=== PATIENT | female | born 1945 | race Caucasian/White ===

== ENCOUNTER 2017-06-15 11:12 | Inpatient (IN) | payer MEDICARE, BC ==
[2017-06-15] MEDS ORDERED: Ondansetron 4 MG/2 ML SDV IVPUSH ONE (11:39)
[2017-06-15] MEDS ORDERED: Sodium Chloride 0.9% 10 ML Syringe FLUSH PRN (11:39)
[2017-06-15] MEDS ORDERED: Sodium Chloride 0.9% 1,000 ML IV SCH (11:45)
--- NOTE | 2017-06-15 12:40 | CT ---
Head CT Technique: Multiple axial sections through the brain were obtained. Intravenous contrast not utilized. Comparison: Prior head CT study of 01/09/16. Findings: Soft tissue swelling and hematoma is seen posteriorly within the scalp. Ventricles along with basal cisterns and sulci over convexities are mildly prominent. 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 No evidence of intracranial hemorrhage is seen. No midline shift or mass effect is seen. Mild atherosclerotic change is seen within the carotid siphon. No acute skull abnormality is seen. Mild mucosal thickening is seen within the ethmoid sinuses which is felt to be chronic. Impression: 1. Soft tissue swelling and hematoma within the posterior scalp. 2. Senescent change which is stable from prior head CT exam. 3. No acute intracranial abnormality is seen. No acute skull abnormality is seen. Diagnostic code #3
[2017-06-15] MEDS ORDERED: HYDROmorphone 0.5 MG/0.5 ML SYRINGE IVPUSH ONE (12:42)
[2017-06-15] MEDS ORDERED: Acetaminophen 325 MG Tab PO ONE (12:42)
--- NOTE | 2017-06-15 14:04 | EDM.PDOC ---
ED HPI GENERAL MEDICAL PROBLEM - General Chief Complaint: Neurological Problem Stated Complaint: [facility] Time Seen by Provider: 06/15/17 11:23 Source of Information: Reports: Patient, RN Notes Reviewed - History of Present Illness INITIAL COMMENTS - FREE TEXT/NARRATIVE: 71-year-old female has been brought in by [facility] after near syncopal event short time ago. She states she was at work, became dizzy, lightheaded and and then nearly passed out or may have passed out briefly. She apparently was transported here by ambulance without further incident. Now here at the ED lying flat she feels much better. Been ill the past 4-5 days with nausea, "dry heaves", diarrhea him a poor appetite. She states she has been drinking water but has not been eating. No chest pain or difficulty breathing. Her mouth does feel very dry. It sounds like she did hit her head, minimal headache at this time. No chest pain or difficulty breathing at this time. She does not recall having chest discomfort at the time of her syncope. She does have history of what sounds like some heart issues. She does have a pacemaker. Left Occipital Head Pain Score (Numeric/FACES): 5 - Related Data Allergies Allergy/AdvReac Type Severity Reaction Status Date / Time cranberry Allergy Unknown UNKNOWN Verified 06/15/17 11:20 Home Meds: Home Meds Ascorbate Calcium [Vitamin C] 500 mg PO DAILY 01/09/16 [History] Carvedilol 25 mg PO BID 01/09/16 [History] Digoxin 125 mcg PO DAILY 01/09/16 [History] Diltiazem HCl [Diltiazem ER] 120 mg PO DAILY 01/09/16 [History] Levothyroxine [Synthroid] 50 mcg PO ACBREAKFAST 01/09/16 [History] Lisinopril 20 mg PO BID 01/09/16 [History] Rivaroxaban [Xarelto] 20 mg PO DAILY 01/09/16 [History] Simvastatin [Zocor] 40 mg PO DAILY 01/09/16 [History] metFORMIN HCl [Metformin HCl ER] 400 mg PO BID 01/09/16 [History] Social & Family History - Tobacco Use Smoking Status *Q: Former Smoker Used Tobacco, but Quit: Yes Month Tobacco Last Used: 30 years ago Second Hand Smoke Exposure: No - Caffeine Use Caffeine Use: Reports: Coffee - Recreational Drug Use Recreational Drug Use: No ED ROS GENERAL - Review of Systems Review Of Systems: See Below Constitutional: Denies: Fever, Chills HEENT: Denies: Sinus Problem, Throat Pain Respiratory: Denies: Shortness of Breath Cardiovascular: Denies: Chest Pain Endocrine: Reports: Fatigue GI/Abdominal: Reports: Abdominal Pain (Mild intermittent generalized discomfort) , Diarrhea (Dry heaves for 2 or 3 days mainly frequent loose stools), Nausea, Vomiting Musculoskeletal: Reports: Back Pain (Right upper back). Denies: Neck Pain Skin: Reports: No Symptoms Neurological: Reports: Dizziness, Headache, Weakness (Mild generalized). Denies : Numbness (Mild), Tingling, Trouble Speaking ED EXAM, NEURO - Physical Exam Exam: See Below General Appearance: Alert, No Apparent Distress Eye Exam: Bilateral Eye: PERRL Throat/Mouth: Normal Inspection (Oral mucosa is moist) Neck: Supple Respiratory/Chest: No Respiratory Distress, Lungs Clear, Normal Breath Sounds Cardiovascular: Regular Rate, Rhythm GI/Abdominal: Soft, Non-Tender. No: Guarding Neurological: Alert, No Motor/Sensory Deficits Back Exam: Paraspinal Tenderness (Right mid back lower area of scapula) Extremities: Normal Inspection, Normal Range of Motion. No: Pedal Edema, Leg Pain Skin Exam: Warm, Dry, Normal Color EKG INTERPRETATION EKG Date: 06/15/17 Rhythm: Other (Paced rhythm) Rate (Beats/Min): 77 Course - Vital Signs Last Recorded V/S: Last Vital Signs Temp 97.7 F 06/15/17 11:18 Pulse 75 06/15/17 11:18 Resp 18 06/15/17 11:18 BP 146/103 H 06/15/17 11:18 Pulse Ox 95 06/15/17 11:18 - Orders/Labs/Meds Orders: Active Orders 24 hr Category Date Time Status EKG 12 Lead [EKG Documentation Completion] [RC] STAT Care 06/15/17 11:39 Active Peripheral IV Care [RC] . DIRECTED Care 06/15/17 11:42 Active Sodium Chloride 0.9% [Normal Saline] 1,000 ml Med 06/15/17 11:45 Active IV ONETIME Sodium Chloride 0.9% [Saline Flush] Med 06/15/17 11:39 Active 10 ml FLUSH ASDIRECTED PRN Peripheral IV Insertion Adult [OM.PC] Stat Oth 06/15/17 11:39 Ordered Medication Orders Sodium Chloride (Normal Saline) 1,000 mls @ 999 mls/hr IV ONETIME ОЛЬГА Last Admin: 06/15/17 11:59 Dose: 999 mls/hr Sodium Chloride (Saline Flush) 10 ml FLUSH ASDIRECTED PRN PRN Reason: Keep Vein Open Last Admin: 06/15/17 11:59 Dose: 10 ml Labs: Laboratory Tests 06/15/17 06/15/17 Range/Units 12:00 12:00 WBC 6.16 (3.98-10.04) K/mm3 RBC 4.69 (3.98-5.22) M/mm3 Hgb 13.7 (11.2-15.7) gm/L Hct 38.3 (34.1-44.9) % MCV 81.7 (79.4-94.8) fl MCH 29.2 (25.6-32.2) pg MCHC 35.8 H (32.2-35.5) g/dl RDW Std Deviation 39.8 (36.4-46.3) fL Plt Count 283 (182-369) K/mm3 MPV 9.0 L (9.4-12.3) fl Neut % (Auto) 80.6 H (34.0-71.1) % Lymph % (Auto) 10.4 L (19.3-51.7) % Frontier % (Auto) 8.4 (4.7-12.5) % Eos % (Auto) 0.3 L (0.7-5.8) Baso % (Auto) 0.3 (0.1-1.2) % Neut # (Auto) 4.96 (1.56-6.13) K/mm3 Lymph # (Auto) 0.64 L (1.18-3.74) K/mm3 Frontier # (Auto) 0.52 H (0.24-0.36) K/mm3 Eos # (Auto) 0.02 L (0.04-0.36) K/mm3 Baso # (Auto) 0.02 (0.01-0.08) K/mm3 Sodium 120 L (136-145) mEq/L Potassium 3.7 (3.5-5.1) mEq/L Chloride 87 L (98-107) mEq/L Carbon Dioxide 22 (21-32) mEq/L Anion Gap 14.7 (5-15) BUN 15 (7-18) mg/dL Creatinine 0.9 (0.55-1.02) mg/dL Est Cr Clr Drug Dosing 46.00 mL/min Estimated GFR (MDRD) > 60 (>60) mL/min BUN/Creatinine Ratio 16.7 (14-18) Glucose 152 H (80-115) mg/dL Calcium 8.1 L (8.5-10.1) mg/dL Total Bilirubin 0.4 (0.2-1.0) mg/dL AST 44 H (15-37) U/L ALT 27 (14-59) U/L Alkaline Phosphatase 86 (46-116) U/L Troponin I 0.056 (0.00-0.056) ng/mL Total Protein 6.9 (6.4-8.2) g/dl Albumin 3.3 L (3.4-5.0) g/dl Globulin 3.6 gm/dL Albumin/Globulin Ratio 0.9 L (1-2) Meds: Medications Generic Name Dose Route Start Last Admin Trade Name Freq PRN Reason Stop Dose Admin Sodium Chloride 1,000 mls @ 999 mls/hr 06/15/17 11:45 06/15/17 11:59 Normal Saline IV 999 mls/hr ONETIME ОЛЬГА Administration Sodium Chloride 10 ml 06/15/17 11:39 06/15/17 11:59 Saline Flush FLUSH 10 ml ASDIRECTED PRN Administration Keep Vein Open Discontinued Medications Generic Name Dose Route Start Last Admin Trade Name Freq PRN Reason Stop Dose Admin Acetaminophen 975 mg 06/15/17 12:42 06/15/17 12:51 Tylenol PO 06/15/17 12:43 975 mg NOW ONE Administration Hydromorphone HCl 0.25 mg 06/15/17 12:42 06/15/17 12:53 Dilaudid IVPUSH 06/15/17 12:43 0.25 mg ONETIME ONE Administration Ondansetron HCl 4 mg 06/15/17 11:39 06/15/17 11:59 Zofran IVPUSH 06/15/17 11:40 4 mg ONETIME ONE Administration - Re-Assessments/Exams Free Text/Narrative Re-Assessment/Exam: 06/15/17 15:01 Labs are as documented. They do show that she is somewhat dehydrated. Sodium very low at 120. Given 1 L of normal saline IV over the past hour. Her mouth is still dry. She still does not feel any urgency to void. With all of that in mind we will admit her to the hospital for further hydration, further saline to better help stabilize her sodium and medical condition prior to discharge. Departure - Departure Time of Disposition: 14:40 Disposition: Admitted As Inpatient 67 Condition: Fair Clinical Impression: Dehydration, Hyponatremia Syncope Qualifiers: Syncope type: unspecified Qualified Code(s): R55 - Syncope and collapse Fall Qualifiers: Encounter type: initial encounter Qualified Code(s): W19.XXXA - Unspecified fall, initial encounter - Discharge Information ED Communication - Discussed Case With (1) Discussed Case With (1): Admitting Provider (Dr Schulz, decision to admit at about 14:40) - My Orders Last 24 Hours: My Active Orders 06/15/17 11:39 EKG 12 Lead [EKG Documentation Completion] [RC] STAT Sodium Chloride 0.9% [Saline Flush] 10 ml FLUSH ASDIRECTED PRN Peripheral IV Insertion Adult [OM.PC] Stat 06/15/17 11:42 Peripheral IV Care [RC] . DIRECTED 06/15/17 11:45 Sodium Chloride 0.9% [Normal Saline] 1,000 ml IV ONETIME - Assessment/Plan Last 24 Hours: My Active Orders 06/15/17 11:39 EKG 12 Lead [EKG Documentation Completion] [RC] STAT Sodium Chloride 0.9% [Saline Flush] 10 ml FLUSH ASDIRECTED PRN Peripheral IV Insertion Adult [OM.PC] Stat 06/15/17 11:42 Peripheral IV Care [RC] . DIRECTED 06/15/17 11:45 Sodium Chloride 0.9% [Normal Saline] 1,000 ml IV ONETIME
--- NOTE | 2017-06-15 15:46 | CR ---
Chest: Portable view of the chest was obtained. Comparison: Prior chest x-ray of 03/15/12. Heart is enlarged. Tortuous thoracic aorta is seen. AICD is noted. Lungs are clear with no acute infiltrates. Bony structures are grossly intact. Impression: 1. Cardiomegaly with AICD. 2. Nothing acute is appreciated on portable chest x-ray. Diagnostic code #2
[2017-06-15] MEDS ORDERED: Polyethylene Glycol 3350 Powder 17 GM Packet PO PRN (18:47)
[2017-06-15] MEDS ORDERED: Acetaminophen 325 MG Tab PO PRN (18:47)
[2017-06-15] MEDS ORDERED: Ondansetron 4 MG/2 ML SDV IV PRN (18:47)
[2017-06-15] MEDS ORDERED: Morphine 2 MG/ML Syringe IVPUSH PRN (18:47)
[2017-06-15] MEDS ORDERED: Bisacodyl 5 MG Tab PO PRN (18:47)
[2017-06-15] MEDS ORDERED: Ondansetron 4 MG Tab.DIS PO PRN (18:47)
[2017-06-15] MEDS ORDERED: Albuterol/Ipratropium 3.0-0.5 MG/3 ML Neb Soln NEB PRN (18:47)
[2017-06-15] MEDS ORDERED: Docusate Sodium 100 MG Cap PO PRN (18:47)
[2017-06-15] MEDS ORDERED: Metoprolol Tartrate 5 MG/5 ML SDV IVPUSH PRN (19:01)
[2017-06-15] MEDS ORDERED: LORazepam 2 MG/ML MDV IVPUSH PRN (19:01)
[2017-06-15] MEDS ORDERED: hydrALAZINE 20 MG/ML SDV IVPUSH PRN (19:01)
--- NOTE | 2017-06-15 19:05 | PCM.HP ---
H&P History of Present Illness - General Date of Service: 06/15/17 Admit Problem/Dx: Admission Diagnosis/Problem Admission Diagnosis/Problem Hyponatremia Source of Information: Patient, Family, Provider, RN, RN Notes Reviewed History Limitations: Reports: No Limitations - History of Present Illness Initial Comments - Free Text/Narative: Milka Trujillo is a 71 yo female who presented to our ED today (06/15/17) dear [facility] after a near syncopal event while at work. His reported she became dizzy, lightheaded and nearly passed out or may have passed out briefly. EMS brought her to the ER and there were no syncopal episodes in route. She reports in the ER when she is lying flat she feels much better. She reportedly been ill for the past 4-5 days with nausea, "dry heaves", diarrhea, and poor appetite. She has had poor oral intake has been trying to drink water. Denies chest pain or shortness of breath. Reports her mouth is dry. During her episode she did hit her head and does have a bruise in the occipital region near the midline. Reports a minimal headache. She has had a history of heart issues and does have a pacemaker in place. In the ED temp was 97.7. Pulse 75. Respirations 18. Blood pressure 146/103. Pulse ox 95%. EKG is obtained and shows a paced rhythm at a rate of 77 bpm. Labs are obtained: The CBC is 6.16. Hemoglobin 13.7. Hematocrit 30.3. She is normocytic. Pulses are good at 283,000. Neutrophils are elevated at 80.6. Sodium was low at 120. Potassium good at 3.7. Chloride 8.7. Carbon dioxide 22. Anion gap 14.7. BUN is 15. Creatinine 0.9. EGFR greater than 60. Glucose is high at 152. Calcium is low at 8.1. Total bilirubin 0.4. Liver enzymes: AST is 44, ALT 27, alkaline phosphatase 86. Troponin is negative at 0.0.6. Albumin is low at 3.3. She is given a 1 L bolus of saline. She also given Tylenol Dilaudid and Zofran. Portal chest x-ray is obtained and interpreted by Dr. Martel as "1. Cardiomegaly with AICD. 2. Nothing acute is appreciated and portal chest x-ray." Head CT is obtained and interpreted by Dr. Martel as "1. Soft tissue swelling and hematoma within the posterior scalp. 2. Senescent change which is stable from prior head CT exam. 3. No acute intracranial abnormality is seen. No acute skull abnormality is seen." She carries a history of hypertension, pacemaker, hypothyroidism, and type II DM. She is a former smoker. She subsequently admitted to the medical floor. A full code. Her PCP is Ammy Kwon [facility] in [place]. Left Occipital Head Pain Score (Numeric/FACES): 5 - Related Data Allergies/Adverse Reactions: Allergies Allergy/AdvReac Type Severity Reaction Status Date / Time No Known Allergies Allergy Verified 06/15/17 17:46 Home Medications: Home Meds Ascorbate Calcium [Vitamin C] 500 mg PO DAILY 01/09/16 [History] Carvedilol 25 mg PO BID 01/09/16 [History] Digoxin 125 mcg PO DAILY 01/09/16 [History] Diltiazem HCl [Diltiazem ER] 120 mg PO DAILY 01/09/16 [History] Levothyroxine [Synthroid] 50 mcg PO ACBREAKFAST 01/09/16 [History] Lisinopril 20 mg PO BID 01/09/16 [History] Rivaroxaban [Xarelto] 20 mg PO DAILY 01/09/16 [History] Simvastatin [Zocor] 40 mg PO DAILY 01/09/16 [History] metFORMIN HCl [Metformin HCl ER] 400 mg PO BID 01/09/16 [History] Past Medical History HEENT History: Reports: Cataract, Impaired Vision, Other (See Below) Other HEENT History: wears glasses Cardiovascular History: Reports: Hypertension, Pacemaker Gastrointestinal History: Reports: Hemorrhoids, Other (See Below) Other Gastrointestinal History: permanent hemorrhoids Genitourinary History: Reports: Urinary Incontinence 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 Social & Family History - Family History Family Medical History: Noncontributory - Tobacco Use Smoking Status *Q: Former Smoker Used Tobacco, but Quit: Yes Month Tobacco Last Used: 40+ years ago Second Hand Smoke Exposure: No - Caffeine Use Caffeine Use: Reports: Coffee - Recreational Drug Use Recreational Drug Use: No H&P Review of Systems - Review of Systems: Review Of Systems: See Below General: Reports: No Symptoms. Denies: Fever, Chills, Malaise, Weakness HEENT: Reports: No Symptoms. Denies: Ear Pain, Eye Pain, Headaches, Post Nasal Drip, Sore Throat, Vertigo, Visual Changes Pulmonary: Reports: No Symptoms. Denies: Shortness of Breath, Wheezing, Cough, Sputum Cardiovascular: Reports: No Symptoms. Denies: Chest Pain, Palpitations, Dyspnea on Exertion, Edema, Lightheadedness Gastrointestinal: Reports: Abdominal Pain (occasional ), Diarrhea, Nausea, Vomiting. Denies: Constipation Genitourinary: Reports: No Symptoms. Denies: Dysuria, Frequency, Burning, Pain , Urgency Musculoskeletal: Reports: Back Pain (right upper back from fall ), Other (head pain on posterior aspect of head ) Skin: Reports: No Symptoms Psychiatric: Reports: No Symptoms Neurological: Reports: No Symptoms Hematologic/Lymphatic: Reports: No Symptoms Immunologic: Reports: No Symptoms Exam - Exam Exam: See Below - Vital Signs Vital Signs: Last Vital Signs Temp 97.7 F 06/15/17 11:18 Pulse 75 06/15/17 11:18 Resp 18 06/15/17 11:18 BP 146/103 H 06/15/17 11:18 Pulse Ox 95 06/15/17 11:18 Weight: 157 lb 6.4 oz - Exam Quality Assessment: DVT Prophylaxis General: Alert, Oriented, Cooperative. No: Mild Distress HEENT: Conjunctiva Clear, EACs Clear, EOMI, Hearing Intact, Mucosa Moist & [place] , Nares Patent, Normal Nasal Septum, Posterior Pharynx Clear, TMs Clear, Other ( hematoma noted on posterior aspect of head. ), PERRLA Neck: Supple, Trachea Midline. No: JVD, Thyromegaly Lungs: Clear to Auscultation, Normal Respiratory Effort Cardiovascular: Regular Rate, Regular Rhythm GI/Abdominal Exam: Normal Bowel Sounds, Soft, Non-Tender, No Organomegaly, No Distention, No Abnormal Bruit, No Mass, Pelvis Stable (Female) Exam: Deferred Rectal (Female) Exam: Deferred Back Exam: Normal Inspection, Full Range of Motion, Paraspinal Tenderness (mid- back on right side ) Peripheral Pulses: 3+: Radial (L), Radial (R), Posterior Tibial (L), Posterior Tibial (R), Dorsalis Pedis (L), Dorsalis Pedis (R) Skin: Warm, Dry, Intact Neurological: Cranial Nerves Intact (grossly ) Neuro Extensive - Mental Status: Alert, Oriented x3, Normal Mood/Affect, Normal Cognition, Memory Intact Psychiatric: Alert, Normal Affect, Normal Mood - Patient Data Result Diagrams: 06/15/17 12:00 06/15/17 12:00 *Q Meaningful Use (ADM) - VTE *Q VTE Criteria *Q: - Stroke *Q Stroke Criteria *Q: - AMI *Q AMI Criteria *Q: - Problem List (1) Hyponatremia SNOMED Code(s): 51897494 ICD Code: E87.1 - HYPO-OSMOLALITY AND HYPONATREMIA Status: Acute Priority : High Current Visit: Yes (2) Dehydration SNOMED Code(s): 23875975 ICD Code: E86.0 - DEHYDRATION Status: Acute Priority: High Current Visit: Yes (3) Syncope SNOMED Code(s): 576650200 ICD Code: R55 - SYNCOPE AND COLLAPSE Status: Acute Priority: High Current Visit: Yes Qualifiers: Syncope type: unspecified Qualified Code(s): R55 - Syncope and collapse (4) Fall SNOMED Code(s): 7293404 ICD Code: W19.XXXA - UNSPECIFIED FALL, INITIAL ENCOUNTER Status: Acute Priority: High Current Visit: Yes Qualifiers: Encounter type: initial encounter Qualified Code(s): W19.XXXA - Unspecified fall, initial encounter (5) Presence of cardiac pacemaker SNOMED Code(s): 388111492 ICD Code: Z95.0 - PRESENCE OF CARDIAC PACEMAKER Status: Chronic Priority : Low Current Visit: No (6) Type II diabetes mellitus SNOMED Code(s): 54349355 ICD Code: E11.9 - TYPE 2 DIABETES MELLITUS WITHOUT COMPLICATIONS Status: Chronic Priority: Low Current Visit: Yes Qualifiers: Diabetes mellitus complication status: without complication Diabetes mellitus retirement insulin use: without extermination inspector use Qualified Code(s): E11.9 - Type 2 diabetes mellitus without complications (7) Hypothyroidism SNOMED Code(s): 95990423 ICD Code: E03.9 - HYPOTHYROIDISM, UNSPECIFIED Status: Chronic Priority: Low Current Visit: No Qualifiers: Hypothyroidism type: unspecified Qualified Code(s): E03.9 - Hypothyroidism , unspecified (8) Hypertension SNOMED Code(s): 05201581 ICD Code: I10 - ESSENTIAL (PRIMARY) HYPERTENSION Status: Chronic Priority : Low Current Visit: No Qualifiers: Hypertension type: unspecified Qualified Code(s): I10 - Essential (primary ) hypertension Problem List Initiated/Reviewed/Updated: Yes Orders Last 24hrs: Active Orders 24 hr Category Date Time Status Admission Status [Patient Status] [ADT] Routine ADT 06/15/17 17:32 Active Ambulate [RC] PER UNIT ROUTINE Care 06/15/17 18:47 Ordered Antiembolic Devices [RC] PER UNIT ROUTINE Care 06/15/17 18:48 Ordered Cardiac Monitoring [RC] CONTINUOUS Care 06/15/17 18:47 Ordered Height and Weight [RC] DAILY Care 06/15/17 18:47 Ordered Intake and Output [RC] QSHIFT Care 06/15/17 18:47 Ordered Oxygen Therapy [RC] PRN Care 06/15/17 18:47 Ordered Pulse Oximetry [RC] PRN Care 06/15/17 18:47 Ordered RT Aerosol Therapy [RC] ASDIRECTED Care 06/15/17 18:49 Ordered Up With Assistance [RC] ASDIRECTED Care 06/15/17 18:47 Ordered VTE/DVT Education [RC] PER UNIT ROUTINE Care 06/15/17 18:47 Ordered Vital Signs [RC] Q4H Care 06/15/17 18:47 Ordered Consult to Case Management [CONS] Routine Cons 06/15/17 18:47 Ordered OT Evaluation and Treatment [CONS] Routine Cons 06/15/17 18:47 Ordered PT Evaluation and Treatment [CONS] Routine Cons 06/15/17 18:47 Ordered ADA Diabetic [[place] [employer] Diet] [DIET Diet 06/16/17 Breakfast Active ] BASIC METABOLIC PANEL,BMP [CHEM] AM Lab 06/16/17 05:11 Ordered BASIC METABOLIC PANEL,BMP [CHEM] AM Lab 06/17/17 05:11 Ordered BASIC METABOLIC PANEL,BMP [CHEM] AM Lab 06/18/17 05:11 Ordered BASIC METABOLIC PANEL,BMP [CHEM] AM Lab 06/19/17 05:11 Ordered C DIFFICILE BY PCR W/NAP1 [MOLEC] Routine Lab 06/15/17 19:03 Ordered CBC WITH AUTO DIFF [HEME] AM Lab 06/16/17 05:11 Ordered CBC WITH AUTO DIFF [HEME] AM Lab 06/17/17 05:11 Ordered CBC WITH AUTO DIFF [HEME] AM Lab 06/18/17 05:11 Ordered CBC WITH AUTO DIFF [HEME] AM Lab 06/19/17 05:11 Ordered CULTURE STOOL + SHIGATOX [RM] Routine Lab 06/15/17 19:03 Ordered INFLUENZA A+B AG SCREEN [RM] Routine Lab 06/15/17 18:51 Ordered MAGNESIUM [CHEM] AM Lab 06/16/17 05:11 Ordered MAGNESIUM [CHEM] AM Lab 06/17/17 05:11 Ordered MAGNESIUM [CHEM] AM Lab 06/18/17 05:11 Ordered MAGNESIUM [CHEM] AM Lab 06/19/17 05:11 Ordered WBC, STOOL [OP] Routine Lab 06/15/17 19:03 Ordered Acetaminophen [Tylenol] Med 06/15/17 18:47 Ordered 650 mg PO Q4H PRN Acetaminophen/HYDROcodone [[place] 325-5 MG] Med 06/15/17 18:47 Ordered 1 tab PO Q4H PRN Albuterol/Ipratropium [DuoNeb 3.0-0.5 MG/3 ML] Med 06/15/17 18:47 Ordered 3 ml NEB Q4H PRN Bisacodyl [Dulcolax] Med 06/15/17 18:47 Ordered 5 mg PO DAILY PRN Docusate Sodium [Colace] Med 06/15/17 18:47 Ordered 100 mg PO BID PRN Docusate Sodium/Sennosides [Senna Plus] Med 06/15/17 18:47 Ordered 1 tab PO BID PRN LORazepam [Ativan] Med 06/15/17 19:01 Ordered 2 mg IVPUSH Q4H PRN Magnesium Rep Pharmacy to Dose [Pharmacy to Dose - Med 06/15/17 19:15 Ordered Magnesium Replacement] 1 dose .XX ASDIRECTED Metoprolol Tartrate [Lopressor] Med 06/15/17 19:01 Ordered 5 mg IVPUSH Q4H PRN Morphine Med 06/15/17 18:47 Ordered 0.5 mg IVPUSH Q2H PRN Ondansetron [Zofran ODT] Med 06/15/17 18:47 Ordered 4 mg PO Q6H PRN Ondansetron [Zofran] Med 06/15/17 18:47 Ordered 4 mg IV Q6H PRN Polyethylene Glycol 3350 [MiraLAX] Med 06/15/17 18:47 Ordered 17 gm PO DAILY PRN Potassium Chloride/NaCl [Thermotabs] Med 06/15/17 21:00 Ordered 1 each PO BID Potassium Rep Pharmacy to Dose [Pharmacy to Dose - Med 06/15/17 19:15 Ordered Potassium Replacement] 1 dose .XX ASDIRECTED Sodium Chloride 0.9% @ 100 MLS/HR(1000ml Bag) Med 06/15/17 19:00 Ordered Sodium Chloride 0.9% [Normal Saline] 1,000 ml IV ASDIRECTED hydrALAZINE [Apresoline] Med 06/15/17 19:01 Ordered 10 mg IVPUSH Q6H PRN Antiembolic Hose [OM.PC] Per Unit Routine Oth 06/15/17 18:48 Ordered Resuscitation Status Routine Resus Stat 06/15/17 17:44 Ordered Medication Orders Acetaminophen (Tylenol) 650 mg PO Q4H PRN PRN Reason: Pain (Mild 1-3)/fever Hydrocodone Bitart/Acetaminophen ([place] 325-5 Mg) 1 tab PO Q4H PRN PRN Reason: Pain (moderate 4-6) Albuterol/Ipratropium (Duoneb 3.0-0.5 Mg/3 Ml) 3 ml NEB Q4H PRN PRN Reason: Shortness Of Breath/wheezing Bisacodyl (Dulcolax) 5 mg PO DAILY PRN PRN Reason: Constipation Docusate Sodium (Colace) 100 mg PO BID PRN PRN Reason: Constipation Hydralazine HCl (Apresoline) 10 mg IVPUSH Q6H PRN PRN Reason: Hypertension Sodium Chloride (Normal Saline) 1,000 mls @ 999 mls/hr IV ONETIME ОЛЬГА Last Admin: 06/15/17 11:59 Dose: 999 mls/hr Sodium Chloride (Normal Saline) 1,000 mls @ 100 mls/hr IV ASDIRECTED ОЛЬГА Stop: 06/17/17 04:59 Lorazepam (Ativan) 2 mg IVPUSH Q4H PRN PRN Reason: Seizures Magnesium Sulfate (Pharmacy To Dose - Magnesium Replacement) 1 dose .XX ASDIRECTED [facility] Metoprolol Tartrate (Lopressor) 5 mg IVPUSH Q4H PRN PRN Reason: Tachycardia Morphine Sulfate (Morphine) 0.5 mg IVPUSH Q2H PRN PRN Reason: Pain (severe 7-10) Stop: 06/16/17 18:48 Ondansetron HCl (Zofran Odt) 4 mg PO Q6H PRN PRN Reason: nausea, able to take PO Ondansetron HCl (Zofran) 4 mg IV Q6H PRN PRN Reason: Nausea/Vomiting Oral Electrolytes (Thermotabs) 1 each PO BID ОЛЬГА Stop: 06/16/17 21:00 Polyethylene Glycol (Miralax) 17 gm PO DAILY PRN PRN Reason: Constipation Potassium Chloride (Pharmacy To Dose - Potassium Replacement) 1 dose .XX ASDIRECTED [facility] Senna/Docusate Sodium (Senna Plus) 1 tab PO BID PRN PRN Reason: Constipation Sodium Chloride (Saline Flush) 10 ml FLUSH ASDIRECTED PRN PRN Reason: Keep Vein Open Last Admin: 06/15/17 11:59 Dose: 10 ml Assessment/Plan Comment:: I/P: Acute Hyponatremia -Sodium 120 in ED -Likely 2/2 poor oral intake due to sickness -Denies any current headache, nausea, vomiting, muscle spasms, seizures -Likely contributed to fall -Thermotabs BID while monitoring labs -IV fluids; with caution due to cardiac history -Telemetry S/p fall -Fell while at work during syncopal episode -Bruising to back of head and back pain -Head CT shows nothing acute -Monitor Diarrhea -Reports diarrhea for past 4-5 days -Denies any hx/o recent antibiotics -No leukocytosis -Stool studies ordered Chronic: HTN - home and PRN meds Pacemaker present HLD Hypothyroid Type II DM - Home meds; glucose checks QID AC and Bedtime, Sliding scale if needed Plan: Admit to medical floor on telemetry CM for discharge planning PT/OT Slowly supplement sodium Other orders as indicated above Home meds as ordered Routine AM labs DVT prophylaxis: JAD hose and home Xarelto Code status: Full Code; PCP: Ammy Kwon NP in [place].
[2017-06-15] MEDS ORDERED: 50% Dextrose in Water 50 ML Syringe IVPUSH PRN (19:50)
[2017-06-15] MEDS: Sodium Chloride 0.9% 1,000 ML IV SCH (20:39)
[2017-06-15] MEDS: Carvedilol 12.5 MG Tab PO SCH (20:40)
[2017-06-15] MEDS: Potassium Chloride/Sodium Chloride Tab PO SCH (20:41)
[2017-06-15] MEDS ORDERED: METFORMIN PO SCH (21:00)
[2017-06-15] MEDS: Insulin Aspart 100 Units/ML 3 ML Pen SUBCUT SCH (22:33)
[2017-06-15] MEDS: Acetaminophen/HYDROcodone 325-5 MG Tab PO PRN (23:34)
[2017-06-16] MEDS: Acetaminophen/HYDROcodone 325-5 MG Tab PO PRN ×2 (04:38→21:11)
[2017-06-16] MEDS: metFORMIN 500 MG Tab PO SCH ×2 (06:09→16:48)
[2017-06-16] MEDS: Levothyroxine 50 MCG Tab PO SCH (06:10)
[2017-06-16] MEDS: Rivaroxaban 10 MG Tab PO SCH (06:10)
[2017-06-16] MEDS: Sodium Chloride 0.9% 1,000 ML IV SCH (06:12)
[2017-06-16] MEDS: Insulin Aspart 100 Units/ML 3 ML Pen SUBCUT SCH ×4 (06:50→22:00)
[2017-06-16] MEDS ORDERED: Magnesium Sulfate/Water 2 GM in Premix Bag 1 BAG IV ONE (09:00)
--- NOTE | 2017-06-16 09:53 | PCM.PN ---
- General Info Date of Service: 06/16/17 Admission Dx/Problem (Free Text): Admission Diagnosis/Problem Admission Diagnosis/Problem Hyponatremia Subjective Update: In to see Milka. She is doing very well. Still having some mild soft stools which she reports are "pudding consistency." She reports stools were more water- like last Tuesday and have slowly firmed up. C. Diff and linda WBCs are negative. Cultures still pending. Her sodium is up to 130 today. She still is receiving IV fluids. She reports a much better appetite since being hospitalized. She will likely be discharged tomorrow pending labs. Functional Status: Reports: Pain Controlled, Tolerating Diet, Ambulating, Urinating. Denies: New Symptoms - Review of Systems General: Reports: Weakness (improved to resolved ), Appetite. Denies: Fever, Fatigue, Malaise HEENT: Reports: No Symptoms Pulmonary: Reports: Cough (improving ). Denies: Shortness of Breath, Sputum, Wheezing Cardiovascular: Reports: No Symptoms Gastrointestinal: Reports: Diarrhea (improving ). Denies: Abdominal Pain, Constipation, Nausea, Vomiting Genitourinary: Reports: No Symptoms Musculoskeletal: Reports: Back Pain (since fall ), Other (head pain s/p fall ) Skin: Reports: No Symptoms Neurological: Reports: No Symptoms Psychiatric: Reports: No Symptoms - Patient Data Vitals - Most Recent: Last Vital Signs Temp 98.4 F 06/16/17 08:05 Pulse 75 06/16/17 08:05 Resp 16 06/16/17 08:05 BP 124/79 06/16/17 08:05 Pulse Ox 94 L 06/16/17 08:05 Weight - Most Recent: 158 lb 3.2 oz I&O - Last 24 Hours: Intake & Output 06/15/17 06/16/17 06/16/17 22:59 06:59 14:59 Intake Total 300 829 Balance 300 829 Lab Results Last 24 Hours: Laboratory Results - last 24 hr 06/15/17 06/15/17 06/16/17 Range/Units 21:36 23:44 06:05 WBC 3.99 (3.98-10.04) K/mm3 RBC 4.19 (3.98-5.22) M/mm3 Hgb 12.2 (11.2-15.7) gm/L Hct 35.0 (34.1-44.9) % MCV 83.5 (79.4-94.8) fl MCH 29.1 (25.6-32.2) pg MCHC 34.9 (32.2-35.5) g/dl RDW Std Deviation 41.6 (36.4-46.3) fL Plt Count 246 (182-369) K/mm3 MPV 9.2 L (9.4-12.3) fl Neut % (Auto) 55.8 (34.0-71.1) % Lymph % (Auto) 28.6 (19.3-51.7) % [place] % (Auto) 14.3 H (4.7-12.5) % Eos % (Auto) 1.0 (0.7-5.8) Baso % (Auto) 0.3 (0.1-1.2) % Neut # (Auto) 2.23 (1.56-6.13) K/mm3 Lymph # (Auto) 1.14 L (1.18-3.74) K/mm3 [place] # (Auto) 0.57 H (0.24-0.36) K/mm3 Eos # (Auto) 0.04 (0.04-0.36) K/mm3 Baso # (Auto) 0.01 (0.01-0.08) K/mm3 Sodium (136-145) mEq/L Potassium (3.5-5.1) mEq/L Chloride (98-107) mEq/L Carbon Dioxide (21-32) mEq/L Anion Gap (5-15) BUN (7-18) mg/dL Creatinine (0.55-1.02) mg/dL Est Cr Clr Drug Dosing mL/min Estimated GFR (MDRD) (>60) mL/min BUN/Creatinine Ratio (14-18) Glucose (80-115) mg/dL POC Glucose 139 H (80-115) mg/dL Calcium (8.5-10.1) mg/dL Magnesium (1.8-2.4) mg/dl TSH 3rd Generation (0.358-3.74) uIU/mL C.difficile [id number] Presumptive negative C. difficile Tox (PCR) Negative 06/16/17 06/16/17 Range/Units 06:05 06:39 WBC (3.98-10.04) K/mm3 RBC (3.98-5.22) M/mm3 Hgb (11.2-15.7) gm/L Hct (34.1-44.9) % MCV (79.4-94.8) fl MCH (25.6-32.2) pg MCHC (32.2-35.5) g/dl RDW Std Deviation (36.4-46.3) fL Plt Count (182-369) K/mm3 MPV (9.4-12.3) fl Neut % (Auto) (34.0-71.1) % Lymph % (Auto) (19.3-51.7) % Prairie % (Auto) (4.7-12.5) % Eos % (Auto) (0.7-5.8) Baso % (Auto) (0.1-1.2) % Neut # (Auto) (1.56-6.13) K/mm3 Lymph # (Auto) (1.18-3.74) K/mm3 [place] # (Auto) (0.24-0.36) K/mm3 Eos # (Auto) (0.04-0.36) K/mm3 Baso # (Auto) (0.01-0.08) K/mm3 Sodium 130 L (136-145) mEq/L Potassium 3.6 (3.5-5.1) mEq/L Chloride 98 (98-107) mEq/L Carbon Dioxide 21 (21-32) mEq/L Anion Gap 14.6 (5-15) BUN 13 (7-18) mg/dL Creatinine 0.7 (0.55-1.02) mg/dL Est Cr Clr Drug Dosing 59.15 mL/min Estimated GFR (MDRD) > 60 (>60) mL/min BUN/Creatinine Ratio 18.6 H (14-18) Glucose 109 (80-115) mg/dL POC Glucose 106 (80-115) mg/dL Calcium 8.1 L (8.5-10.1) mg/dL Magnesium 1.4 L (1.8-2.4) mg/dl TSH 3rd Generation 0.394 (0.358-3.74) uIU/mL C.difficile [id number] C. difficile Tox (PCR) Alfie Results Last 24 Hours: Microbiology 06/15/17 23:44 Stool for WBCs - Final Stool / Feces 06/15/17 21:05 Influenza Type A Antigen Screen - Final Nasal, Unspecified NEGATIVE INFLUENZA A VIRUS AG Influenza Type B Antigen Screen - Final NEGATIVE INFLUENZA B VIRUS AG Med Orders - Current: Current Medications Acetaminophen (Tylenol) 650 mg PO Q4H PRN PRN Reason: Pain (Mild 1-3)/fever Hydrocodone Bitart/Acetaminophen (Icard 325-5 Mg) 1 tab PO Q4H PRN PRN Reason: Pain (moderate 4-6) Last Admin: 06/16/17 04:38 Dose: 1 tab Albuterol/Ipratropium (Duoneb 3.0-0.5 Mg/3 Ml) 3 ml NEB Q4H PRN PRN Reason: Shortness Of Breath/wheezing Bisacodyl (Dulcolax) 5 mg PO DAILY PRN PRN Reason: Constipation Carvedilol (Coreg) 25 mg PO BID [facility] Last Admin: 06/15/17 20:40 Dose: 25 mg Dextrose/Water (Dextrose 50% In Water) 50 ml IVPUSH ASDIRECTED PRN PRN Reason: Hypoglycemia Digoxin (Lanoxin) 125 mcg PO DAILY@1200 [place] Diltiazem HCl (Cardizem Cd) 120 mg PO DAILY [facility] Docusate Sodium (Colace) 100 mg PO BID PRN PRN Reason: Constipation Hydralazine HCl (Apresoline) 10 mg IVPUSH Q6H PRN PRN Reason: Hypertension Sodium Chloride (Normal Saline) 1,000 mls @ 100 mls/hr IV ASDIRECTED [facility] Stop: 06/17/17 04:59 Last Admin: 06/16/17 06:12 Dose: 100 mls/hr Magnesium Sulfate 2 gm/ Premix 50 mls @ 25 mls/hr IV ONETIME ONE Stop: 06/16/17 10:59 Insulin Aspart (Novolog) 0 unit SUBCUT QIDACANDBED [facility] PRN Reason: Protocol Last Admin: 06/16/17 06:50 Dose: Not Given Levothyroxine Sodium (Synthroid) 50 mcg PO ACBREAKFAST [facility] Last Admin: 06/16/17 06:10 Dose: 50 mcg Lorazepam (Ativan) 2 mg IVPUSH Q4H PRN PRN Reason: Seizures Magnesium Sulfate (Pharmacy To Dose - Magnesium Replacement) 1 dose .XX ASDIRECTED [facility] Metformin HCl (Glucophage) 1,000 mg PO BIDMEALS [facility] Last Admin: 06/16/17 06:09 Dose: 1,000 mg Metoprolol Tartrate (Lopressor) 5 mg IVPUSH Q4H PRN PRN Reason: Tachycardia Morphine Sulfate (Morphine) 0.5 mg IVPUSH Q2H PRN PRN Reason: Pain (severe 7-10) Stop: 06/16/17 18:48 Ondansetron HCl (Zofran Odt) 4 mg PO Q6H PRN PRN Reason: nausea, able to take PO Ondansetron HCl (Zofran) 4 mg IV Q6H PRN PRN Reason: Nausea/Vomiting Polyethylene Glycol (Miralax) 17 gm PO DAILY PRN PRN Reason: Constipation Potassium Chloride (Pharmacy To Dose - Potassium Replacement) 1 dose .XX ASDIRECTED [facility] Rivaroxaban (Xarelto) 20 mg PO WITHBREAKFAST [facility] Last Admin: 06/16/17 06:10 Dose: 20 mg Senna/Docusate Sodium (Senna Plus) 1 tab PO BID PRN PRN Reason: Constipation Discontinued Medications Acetaminophen (Tylenol) 975 mg PO NOW ONE Stop: 06/15/17 12:43 Last Admin: 06/15/17 12:51 Dose: 975 mg Hydromorphone HCl (Dilaudid) 0.25 mg IVPUSH ONETIME ONE Stop: 06/15/17 12:43 Last Admin: 06/15/17 12:53 Dose: 0.25 mg Sodium Chloride (Normal Saline) 1,000 mls @ 999 mls/hr IV ONETIME [facility] Last Admin: 06/15/17 11:59 Dose: 999 mls/hr Ondansetron HCl (Zofran) 4 mg IVPUSH ONETIME ONE Stop: 06/15/17 11:40 Last Admin: 06/15/17 11:59 Dose: 4 mg Oral Electrolytes (Thermotabs) 1 each PO BID [facility] Stop: 06/16/17 21:00 Last Admin: 06/15/17 20:41 Dose: 1 each Sodium Chloride (Saline Flush) 10 ml FLUSH ASDIRECTED PRN PRN Reason: Keep Vein Open Last Admin: 06/15/17 11:59 Dose: 10 ml - Exam Quality Assessment: DVT Prophylaxis General: Alert, Oriented, Cooperative, No Acute Distress HEENT: Pupils Equal, Pupils Reactive, EOMI, Mucous Membr. Moist/Preakness, Other ( hematoma to back of head ) Neck: Supple, Trachea Midline, No JVD Lungs: Clear to Auscultation, Normal Respiratory Effort Cardiovascular: Regular Rate, Regular Rhythm GI/Abdominal Exam: Normal Bowel Sounds, Soft, Non-Tender, No Organomegaly, No Distention, No Abnormal Bruit, No Mass, Pelvis Stable (Female) Exam: Deferred Back Exam: Normal Inspection, Full Range of Motion, Paraspinal Tenderness Extremities: Normal Inspection, Normal Range of Motion, Non-Tender, No Pedal Edema, Normal Capillary Refill Peripheral Pulses: 2+: Posterior Tibial (L), Posterior Tibial (R), Dorsalis Pedis (L), Dorsalis Pedis (R), 3+: Radial (L), Radial (R) Skin: Warm, Dry, Intact Neurological: No New Focal Deficit Psy/Mental Status: Alert, Normal Affect, Normal Mood - Problem List & Annotations (1) Hyponatremia SNOMED Code(s): 08367756 Code(s): E87.1 - HYPO-OSMOLALITY AND HYPONATREMIA Status: Acute Priority : High Current Visit: Yes (2) Dehydration SNOMED Code(s): 66116640 Code(s): E86.0 - DEHYDRATION Status: Acute Priority: High Current Visit : Yes (3) Syncope SNOMED Code(s): 239994208 Code(s): R55 - SYNCOPE AND COLLAPSE Status: Acute Priority: High Current Visit: Yes Qualifiers: Syncope type: unspecified Qualified Code(s): R55 - Syncope and collapse (4) Fall SNOMED Code(s): 7621655 Code(s): W19.XXXA - UNSPECIFIED FALL, INITIAL ENCOUNTER Status: Acute Priority: High Current Visit: Yes Qualifiers: Encounter type: initial encounter Qualified Code(s): W19.XXXA - Unspecified fall, initial encounter (5) Presence of cardiac pacemaker SNOMED Code(s): 382794060 Code(s): Z95.0 - PRESENCE OF CARDIAC PACEMAKER Status: Chronic Priority: Low Current Visit: No (6) Type II diabetes mellitus SNOMED Code(s): 83124152 Code(s): E11.9 - TYPE 2 DIABETES MELLITUS WITHOUT COMPLICATIONS Status: Chronic Priority: Low Current Visit: Yes Qualifiers: Diabetes mellitus complication status: without complication Diabetes mellitus halfway insulin use: without halfway use Qualified Code(s): E11.9 - Type 2 diabetes mellitus without complications (7) Hypothyroidism SNOMED Code(s): 53540079 Code(s): E03.9 - HYPOTHYROIDISM, UNSPECIFIED Status: Chronic Priority: Low Current Visit: No Qualifiers: Hypothyroidism type: unspecified Qualified Code(s): E03.9 - Hypothyroidism , unspecified (8) Hypertension SNOMED Code(s): 78648958 Code(s): I10 - ESSENTIAL (PRIMARY) HYPERTENSION Status: Chronic Priority : Low Current Visit: No Qualifiers: Hypertension type: unspecified Qualified Code(s): I10 - Essential (primary ) hypertension - Problem List Review Problem List Initiated/Reviewed/Updated: Yes - My Orders Last 24 Hours: My Active Orders 06/15/17 18:47 Ambulate [RC] 09,15,20 Cardiac Monitoring [RC] CONTINUOUS Height and Weight [RC] 04 Intake and Output [RC] 04,16 Oxygen Therapy [RC] PRN Pulse Oximetry [RC] PRN Up With Assistance [RC] BID VTE/DVT Education [RC] DAILY Vital Signs [RC] Q4HR Consult to Case Management [CONS] Routine OT Evaluation and Treatment [CONS] Routine PT Evaluation and Treatment [CONS] Routine Acetaminophen [Tylenol] 650 mg PO Q4H PRN Acetaminophen/HYDROcodone [Icard 325-5 MG] 1 tab PO Q4H PRN Albuterol/Ipratropium [DuoNeb 3.0-0.5 MG/3 ML] 3 ml NEB Q4H PRN Bisacodyl [Dulcolax] 5 mg PO DAILY PRN Docusate Sodium [Colace] 100 mg PO BID PRN Docusate Sodium/Sennosides [Senna Plus] 1 tab PO BID PRN Morphine 0.5 mg IVPUSH Q2H PRN Ondansetron [Zofran ODT] 4 mg PO Q6H PRN Ondansetron [Zofran] 4 mg IV Q6H PRN Polyethylene Glycol 3350 [MiraLAX] 17 gm PO DAILY PRN 06/15/17 18:48 Antiembolic Devices [RC] BID Antiembolic Hose [OM.PC] Per Unit Routine 06/15/17 18:49 RT Aerosol Therapy [RC] ASDIRECTED 06/15/17 19:00 Sodium Chloride 0.9% [Normal Saline] 1,000 ml IV ASDIRECTED 06/15/17 19:01 LORazepam [Ativan] 2 mg IVPUSH Q4H PRN Metoprolol Tartrate [Lopressor] 5 mg IVPUSH Q4H PRN hydrALAZINE [Apresoline] 10 mg IVPUSH Q6H PRN 06/15/17 19:15 Magnesium Rep Pharmacy to Dose [Pharmacy to Dose - Magnesium Replacement] 1 dose .XX ASDIRECTED Potassium Rep Pharmacy to Dose [Pharmacy to Dose - Potassium Replacement] 1 dose .XX ASDIRECTED 06/15/17 19:50 Blood Glucose Check, Bedside [RC] QIDACANDBED Dextrose 50% in Water 50 ml IVPUSH ASDIRECTED PRN 06/15/17 21:00 Carvedilol [Coreg] 25 mg PO BID 06/15/17 22:00 Insulin Aspart [NovoLOG] See Protocol SUBCUT QIDACANDBED 06/15/17 23:44 CULTURE STOOL + SHIGATOX [RM] Routine 06/16/17 06:00 Levothyroxine [Synthroid] 50 mcg PO ACBREAKFAST 06/16/17 07:00 Rivaroxaban [Xarelto] 20 mg PO WITHBREAKFAST 06/16/17 09:00 Diltiazem [Cardizem CD] 120 mg PO DAILY 06/16/17 12:00 Digoxin [Lanoxin] 125 mcg PO DAILY@1200 06/16/17 Breakfast ADA Diabetic [[place] Diet] [DIET] 06/17/17 05:11 BASIC METABOLIC PANEL,BMP [CHEM] AM CBC WITH AUTO DIFF [HEME] AM MAGNESIUM [CHEM] AM 06/18/17 05:11 BASIC METABOLIC PANEL,BMP [CHEM] AM CBC WITH AUTO DIFF [HEME] AM MAGNESIUM [CHEM] AM 06/19/17 05:11 BASIC METABOLIC PANEL,BMP [CHEM] AM CBC WITH AUTO DIFF [HEME] AM MAGNESIUM [CHEM] AM - Plan Plan:: I/P: Acute Hyponatremia -Sodium 120 in ED-->130 -Likely 2/2 poor oral intake due to sickness -Denies any current headache, nausea, vomiting, muscle spasms, seizures -Likely contributed to fall -Thermotabs - received one last night with dramatic improvement -IV fluids; with caution due to cardiac history -Telemetry S/p fall -Fell while at work during syncopal episode -Bruising to back of head and back pain -Head CT shows nothing acute -Heat/cold therapy as needed -Monitor Diarrhea, improving -Reports diarrhea for past 4-5 days -Watery on tuesday and over weekend- firming up now -Denies abdominal pain -Denies any hx/o recent antibiotics -No leukocytosis -Stool studies ordered - negative c.diff, negative WBCs Chronic: HTN - home and PRN meds Pacemaker present HLD Hypothyroid - TSH 0.394 Type II DM - Home meds; glucose checks QID AC and Bedtime, Sliding scale if needed Plan: Admit to medical floor on telemetry CM for discharge planning PT/OT Slowly supplement sodium Other orders as indicated above Home meds as ordered Routine AM labs DVT prophylaxis: JAD gallegos and home Xarelto Code status: Full Code; PCP: Ammy Kwon NP in [place]. Likely discharge tomorrow pending labs
[2017-06-16] MEDS: Diltiazem 120 MG Cap.CD PO SCH (10:07)
[2017-06-16] MEDS: Carvedilol 12.5 MG Tab PO SCH ×2 (10:08→21:12)
[2017-06-16] MEDS: Potassium Chloride/Sodium Chloride Tab PO SCH (11:55)
[2017-06-16] MEDS: Digoxin 125 MCG Tab PO SCH (12:24)
[2017-06-17] MEDS: Acetaminophen/HYDROcodone 325-5 MG Tab PO PRN (04:54)
[2017-06-17] MEDS: Levothyroxine 50 MCG Tab PO SCH (05:44)
[2017-06-17] MEDS: Insulin Aspart 100 Units/ML 3 ML Pen SUBCUT SCH ×2 (06:14→14:11)
--- NOTE | 2017-06-17 07:53 | PCM.DCSUM1 ---
Discharge Summary - Hospital Course HPI Initial Comments: Milka Trujillo is a 71 yo female who presented to our ED today (06/15/17) dear [facility] after a near syncopal event while at work. His reported she became dizzy, lightheaded and nearly passed out or may have passed out briefly. EMS brought her to the ER and there were no syncopal episodes in route. She reports in the ER when she is lying flat she feels much better. She reportedly been ill for the past 4-5 days with nausea, "dry heaves", diarrhea, and poor appetite. She has had poor oral intake has been trying to drink water. Denies chest pain or shortness of breath. Reports her mouth is dry. During her episode she did hit her head and does have a bruise in the occipital region near the midline. Reports a minimal headache. She has had a history of heart issues and does have a pacemaker in place. In the ED temp was 97.7. Pulse 75. Respirations 18. Blood pressure 146/103. Pulse ox 95%. EKG is obtained and shows a paced rhythm at a rate of 77 bpm. Labs are obtained: The CBC is 6.16. Hemoglobin 13.7. Hematocrit 30.3. She is normocytic. Pulses are good at 283,000. Neutrophils are elevated at 80.6. Sodium was low at 120. Potassium good at 3.7. Chloride 8.7. Carbon dioxide 22. Anion gap 14.7. BUN is 15. Creatinine 0.9. EGFR greater than 60. Glucose is high at 152. Calcium is low at 8.1. Total bilirubin 0.4. Liver enzymes: AST is 44, ALT 27, alkaline phosphatase 86. Troponin is negative at 0.0.6. Albumin is low at 3.3. She is given a 1 L bolus of saline. She also given Tylenol Dilaudid and Zofran. Portal chest x-ray is obtained and interpreted by Dr. Martel as "1. Cardiomegaly with AICD. 2. Nothing acute is appreciated and portal chest x-ray." Head CT is obtained and interpreted by Dr. Martel as "1. Soft tissue swelling and hematoma within the posterior scalp. 2. Senescent change which is stable from prior head CT exam. 3. No acute intracranial abnormality is seen. No acute skull abnormality is seen." She carries a history of hypertension, pacemaker, hypothyroidism, and type II DM. She is a former smoker. She subsequently admitted to the medical floor. A full code. Her PCP is Ammy Kwon NP in [place]. - Discharge Data Discharge Date: 06/17/17 (Admit date:06/15/17) Discharge Disposition: Home, Self-Care 01 Condition: Good - Discharge Diagnosis/Problem(s) (1) Hyponatremia SNOMED Code(s): 59396073 ICD Code: E87.1 - HYPO-OSMOLALITY AND HYPONATREMIA Status: Acute Priority : High Current Visit: Yes (2) Dehydration SNOMED Code(s): 68356720 ICD Code: E86.0 - DEHYDRATION Status: Resolved Priority: High Current Visit: Yes (3) Syncope SNOMED Code(s): 416300849 ICD Code: R55 - SYNCOPE AND COLLAPSE Status: Resolved Priority: High Current Visit: Yes Qualifiers: Syncope type: unspecified Qualified Code(s): R55 - Syncope and collapse (4) Fall SNOMED Code(s): 7933689 ICD Code: W19.XXXA - UNSPECIFIED FALL, INITIAL ENCOUNTER Status: Acute Priority: High Current Visit: Yes Qualifiers: Encounter type: initial encounter Qualified Code(s): W19.XXXA - Unspecified fall, initial encounter (5) Presence of cardiac pacemaker SNOMED Code(s): 065862624 ICD Code: Z95.0 - PRESENCE OF CARDIAC PACEMAKER Status: Chronic Priority : Low Current Visit: No (6) Type II diabetes mellitus SNOMED Code(s): 69346720 ICD Code: E11.9 - TYPE 2 DIABETES MELLITUS WITHOUT COMPLICATIONS Status: Chronic Priority: Low Current Visit: Yes Qualifiers: Diabetes mellitus complication status: without complication Diabetes mellitus senior care insulin use: without intermediate accountant use Qualified Code(s): E11.9 - Type 2 diabetes mellitus without complications (7) Hypothyroidism SNOMED Code(s): 47230840 ICD Code: E03.9 - HYPOTHYROIDISM, UNSPECIFIED Status: Chronic Priority: Low Current Visit: No Qualifiers: Hypothyroidism type: unspecified Qualified Code(s): E03.9 - Hypothyroidism , unspecified (8) Hypertension SNOMED Code(s): 75015949 ICD Code: I10 - ESSENTIAL (PRIMARY) HYPERTENSION Status: Chronic Priority : Low Current Visit: No Qualifiers: Hypertension type: unspecified Qualified Code(s): I10 - Essential (primary ) hypertension - Patient Summary/Data Consults: Consultations 06/15/17 18:47 Consult to Case Management [CONS] Routine OT Evaluation and Treatment [CONS] Routine PT Evaluation and Treatment [CONS] Routine Labs Pending at D/C: None Recommended Follow-up Testing/Procedures: Recommend re-checking electrolytes on follow-up visit with PCP Hospital Course: I/P: Acute Hyponatremia -Sodium 120 in ED-->130--->133 -Likely 2/2 poor oral intake due to sickness -Denies any current headache, nausea, vomiting, muscle spasms, seizures -Likely contributed to fall -Thermotabs - received one last night with dramatic improvement, will give one today -IV fluids; with caution due to cardiac history -Telemetry S/p fall -Fell while at work during syncopal episode -Bruising to back of head and back pain -Head CT shows nothing acute -Heat/cold therapy as needed -Tylenol/[place] for pain -Monitor Diarrhea, resolved -Reports diarrhea for past 4-5 days -Watery on tuesday and over weekend- firming up now -Denies abdominal pain -Denies any hx/o recent antibiotics -No leukocytosis -Stool studies ordered - negative c.diff, negative WBCs Chronic: HTN - home and PRN meds Pacemaker present HLD Hypothyroid - TSH 0.394 Type II DM - Home meds; glucose checks QID AC and Bedtime, Sliding scale if needed Plan: Admit to medical floor on telemetry CM for discharge planning PT/OT Slowly supplement sodium Other orders as indicated above Home meds as ordered Routine AM labs DVT prophylaxis: JAD hose and home Xarelto Code status: Full Code; PCP: Ammy Kwon NP in [place]. Milka is doing well today. She reports increased appetite since admission. Her sodium has improved. Her BNP was elevated today, which is unsurprising given her IV fluids and sodium supplementation. She is having no difficulty breathing, chest pain, or heart palpitations. No pedal edema is noted. She denies any nausea, vomiting, or diarrhea. She was having diarrhea on admission however she reports a fully formed stool today. Stool studies including C. difficile, stool culture, Shiga toxin, and WBCs were all negative. Suspect a viral illness as a cause for her symptoms initially. This likely led to her becoming dehydrated and hyponatremic. She reports she feels much better today. She will be discharged today. He is to follow-up with her primary care provider in 7-10 days. It is recommended that she have her electrolytes rechecked at this visit as she may need future sodium supplementation. She does have a small hematoma on the back of her head from her fall. She also has had some back and shoulder pain from her fall. Nothing acute was found from this on her ED visit. She was instructed to take Tylenol for pain per fraud manager's instructions. - Patient Instructions Diet: Heart Healthy Diet Activity: As Tolerated Driving: Do Not Drive (today ) Showering/Bathing: August Shower Notify Provider of: Fever, Increased Pain, Nausea and/or Vomiting (syncope or near-syncope ) - Discharge Plan Home Medications: Home Meds Ascorbate Calcium [Vitamin C] 500 mg PO DAILY 01/09/16 [History] Carvedilol 25 mg PO BID 01/09/16 [History] Digoxin 125 mcg PO DAILY 01/09/16 [History] Diltiazem HCl [Diltiazem 24Hr ER] 120 mg PO DAILY 01/09/16 [History] Levothyroxine [Synthroid] 50 mcg PO ACBREAKFAST 01/09/16 [History] Lisinopril 20 mg PO BID 01/09/16 [History] Rivaroxaban [Xarelto] 20 mg PO DAILY 01/09/16 [History] Simvastatin [Zocor] 40 mg PO DAILY 01/09/16 [History] metFORMIN HCl [Metformin HCl ER] 1,000 mg PO BID 01/09/16 [History] Forms: ED Department Discharge Referrals: Ammy Kwon NP [Primary Care Provider] - - Discharge Summary/Plan Comment DC Time >30 min.: Yes (45 mins) - General Info Date of Service: 06/17/17 Admission Dx/Problem (Free Text: Admission Diagnosis/Problem Admission Diagnosis/Problem Hyponatremia Subjective Update: In to see Milka today. See hospital course section for subjective update and continuing plan. Functional Status: Reports: Pain Controlled, Tolerating Diet, Ambulating, Urinating. Denies: New Symptoms - Review of Systems General: Reports: No Symptoms HEENT: Reports: No Symptoms Pulmonary: Reports: No Symptoms Cardiovascular: Reports: No Symptoms Gastrointestinal: Reports: No Symptoms Genitourinary: Reports: No Symptoms Musculoskeletal: Reports: No Symptoms Skin: Reports: No Symptoms Neurological: Reports: No Symptoms Psychiatric: Reports: No Symptoms - Patient Data Vitals - Most Recent: Last Vital Signs Temp 98.8 F 06/17/17 04:46 Pulse 75 06/17/17 04:46 Resp 18 06/17/17 04:46 BP 131/86 06/17/17 04:46 Pulse Ox 96 06/17/17 04:46 Weight - Most Recent: 158 lb 11.2 oz I&O - Last 24 hours: Intake & Output 06/16/17 06/17/17 06/17/17 22:59 06:59 14:59 Intake Total 2830 920 Output Total 1900 2000 Balance 930 -1081 Lab Results - Last 24 hrs: Laboratory Results - last 24 hr 06/16/17 06/16/17 06/16/17 Range/Units 11:23 16:47 21:17 WBC (3.98-10.04) K/mm3 RBC (3.98-5.22) M/mm3 Hgb (11.2-15.7) gm/L Hct (34.1-44.9) % MCV (79.4-94.8) fl MCH (25.6-32.2) pg MCHC (32.2-35.5) g/dl RDW Std Deviation (36.4-46.3) fL Plt Count (182-369) K/mm3 MPV (9.4-12.3) fl Neut % (Auto) (34.0-71.1) % Lymph % (Auto) (19.3-51.7) % [place] % (Auto) (4.7-12.5) % Eos % (Auto) (0.7-5.8) Baso % (Auto) (0.1-1.2) % Neut # (Auto) (1.56-6.13) K/mm3 Lymph # (Auto) (1.18-3.74) K/mm3 [place] # (Auto) (0.24-0.36) K/mm3 Eos # (Auto) (0.04-0.36) K/mm3 Baso # (Auto) (0.01-0.08) K/mm3 Sodium (136-145) mEq/L Potassium (3.5-5.1) mEq/L Chloride (98-107) mEq/L Carbon Dioxide (21-32) mEq/L Anion Gap (5-15) BUN (7-18) mg/dL Creatinine (0.55-1.02) mg/dL Est Cr Clr Drug Dosing mL/min Estimated GFR (MDRD) (>60) mL/min BUN/Creatinine Ratio (14-18) Glucose (80-115) mg/dL POC Glucose 145 H 125 H 111 (80-115) mg/dL Calcium (8.5-10.1) mg/dL Magnesium (1.8-2.4) mg/dl 06/17/17 06/17/17 06/17/17 Range/Units 06:03 06:03 06:14 WBC 4.37 (3.98-10.04) K/mm3 RBC 4.15 (3.98-5.22) M/mm3 Hgb 11.8 (11.2-15.7) gm/L Hct 35.3 (34.1-44.9) % MCV 85.1 (79.4-94.8) fl MCH 28.4 (25.6-32.2) pg MCHC 33.4 (32.2-35.5) g/dl RDW Std Deviation 43.5 (36.4-46.3) fL Plt Count 233 (182-369) K/mm3 MPV 9.1 L (9.4-12.3) fl Neut % (Auto) 47.4 (34.0-71.1) % Lymph % (Auto) 35.7 (19.3-51.7) % [place] % (Auto) 12.6 H (4.7-12.5) % Eos % (Auto) 3.4 (0.7-5.8) Baso % (Auto) 0.7 (0.1-1.2) % Neut # (Auto) 2.07 (1.56-6.13) K/mm3 Lymph # (Auto) 1.56 (1.18-3.74) K/mm3 [place] # (Auto) 0.55 H (0.24-0.36) K/mm3 Eos # (Auto) 0.15 (0.04-0.36) K/mm3 Baso # (Auto) 0.03 (0.01-0.08) K/mm3 Sodium 133 L (136-145) mEq/L Potassium 4.1 (3.5-5.1) mEq/L Chloride 101 (98-107) mEq/L Carbon Dioxide 24 (21-32) mEq/L Anion Gap 12.1 (5-15) BUN 9 (7-18) mg/dL Creatinine 0.7 (0.55-1.02) mg/dL Est Cr Clr Drug Dosing 59.15 mL/min Estimated GFR (MDRD) > 60 (>60) mL/min BUN/Creatinine Ratio 12.9 L (14-18) Glucose 121 H (80-115) mg/dL POC Glucose 138 H (80-115) mg/dL Calcium 8.4 L (8.5-10.1) mg/dL Magnesium 1.5 L (1.8-2.4) mg/dl ESEQUIEL Results - Last 24 hrs: Microbiology 06/15/17 23:44 - Final Stool / Feces NEGATIVE FOR SHIGA TOXIN 1 - Final NEGATIVE FOR SHIGA TOXIN 2 06/15/17 23:44 Stool for WBCs - Final Stool / Feces Med Orders - Current: Current Medications Acetaminophen (Tylenol) 650 mg PO Q4H PRN PRN Reason: Pain (Mild 1-3)/fever Hydrocodone Bitart/Acetaminophen ([place] 325-5 Mg) 1 tab PO Q4H PRN PRN Reason: Pain (moderate 4-6) Last Admin: 06/17/17 04:54 Dose: 1 tab Albuterol/Ipratropium (Duoneb 3.0-0.5 Mg/3 Ml) 3 ml NEB Q4H PRN PRN Reason: Shortness Of Breath/wheezing Bisacodyl (Dulcolax) 5 mg PO DAILY PRN PRN Reason: Constipation Carvedilol (Coreg) 25 mg PO BID [facility] Last Admin: 06/16/17 21:12 Dose: 25 mg Dextrose/Water (Dextrose 50% In Water) 50 ml IVPUSH ASDIRECTED PRN PRN Reason: Hypoglycemia Digoxin (Lanoxin) 125 mcg PO DAILY@1200 [facility] Last Admin: 06/16/17 12:24 Dose: 125 mcg Diltiazem HCl (Cardizem Cd) 120 mg PO DAILY [facility] Last Admin: 06/16/17 10:07 Dose: 120 mg Docusate Sodium (Colace) 100 mg PO BID PRN PRN Reason: Constipation Hydralazine HCl (Apresoline) 10 mg IVPUSH Q6H PRN PRN Reason: Hypertension Insulin Aspart (Novolog) 0 unit SUBCUT QIDACANDBED [facility] PRN Reason: Protocol Last Admin: 06/17/17 06:14 Dose: Not Given Levothyroxine Sodium (Synthroid) 50 mcg PO ACBREAKFAST [facility] Last Admin: 06/17/17 05:44 Dose: 50 mcg Lorazepam (Ativan) 2 mg IVPUSH Q4H PRN PRN Reason: Seizures Magnesium Sulfate (Pharmacy To Dose - Magnesium Replacement) 1 dose .XX ASDIRECTED [facility] Metformin HCl (Glucophage) 1,000 mg PO BIDMEALS [facility] Last Admin: 06/16/17 16:48 Dose: 1,000 mg Metoprolol Tartrate (Lopressor) 5 mg IVPUSH Q4H PRN PRN Reason: Tachycardia Ondansetron HCl (Zofran Odt) 4 mg PO Q6H PRN PRN Reason: nausea, able to take PO Ondansetron HCl (Zofran) 4 mg IV Q6H PRN PRN Reason: Nausea/Vomiting Oral Electrolytes (Thermotabs) 1 each PO ONETIME ONE Stop: 06/17/17 07:52 Polyethylene Glycol (Miralax) 17 gm PO DAILY PRN PRN Reason: Constipation Potassium Chloride (Pharmacy To Dose - Potassium Replacement) 1 dose .XX ASDIRECTED [facility] Rivaroxaban (Xarelto) 20 mg PO WITHBREAKFAST [facility] Last Admin: 06/16/17 06:10 Dose: 20 mg Senna/Docusate Sodium (Senna Plus) 1 tab PO BID PRN PRN Reason: Constipation Discontinued Medications Acetaminophen (Tylenol) 975 mg PO NOW ONE Stop: 06/15/17 12:43 Last Admin: 06/15/17 12:51 Dose: 975 mg Hydromorphone HCl (Dilaudid) 0.25 mg IVPUSH ONETIME ONE Stop: 06/15/17 12:43 Last Admin: 06/15/17 12:53 Dose: 0.25 mg Sodium Chloride (Normal Saline) 1,000 mls @ 999 mls/hr IV ONETIME [facility] Last Admin: 06/15/17 11:59 Dose: 999 mls/hr Sodium Chloride (Normal Saline) 1,000 mls @ 100 mls/hr IV ASDIRECTED [facility] Stop: 06/17/17 04:59 Last Admin: 06/16/17 06:12 Dose: 100 mls/hr Magnesium Sulfate 2 gm/ Premix 50 mls @ 25 mls/hr IV ONETIME ONE Stop: 06/16/17 10:59 Last Admin: 06/16/17 10:08 Dose: 25 mls/hr Morphine Sulfate (Morphine) 0.5 mg IVPUSH Q2H PRN PRN Reason: Pain (severe 7-10) Stop: 06/16/17 18:48 Ondansetron HCl (Zofran) 4 mg IVPUSH ONETIME ONE Stop: 06/15/17 11:40 Last Admin: 06/15/17 11:59 Dose: 4 mg Oral Electrolytes (Thermotabs) 1 each PO BID [facility] Stop: 06/16/17 21:00 Last Admin: 06/16/17 11:55 Dose: Not Given Sodium Chloride (Saline Flush) 10 ml FLUSH ASDIRECTED PRN PRN Reason: Keep Vein Open Last Admin: 06/15/17 11:59 Dose: 10 ml - Exam Quality Assessment: Reports: DVT Prophylaxis General: Reports: Alert, Oriented, Cooperative, No Acute Distress HEENT: Reports: Pupils Equal, Pupils Reactive, EOMI, Mucous Membr. Moist/Tower, Other (healing hematomo on occipital region) Neck: Reports: Supple, Trachea Midline, No JVD Lungs: Reports: Clear to Auscultation, Normal Respiratory Effort Cardiovascular: Reports: Regular Rate, Regular Rhythm GI/Abdominal Exam: Normal Bowel Sounds, Soft, Non-Tender, No Organomegaly, No Distention, No Abnormal Bruit, No Mass, Pelvis Stable (Female) Exam: Deferred Rectal (Female) Exam: Deferred Back Exam: Reports: Normal Inspection, Full Range of Motion Extremities: Normal Inspection, Normal Range of Motion, Non-Tender, No Pedal Edema, Normal Capillary Refill Skin: Reports: Warm, Dry, Intact Neurological: Reports: No New Focal Deficit Psy/Mental Status: Reports: Alert, Normal Affect, Normal Mood *Q Meaningful Use (DIS) - VTE *Q VTE Criteria *Q: - Stroke *Q Stroke Criteria *Q: - AMI *Q AMI Criteria *Q:
[2017-06-17] MEDS ORDERED: Potassium Chloride/Sodium Chloride Tab PO ONE (08:00)
[2017-06-17] MEDS ORDERED: Magnesium Oxide 400 MG Tab PO ONE (08:30)
[2017-06-17] MEDS: metFORMIN 500 MG Tab PO SCH (08:37)
[2017-06-17] MEDS: Rivaroxaban 10 MG Tab PO SCH (08:38)
[2017-06-17] MEDS: Diltiazem 120 MG Cap.CD PO SCH (08:40)
[2017-06-17] MEDS: Carvedilol 12.5 MG Tab PO SCH (08:41)
[2017-06-17] MEDS ORDERED: Pneumococcal 13-Valent Conjugate Vaccine 0.5 ML Syringe IM ONE (12:25)
[2017-06-17] MEDS: Digoxin 125 MCG Tab PO SCH (12:38)
== END 2017-06-17 13:30 | disposition home or self-care (01) | DRG 641 ==
LOC: JD.ED 11:12 → JD.MS 17:22
PROVIDERS: ADMIT Internal Medicine; ATTEND Internal Medicine
DX: E87.1 Hypo-osmolality and hyponatremia (principal); E86.0 Dehydration; R55 Syncope and collapse; R51 Headache; W19.XXXA Unspecified fall, initial encounter; Z95.0 Presence of cardiac pacemaker; E11.9 Type 2 diabetes mellitus without complications; E03.9 Hypothyroidism, unspecified; I10 Essential (primary) hypertension; R19.7 Diarrhea, unspecified; E78.5 Hyperlipidemia, unspecified; Z79.84 Long term (current) use of oral hypoglycemic drugs; Z79.899 Other long term (current) drug therapy; Z91.018 Allergy to other foods; Z87.891 Personal history of nicotine dependence
CPT/HCPCS: 36415; 70450; 71045; 80053; 84484; 85025; 93005; 96361; 96374; 96375; 99285; A9270; J1170; J2405; J7040; J7050; 80048; 82962; 83735; 83880; 84443; 87046; 87427; 87493; 87804; 89055; 90471; 90670; 93010; 97161-GP; 97165-GO; J3475

== ENCOUNTER 2017-10-26 18:10 | Emergency (ER) | payer MEDICARE, BC ==
[2017-10-26] MEDS ORDERED: Sodium Chloride 0.9% 10 ML Syringe FLUSH PRN (18:18)
[2017-10-26] MEDS ORDERED: Ondansetron 4 MG/2 ML SDV IVPUSH ONE (18:19)
--- NOTE | 2017-10-26 18:56 | EDM.PDOC ---
ED HPI GENERAL MEDICAL PROBLEM - General Chief Complaint: Neuro Symptoms/Deficits Stated Complaint: STROKE Time Seen by Provider: 10/26/17 18:12 Source of Information: Reports: Patient, Family History Limitations: Reports: Altered Mental Status - History of Present Illness INITIAL COMMENTS - FREE TEXT/NARRATIVE: The patient presents with confusion, left arm weakness, vision problems. She was brought in by her family. She was last known well at 9am this morning. She says she cannot see but family says she could walk to the bathroom and avoid some ambrosio. She is confused. She knows who she is but not where she is and what the date is. She has left arm weakness. She has no headache, fever, chills, cough, chest pain, or abdominal pain She did vomit when she got to the ER. She was admitted to the hospital in May for hyponatremia and dehydration. She lives at home with no help. She is on xaralto but it is not clear why in her chart. She does not know and neither dose her family. She is on digoxin. She has a pacemaker. Onset: Gradual Duration: Hour(s): Severity: Moderate Improves with: Reports: None Worsens with: Reports: None Associated Symptoms: Reports: Confusion, Nausea/Vomiting. Denies: Chest Pain, Fever/Chills, Headaches, Shortness of Breath - Related Data Allergies Allergy/AdvReac Type Severity Reaction Status Date / Time No Known Allergies Allergy Verified 10/26/17 18:20 Home Meds: Home Meds Ascorbate Calcium [Vitamin C] 500 mg PO DAILY 01/09/16 [History] Carvedilol 25 mg PO BID 01/09/16 [History] Digoxin 125 mcg PO DAILY 01/09/16 [History] Diltiazem HCl [Diltiazem 24Hr ER] 120 mg PO DAILY 01/09/16 [History] Lisinopril 20 mg PO BID 01/09/16 [History] Rivaroxaban [Xarelto] 20 mg PO DAILY 01/09/16 [History] Simvastatin [Zocor] 40 mg PO DAILY 01/09/16 [History] metFORMIN HCl [Metformin HCl ER] 1,000 mg PO BID 01/09/16 [History] Levothyroxine 25 mcg PO DAILY 10/26/17 [History] Past Medical History HEENT History: Reports: Cataract, Impaired Vision, Other (See Below) Other HEENT History: wears glasses Cardiovascular History: Reports: Hypertension, Pacemaker Gastrointestinal History: Reports: Hemorrhoids, Other (See Below) Other Gastrointestinal History: permanent hemorrhoids Genitourinary History: Reports: Urinary Incontinence [employer]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 Social & Family History - Family History Family Medical History: Noncontributory - Tobacco Use Smoking Status *Q: Former Smoker Used Tobacco, but Quit: Yes Month/Year Tobacco Last Used: many years ago - Caffeine Use Caffeine Use: Reports: Coffee, Tea - Recreational Drug Use Recreational Drug Use: No ED ROS GENERAL - Review of Systems Review Of Systems: See Below Constitutional: Reports: No Symptoms HEENT: Reports: No Symptoms Respiratory: Reports: No Symptoms Cardiovascular: Reports: No Symptoms Endocrine: Reports: No Symptoms GI/Abdominal: Reports: Nausea, Vomiting. Denies: Abdominal Pain, Diarrhea : Reports: No Symptoms Musculoskeletal: Reports: No Symptoms Skin: Reports: No Symptoms Neurological: Reports: Confusion, Weakness (Left arm weakness) ED EXAM, NEURO - Physical Exam Exam: See Below Exam Limited By: Altered Mental Status General Appearance: Alert Eye Exam: Bilateral Eye: EOMI, Other (Pupils do not react) Ears: Normal External Exam Nose: Normal Inspection Throat/Mouth: Normal Inspection Head Exam: Atraumatic, Normocephalic Neck: Normal Inspection Respiratory/Chest: No Respiratory Distress, Lungs Clear, Normal Breath Sounds Cardiovascular: Regular Rate, Rhythm, No Edema, No Murmur GI/Abdominal: Soft, Non-Tender, No Organomegaly, No Mass Neurological: Alert, Other (Orientated to person but not to place or time. She has weakness to the left arm. She cannot see and her pupils are not reactive.) EKG INTERPRETATION EKG Date: 10/26/17 Time: 18:30 Rhythm: Other (AV dual-paced rhythm) Course - Vital Signs Last Recorded V/S: Last Vital Signs Temp 97.4 F 10/26/17 18:21 Pulse 75 10/26/17 18:21 Resp 18 10/26/17 18:21 BP 175/94 H 10/26/17 18:21 Pulse Ox 92 L 10/26/17 18:21 - Orders/Labs/Meds Orders: Active Orders 24 hr Category Date Time Status Cardiac Monitoring [RC] . DIRECTED Care 10/26/17 18:18 Active EKG Documentation Completion [RC] STAT Care 10/26/17 18:18 Active Peripheral IV Care [RC] . DIRECTED Care 10/26/17 18:19 Active Head wo Cont [CT] Stat Exams 10/26/17 18:19 Taken Sodium Chloride 0.9% [Saline Flush] Med 10/26/17 18:18 Active 10 ml FLUSH ASDIRECTED PRN Peripheral IV Insertion Adult [OM.PC] Stat Oth 10/26/17 18:18 Ordered Medication Orders Sodium Chloride (Saline Flush) 10 ml FLUSH ASDIRECTED PRN PRN Reason: Keep Vein Open Last Admin: 10/26/17 18:36 Dose: 10 ml Labs: Laboratory Tests 10/26/17 10/26/17 10/26/17 Range/Units 18:19 18:20 18:20 WBC 16.45 H (3.98-10.04) K/mm3 RBC 4.28 (3.98-5.22) M/mm3 Hgb 12.3 (11.2-15.7) gm/L Hct 37.3 (34.1-44.9) % MCV 87.1 (79.4-94.8) fl MCH 28.7 (25.6-32.2) pg MCHC 33.0 (32.2-35.5) g/dl RDW Std Deviation 42.7 (36.4-46.3) fL Plt Count 439 H (182-369) K/mm3 MPV 9.1 L (9.4-12.3) fl Neut % (Auto) 82.2 H (34.0-71.1) % Lymph % (Auto) 9.5 L (19.3-51.7) % Scott % (Auto) 6.6 (4.7-12.5) % Eos % (Auto) 1.3 (0.7-5.8) Baso % (Auto) 0.2 (0.1-1.2) % Neut # (Auto) 13.50 H (1.56-6.13) K/mm3 Lymph # (Auto) 1.57 (1.18-3.74) K/mm3 Scott # (Auto) 1.09 H (0.24-0.36) K/mm3 Eos # (Auto) 0.22 (0.04-0.36) K/mm3 Baso # (Auto) 0.04 (0.01-0.08) K/mm3 Manual Slide Review Abnormal smear PT 10.9 (9.5-12.1) SECONDS INR 1.00 APTT 46 H (24-31) SECONDS Sodium (136-145) mEq/L Potassium (3.5-5.1) mEq/L Chloride (98-107) mEq/L Carbon Dioxide (21-32) mEq/L Anion Gap (5-15) BUN (7-18) mg/dL Creatinine (0.55-1.02) mg/dL Est Cr Clr Drug Dosing mL/min Estimated GFR (MDRD) (>60) mL/min BUN/Creatinine Ratio (14-18) Glucose (80-115) mg/dL POC Glucose 190 H (80-115) mg/dL Calcium (8.5-10.1) mg/dL Total Bilirubin (0.2-1.0) mg/dL AST (15-37) U/L ALT (14-59) U/L Alkaline Phosphatase (46-116) U/L Troponin I (0.00-0.056) ng/mL Total Protein (6.4-8.2) g/dl Albumin (3.4-5.0) g/dl Globulin gm/dL Albumin/Globulin Ratio (1-2) Digoxin (0.9-2.0) ng/mL 10/26/17 10/26/17 Range/Units 18:20 18:28 WBC (3.98-10.04) K/mm3 RBC (3.98-5.22) M/mm3 Hgb (11.2-15.7) gm/L Hct (34.1-44.9) % MCV (79.4-94.8) fl MCH (25.6-32.2) pg MCHC (32.2-35.5) g/dl RDW Std Deviation (36.4-46.3) fL Plt Count (182-369) K/mm3 MPV (9.4-12.3) fl Neut % (Auto) (34.0-71.1) % Lymph % (Auto) (19.3-51.7) % Scott % (Auto) (4.7-12.5) % Eos % (Auto) (0.7-5.8) Baso % (Auto) (0.1-1.2) % Neut # (Auto) (1.56-6.13) K/mm3 Lymph # (Auto) (1.18-3.74) K/mm3 Scott # (Auto) (0.24-0.36) K/mm3 Eos # (Auto) (0.04-0.36) K/mm3 Baso # (Auto) (0.01-0.08) K/mm3 Manual Slide Review PT (9.5-12.1) SECONDS INR APTT (24-31) SECONDS Sodium 127 L (136-145) mEq/L Potassium 4.5 (3.5-5.1) mEq/L Chloride 93 L (98-107) mEq/L Carbon Dioxide 22 (21-32) mEq/L Anion Gap 16.5 H (5-15) BUN 17 (7-18) mg/dL Creatinine 1.0 (0.55-1.02) mg/dL Est Cr Clr Drug Dosing 41.40 mL/min Estimated GFR (MDRD) 55 (>60) mL/min BUN/Creatinine Ratio 17.0 (14-18) Glucose 196 H (80-115) mg/dL POC Glucose (80-115) mg/dL Calcium 9.0 (8.5-10.1) mg/dL Total Bilirubin 0.5 (0.2-1.0) mg/dL AST 16 (15-37) U/L ALT 17 (14-59) U/L Alkaline Phosphatase 106 (46-116) U/L Troponin I 0.049 (0.00-0.056) ng/mL Total Protein 7.6 (6.4-8.2) g/dl Albumin 3.3 L (3.4-5.0) g/dl Globulin 4.3 gm/dL Albumin/Globulin Ratio 0.8 L (1-2) Digoxin 0.6 L (0.9-2.0) ng/mL Meds: Medications Generic Name Dose Route Start Last Admin Trade Name Freq PRN Reason Stop Dose Admin Sodium Chloride 10 ml 10/26/17 18:18 10/26/17 18:36 Saline Flush FLUSH 10 ml ASDIRECTED PRN Administration Keep Vein Open Discontinued Medications Generic Name Dose Route Start Last Admin Trade Name Freq PRN Reason Stop Dose Admin Ondansetron HCl 4 mg 10/26/17 18:19 10/26/17 18:34 Zofran IVPUSH 10/26/17 18:20 4 mg ONETIME ONE Administration - Re-Assessments/Exams Free Text/Narrative Re-Assessment/Exam: 10/26/17 19:23 A stroke alert was called and I came into the room right away. The patients last time known well was 9am this morning. Her EKG shows a A-V paced rhythm. Her CT shows nothing acute. Her WBC was elevated at 16.45. Her platelets were elevated at 439. Her INR was normal at 1. Her PTT was elevated at 46. Her Na was low at 127. Her glucose was elevated at 196. Her troponin was normal. She has mild weakness in the left arm. 10/26/17 19:26 She still has weakness in the left arm, she cannot see and she is confused. She is having a stroke. 10/26/17 19:37 I called [facility] and talked with Dr Price and she accepted the patient. Departure - Departure Time of Disposition: 19:40 Disposition: DC/Tfer to Acute Hospital 02 Condition: Serious Clinical Impression: Hyponatremia, Decreased vision in both eyes Cerebrovascular accident (CVA) Qualifiers: CVA mechanism: unspecified Qualified Code(s): I63.9 - Cerebral infarction, unspecified - Discharge Information Referrals: Ammy Kwon NP [Primary Care Provider] - Forms: ED Department Discharge - My Orders Last 24 Hours: My Active Orders 10/26/17 18:18 Cardiac Monitoring [RC] . DIRECTED EKG Documentation Completion [RC] STAT Sodium Chloride 0.9% [Saline Flush] 10 ml FLUSH ASDIRECTED PRN Peripheral IV Insertion Adult [OM.PC] Stat 10/26/17 18:19 Peripheral IV Care [RC] . DIRECTED Head wo Cont [CT] Stat - Assessment/Plan Last 24 Hours: My Active Orders 10/26/17 18:18 Cardiac Monitoring [RC] . DIRECTED EKG Documentation Completion [RC] STAT Sodium Chloride 0.9% [Saline Flush] 10 ml FLUSH ASDIRECTED PRN Peripheral IV Insertion Adult [OM.PC] Stat 10/26/17 18:19 Peripheral IV Care [RC] . DIRECTED Head wo Cont [CT] Stat
--- NOTE | 2017-10-27 09:04 | CT ---
Head CT Technique: Multiple axial sections through the brain were obtained. Intravenous contrast was not utilized. Comparison: Prior head CT exam of 06/15/17. Findings: Ventricles along with basal cisterns and sulci over the convexities are mildly prominent. Diffuse diminished density is noted with in the periventricular and subcortical white matter which is most likely due to small vessel ischemic demyelination change. Low density areas are noted within the basal ganglia which are felt compatible with similar etiology. No other abnormal parenchymal densities are seen. No evidence of intracranial hemorrhage. No midline shift or mass effect is seen. Bone window settings were reviewed which show no acute calvarial abnormality. Minimal mucosal thickening is seen within the maxillary sinuses which is incidental. Impression: 1. Senescent change as noted above. No acute intracranial abnormality is identified. Please correlate if patient's symptoms warrant further evaluation by MRI. Diagnostic code #2 I agree with preliminary report from antonio, finalized at 10/26/17, 7:44 PM Central Time
== END 2017-10-26 19:55 ==
LOC: JD.ED 18:10
DX: I63.9 Cerebral infarction, unspecified (principal); E87.1 Hypo-osmolality and hyponatremia; H54.3 Unqualified visual loss, both eyes; I10 Essential (primary) hypertension; E11.9 Type 2 diabetes mellitus without complications; E03.9 Hypothyroidism, unspecified; Z87.891 Personal history of nicotine dependence; Z79.84 Long term (current) use of oral hypoglycemic drugs; Z79.899 Other long term (current) drug therapy
CPT/HCPCS: 36415; 70450; 80053; 80162; 82962; 84484; 85025; 85610; 85730; 93005; 96374; 99285; J2405; J7050

== ENCOUNTER 2018-05-16 20:34 | Inpatient (IN) | payer MEDICARE, BC ==
[2018-05-16] MEDS ORDERED: Sodium Chloride 0.9% 10 ML Syringe FLUSH PRN (21:05)
[2018-05-16] MEDS ORDERED: Furosemide 40 MG/4 ML VIAL IVPUSH ONE (21:05)
--- NOTE | 2018-05-16 21:13 | EDM.PDOC ---
ED HPI GENERAL MEDICAL PROBLEM - General Chief Complaint: Respiratory Problem Stated Complaint: SHORT OF BREATH Time Seen by Provider: 05/16/18 20:46 Source of Information: Reports: Patient, RN Notes Reviewed - History of Present Illness INITIAL COMMENTS - FREE TEXT/NARRATIVE: 72-year-old female comes in with worsening shortness of breath over the past week or so this is become especially severe over the last 24-48 hours. She states she spent last night sitting in a chair. Even then her breathing was difficult. Walking or any attempt of laying flat makes it worse. She has had no cough sore throat fever or chills. Does have history of CHF. She was started on low-dose process of mild tenderness milligrams orally about a month ago. She did have a pacemaker placed about 2 years ago because "I have a bad heart". She is not aware of ever having had heart attack. Has no chest discomfort at this time other than the difficulty breathing. No abdominal pain nausea vomiting or diaphoresis. - Related Data Allergies Allergy/AdvReac Type Severity Reaction Status Date / Time No Known Allergies Allergy Verified 10/26/17 18:20 Home Meds: Home Meds Ascorbate Calcium [Vitamin C] 500 mg PO DAILY 01/09/16 [History] Carvedilol 25 mg PO BID 01/09/16 [History] Digoxin 125 mcg PO DAILY 01/09/16 [History] Diltiazem HCl [Diltiazem 24Hr ER] 120 mg PO DAILY 01/09/16 [History] Lisinopril 20 mg PO BID 01/09/16 [History] Rivaroxaban [Xarelto] 20 mg PO DAILY 01/09/16 [History] Simvastatin [Zocor] 40 mg PO DAILY 01/09/16 [History] metFORMIN HCl [Metformin HCl ER] 1,000 mg PO BID 01/09/16 [History] Levothyroxine 25 mcg PO DAILY 10/26/17 [History] Past Medical History HEENT History: Reports: Cataract, Impaired Vision, Other (See Below) Other HEENT History: wears glasses Cardiovascular History: Reports: Hypertension, Pacemaker Gastrointestinal History: Reports: Hemorrhoids, Other (See Below) Other Gastrointestinal History: permanent hemorrhoids Genitourinary History: Reports: Urinary Incontinence [employer]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 Social & Family History - Family History Family Medical History: Noncontributory - Caffeine Use Caffeine Use: Reports: Coffee, Tea ED ROS GENERAL - Review of Systems Review Of Systems: See Below Constitutional: Denies: Fever, Chills, Diaphoresis HEENT: Denies: Throat Pain Respiratory: Reports: Shortness of Breath. Denies: Wheezing, Cough Cardiovascular: Reports: Edema (Mild chronic). Denies: Chest Pain Endocrine: Reports: Fatigue GI/Abdominal: Denies: Abdominal Pain, Nausea, Vomiting Musculoskeletal: Denies: Shoulder Pain, Arm Pain, Back Pain Skin: Reports: No Symptoms Neurological: Reports: Dizziness ED EXAM, GENERAL - Physical Exam Exam: See Below General Appearance: Alert, Mild Distress (Appears mildly short of breath even on oxygen) Eye Exam: Bilateral Eye: PERRL Head: No: Facial Swelling Neck: Supple Respiratory/Chest: Respiratory Distress, Rales (Mild bilateral). No: Rhonchi ( Mild tachypnea), Wheezing Cardiovascular: Systolic Murmur (Grade 2-3/6) GI/Abdominal: Soft, Non-Tender Back Exam: No: CVA Tenderness (L), CVA Tenderness (R) Extremities: Pedal Edema (Mild bilateral). No: Leg Pain, Increased Warmth ( Calves nontender), Redness Neurological: Alert, Oriented, No Motor/Sensory Deficits Skin Exam: Warm, Dry, Normal Color EKG INTERPRETATION EKG Date: 05/16/18 Rhythm: Other (Paced rhythm, rate 75) Rate (Beats/Min): 75 Course - Vital Signs Last Recorded V/S: Last Vital Signs Temp 98.2 F 05/16/18 20:45 Pulse 84 05/16/18 20:45 Resp 18 05/16/18 20:45 BP 160/102 H 05/16/18 20:45 Pulse Ox 94 L 05/16/18 21:16 - Orders/Labs/Meds Orders: Active Orders 24 hr Category Date Time Status EKG 12 Lead [EKG Documentation Completion] [RC] STAT Care 05/16/18 21:04 Active Oxygen Therapy [RC] ASDIRECTED Care 05/16/18 21:04 Active Peripheral IV Care [RC] . DIRECTED Care 05/16/18 21:05 Active Chest 1V Frontal [CR] Stat Exams 05/16/18 21:03 Taken PRO B-TYPE NATRIUR PEPT,BNPPRO [CHEM] Stat Lab 05/16/18 21:58 Ordered Sodium Chloride 0.9% [Saline Flush] Med 05/16/18 21:05 Active 10 ml FLUSH ASDIRECTED PRN Peripheral IV Insertion Adult [OM.PC] Stat Oth 05/16/18 21:04 Ordered Medication Orders Sodium Chloride (Saline Flush) 10 ml FLUSH ASDIRECTED PRN PRN Reason: Keep Vein Open Last Admin: 05/16/18 21:14 Dose: 10 ml Labs: Laboratory Tests 05/16/18 05/16/18 Range/Units 21:10 21:10 WBC 10.61 H (3.98-10.04) K/mm3 RBC 3.99 (3.98-5.22) M/mm3 Hgb 11.4 (11.2-15.7) gm/L Hct 33.6 L (34.1-44.9) % MCV 84.2 (79.4-94.8) fl MCH 28.6 (25.6-32.2) pg MCHC 33.9 (32.2-35.5) g/dl RDW Std Deviation 42.9 (36.4-46.3) fL Plt Count 362 (182-369) K/mm3 MPV 8.7 L (9.4-12.3) fl Neut % (Auto) 77.5 H (34.0-71.1) % Lymph % (Auto) 13.5 L (19.3-51.7) % [place] % (Auto) 7.0 (4.7-12.5) % Eos % (Auto) 1.4 (0.7-5.8) Baso % (Auto) 0.4 (0.1-1.2) % Neut # (Auto) 8.23 H (1.56-6.13) K/mm3 Lymph # (Auto) 1.43 (1.18-3.74) K/mm3 [place] # (Auto) 0.74 H (0.24-0.36) K/mm3 Eos # (Auto) 0.15 (0.04-0.36) K/mm3 Baso # (Auto) 0.04 (0.01-0.08) K/mm3 Sodium 124 L (136-145) mEq/L Potassium 4.5 (3.5-5.1) mEq/L Chloride 91 L (98-107) mEq/L Carbon Dioxide 22 (21-32) mEq/L Anion Gap 15.5 H (5-15) BUN 23 H (7-18) mg/dL Creatinine 0.9 (0.55-1.02) mg/dL Est Cr Clr Drug Dosing 45.34 mL/min Estimated GFR (MDRD) > 60 (>60) mL/min BUN/Creatinine Ratio 25.6 H (14-18) Glucose 178 H (83-115) mg/dL Calcium 8.9 (8.5-10.1) mg/dL Total Bilirubin 0.6 (0.2-1.0) mg/dL AST 50 H (15-37) U/L ALT 62 H (14-59) U/L Alkaline Phosphatase 121 H (46-116) U/L Troponin I 0.018 (0.00-0.056) ng/mL Total Protein 7.0 (6.4-8.2) g/dl Albumin 3.4 (3.4-5.0) g/dl Globulin 3.6 gm/dL Albumin/Globulin Ratio 0.9 L (1-2) Meds: Medications Generic Name Dose Route Start Last Admin Trade Name Freq PRN Reason Stop Dose Admin Sodium Chloride 10 ml 05/16/18 21:05 05/16/18 21:14 Saline Flush FLUSH 10 ml ASDIRECTED PRN Administration Keep Vein Open Discontinued Medications Generic Name Dose Route Start Last Admin Trade Name Freq PRN Reason Stop Dose Admin Furosemide 40 mg 05/16/18 21:05 05/16/18 21:14 Lasix IVPUSH 05/16/18 21:06 40 mg NOW ONE Administration - Re-Assessments/Exams Free Text/Narrative Re-Assessment/Exam: 05/16/18 22:21 Chest x-ray does show moderate pulmonary congestion very mild cardiomegaly, did give 40 mg Lasix shortly after arrival. She has voided twice. 2 sats were only 88-89% room air and that was at rest. therefore she is not a candidate to go home tonight. We'll admit for further evaluation and treatment. Departure - Departure Time of Disposition: 22:05 Disposition: Admitted As Inpatient 66 Condition: Fair Clinical Impression: Hypoxia Congestive heart failure Qualifiers: Heart failure type: combined systolic and diastolic Heart failure chronicity: acute on chronic Qualified Code(s): I50.43 - Acute on chronic combined systolic (congestive) and diastolic (congestive) heart failure - Discharge Information Referrals: PCP,Not In Area [Primary Care Provider] - Forms: ED Department Discharge ED Communication - Discussed Case With (1) Discussed Case With (1): Admitting Provider (Dr. Velez, decision to admit at around 2200) - My Orders Last 24 Hours: My Active Orders 05/16/18 21:03 Chest 1V Frontal [CR] Stat 05/16/18 21:04 EKG 12 Lead [EKG Documentation Completion] [RC] STAT Oxygen Therapy [RC] ASDIRECTED Peripheral IV Insertion Adult [OM.PC] Stat 05/16/18 21:05 Peripheral IV Care [RC] . DIRECTED Sodium Chloride 0.9% [Saline Flush] 10 ml FLUSH ASDIRECTED PRN 05/16/18 21:58 PRO B-TYPE NATRIUR PEPT,BNPPRO [CHEM] Stat - Assessment/Plan Last 24 Hours: My Active Orders 05/16/18 21:03 Chest 1V Frontal [CR] Stat 05/16/18 21:04 EKG 12 Lead [EKG Documentation Completion] [RC] STAT Oxygen Therapy [RC] ASDIRECTED Peripheral IV Insertion Adult [OM.PC] Stat 05/16/18 21:05 Peripheral IV Care [RC] . DIRECTED Sodium Chloride 0.9% [Saline Flush] 10 ml FLUSH ASDIRECTED PRN 05/16/18 21:58 PRO B-TYPE NATRIUR PEPT,BNPPRO [CHEM] Stat
[2018-05-17] MEDS: Heparin Sodium 5,000 Units/ML Vial SUBCUT SCH ×2 (00:06→11:19)
[2018-05-17] MEDS: Furosemide 100 MG in Sodium Chloride 0.9% 90 ML IV SCH ×2 (00:06→23:39)
--- NOTE | 2018-05-17 06:21 | PCM.HP ---
H&P History of Present Illness - General Date of Service: 05/17/18 Admit Problem/Dx: Admission Diagnosis/Problem Admission Diagnosis/Problem Congestive heart failure Source of Information: Patient, Provider, RN, RN Notes Reviewed History Limitations: Reports: No Limitations - History of Present Illness Initial Comments - Free Text/Narative: Milka Trujillo is a 72 yo female who presented to our ED yesterday evening with worsening shortness of breath over the past week or so. She reports it has been especially severe over the last 24-48 hours. She spent the night sitting in the chair and even then her breathing was difficult. If she attempts to ambulate or lay flat her respiratory status worsens. Denies any cough, sore throat, fever, chills. Does have a history of CHF. She does have a pacemaker placed which was performed 2 years prior. Denies any known prior ID. Denies any chest discomfort, abdominal pain, nausea, vomiting, diaphoresis. In the ED twelve-lead EKG was obtained showing a paced rhythm at 75 bpm. Temp is 98.2. Pulse 84. Respirations 18. Blood pressure 160/102. Pulse ox 94%. Labs are obtained: WBC is just slightly elevated at 10.61. Hemoglobin 11.4. Hematocrit 33.6. She was normocytic. Pulses are good at 362,000. Neutrophils are elevated at 77.5%. Sodium is low at 124. Potassium 4.5. Chloride 91. Anion gap is high at 15.5. BUN is 23. Creatinine 0.9. EGFR greater than 60. Glucose is 178. Calcium 8.9. Total bilirubin 0.6. AST is elevated at 50, ALT elevated at 62, alkaline phosphatase elevated at 121. Troponin 0.018. Protein 7.0. Albumin 3.4. Pro-BNP was 67456. She is given a 40 mg IV push of Lasix. It is noted that her medications were changed about a month ago. Chest x-ray is obtained which shows increased lung markings which are noted to be stable and an implanted AICD. Cardiomegaly is also noted. Saturations on arrival were noted to be to 89% on room air. She carries a history of: impaired vision, hypertension, pacemaker, hemorrhoids , urinary incontinence, type II DM, hypothyroidism. Her PCP is JACKI Hidalgo. Bilateral Thigh Pain Score (Numeric/FACES): 6 - Related Data Allergies/Adverse Reactions: Allergies Allergy/AdvReac Type Severity Reaction Status Date / Time No Known Allergies Allergy Verified 10/26/17 18:20 Home Medications: Home Meds Carvedilol 25 mg PO BID 01/09/16 [History] Digoxin 250 mcg PO DAILY 01/09/16 [History] Diltiazem HCl [Diltiazem 24Hr ER] 120 mg PO DAILY 01/09/16 [History] Lisinopril 20 mg PO BID 01/09/16 [History] Simvastatin [Zocor] 40 mg PO DAILY 01/09/16 [History] metFORMIN HCl [Metformin HCl ER] 1,000 mg PO BID 01/09/16 [History] Apixaban [Eliquis] 5 mg PO BID 05/17/18 [History] Past Medical History HEENT History: Reports: Cataract, Impaired Vision, Other (See Below) Other HEENT History: wears glasses Cardiovascular History: Reports: Heart Failure, Heart Murmur, Hypertension, Pacemaker Gastrointestinal History: Reports: Hemorrhoids, Other (See Below) Other Gastrointestinal History: permanent hemorrhoids Genitourinary History: Reports: Urinary Incontinence ETL APPLICATION DEVELOPER History: Reports: Endocrine/Metabolic History: Reports: Diabetes, Type II, Hypothyroidism - Infectious Disease History Infectious Disease History: Reports: Chicken Pox, Influenza, Measles - Past Surgical History HEENT Surgical History: Reports: None Cardiovascular Surgical History: Reports: Pacer GI Surgical History: Reports: Appendectomy, Cholecystectomy, Colonoscopy, EGD Female Surgical History: Reports: None Musculoskeletal Surgical History: Reports: Knee Replacement, Other (See Below) Other Musculoskeletal Surgeries/Procedures:: bilateral knee replacements. Social & Family History - Family History Family Medical History: Noncontributory - Tobacco Use Smoking Status *Q: Never Smoker Used Tobacco, but Quit: Yes Month/Year Tobacco Last Used: 04/1966 Second Hand Smoke Exposure: No - Caffeine Use Caffeine Use: Reports: Coffee - Recreational Drug Use Recreational Drug Use: No H&P Review of Systems - Review of Systems: Review Of Systems: See Below General: Reports: No Symptoms. Denies: Fever, Chills, Malaise, Weakness, Fatigue HEENT: Reports: No Symptoms. Denies: Rhinitis, Sore Throat Pulmonary: Reports: No Symptoms. Denies: Shortness of Breath (improved since here ), Wheezing, Pleuritic Chest Pain, Cough, Sputum Cardiovascular: Reports: No Symptoms. Denies: Chest Pain, Palpitations, Dyspnea on Exertion (Improved since here ), Edema, Lightheadedness Gastrointestinal: Reports: No Symptoms. Denies: Abdominal Pain, Constipation, Distension, Nausea, Vomiting Genitourinary: Reports: No Symptoms. Denies: Pain Musculoskeletal: Reports: No Symptoms, Other (Chronic leg cramping that comes and goes. Nothing now ) Skin: Reports: No Symptoms Psychiatric: Reports: No Symptoms Neurological: Reports: No Symptoms. Denies: Confusion, Dizziness, Headache, Numbness, Tingling, Difficulty Walking, Gait Disturbance Hematologic/Lymphatic: Reports: No Symptoms Immunologic: Reports: No Symptoms Exam - Exam Exam: See Below - Vital Signs Vital Signs: Last Vital Signs Temp 98.2 F 05/17/18 04:44 Pulse 76 05/17/18 04:44 Resp 12 05/17/18 04:44 BP 122/84 05/17/18 04:44 Pulse Ox 99 05/17/18 04:44 Weight: 159 lb 11.2 oz - Exam Quality Assessment: Supplemental Oxygen, Urinary Catheter, DVT Prophylaxis General: Alert, Oriented, Cooperative. No: Mild Distress HEENT: PERRLA, Hearing Intact, Mucosa Moist & Lyndon, Nares Patent, Normal Nasal Septum, Posterior Pharynx Clear, Conjunctiva Clear, EOMI, EACs Clear, TMs Clear Neck: Supple, Trachea Midline, 2 Lungs: Normal Respiratory Effort, Decreased Breath Sounds. No: Rales, Rhonchi, Wheezing Cardiovascular: Regular Rate, Regular Rhythm, Systolic Murmur, Other (Pacemaker in palce ) GI/Abdominal Exam: Normal Bowel Sounds, Soft, Non-Tender, No Distention, No Abnormal Bruit (Female) Exam: Deferred Rectal (Female) Exam: Deferred Back Exam: Normal Inspection, Full Range of Motion, NT Extremities: Normal Inspection, Normal Range of Motion, Non-Tender, No Pedal Edema, Normal Capillary Refill Skin: Warm, Dry, Intact Neurological: Cranial Nerves Intact (grossly ) Neuro Extensive - Mental Status: Alert, Oriented x3, Normal Mood/Affect, Normal Cognition, Memory Intact Neuro Extensive - Motor, Sensory, Reflexes: CN II-XII Intact (grossly ) Psychiatric: Alert, Normal Affect, Normal Mood - Patient Data Lab Results Last 24 hrs: Laboratory Results - last 24 hr 05/16/18 05/16/1805/16/19 Range/Units 21:10 21:10 21:10 WBC 10.61 H (3.98-10.04) K/mm3 RBC 3.99 (3.98-5.22) M/mm3 Hgb 11.4 (11.2-15.7) gm/L Hct 33.6 L (34.1-44.9) % MCV 84.2 (79.4-94.8) fl MCH 28.6 (25.6-32.2) pg MCHC 33.9 (32.2-35.5) g/dl RDW Std Deviation 42.9 (36.4-46.3) fL Plt Count 362 (182-369) K/mm3 MPV 8.7 L (9.4-12.3) fl Neut % (Auto) 77.5 H (34.0-71.1) % Lymph % (Auto) 13.5 L (19.3-51.7) % Alpine % (Auto) 7.0 (4.7-12.5) % Eos % (Auto) 1.4 (0.7-5.8) Baso % (Auto) 0.4 (0.1-1.2) % Neut # (Auto) 8.23 H (1.56-6.13) K/mm3 Lymph # (Auto) 1.43 (1.18-3.74) K/mm3 Alpine # (Auto) 0.74 H (0.24-0.36) K/mm3 Eos # (Auto) 0.15 (0.04-0.36) K/mm3 Baso # (Auto) 0.04 (0.01-0.08) K/mm3 Sodium 124 L (136-145) mEq/L Potassium 4.5 (3.5-5.1) mEq/L Chloride 91 L (98-107) mEq/L Carbon Dioxide 22 (21-32) mEq/L Anion Gap 15.5 H (5-15) BUN 23 H (7-18) mg/dL Creatinine 0.9 (0.55-1.02) mg/dL Est Cr Clr Drug Dosing 45.34 mL/min Estimated GFR (MDRD) > 60 (>60) mL/min BUN/Creatinine Ratio 25.6 H (14-18) Glucose 178 H (83-115) mg/dL POC Glucose (83-110) mg/dL Calcium 8.9 (8.5-10.1) mg/dL Total Bilirubin 0.6 (0.2-1.0) mg/dL AST 50 H (15-37) U/L ALT 62 H (14-59) U/L Alkaline Phosphatase 121 H (46-116) U/L Troponin I 0.018 (0.00-0.056) ng/mL NT-Pro-B Natriuret Pep 23224 H (0-125) pg/mL Total Protein 7.0 (6.4-8.2) g/dl Albumin 3.4 (3.4-5.0) g/dl Globulin 3.6 gm/dL Albumin/Globulin Ratio 0.9 L (1-2) Mycoplasma pneumon IgM (NEGATIVE) 05/16/18 05/17/18 Range/Units 21:10 06:04 WBC (3.98-10.04) K/mm3 RBC (3.98-5.22) M/mm3 Hgb (11.2-15.7) gm/L Hct (34.1-44.9) % MCV (79.4-94.8) fl MCH (25.6-32.2) pg MCHC (32.2-35.5) g/dl RDW Std Deviation (36.4-46.3) fL Plt Count (182-369) K/mm3 MPV (9.4-12.3) fl Neut % (Auto) (34.0-71.1) % Lymph % (Auto) (19.3-51.7) % Alpine % (Auto) (4.7-12.5) % Eos % (Auto) (0.7-5.8) Baso % (Auto) (0.1-1.2) % Neut # (Auto) (1.56-6.13) K/mm3 Lymph # (Auto) (1.18-3.74) K/mm3 Alpine # (Auto) (0.24-0.36) K/mm3 Eos # (Auto) (0.04-0.36) K/mm3 Baso # (Auto) (0.01-0.08) K/mm3 Sodium (136-145) mEq/L Potassium (3.5-5.1) mEq/L Chloride (98-107) mEq/L Carbon Dioxide (21-32) mEq/L Anion Gap (5-15) BUN (7-18) mg/dL Creatinine (0.55-1.02) mg/dL Est Cr Clr Drug Dosing mL/min Estimated GFR (MDRD) (>60) mL/min BUN/Creatinine Ratio (14-18) Glucose (83-115) mg/dL POC Glucose 110 (83-110) mg/dL Calcium (8.5-10.1) mg/dL Total Bilirubin (0.2-1.0) mg/dL AST (15-37) U/L ALT (14-59) U/L Alkaline Phosphatase (46-116) U/L Troponin I (0.00-0.056) ng/mL NT-Pro-B Natriuret Pep (0-125) pg/mL Total Protein (6.4-8.2) g/dl Albumin (3.4-5.0) g/dl Globulin gm/dL Albumin/Globulin Ratio (1-2) Mycoplasma pneumon IgM Negative (NEGATIVE) Result Diagrams: 05/17/18 06:05 05/17/18 06:05 Alfie Results Last 24 hrs: Microbiology 05/17/18 00:30 Influenza Type A Antigen Screen - Final Nasal, Unspecified NEGATIVE INFLUENZA A VIRUS AG Influenza Type B Antigen Screen - Final NEGATIVE INFLUENZA B VIRUS AG - Problem List (1) Congestive heart failure SNOMED Code(s): 31449614 ICD Code: I50.9 - HEART FAILURE, UNSPECIFIED Status: Acute Priority: High Current Visit: Yes Qualifiers: Heart failure type: combined systolic and diastolic Heart failure chronicity: acute on chronic Qualified Code(s): I50.43 - Acute on chronic combined systolic (congestive) and diastolic (congestive) heart failure (2) Hypoxia SNOMED Code(s): 668742325 ICD Code: R09.02 - HYPOXEMIA Status: Acute Priority: High Current Visit : Yes (3) Hyponatremia SNOMED Code(s): 09042626 ICD Code: E87.1 - HYPO-OSMOLALITY AND HYPONATREMIA Status: Acute Priority : High Current Visit: Yes (4) Hypertension SNOMED Code(s): 20463654 ICD Code: I10 - ESSENTIAL (PRIMARY) HYPERTENSION Status: Chronic Priority : Low Current Visit: No Qualifiers: Hypertension type: unspecified Qualified Code(s): I10 - Essential (primary ) hypertension (5) Hypothyroidism SNOMED Code(s): 42593404 ICD Code: E03.9 - HYPOTHYROIDISM, UNSPECIFIED Status: Chronic Priority: Low Current Visit: No Qualifiers: Hypothyroidism type: unspecified Qualified Code(s): E03.9 - Hypothyroidism , unspecified (6) Presence of cardiac pacemaker SNOMED Code(s): 987950845 ICD Code: Z95.0 - PRESENCE OF CARDIAC PACEMAKER Status: Chronic Priority : Low Current Visit: No (7) Type II diabetes mellitus SNOMED Code(s): 83071092 ICD Code: E11.9 - TYPE 2 DIABETES MELLITUS WITHOUT COMPLICATIONS Status: Chronic Priority: Low Current Visit: No Qualifiers: Diabetes mellitus termination clerk insulin use: without termination clerk use Diabetes mellitus complication status: without complication Qualified Code(s): E11.9 - Type 2 diabetes mellitus without complications (8) Hypomagnesemia SNOMED Code(s): 366624328 ICD Code: E83.42 - HYPOMAGNESEMIA Status: Acute Priority: High Current Visit: Yes Problem List Initiated/Reviewed/Updated: Yes Orders Last 24hrs: Active Orders 24 hr Category Date Time Status Patient Status [ADT] Routine ADT 05/16/18 22:37 Active Blood Glucose Check, Bedside [RC] QIDACANDBED Care 05/16/18 23:15 Active Oxygen Therapy [RC] ASDIRECTED Care 05/16/18 21:04 Active Urinary Catheter Assessment [RC] ASDIRECTED Care 05/16/18 23:08 Active Urinary Catheter Insertion [Insert Urinary Catheter] [ Care 05/16/18 22:40 Ordered OM.PC] Stat 2 Gram Sodium Diet [DIET] Diet 05/17/18 Breakfast Active [place] [employer] Diet [DIET] Diet 05/17/18 Breakfast Active Fluid Restriction [DIET] Diet 05/17/18 Breakfast Active Chest 1V Frontal [CR] Stat Exams 05/16/18 21:03 Taken Chest 2V [CR] Routine Exams 05/17/18 07:00 Ordered BMP [BASIC METABOLIC PANEL,BMP] [CHEM] Routine Lab 05/17/18 05:00 Ordered CBC W/O DIFF,HEMOGRAM [HEME] MOTH@0700 Lab 05/18/18 07:00 Ordered CBC W/O DIFF,HEMOGRAM [HEME] MOTH@0700 Lab 05/22/18 07:00 Ordered CBC W/O DIFF,HEMOGRAM [HEME] MOTH@0700 Lab 05/25/18 07:00 Ordered CBC W/O DIFF,HEMOGRAM [HEME] MOTH@0700 Lab 05/29/18 07:00 Ordered CBC W/O DIFF,HEMOGRAM [HEME] MOTH@0700 Lab 06/01/18 07:00 Ordered CBC W/O DIFF,HEMOGRAM [HEME] MOTH@0700 Lab 06/05/18 07:00 Ordered CBC WITH MANUAL DIFF [HEME] Routine Lab 05/17/18 05:00 Ordered MG [MAGNESIUM] [CHEM] Routine Lab 05/17/18 05:00 Ordered PRO B-TYPE NATRIUR PEPT,BNPPRO [CHEM] Routine Lab 05/17/18 05:00 Ordered TROPONIN I [CHEM] Routine Lab 05/17/18 05:00 Ordered TSH [CHEM] Routine Lab 05/17/18 05:00 Ordered Furosemide [Lasix] 100 mg Med 05/16/18 23:15 Active Sodium Chloride 0.9% [Normal Saline] 90 ml IV TITRATE Heparin Sodium Med 05/16/18 23:15 Active 5,000 units SUBCUT Q12H Insulin Lispro [HumaLOG] Med 05/17/18 07:00 Active See Protocol SUBCUT QIDACANDBED Sodium Chloride 0.9% [Saline Flush] Med 05/16/18 21:05 Active 10 ml FLUSH ASDIRECTED PRN Peripheral IV Insertion Adult [OM.PC] Stat Oth 05/16/18 21:04 Ordered JAD Hose [Antiembolic Hose] [OM.PC] Routine Oth 05/16/18 23:15 Ordered Code Status [Resuscitation Status] Routine Resus Stat 05/16/18 23:52 Ordered Medication Orders Heparin Sodium (Porcine) (Heparin Sodium) 5,000 units SUBCUT Q12H ОЛЬГА Last Admin: 05/17/18 00:06 Dose: 5,000 units Furosemide 100 mg/ Sodium (Chloride) 100 mls @ 4 mls/hr IV TITRATE ОЛЬГА; Protocol Last Admin: 05/17/18 00:06 Dose: 4 mg/hr, 4 mls/hr Insulin Human Lispro (Humalog) 0 unit SUBCUT QIDACANDBED ОЛЬГА; Protocol Sodium Chloride (Saline Flush) 10 ml FLUSH ASDIRECTED PRN PRN Reason: Keep Vein Open Last Admin: 05/16/18 21:14 Dose: 10 ml Assessment/Plan Comment:: I/P: Acute: CHF exacerbation -Reports worsening SOB over past week or two; especially past 24-48 hours -Has noted worsening dyspnea on exertion, edema, and orthopnea -Chronically on O2 -AICD implant noted, paced rhythm on monitor -40mg IVP lasix given in ED -BNP 02178-->36352 -Peralta placed for monitoring of I&Os -Started on lasix drip - continue for 48 hours total -Monitor electrolytes -Echo from 10/27/17 1. LVEF, by visual estimation, is 25-30% 2. Akinesis of inferior, inferoseptal, basal inferior and apical inferior left ventricular wall(s) 3. Impaired relaxation (grade 1) pattern of LV diastolic filling 4. Mild concentric left ventricular hypertrophy 5. Mildly reduced right ventricular systolic function 6. Moderately dilated left atrium 7. Moderate aortic valve stenosis 8. The dimensionless index is 0.28 9. Mild tricuspid valve regurgitation 10. The right ventricular systolic pressure is normal at 30.9 mmHg. -Sodium and fluid restriction -Start spironolactone 25 mg daily Hyponatremia, improving -Sodium 124-->133 -Has been low on all other visits - lowest was 120; Near apparent baseline now -Asymptomatic -Net Lead Developer reports patient drinks large amounts of water -Monitor Hypomagnesemia -Magnesium 1.6 -Supplemented Chronic: impaired vision hypertension pacemaker/AICD hemorrhoids urinary incontinence type II DM hypothyroidism Plan: Admit to medical floor on telemetry Other orders as indicated above Routine AM labs Home medications as ordered Net Lead Developer consult diabetes educator consult PT/OT DVT prophylaxis: Home Eliquis CM for discharge planning Code status: Full code; PCP: Formerly Ammy Kwon who has moved to [place]. Will need new PCP in [place].
[2018-05-17] MEDS: Insulin Lispro 100 Unit/ML 3 ML KwikPen SUBCUT SCH ×4 (06:32→21:17)
--- NOTE | 2018-05-17 06:40 | CR ---
Chest: Portable view of the chest was obtained. Comparison: Previous chest x-ray of 06/15/17. Heart is enlarged. Tortuous thoracic aorta is seen. AICD is present. Lung markings are mildly increased which appear stable. Bony structures are grossly intact. Impression: 1. Stable cardiomegaly with AICD. 2. Nothing acute is appreciated on portable chest x-ray. Diagnostic code #2
[2018-05-17] MEDS ORDERED: Acetaminophen 325 MG Tab PO PRN (07:29)
[2018-05-17] MEDS ORDERED: Ondansetron 4 MG/2 ML SDV IV PRN (07:29)
[2018-05-17] MEDS ORDERED: Ondansetron 4 MG Tab.DIS PO PRN (07:29)
[2018-05-17] MEDS ORDERED: Metoprolol Tartrate 5 MG/5 ML SDV IVPUSH PRN (07:32)
[2018-05-17] MEDS ORDERED: hydrALAZINE 20 MG/ML SDV IVPUSH PRN (07:32)
--- NOTE | 2018-05-17 10:15 | CR ---
Chest: Two views of the chest were obtained. Comparison: Prior chest x-ray of 05/16/18. Heart is enlarged. Tortuous thoracic aorta is seen. Pulmonary vessels are slightly congested but improved from previous exam. Small left-sided pleural effusion is noted. Bony structures show mild degenerative change throughout the spine with scoliosis. AICD is present. Impression: 1. Cardiomegaly, small left-sided pleural effusion and mild pulmonary vascular congestion. Findings are slightly improved from previous exam. 2. Other incidental findings. Diagnostic code #3
[2018-05-17] MEDS ORDERED: Magnesium Sulfate/Water 2 GM in Premix Bag 1 BAG IV ONE (12:30)
[2018-05-17] MEDS: Carvedilol 12.5 MG Tab PO SCH ×2 (14:49→21:16)
[2018-05-17] MEDS: Spironolactone 25 MG Tab PO SCH (14:53)
[2018-05-17] MEDS: Diltiazem 120 MG Cap.CD PO SCH (14:54)
[2018-05-17] MEDS: Digoxin 250 MCG Tab PO SCH (16:52)
[2018-05-17] MEDS ORDERED: [UNRECOGNIZED DRUG - OTHER] TOP PRN (17:12)
[2018-05-17] MEDS ORDERED: CARVEDILOL 25 MG PO SCH (21:00)
[2018-05-17] MEDS: Apixaban 5 MG Tab PO SCH (21:16)
--- NOTE | 2018-05-18 06:25 | PCM.PN ---
- General Info Date of Service: 05/18/18 Admission Dx/Problem (Free Text): Admission Diagnosis/Problem Admission Diagnosis/Problem Congestive heart failure Subjective Update: In to see Milka. She is just getting ready for a walk. She reports she feels much better. She has no concerns or complaints. Lasix drip was decreased from 4mg/hr to 2mg/hr. Will leave kennedy in until tomorrow AM and then pull it. She continues to improve. Functional Status: Reports: Pain Controlled, Tolerating Diet, Ambulating, Urinating. Denies: New Symptoms - Review of Systems General: Reports: No Symptoms. Denies: Fever, Weakness, Fatigue, Malaise, Chills HEENT: Reports: No Symptoms. Denies: Sore Throat Pulmonary: Reports: No Symptoms. Denies: Shortness of Breath, Cough, Sputum, Wheezing Cardiovascular: Reports: No Symptoms. Denies: Chest Pain, Palpitations, Dyspnea on Exertion, Orthopnea, Edema, Lightheadedness Gastrointestinal: Reports: No Symptoms. Denies: Abdominal Pain, Constipation, Decreased Appetite, Diarrhea, Nausea, Vomiting Genitourinary: Reports: No Symptoms. Denies: Pain Musculoskeletal: Reports: No Symptoms Skin: Reports: No Symptoms Neurological: Reports: No Symptoms. Denies: Confusion Psychiatric: Reports: No Symptoms - Patient Data Vitals - Most Recent: Last Vital Signs Temp 97.9 F 05/18/18 03:14 Pulse 75 05/18/18 03:14 Resp 12 05/18/18 03:14 BP 116/73 05/18/18 03:14 Pulse Ox 96 05/18/18 03:14 Weight - Most Recent: 152 lb 9.6 oz I&O - Last 24 Hours: Intake & Output 05/17/18 05/17/18 05/18/18 14:59 22:59 06:59 Intake Total 380 248 198 Output Total 450 3050 1750 Balance -70 -4570 -155 Lab Results Last 24 Hours: Laboratory Results - last 24 hr 05/17/18 05/17/18 05/17/18 Range/Units 06:05 06:05 06:05 WBC 7.64 (3.98-10.04) K/mm3 RBC 4.15 (3.98-5.22) M/mm3 Hgb 11.7 (11.2-15.7) gm/L Hct 35.2 (34.1-44.9) % MCV 84.8 (79.4-94.8) fl MCH 28.2 (25.6-32.2) pg MCHC 33.2 (32.2-35.5) g/dl RDW Std Deviation 43.8 (36.4-46.3) fL Plt Count 363 (182-369) K/mm3 MPV 9.2 L (9.4-12.3) fl Neutrophils % (Manual) 55 (40-60) % Band Neutrophils % 0 (0-10) % Lymphocytes % (Manual) 36 (20-40) % Atypical Lymphs % 0 % Monocytes % (Manual) 4 (2-10) % Eosinophils % (Manual) 3 (0.7-5.8) % Basophils % (Manual) 2 H (0.1-1.2) Platelet Estimate Adequate RBC Morph Comment Normal Sodium 133 L (136-145) mEq/L Potassium 3.7 (3.5-5.1) mEq/L Chloride 97 L (98-107) mEq/L Carbon Dioxide 25 (21-32) mEq/L Anion Gap 14.7 (5-15) BUN 22 H (7-18) mg/dL Creatinine 0.9 (0.55-1.02) mg/dL Est Cr Clr Drug Dosing 45.34 mL/min Estimated GFR (MDRD) > 60 (>60) mL/min BUN/Creatinine Ratio 24.4 H (14-18) Glucose 102 (83-115) mg/dL POC Glucose (83-110) mg/dL Calcium 9.5 (8.5-10.1) mg/dL Magnesium 1.6 L (1.8-2.4) mg/dl Troponin I 0.019 (0.00-0.056) ng/mL NT-Pro-B Natriuret Pep 39834 H (0-125) pg/mL TSH 3rd Generation 1.118 (0.358-3.74) uIU/mL Digoxin (0.9-2.0) ng/mL 05/17/18 05/17/18 05/17/18 Range/Units 06:05 11:07 16:55 WBC (3.98-10.04) K/mm3 RBC (3.98-5.22) M/mm3 Hgb (11.2-15.7) gm/L Hct (34.1-44.9) % MCV (79.4-94.8) fl MCH (25.6-32.2) pg MCHC (32.2-35.5) g/dl RDW Std Deviation (36.4-46.3) fL Plt Count (182-369) K/mm3 MPV (9.4-12.3) fl Neutrophils % (Manual) (40-60) % Band Neutrophils % (0-10) % Lymphocytes % (Manual) (20-40) % Atypical Lymphs % % Monocytes % (Manual) (2-10) % Eosinophils % (Manual) (0.7-5.8) % Basophils % (Manual) (0.1-1.2) Platelet Estimate RBC Morph Comment Sodium (136-145) mEq/L Potassium (3.5-5.1) mEq/L Chloride (98-107) mEq/L Carbon Dioxide (21-32) mEq/L Anion Gap (5-15) BUN (7-18) mg/dL Creatinine (0.55-1.02) mg/dL Est Cr Clr Drug Dosing mL/min Estimated GFR (MDRD) (>60) mL/min BUN/Creatinine Ratio (14-18) Glucose (83-115) mg/dL POC Glucose 231 H 202 H (83-110) mg/dL Calcium (8.5-10.1) mg/dL Magnesium (1.8-2.4) mg/dl Troponin I (0.00-0.056) ng/mL NT-Pro-B Natriuret Pep (0-125) pg/mL TSH 3rd Generation (0.358-3.74) uIU/mL Digoxin 0.6 L (0.9-2.0) ng/mL 05/17/18 Range/Units 21:11 WBC (3.98-10.04) K/mm3 RBC (3.98-5.22) M/mm3 Hgb (11.2-15.7) gm/L Hct (34.1-44.9) % MCV (79.4-94.8) fl MCH (25.6-32.2) pg MCHC (32.2-35.5) g/dl RDW Std Deviation (36.4-46.3) fL Plt Count (182-369) K/mm3 MPV (9.4-12.3) fl Neutrophils % (Manual) (40-60) % Band Neutrophils % (0-10) % Lymphocytes % (Manual) (20-40) % Atypical Lymphs % % Monocytes % (Manual) (2-10) % Eosinophils % (Manual) (0.7-5.8) % Basophils % (Manual) (0.1-1.2) Platelet Estimate RBC Morph Comment Sodium (136-145) mEq/L Potassium (3.5-5.1) mEq/L Chloride (98-107) mEq/L Carbon Dioxide (21-32) mEq/L Anion Gap (5-15) BUN (7-18) mg/dL Creatinine (0.55-1.02) mg/dL Est Cr Clr Drug Dosing mL/min Estimated GFR (MDRD) (>60) mL/min BUN/Creatinine Ratio (14-18) Glucose (83-115) mg/dL POC Glucose 139 H (83-110) mg/dL Calcium (8.5-10.1) mg/dL Magnesium (1.8-2.4) mg/dl Troponin I (0.00-0.056) ng/mL NT-Pro-B Natriuret Pep (0-125) pg/mL TSH 3rd Generation (0.358-3.74) uIU/mL Digoxin (0.9-2.0) ng/mL Alfie Results Last 24 Hours: Microbiology 05/17/18 00:30 Influenza Type A Antigen Screen - Final Nasal, Unspecified NEGATIVE INFLUENZA A VIRUS AG Influenza Type B Antigen Screen - Final NEGATIVE INFLUENZA B VIRUS AG Med Orders - Current: Current Medications Acetaminophen (Tylenol) 650 mg PO Q4H PRN PRN Reason: Pain (Mild 1-3)/fever Apixaban (Eliquis) 5 mg PO BID [facility] Last Admin: 05/17/18 21:16 Dose: 5 mg Carvedilol (Coreg) 12.5 mg PO BID [facility] Last Admin: 05/17/18 21:16 Dose: 12.5 mg Digoxin (Lanoxin) 250 mcg PO DAILY@1200 [facility] Last Admin: 05/17/18 16:52 Dose: 250 mcg Diltiazem HCl (Cardizem Cd) 120 mg PO DAILY [facility] Last Admin: 05/17/18 14:54 Dose: 120 mg Hydralazine HCl (Apresoline) 10 mg IVPUSH Q6H PRN PRN Reason: Hypertension Furosemide 100 mg/ Sodium (Chloride) 100 mls @ 4 mls/hr IV TITRATE [facility]; Protocol Last Admin: 05/17/18 23:39 Dose: 4 mg/hr, 4 mls/hr Insulin Human Lispro (Humalog) 0 unit SUBCUT QIDACANDBED [facility]; Protocol Last Admin: 05/17/18 21:17 Dose: Not Given Metoprolol Tartrate (Lopressor) 5 mg IVPUSH Q4H PRN PRN Reason: Tachycardia Calming Leg [place] (Own Med) 0 each TOP BID PRN PRN Reason: Leg cramps Ondansetron HCl (Zofran Odt) 4 mg PO Q6H PRN PRN Reason: nausea, able to take PO Ondansetron HCl (Zofran) 4 mg IV Q6H PRN PRN Reason: Nausea/Vomiting Sodium Chloride (Saline Flush) 10 ml FLUSH ASDIRECTED PRN PRN Reason: Keep Vein Open Last Admin: 05/16/18 21:14 Dose: 10 ml Spironolactone (Aldactone) 25 mg PO DAILY [facility] Last Admin: 05/17/18 14:53 Dose: 25 mg Discontinued Medications Furosemide (Lasix) 40 mg IVPUSH NOW ONE Stop: 05/16/18 21:06 Last Admin: 05/16/18 21:14 Dose: 40 mg Heparin Sodium (Porcine) (Heparin Sodium) 5,000 units SUBCUT Q12H [facility] Last Admin: 05/17/18 11:19 Dose: 5,000 units Magnesium Sulfate 2 gm/ Premix 50 mls @ 25 mls/hr IV ONETIME ONE Stop: 05/17/18 14:29 Last Admin: 05/17/18 14:54 Dose: 25 mls/hr Non-Formulary Medication (Carvedilol) 25 mg PO BID [facility] Simvastatin (Zocor) 40 mg PO DAILY [facility] - Exam Quality Assessment: DVT Prophylaxis General: Alert, Oriented, Cooperative, No Acute Distress HEENT: Pupils Equal, Pupils Reactive, EOMI, Mucous Membr. Moist/[place] Neck: Supple, Trachea Midline, No JVD Lungs: Normal Respiratory Effort, Decreased Breath Sounds. No: Rales, Rhonchi, Rub, Wheezing Cardiovascular: Regular Rate, Regular Rhythm (paced ), Other (pacemaker present ) GI/Abdominal Exam: Normal Bowel Sounds, Soft, Non-Tender, No Distention, No Abnormal Bruit (Female) Exam: Deferred Back Exam: Normal Inspection, Full Range of Motion Extremities: Normal Inspection, Normal Range of Motion, Non-Tender, No Pedal Edema, Normal Capillary Refill Peripheral Pulses: 2+: Radial (L), Radial (R), Dorsalis Pedis (L), Dorsalis Pedis (R) Skin: Warm, Dry, Intact Neurological: No New Focal Deficit Psy/Mental Status: Alert, Normal Affect, Normal Mood - Problem List & Annotations (1) Congestive heart failure SNOMED Code(s): 54612085 Code(s): I50.9 - HEART FAILURE, UNSPECIFIED Status: Acute Priority: High Current Visit: Yes Qualifiers: Heart failure type: combined systolic and diastolic Heart failure chronicity: acute on chronic Qualified Code(s): I50.43 - Acute on chronic combined systolic (congestive) and diastolic (congestive) heart failure (2) Hypoxia SNOMED Code(s): 535328809 Code(s): R09.02 - HYPOXEMIA Status: Acute Priority: High Current Visit : Yes (3) Hyponatremia SNOMED Code(s): 14183710 Code(s): E87.1 - HYPO-OSMOLALITY AND HYPONATREMIA Status: Acute Priority : High Current Visit: Yes (4) Hypertension SNOMED Code(s): 42494032 Code(s): I10 - ESSENTIAL (PRIMARY) HYPERTENSION Status: Chronic Priority : Low Current Visit: No Qualifiers: Hypertension type: unspecified Qualified Code(s): I10 - Essential (primary ) hypertension (5) Hypothyroidism SNOMED Code(s): 74430601 Code(s): E03.9 - HYPOTHYROIDISM, UNSPECIFIED Status: Chronic Priority: Low Current Visit: No Qualifiers: Hypothyroidism type: unspecified Qualified Code(s): E03.9 - Hypothyroidism , unspecified (6) Presence of cardiac pacemaker SNOMED Code(s): 049792633 Code(s): Z95.0 - PRESENCE OF CARDIAC PACEMAKER Status: Chronic Priority: Low Current Visit: No (7) Type II diabetes mellitus SNOMED Code(s): 29789278 Code(s): E11.9 - TYPE 2 DIABETES MELLITUS WITHOUT COMPLICATIONS Status: Chronic Priority: Low Current Visit: No Qualifiers: Diabetes mellitus snf insulin use: without snf use Diabetes mellitus complication status: without complication Qualified Code(s): E11.9 - Type 2 diabetes mellitus without complications (8) Hypomagnesemia SNOMED Code(s): 035511237 Code(s): E83.42 - HYPOMAGNESEMIA Status: Acute Priority: High Current Visit: Yes - Problem List Review Problem List Initiated/Reviewed/Updated: Yes - My Orders Last 24 Hours: My Active Orders 05/17/18 07:29 Cardiac Monitoring [RC] CONTINUOUS Height and Weight [RC] 04 Intake and Output [RC] Q2HR Pulse Oximetry [RC] PRN Up With Assistance [RC] ASDIRECTED VTE/DVT Education [RC] DAILY Vital Signs [RC] Q4HR Consult to Case Management/Counter Top Assembler [CONS] Routine Consult to Diabetic Nurse Specialist [CONS] Routine Consult to Can Reconditioner [CONS] Routine OT Evaluation and Treatment [CONS] Routine PT Evaluation and Treatment [CONS] Routine Acetaminophen [Tylenol] 650 mg PO Q4H PRN Ondansetron [Zofran ODT] 4 mg PO Q6H PRN Ondansetron [Zofran] 4 mg IV Q6H PRN 05/17/18 07:32 Metoprolol Tartrate [Lopressor] 5 mg IVPUSH Q4H PRN hydrALAZINE [Apresoline] 10 mg IVPUSH Q6H PRN 05/17/18 15:30 Digoxin [Lanoxin] 250 mcg PO DAILY@1200 05/17/18 21:00 Apixaban [Eliquis] 5 mg PO BID 05/18/18 05:11 CBC WITH AUTO DIFF [HEME] AM COMPREHENSIVE METABOLIC PN,CMP [CHEM] Routine MAGNESIUM [CHEM] AM PRO B-TYPE NATRIUR PEPT,BNPPRO [CHEM] DAILY 05/19/18 05:11 BASIC METABOLIC PANEL,BMP [CHEM] AM CBC WITH AUTO DIFF [HEME] AM MAGNESIUM [CHEM] AM PRO B-TYPE NATRIUR PEPT,BNPPRO [CHEM] DAILY 05/20/18 05:11 BASIC METABOLIC PANEL,BMP [CHEM] AM CBC WITH AUTO DIFF [HEME] AM MAGNESIUM [CHEM] AM PRO B-TYPE NATRIUR PEPT,BNPPRO [CHEM] DAILY 05/21/18 05:11 BASIC METABOLIC PANEL,BMP [CHEM] AM CBC WITH AUTO DIFF [HEME] AM MAGNESIUM [CHEM] AM PRO B-TYPE NATRIUR PEPT,BNPPRO [CHEM] DAILY - Plan Plan:: I/P: Acute: CHF exacerbation -Reports worsening SOB over past week or two; especially past 24-48 hours -Has noted worsening dyspnea on exertion, edema, and orthopnea -Chronically on O2 -AICD implant noted, paced rhythm on monitor -40mg IVP lasix given in ED -BNP 17336-->54692-->8897 -Kennedy placed for monitoring of I&Os -Started on lasix drip - decrease from 4mg/hr to 2mg/hr today at 1200 then run until 2330 today -Monitor electrolytes -Echo from 10/27/17 1. LVEF, by visual estimation, is 25-30% 2. Akinesis of inferior, inferoseptal, basal inferior and apical inferior left ventricular wall(s) 3. Impaired relaxation (grade 1) pattern of LV diastolic filling 4. Mild concentric left ventricular hypertrophy 5. Mildly reduced right ventricular systolic function 6. Moderately dilated left atrium 7. Moderate aortic valve stenosis 8. The dimensionless index is 0.28 9. Mild tricuspid valve regurgitation 10. The right ventricular systolic pressure is normal at 30.9 mmHg. -Sodium and fluid restriction -Start spironolactone 25 mg daily Hyponatremia, improving -Sodium 124-->133-->135 -Has been low on all other visits - lowest was 120; Near apparent baseline now -Asymptomatic -Can Reconditioner reports patient drinks large amounts of water -Monitor Hypomagnesemia -Magnesium 1.6-->1.7 -Supplemented -Will need supplementation on discharge Chronic: impaired vision hypertension pacemaker/AICD hemorrhoids urinary incontinence type II DM hypothyroidism Plan: Admit to medical floor on telemetry Other orders as indicated above Routine AM labs Home medications as ordered Can Reconditioner consult tobacco prevention health educator consult PT/OT DVT prophylaxis: Home Eliquis CM for discharge planning Code status: Full code; PCP: Formerly Ammy Kwon who has moved to [place]. Will need new PCP in [place].
[2018-05-18] MEDS ORDERED: Magnesium Sulfate/Water 2 GM in Premix Bag 1 BAG IV ONE (08:31)
[2018-05-18] MEDS: Insulin Lispro 100 Unit/ML 3 ML KwikPen SUBCUT SCH ×4 (08:32→21:01)
[2018-05-18] MEDS: Carvedilol 12.5 MG Tab PO SCH ×2 (08:35→20:15)
[2018-05-18] MEDS: Spironolactone 25 MG Tab PO SCH (08:35)
[2018-05-18] MEDS: Diltiazem 120 MG Cap.CD PO SCH (08:36)
[2018-05-18] MEDS: Apixaban 5 MG Tab PO SCH ×2 (08:37→20:14)
[2018-05-18] MEDS ORDERED: Simvastatin 40 MG Tab PO SCH (09:00)
[2018-05-18] MEDS: Digoxin 250 MCG Tab PO SCH (11:45)
[2018-05-18] MEDS ORDERED: Furosemide 100 MG in Sodium Chloride 0.9% 90 ML IV SCH (12:00)
[2018-05-18] MEDS: Ascorbic Acid 500 MG Tab PO SCH (15:46)
[2018-05-18] MEDS ORDERED: Temazepam 15 MG Cap PO PRN (23:25)
--- NOTE | 2018-05-19 06:27 | PCM.DCSUM1 ---
Discharge Summary - Hospital Course HPI Initial Comments: Milka Trujillo is a 72 yo female who presented to our ED yesterday evening with worsening shortness of breath over the past week or so. She reports it has been especially severe over the last 24-48 hours. She spent the night sitting in the chair and even then her breathing was difficult. If she attempts to ambulate or lay flat her respiratory status worsens. Denies any cough, sore throat, fever, chills. Does have a history of CHF. She does have a pacemaker placed which was performed 2 years prior. Denies any known prior CO. Denies any chest discomfort, abdominal pain, nausea, vomiting, diaphoresis. In the ED twelve-lead EKG was obtained showing a paced rhythm at 75 bpm. Temp is 98.2. Pulse 84. Respirations 18. Blood pressure 160/102. Pulse ox 94%. Labs are obtained: WBC is just slightly elevated at 10.61. Hemoglobin 11.4. Hematocrit 33.6. She was normocytic. Pulses are good at 362,000. Neutrophils are elevated at 77.5%. Sodium is low at 124. Potassium 4.5. Chloride 91. Anion gap is high at 15.5. BUN is 23. Creatinine 0.9. EGFR greater than 60. Glucose is 178. Calcium 8.9. Total bilirubin 0.6. AST is elevated at 50, ALT elevated at 62, alkaline phosphatase elevated at 121. Troponin 0.018. Protein 7.0. Albumin 3.4. Pro-BNP was 63944. She is given a 40 mg IV push of Lasix. It is noted that her medications were changed about a month ago. Chest x-ray is obtained which shows increased lung markings which are noted to be stable and an implanted AICD. Cardiomegaly is also noted. Saturations on arrival were noted to be to 89% on room air. She carries a history of: impaired vision, hypertension, pacemaker, hemorrhoids , urinary incontinence, type II DM, hypothyroidism. Her PCP is JACKI Hidalgo. Diagnosis: Stroke: No - Discharge Data Discharge Date: 05/19/18 (Admit date: 05/16/18) Discharge Disposition: Home, Self-Care 01 Condition: Good - Discharge Diagnosis/Problem(s) (1) Congestive heart failure SNOMED Code(s): 05855767 ICD Code: I50.9 - HEART FAILURE, UNSPECIFIED Status: Acute Priority: High Current Visit: Yes Qualifiers: Heart failure type: combined systolic and diastolic Heart failure chronicity: acute on chronic Qualified Code(s): I50.43 - Acute on chronic combined systolic (congestive) and diastolic (congestive) heart failure (2) Hypoxia SNOMED Code(s): 048207241 ICD Code: R09.02 - HYPOXEMIA Status: Ruled-out Priority: High Current Visit: Yes (3) Hyponatremia SNOMED Code(s): 93355618 ICD Code: E87.1 - HYPO-OSMOLALITY AND HYPONATREMIA Status: Acute Priority : High Current Visit: Yes (4) Hypertension SNOMED Code(s): 65364291 ICD Code: I10 - ESSENTIAL (PRIMARY) HYPERTENSION Status: Chronic Priority : Low Current Visit: No Qualifiers: Hypertension type: unspecified Qualified Code(s): I10 - Essential (primary ) hypertension (5) Hypothyroidism SNOMED Code(s): 75643058 ICD Code: E03.9 - HYPOTHYROIDISM, UNSPECIFIED Status: Chronic Priority: Low Current Visit: No Qualifiers: Hypothyroidism type: unspecified Qualified Code(s): E03.9 - Hypothyroidism , unspecified (6) Presence of cardiac pacemaker SNOMED Code(s): 150988983 ICD Code: Z95.0 - PRESENCE OF CARDIAC PACEMAKER Status: Chronic Priority : Low Current Visit: No (7) Type II diabetes mellitus SNOMED Code(s): 39435364 ICD Code: E11.9 - TYPE 2 DIABETES MELLITUS WITHOUT COMPLICATIONS Status: Chronic Priority: Low Current Visit: No Qualifiers: Diabetes mellitus intermediate designer insulin use: without intermediate designer use Diabetes mellitus complication status: without complication Qualified Code(s): E11.9 - Type 2 diabetes mellitus without complications (8) Hypomagnesemia SNOMED Code(s): 924518990 ICD Code: E83.42 - HYPOMAGNESEMIA Status: Acute Priority: High Current Visit: Yes - Patient Summary/Data Consults: Consultations 05/17/18 07:29 Consult to Case Management/No Bake Molder [CONS] Routine Consult to Diabetic Nurse Specialist [CONS] Routine Consult to Punching Machine Operator [CONS] Routine OT Evaluation and Treatment [CONS] Routine PT Evaluation and Treatment [CONS] Routine Labs Pending at D/C: None Recommended Follow-up Testing/Procedures: Follow-up with PCP within 7-10 days of discharge. Recommend re-check BMP, digoxin level and magnesium at that appointment. Hospital Course: I/P: Acute: CHF exacerbation -Reports worsening SOB over past week or two; especially past 24-48 hours -Has noted worsening dyspnea on exertion, edema, and orthopnea -Chronically on O2 -AICD implant noted, paced rhythm on monitor -40mg IVP lasix given in ED -BNP 72740-->14149-->8897-->5898 -Kennedy placed for monitoring of I&Os -> discontinued this AM -Started on lasix drip - decrease from 4mg/hr to 2mg/hr today at 1200 then run until 2330 -> stopped last night -Monitor electrolytes -Echo from 10/27/17 1. LVEF, by visual estimation, is 25-30% 2. Akinesis of inferior, inferoseptal, basal inferior and apical inferior left ventricular wall(s) 3. Impaired relaxation (grade 1) pattern of LV diastolic filling 4. Mild concentric left ventricular hypertrophy 5. Mildly reduced right ventricular systolic function 6. Moderately dilated left atrium 7. Moderate aortic valve stenosis 8. The dimensionless index is 0.28 9. Mild tricuspid valve regurgitation 10. The right ventricular systolic pressure is normal at 30.9 mmHg. -Sodium and fluid restriction -Start spironolactone 25 mg daily Hyponatremia, stable -Sodium 124-->133-->135-->129 -Has been low on all other visits - lowest was 120; Near apparent baseline now -Asymptomatic -Punching Machine Operator reports patient drinks large amounts of water -Monitor Resolved Hypomagnesemia -Magnesium 1.6-->1.7-->1.9 -Supplemented -Will need supplementation on discharge Chronic: impaired vision hypertension pacemaker/AICD hemorrhoids urinary incontinence type II DM hypothyroidism Plan: Admit to medical floor on telemetry Other orders as indicated above Routine AM labs Home medications as ordered Punching Machine Operator consult hospice educator consult PT/OT DVT prophylaxis: Home Eliquis CM for discharge planning Code status: Full code; PCP: Formerly Ammy Kwon who has moved to [place]. Will need new PCP in [place]. Overall Milka did very well. She was brought in for worsening SOB, edema, and orthopnea. There was some talk of her having recently started a low dose diuretic but this was unable to be substantiated. She was placed on a lasix drip and a kennedy catheter was placed to monitor output. She had rapid improvement of symptoms and her weight decreased 11lbs. BNP has trended downward as above. She reports she was concerned over being dehydrated recently and has been forcing herself to drink water in significant amounts. She was placed on a 2L fluid restriction and this should continue on discharge. She was started on spironolactone and this will be continued on discharge. Echo was obtained late last year and results are above. She does have a pacemaker/AICD present. Her digoxin level was checked and was found to be 0.6. This should be followed up on by her PCP and re-checked. Her sodium was low at 124 on admission. She has been chronically low on all other visits and this has remained stable. She was asymptomatic despite her lower levels. Her magnesium was also low and was supplemented. She will be discharged on a 5 day course of magnesium supplementation. Her magnesium levels will need to be re-checked on future follow-up with her PCP. She did see our retail marketing executive who discussed hyponatremia, low magnesium, and a CHF diet with fluid restriction. She will be discharged home today. Discussion was had with Dr. Velez about her diuretic choices. Her lisinopril dose was decreased from 20mg BID to once daily. She was started on 20mg daily lasix and 12.5mg daily spironolactone. She was also sent a 5 day course of magnesium 400mg daily as mentioned. She was instructed to obtain a scale and weigh herself daily, recording her weight and bringing it with to all medical appointments. She has a follow-up appointment already scheduled with her sales assistants and salespersons early next week. Her PCP has reportedly moved out of town and she would like to set up her own appointment with a new provider locally. She was instructed to follow-up within 7-10 days of discharge. She should have a repeat BMP, digoxin, and magnesium level. Suspect she may need long-term magnesium supplementation. All other home medications were continued. - Patient Instructions Diet: Heart Healthy Diet, Fluid Restriction Fluid Restriction: 2000 mL Activity: As Tolerated Showering/Bathing: May Shower Notify Provider of: Fever, Increased Pain, Swelling and Redness, Nausea and/or Vomiting Other/Special Instructions: Buy a scale to weigh yourself every morning after you urinate. Write down the weight in a journal and bring this with to all medical appointments. Check your blood sugars per your prior routine. Congestive Heart Failure core measure: Record your weight daily and take the record to your doctor appointments. See primary doctor within one week of discharge. Call your doctor if symptoms worsen (weight gain, short of breath, swelling). Hospitalist: Marcial/ARB needed for EF <40%. Please follow-up with scheduling an appointment with a new primary doctor. (Patient would like to call herself to schedule with a provider of her choice). Follow-up with PCP within 7-10 days of discharge, sooner if needed. Have your magnesium level checked at your appointment with your new PCP along with a BMP. Resume home medications as prescribed. Start Lasix and spironolactone as prescribed. You were also given a short course of magnesium supplementation. Your lisinopril dose was changed from twice a day to once a day. 2L (2000 ml) Fluid restriction. Contact your primary care provider or return to the ED should symptoms return or worsen. - Discharge Plan *PRESCRIPTION DRUG MONITORING PROGRAM REVIEWED*: No *COPY OF PRESCRIPTION DRUG MONITORING REPORT IN PATIENT HECTOR: No Prescriptions/Med Rec: Furosemide [Lasix] 20 mg PO DAILY #30 tab Lisinopril 20 mg PO DAILY #30 tablet Magnesium Oxide [Magnesium] 400 mg PO DAILY #5 capsule Spironolactone [Aldactone] 12.5 mg PO DAILY #15 tab Home Medications: Home Meds Carvedilol 25 mg PO BID 01/09/16 [History] Digoxin 250 mcg PO DAILY 01/09/16 [History] Diltiazem HCl [Diltiazem 24Hr ER] 120 mg PO DAILY 01/09/16 [History] Simvastatin [Zocor] 40 mg PO DAILY 01/09/16 [History] metFORMIN HCl [Metformin HCl ER] 1,000 mg PO BID 01/09/16 [History] Apixaban [Eliquis] 5 mg PO BID 05/17/18 [History] Insulin Glarg,Human.Rec.Analog [Lantus] 3 unit SUBCUT DAILY 05/17/18 [History] Non-Formulary Medication [NF Drug] 1 spray BID PRN 05/17/18 [History] Ascorbate Calcium [Vitamin C] 500 mg PO DAILY 05/18/18 [History] Furosemide [Lasix] 20 mg PO DAILY #30 tab 05/19/18 [Rx] Lisinopril 20 mg PO DAILY #30 tablet 05/19/18 [Rx] Magnesium Oxide [Magnesium] 400 mg PO DAILY #5 capsule 05/19/18 [Rx] Spironolactone [Aldactone] 12.5 mg PO DAILY #15 tab 05/19/18 [Rx] Oxygen Therapy Mode: Room Air Patient Handouts: Heart Failure, [id number], Form - Daily Weight Record Referrals: Avel Hobbs MD [Resident] - 05/23/18 (Cardiology. Keep your next appointment scheduled for 05/23/18.) PCP,Not In Area [Primary Care Provider] - (schedule your own appointment at [facility] for follow up in 7-10 days.) - Discharge Summary/Plan Comment DC Time >30 min.: Yes (45 mins ) - General Info Date of Service: 05/19/18 Admission Dx/Problem (Free Text: Admission Diagnosis/Problem Admission Diagnosis/Problem Congestive heart failure Subjective Update: In to see Milka. She is lying in bed and nursing is just starting to given her some magnesium. Her level has only gone from 1.6 to 1.9 while here and she has been supplemented on multiple days. She will need to have her magnesium re- checked at a follow-up appointment. Otherwise no nursing or patient concerns. Labs continue to look good. Her weight has stabilized. She will be discharged today. Functional Status: Reports: Pain Controlled, Tolerating Diet, Ambulating, Urinating. Denies: New Symptoms - Review of Systems General: Reports: No Symptoms. Denies: Fever, Weakness, Fatigue, Malaise, Chills HEENT: Reports: No Symptoms. Denies: Headaches, Sore Throat Pulmonary: Reports: No Symptoms. Denies: Shortness of Breath, Cough, Sputum, Wheezing Cardiovascular: Reports: No Symptoms. Denies: Chest Pain, Palpitations, Dyspnea on Exertion, Edema, Lightheadedness Gastrointestinal: Reports: No Symptoms. Denies: Abdominal Pain, Constipation, Diarrhea, Nausea, Vomiting Genitourinary: Reports: No Symptoms, Other (has urinated since kennedy came out. ) . Denies: Pain Musculoskeletal: Reports: No Symptoms Skin: Reports: No Symptoms Neurological: Reports: No Symptoms. Denies: Confusion, Numbness, Tingling, Difficulty Walking, Weakness, Gait Disturbance Psychiatric: Reports: No Symptoms - Patient Data Vitals - Most Recent: Last Vital Signs Temp 98.2 F 05/18/18 23:14 Pulse 75 05/18/18 23:14 Resp 16 05/18/18 23:14 BP 105/56 L 05/18/18 23:14 Pulse Ox 95 05/18/18 23:14 Weight - Most Recent: 152 lb 9.6 oz I&O - Last 24 hours: Intake & Output 05/18/18 05/18/18 05/19/18 14:59 22:59 06:59 Intake Total 320 643 Output Total 475 325 Balance -155 318 Lab Results - Last 24 hrs: Laboratory Results - last 24 hr 05/18/18 05/18/18 05/18/18 Range/Units 06:27 06:27 06:27 WBC 8.48 (3.98-10.04) K/mm3 RBC 4.44 (3.98-5.22) M/mm3 Hgb 12.5 (11.2-15.7) gm/L Hct 38.2 (34.1-44.9) % MCV 86.0 (79.4-94.8) fl MCH 28.2 (25.6-32.2) pg MCHC 32.7 (32.2-35.5) g/dl RDW Std Deviation 45.8 (36.4-46.3) fL Plt Count 361 (182-369) K/mm3 MPV 9.0 L (9.4-12.3) fl Neut % (Auto) 62.4 (34.0-71.1) % Lymph % (Auto) 21.2 (19.3-51.7) % [place] % (Auto) 13.2 H (4.7-12.5) % Eos % (Auto) 2.6 (0.7-5.8) Baso % (Auto) 0.5 (0.1-1.2) % Neut # (Auto) 5.29 (1.56-6.13) K/mm3 Lymph # (Auto) 1.80 (1.18-3.74) K/mm3 [place] # (Auto) 1.12 H (0.24-0.36) K/mm3 Eos # (Auto) 0.22 (0.04-0.36) K/mm3 Baso # (Auto) 0.04 (0.01-0.08) K/mm3 Sodium 135 L (136-145) mEq/L Potassium 3.7 (3.5-5.1) mEq/L Chloride 98 (98-107) mEq/L Carbon Dioxide 28 (21-32) mEq/L Anion Gap 12.7 (5-15) BUN 24 H (7-18) mg/dL Creatinine 1.0 (0.55-1.02) mg/dL Est Cr Clr Drug Dosing 40.81 mL/min Estimated GFR (MDRD) 55 (>60) mL/min BUN/Creatinine Ratio 24.0 H (14-18) Glucose 141 H (83-115) mg/dL POC Glucose (83-110) mg/dL Calcium 9.4 (8.5-10.1) mg/dL Magnesium 1.7 L (1.8-2.4) mg/dl Total Bilirubin 0.6 (0.2-1.0) mg/dL AST 31 (15-37) U/L ALT 52 (14-59) U/L Alkaline Phosphatase 97 (46-116) U/L NT-Pro-B Natriuret Pep 8897 H (0-125) pg/mL Total Protein 7.2 (6.4-8.2) g/dl Albumin 3.4 (3.4-5.0) g/dl Globulin 3.8 gm/dL Albumin/Globulin Ratio 0.9 L (1-2) 05/18/18 05/18/18 05/18/18 Range/Units 07:16 10:58 16:38 WBC (3.98-10.04) K/mm3 RBC (3.98-5.22) M/mm3 Hgb (11.2-15.7) gm/L Hct (34.1-44.9) % MCV (79.4-94.8) fl MCH (25.6-32.2) pg MCHC (32.2-35.5) g/dl RDW Std Deviation (36.4-46.3) fL Plt Count (182-369) K/mm3 MPV (9.4-12.3) fl Neut % (Auto) (34.0-71.1) % Lymph % (Auto) (19.3-51.7) % [place] % (Auto) (4.7-12.5) % Eos % (Auto) (0.7-5.8) Baso % (Auto) (0.1-1.2) % Neut # (Auto) (1.56-6.13) K/mm3 Lymph # (Auto) (1.18-3.74) K/mm3 [place] # (Auto) (0.24-0.36) K/mm3 Eos # (Auto) (0.04-0.36) K/mm3 Baso # (Auto) (0.01-0.08) K/mm3 Sodium (136-145) mEq/L Potassium (3.5-5.1) mEq/L Chloride (98-107) mEq/L Carbon Dioxide (21-32) mEq/L Anion Gap (5-15) BUN (7-18) mg/dL Creatinine (0.55-1.02) mg/dL Est Cr Clr Drug Dosing mL/min Estimated GFR (MDRD) (>60) mL/min BUN/Creatinine Ratio (14-18) Glucose (83-115) mg/dL POC Glucose 159 H 202 H 150 H (83-110) mg/dL Calcium (8.5-10.1) mg/dL Magnesium (1.8-2.4) mg/dl Total Bilirubin (0.2-1.0) mg/dL AST (15-37) U/L ALT (14-59) U/L Alkaline Phosphatase (46-116) U/L NT-Pro-B Natriuret Pep (0-125) pg/mL Total Protein (6.4-8.2) g/dl Albumin (3.4-5.0) g/dl Globulin gm/dL Albumin/Globulin Ratio (1-2) 05/18/18 Range/Units 20:28 WBC (3.98-10.04) K/mm3 RBC (3.98-5.22) M/mm3 Hgb (11.2-15.7) gm/L Hct (34.1-44.9) % MCV (79.4-94.8) fl MCH (25.6-32.2) pg MCHC (32.2-35.5) g/dl RDW Std Deviation (36.4-46.3) fL Plt Count (182-369) K/mm3 MPV (9.4-12.3) fl Neut % (Auto) (34.0-71.1) % Lymph % (Auto) (19.3-51.7) % [place] % (Auto) (4.7-12.5) % Eos % (Auto) (0.7-5.8) Baso % (Auto) (0.1-1.2) % Neut # (Auto) (1.56-6.13) K/mm3 Lymph # (Auto) (1.18-3.74) K/mm3 [place] # (Auto) (0.24-0.36) K/mm3 Eos # (Auto) (0.04-0.36) K/mm3 Baso # (Auto) (0.01-0.08) K/mm3 Sodium (136-145) mEq/L Potassium (3.5-5.1) mEq/L Chloride (98-107) mEq/L Carbon Dioxide (21-32) mEq/L Anion Gap (5-15) BUN (7-18) mg/dL Creatinine (0.55-1.02) mg/dL Est Cr Clr Drug Dosing mL/min Estimated GFR (MDRD) (>60) mL/min BUN/Creatinine Ratio (14-18) Glucose (83-115) mg/dL POC Glucose 177 H (83-110) mg/dL Calcium (8.5-10.1) mg/dL Magnesium (1.8-2.4) mg/dl Total Bilirubin (0.2-1.0) mg/dL AST (15-37) U/L ALT (14-59) U/L Alkaline Phosphatase (46-116) U/L NT-Pro-B Natriuret Pep (0-125) pg/mL Total Protein (6.4-8.2) g/dl Albumin (3.4-5.0) g/dl Globulin gm/dL Albumin/Globulin Ratio (1-2) Med Orders - Current: Current Medications Acetaminophen (Tylenol) 650 mg PO Q4H PRN PRN Reason: Pain (Mild 1-3)/fever Apixaban (Eliquis) 5 mg PO BID [facility] Last Admin: 05/18/18 20:14 Dose: 5 mg Ascorbic Acid (Vitamin C) 500 mg PO DAILY [facility] Last Admin: 05/18/18 15:46 Dose: 500 mg Carvedilol (Coreg) 12.5 mg PO BID [facility] Last Admin: 05/18/18 20:15 Dose: 12.5 mg Digoxin (Lanoxin) 250 mcg PO DAILY@1200 [facility] Last Admin: 05/18/18 11:45 Dose: 250 mcg Diltiazem HCl (Cardizem Cd) 120 mg PO DAILY [facility] Last Admin: 05/18/18 08:36 Dose: 120 mg Hydralazine HCl (Apresoline) 10 mg IVPUSH Q6H PRN PRN Reason: Hypertension Insulin Glargine (Lantus) 3 unit SUBCUT DAILY [facility] Insulin Human Lispro (Humalog) 0 unit SUBCUT QIDACANDBED [facility]; Protocol Last Admin: 05/18/18 21:01 Dose: 1 units Metoprolol Tartrate (Lopressor) 5 mg IVPUSH Q4H PRN PRN Reason: Tachycardia Calming Leg Onward (Own Med) 0 each TOP BID PRN PRN Reason: Leg cramps Ondansetron HCl (Zofran Odt) 4 mg PO Q6H PRN PRN Reason: nausea, able to take PO Ondansetron HCl (Zofran) 4 mg IV Q6H PRN PRN Reason: Nausea/Vomiting Sodium Chloride (Saline Flush) 10 ml FLUSH ASDIRECTED PRN PRN Reason: Keep Vein Open Last Admin: 05/16/18 21:14 Dose: 10 ml Spironolactone (Aldactone) 25 mg PO DAILY [facility] Last Admin: 05/18/18 08:35 Dose: 25 mg Temazepam (Restoril) 15 mg PO BEDTIME PRN PRN Reason: Sleep Last Admin: 05/18/18 23:36 Dose: 15 mg Discontinued Medications Apixaban (Eliquis) 5 mg PO BID [facility] Last Admin: 05/18/18 08:37 Dose: 5 mg Furosemide (Lasix) 40 mg IVPUSH NOW ONE Stop: 05/16/18 21:06 Last Admin: 05/16/18 21:14 Dose: 40 mg Heparin Sodium (Porcine) (Heparin Sodium) 5,000 units SUBCUT Q12H [facility] Last Admin: 05/17/18 11:19 Dose: 5,000 units Furosemide 100 mg/ Sodium (Chloride) 100 mls @ 4 mls/hr IV TITRATE [facility]; Protocol Stop: 05/18/18 12:00 Last Admin: 05/17/18 23:39 Dose: 4 mg/hr, 4 mls/hr Magnesium Sulfate 2 gm/ Premix 50 mls @ 25 mls/hr IV ONETIME ONE Stop: 05/17/18 14:29 Last Admin: 05/17/18 14:54 Dose: 25 mls/hr Magnesium Sulfate 2 gm/ Premix 50 mls @ 25 mls/hr IV ONETIME ONE Stop: 05/18/18 10:30 Last Admin: 05/18/18 09:44 Dose: 25 mls/hr Furosemide 100 mg/ Sodium (Chloride) 100 mls @ 2 mls/hr IV TITRATE [facility]; Protocol Stop: 05/18/18 23:30 Non-Formulary Medication (Carvedilol) 25 mg PO BID [facility] Simvastatin (Zocor) 40 mg PO DAILY ОЛЬГ[facility] - Exam Quality Assessment: Reports: DVT Prophylaxis General: Reports: Alert, Oriented, Cooperative, No Acute Distress HEENT: Reports: Pupils Equal, Pupils Reactive, EOMI, Mucous Membr. Moist/[place] Neck: Reports: Supple, Trachea Midline, No JVD Lungs: Reports: Clear to Auscultation, Normal Respiratory Effort Cardiovascular: Reports: Regular Rate, Regular Rhythm (paced rhythm ), Murmurs GI/Abdominal Exam: Normal Bowel Sounds, Soft, Non-Tender, No Distention, No Abnormal Bruit (Female) Exam: Deferred Rectal (Female) Exam: Deferred Back Exam: Reports: Normal Inspection, Full Range of Motion Extremities: Normal Inspection, Normal Range of Motion, Non-Tender, No Pedal Edema, Normal Capillary Refill Skin: Reports: Warm, Dry, Intact Neurological: Reports: No New Focal Deficit Psy/Mental Status: Reports: Alert, Normal Affect, Normal Mood
[2018-05-19] MEDS: Insulin Lispro 100 Unit/ML 3 ML KwikPen SUBCUT SCH ×2 (06:49→12:08)
[2018-05-19] MEDS ORDERED: Insulin Glarg,Human.Rec.Analog 100 UNIT/ML ML SUBCUT SCH (09:00)
[2018-05-19] MEDS: Spironolactone 25 MG Tab PO SCH (09:40)
[2018-05-19] MEDS: Carvedilol 12.5 MG Tab PO SCH (09:41)
[2018-05-19] MEDS: Diltiazem 120 MG Cap.CD PO SCH (09:41)
[2018-05-19] MEDS: Apixaban 5 MG Tab PO SCH (09:42)
[2018-05-19] MEDS: Ascorbic Acid 500 MG Tab PO SCH (09:42)
[2018-05-19] MEDS ORDERED: Magnesium Sulfate/Water 2 GM in Premix Bag 1 BAG IV ONE (12:00)
[2018-05-19] MEDS: Digoxin 250 MCG Tab PO SCH (12:08)
== END 2018-05-19 14:27 | disposition home or self-care (01) | DRG 292 ==
LOC: JD.ED 20:34 → JD.MS 22:37
PROVIDERS: ADMIT Internal Medicine Cardiovascular Disease; ATTEND Internal Medicine Cardiovascular Disease
DX: I11.0 Hypertensive heart disease with heart failure (principal); E87.1 Hypo-osmolality and hyponatremia; I50.43 Acute on chronic combined systolic (congestive) and diastolic (congestive) heart failure; E83.42 Hypomagnesemia; R09.02 Hypoxemia; H54.7 Unspecified visual loss; R32 Unspecified urinary incontinence; E11.9 Type 2 diabetes mellitus without complications; E03.9 Hypothyroidism, unspecified; H26.9 Unspecified cataract; Z95.0 Presence of cardiac pacemaker; R01.1 Cardiac murmur, unspecified; K64.9 Unspecified hemorrhoids; Z79.899 Other long term (current) drug therapy; Z79.84 Long term (current) use of oral hypoglycemic drugs; R60.9 Edema, unspecified; R42 Dizziness and giddiness; Z90.49 Acquired absence of other specified parts of digestive tract; R06.02 Shortness of breath; Z96.653 Presence of artificial knee joint, bilateral; Z95.810 Presence of automatic (implantable) cardiac defibrillator; Z99.81 Dependence on supplemental oxygen
CPT/HCPCS: 36415; 51702; 71045; 80053; 83880; 84484; 85025; 86738; 93005; 96374; 99285; J1940; 71046; 71046-26; 80048; 80162; 82962; 83735; 84443; 85007; 85027; 87804; 93010; 94761; 97161-GP; 97165-GO; 99284; A9270-GY; J1644; J1815; J3475; J7030

== ENCOUNTER 2019-01-28 19:50 | Inpatient (IN) | payer MEDICARE, BC ==
[2019-01-28] MEDS ORDERED: Furosemide 40 MG/4 ML VIAL IVPUSH ONE (20:12)
--- NOTE | 2019-01-28 20:20 | EDM.PDOC ---
ED HPI GENERAL MEDICAL PROBLEM - General Chief Complaint: Cardiovascular Problem Stated Complaint: SHORT OF BREATH Time Seen by Provider: 01/28/19 19:50 - History of Present Illness INITIAL COMMENTS - FREE TEXT/NARRATIVE: 73-year-old female presents emergency room with shortness of breath. Patient has a history congestive heart failure has a pacemaker. She's had progressive shortness of breath over the last week really getting worse over the last 24 hours. Upon arrival to the emergency room her O2 saturations were just under 70%. Patient denies much of a cough she does not have significant peripheral edema area denies fevers or chills - Related Data Allergies Allergy/AdvReac Type Severity Reaction Status Date / Time No Known Allergies Allergy Verified 10/26/17 18:20 Home Meds: Home Meds Carvedilol 25 mg PO BID 01/09/16 [History] Digoxin 125 mcg PO DAILY 01/09/16 [History] Diltiazem HCl [Diltiazem 24Hr ER] 120 mg PO DAILY 01/09/16 [History] Simvastatin [Zocor] 40 mg PO BEDTIME 01/09/16 [History] metFORMIN HCl [Metformin HCl ER] 1,000 mg PO BID 01/09/16 [History] Apixaban [Eliquis] 5 mg PO BID 05/17/18 [History] Insulin Glarg,Human.Rec.Analog [Lantus] 3 unit SUBCUT DAILY 05/17/18 [History] Ascorbate Calcium [Vitamin C] 500 mg PO DAILY 05/18/18 [History] Furosemide [Lasix] 20 mg PO DAILY #30 tab 05/19/18 [Rx] Lisinopril 20 mg PO DAILY #30 tablet 05/19/18 [Rx] Aspirin 81 mg PO DAILY 01/28/19 [History] Ubidecarenone [Co Q-10] 100 mg PO TID 01/28/19 [History] Past Medical History HEENT History: Reports: Cataract, Impaired Vision, Other (See Below) Other HEENT History: wears glasses Cardiovascular History: Reports: Heart Failure, Heart Murmur, Hypertension, Pacemaker Gastrointestinal History: Reports: Hemorrhoids, Other (See Below) Other Gastrointestinal History: permanent hemorrhoids Genitourinary History: Reports: Urinary Incontinence [employer] History: Reports: Endocrine/Metabolic History: Reports: Diabetes, Type II, Hypothyroidism - Infectious Disease History Infectious Disease History: Reports: Chicken Pox, Influenza, Measles - Past Surgical History HEENT Surgical History: Reports: None Cardiovascular Surgical History: Reports: Pacer GI Surgical History: Reports: Appendectomy, Cholecystectomy, Colonoscopy, EGD Female Surgical History: Reports: None Musculoskeletal Surgical History: Reports: Knee Replacement, Other (See Below) Other Musculoskeletal Surgeries/Procedures:: bilateral knee replacements. Social & Family History - Family History Family Medical History: Noncontributory - Tobacco Use Smoking Status *Q: Former Smoker Used Tobacco, but Quit: Yes Month/Year Tobacco Last Used: 50 yr - Caffeine Use Caffeine Use: Reports: Coffee, Tea - Recreational Drug Use Recreational Drug Use: No ED ROS GENERAL - Review of Systems Review Of Systems: See Below Constitutional: Reports: Weakness, Fatigue HEENT: Reports: No Symptoms Respiratory: Reports: Shortness of Breath, Cough (Minimal cough). Denies: Sputum (Normal), Hemoptysis (Minimal) Cardiovascular: Reports: Dyspnea on Exertion (Doing anything makes her very short of breath). Denies: Chest Pain Endocrine: Reports: No Symptoms GI/Abdominal: Reports: No Symptoms. Denies: Abdominal Pain, Nausea, Vomiting : Reports: No Symptoms Musculoskeletal: Reports: No Symptoms Skin: Reports: No Symptoms Neurological: Reports: No Symptoms Psychiatric: Reports: No Symptoms Hematologic/Lymphatic: Reports: No Symptoms Immunologic: Reports: No Symptoms ED EXAM, GENERAL - Physical Exam Exam: See Below Exam Limited By: No Limitations General Appearance: Alert, No Apparent Distress Head: Atraumatic, Normocephalic Neck: Normal Inspection, Supple, Non-Tender, Full Range of Motion Respiratory/Chest: No Respiratory Distress, Lungs Clear, Normal Breath Sounds, Other (She has bibasilar crackles much worse in the right compared to the left no wheezes noted) Cardiovascular: Regular Rate, Rhythm, No Edema, No Murmur Peripheral Pulses: 1+: Dorsalis Pedis (L), Dorsalis Pedis (R) GI/Abdominal: Normal Bowel Sounds, Soft, Non-Tender Back Exam: Normal Inspection. No: CVA Tenderness (L), CVA Tenderness (R) Extremities: Normal Inspection, Non-Tender, Other (Minimal edema) Neurological: Alert, Oriented, Normal Cognition Psychiatric: Normal Affect, Normal Mood Skin Exam: Warm, Dry, Intact EKG INTERPRETATION EKG Date: 01/28/19 Rhythm: Other (Atrial sensed ventricular paced) QRS: Other (Wide-complex paced rhythm) ST-T: Other (No abnormalities using [place] criteria) QT: Normal EKG Interpretation Comments: Abnormal Course - Vital Signs Last Recorded V/S: Last Vital Signs Temp Pulse 110 H 01/28/19 19:53 Resp 36 H 01/28/19 19:53 BP 157/111 H 01/28/19 19:53 Pulse Ox 59 L 01/28/19 19:53 - Orders/Labs/Meds Orders: Active Orders 24 hr Category Date Time Status EKG Documentation Completion [RC] STAT Care 01/28/19 19:58 Active RT BiPAP/CPAP [RC] ASDIRECTED Care 01/28/19 20:00 Active Chest 1V Frontal [CR] Stat Exams 01/28/19 19:58 Taken CULTURE BLOOD [BC] Stat Lab 01/28/19 20:22 Received CULTURE BLOOD [BC] Stat Lab 01/28/19 20:38 Received CULTURE URINE [RM] Stat Lab 01/28/19 20:46 Received PRO B-TYPE NATRIUR PEPT,BNPPRO [CHEM] Stat Lab 01/28/19 19:55 Received Sodium Chloride 0.9% [Normal Saline] 1,000 ml Med 01/28/19 21:45 Active IV ASDIRECTED Blood Culture x2 Reflex Set [OM.PC] Stat Oth 01/28/19 19:58 Ordered Blood Culture x2 Reflex Set [OM.PC] Stat Oth 01/28/19 21:01 Ordered Medication Orders Sodium Chloride (Normal Saline) 1,000 mls @ 125 mls/hr IV ASDIRECTED [facility] Labs: Laboratory Tests 01/28/19 01/28/19 01/28/19 Range/Units 19:50 19:55 19:55 WBC 15.42 H (3.98-10.04) K/mm3 RBC 4.16 (3.98-5.22) M/mm3 Hgb 12.4 (11.2-15.7) gm/dl Hct 37.4 (34.1-44.9) % MCV 89.9 D (79.4-94.8) fl MCH 29.8 (25.6-32.2) pg MCHC 33.2 (32.2-35.5) g/dl RDW Std Deviation 46.3 (36.4-46.3) fL Plt Count 431 H (182-369) K/mm3 MPV 9.5 (9.4-12.3) fl Neutrophils % (Manual) 59 (40-60) % Band Neutrophils % 0 (0-10) % Lymphocytes % (Manual) 32 (20-40) % Atypical Lymphs % 0 % Monocytes % (Manual) 2 (2-10) % Eosinophils % (Manual) 5 (0.7-5.8) % Basophils % (Manual) 2 H (0.1-1.2) Platelet Estimate Increased RBC Morph Comment Normal PT 10.6 (9.7-12.0) SECONDS INR 0.97 APTT 29 D (22-31) SECONDS D-Dimer, Quantitative (0.19-0.50) mg/L Puncture Site Rt radial ABG pH 7.05 L* (7.35-7.45) ABG pCO2 56.4 H (35.0-45.0) mmHg ABG pO2 116.0 H (80.0-100.0) mmHg ABG HCO3 14.7 L (22.0-26.0) meq/L ABG O2 Saturation 97.1 H (96.0-97.0) % ABG Base Excess -15.7 L (-2-2.0) Cassius Test positive A-a Gradient 529 mmHg O2 Delivery Device Nrb mask Oxygen Flow Rate 15.0 FiO2 100.00 (21.00-100.00) % Blood Gas Comments Sodium (136-145) mEq/L Potassium (3.5-5.1) mEq/L Chloride (98-107) mEq/L Carbon Dioxide (21-32) mEq/L Anion Gap (5-15) BUN (7-18) mg/dL Creatinine (0.55-1.02) mg/dL Est Cr Clr Drug Dosing mL/min Estimated GFR (MDRD) (>60) mL/min BUN/Creatinine Ratio (14-18) Glucose (83-115) mg/dL Lactic Acid (0.4-2.0) mmol/L Calcium (8.5-10.1) mg/dL Total Bilirubin (0.2-1.0) mg/dL AST (15-37) U/L ALT (14-59) U/L Alkaline Phosphatase (46-116) U/L Troponin I (0.00-0.056) ng/mL Total Protein (6.4-8.2) g/dl Albumin (3.4-5.0) g/dl Globulin gm/dL Albumin/Globulin Ratio (1-2) Urine Color (Yellow) Urine Appearance (Clear) Urine pH (5.0-8.0) Ur Specific [place] (1.005-1.030) Urine Protein (Negative) Urine Glucose (UA) (Negative) Urine Ketones (Negative) Urine Occult Blood (Negative) Urine Nitrite (Negative) Urine Bilirubin (Negative) Urine Urobilinogen (0.2-1.0) Ur Leukocyte Esterase (Negative) Urine RBC (0-5) /hpf Urine WBC (0-5) /hpf Ur Epithelial Cells (0-5) /hpf Urine Bacteria (FEW) /hpf Urine Mucus (FEW) /hpf Digoxin (0.9-2.0) ng/mL 01/28/19 01/28/19 01/28/19 Range/Units 19:55 19:55 20:00 WBC (3.98-10.04) K/mm3 RBC (3.98-5.22) M/mm3 Hgb (11.2-15.7) gm/dl Hct (34.1-44.9) % MCV (79.4-94.8) fl MCH (25.6-32.2) pg MCHC (32.2-35.5) g/dl RDW Std Deviation (36.4-46.3) fL Plt Count (182-369) K/mm3 MPV (9.4-12.3) fl Neutrophils % (Manual) (40-60) % Band Neutrophils % (0-10) % Lymphocytes % (Manual) (20-40) % Atypical Lymphs % % Monocytes % (Manual) (2-10) % Eosinophils % (Manual) (0.7-5.8) % Basophils % (Manual) (0.1-1.2) Platelet Estimate RBC Morph Comment PT (9.7-12.0) SECONDS INR APTT (22-31) SECONDS D-Dimer, Quantitative 0.87 H (0.19-0.50) mg/L Puncture Site ABG pH (7.35-7.45) ABG pCO2 (35.0-45.0) mmHg ABG pO2 (80.0-100.0) mmHg ABG HCO3 (22.0-26.0) meq/L ABG O2 Saturation (96.0-97.0) % ABG Base Excess (-2-2.0) Cassius Test A-a Gradient mmHg O2 Delivery Device Oxygen Flow Rate FiO2 (21.00-100.00) % Blood Gas Comments Sodium 133 L (136-145) mEq/L Potassium 4.7 (3.5-5.1) mEq/L Chloride 98 (98-107) mEq/L Carbon Dioxide 16 L D (21-32) mEq/L Anion Gap 23.7 H (5-15) BUN 32 H (7-18) mg/dL Creatinine 1.8 H (0.55-1.02) mg/dL Est Cr Clr Drug Dosing 22.34 mL/min Estimated GFR (MDRD) 28 (>60) mL/min BUN/Creatinine Ratio 17.8 (14-18) Glucose 348 H (83-115) mg/dL Lactic Acid (0.4-2.0) mmol/L Calcium 9.0 (8.5-10.1) mg/dL Total Bilirubin 0.3 (0.2-1.0) mg/dL AST 36 (15-37) U/L ALT 23 (14-59) U/L Alkaline Phosphatase 142 H (46-116) U/L Troponin I 0.031 (0.00-0.056) ng/mL Total Protein 7.4 (6.4-8.2) g/dl Albumin 3.3 L (3.4-5.0) g/dl Globulin 4.1 gm/dL Albumin/Globulin Ratio 0.8 L (1-2) Urine Color (Yellow) Urine Appearance (Clear) Urine pH (5.0-8.0) Ur Specific [place] (1.005-1.030) Urine Protein (Negative) Urine Glucose (UA) (Negative) Urine Ketones (Negative) Urine Occult Blood (Negative) Urine Nitrite (Negative) Urine Bilirubin (Negative) Urine Urobilinogen (0.2-1.0) Ur Leukocyte Esterase (Negative) Urine RBC (0-5) /hpf Urine WBC (0-5) /hpf Ur Epithelial Cells (0-5) /hpf Urine Bacteria (FEW) /hpf Urine Mucus (FEW) /hpf Digoxin 1.0 (0.9-2.0) ng/mL 01/28/19 01/28/19 01/28/19 Range/Units 20:48 21:00 21:23 WBC (3.98-10.04) K/mm3 RBC (3.98-5.22) M/mm3 Hgb (11.2-15.7) gm/dl Hct (34.1-44.9) % MCV (79.4-94.8) fl MCH (25.6-32.2) pg MCHC (32.2-35.5) g/dl RDW Std Deviation (36.4-46.3) fL Plt Count (182-369) K/mm3 MPV (9.4-12.3) fl Neutrophils % (Manual) (40-60) % Band Neutrophils % (0-10) % Lymphocytes % (Manual) (20-40) % Atypical Lymphs % % Monocytes % (Manual) (2-10) % Eosinophils % (Manual) (0.7-5.8) % Basophils % (Manual) (0.1-1.2) Platelet Estimate RBC Morph Comment PT (9.7-12.0) SECONDS INR APTT (22-31) SECONDS D-Dimer, Quantitative (0.19-0.50) mg/L Puncture Site Lt radial ABG pH 7.30 L (7.35-7.45) ABG pCO2 41.3 (35.0-45.0) mmHg ABG pO2 69.0 L (80.0-100.0) mmHg ABG HCO3 19.5 L (22.0-26.0) meq/L ABG O2 Saturation 89.0 L (96.0-97.0) % ABG Base Excess -6.1 L (-2-2.0) Cassius Test positive A-a Gradient 51 mmHg O2 Delivery Device Bipap Oxygen Flow Rate FiO2 24.00 (21.00-100.00) % Blood Gas Comments 03/30 bipap Sodium (136-145) mEq/L Potassium (3.5-5.1) mEq/L Chloride (98-107) mEq/L Carbon Dioxide (21-32) mEq/L Anion Gap (5-15) BUN (7-18) mg/dL Creatinine (0.55-1.02) mg/dL Est Cr Clr Drug Dosing mL/min Estimated GFR (MDRD) (>60) mL/min BUN/Creatinine Ratio (14-18) Glucose (83-115) mg/dL Lactic Acid 4.4 H (0.4-2.0) mmol/L Calcium (8.5-10.1) mg/dL Total Bilirubin (0.2-1.0) mg/dL AST (15-37) U/L ALT (14-59) U/L Alkaline Phosphatase (46-116) U/L Troponin I (0.00-0.056) ng/mL Total Protein (6.4-8.2) g/dl Albumin (3.4-5.0) g/dl Globulin gm/dL Albumin/Globulin Ratio (1-2) Urine Color Yellow (Yellow) Urine Appearance Clear (Clear) Urine pH 6.0 (5.0-8.0) Ur Specific [place] 1.025 (1.005-1.030) Urine Protein 2+ H (Negative) Urine Glucose (UA) Trace H (Negative) Urine Ketones Negative (Negative) Urine Occult Blood Trace-lysed H (Negative) Urine Nitrite Positive H (Negative) Urine Bilirubin Negative (Negative) Urine Urobilinogen 0.2 (0.2-1.0) Ur Leukocyte Esterase 3+ H (Negative) Urine RBC 0-5 (0-5) /hpf Urine WBC 20-30 H (0-5) /hpf Ur Epithelial Cells 0-5 (0-5) /hpf Urine Bacteria Moderate H (FEW) /hpf Urine Mucus Few (FEW) /hpf Digoxin (0.9-2.0) ng/mL Meds: Medications Generic Name Dose Route Start Last Admin Trade Name Freq PRN Reason Stop Dose Admin Sodium Chloride 1,000 mls @ 125 mls/hr 01/28/19 21:45 Normal Saline IV ASDIRECTED ОЛЬГА Discontinued Medications Generic Name Dose Route Start Last Admin Trade Name Freq PRN Reason Stop Dose Admin Furosemide 60 mg 01/28/19 20:12 01/28/19 20:20 Lasix IVPUSH 01/28/19 20:13 60 mg NOW ONE Administration Sodium Chloride 500 mls @ 999 mls/hr 01/28/19 21:38 Normal Saline IV 01/28/19 22:08 .BOLUS ONE - Re-Assessments/Exams Free Text/Narrative Re-Assessment/Exam: 01/28/19 20:19 Labs and x-rays ordered anticipate starting BiPAP Lasix just ordered. 01/28/19 21:53 Condition improved dramatically after being started on BiPAP. Second gases looked much better with the Black FiO2 up a little bit. Patient is being evaluated by Dr. Acosta anticipating admission the patient's chest x-ray is strongly suggestive of a pneumonia right lower lobe urinalysis suggestive of UTI the patient's been started on Levaquin lactic acid pending urine has been cultured and blood cultures have been obtained Departure - Departure Time of Disposition: 21:56 Disposition: Admitted As Inpatient 67 Clinical Impression: Pneumonia, Urinary tract infection Congestive heart failure Qualifiers: Heart failure type: combined systolic and diastolic Heart failure chronicity: acute on chronic Qualified Code(s): I50.43 - Acute on chronic combined systolic (congestive) and diastolic (congestive) heart failure Referrals: Carol Trujillo MD [Primary Care Provider] - Forms: ED Department Discharge - My Orders Last 24 Hours: My Active Orders 01/28/19 19:55 PRO B-TYPE NATRIUR PEPT,BNPPRO [CHEM] Stat 01/28/19 19:58 EKG Documentation Completion [RC] STAT Chest 1V Frontal [CR] Stat Blood Culture x2 Reflex Set [OM.PC] Stat 01/28/19 20:00 RT BiPAP/CPAP [RC] ASDIRECTED 01/28/19 20:22 CULTURE BLOOD [BC] Stat 01/28/19 20:38 CULTURE BLOOD [BC] Stat 01/28/19 20:46 CULTURE URINE [RM] Stat 01/28/19 21:01 Blood Culture x2 Reflex Set [OM.PC] Stat 01/28/19 21:45 Sodium Chloride 0.9% [Normal Saline] 1,000 ml IV ASDIRECTED - Assessment/Plan Last 24 Hours: My Active Orders 01/28/19 19:55 PRO B-TYPE NATRIUR PEPT,BNPPRO [CHEM] Stat 01/28/19 19:58 EKG Documentation Completion [RC] STAT Chest 1V Frontal [CR] Stat Blood Culture x2 Reflex Set [OM.PC] Stat 01/28/19 20:00 RT BiPAP/CPAP [RC] ASDIRECTED 01/28/19 20:22 CULTURE BLOOD [BC] Stat 01/28/19 20:38 CULTURE BLOOD [BC] Stat 01/28/19 20:46 CULTURE URINE [RM] Stat 01/28/19 21:01 Blood Culture x2 Reflex Set [OM.PC] Stat 01/28/19 21:45 Sodium Chloride 0.9% [Normal Saline] 1,000 ml IV ASDIRECTED
[2019-01-28] MEDS ORDERED: Sodium Chloride 0.9% 500 ML IV ONE (21:38)
[2019-01-28] MEDS ORDERED: Sodium Chloride 0.9% 1,000 ML IV SCH (21:45)
[2019-01-28] MEDS ORDERED: Ondansetron 4 MG Tab.DIS PO PRN (22:47)
[2019-01-28] MEDS ORDERED: Acetaminophen 325 MG Tab PO PRN (22:47)
[2019-01-28] MEDS ORDERED: Ondansetron 4 MG/2 ML SDV IV PRN (22:47)
[2019-01-28] MEDS ORDERED: Albuterol/Ipratropium 3.0-0.5 MG/3 ML Neb Soln NEB PRN (22:47)
--- NOTE | 2019-01-28 23:10 | PCM.HP.2 ---
H&P History of Present Illness - General Date of Service: 01/28/19 Admit Problem/Dx: Admission Diagnosis/Problem Admission Diagnosis/Problem Pneumonia - History of Present Illness Initial Comments - Free Text/Narative: This is a 73 year old female with past medical history of heart failure who came to the ED brought by grandson for acutely worsening shortness of breath. As per patient the shortness of breath has been increasingly worsening for 7 days but had a significant decline in the past 24 hours. Once she noticed she was not improving she was brought to the ED. Generalized Pain Score (Numeric/FACES): 0 - Related Data Allergies/Adverse Reactions: Allergies Allergy/AdvReac Type Severity Reaction Status Date / Time No Known Allergies Allergy Verified 01/29/19 01:35 Home Medications: Home Meds Carvedilol 25 mg PO BID 01/09/16 [History] Digoxin 125 mcg PO DAILY 01/09/16 [History] Diltiazem HCl [Diltiazem 24Hr ER] 120 mg PO DAILY 01/09/16 [History] Simvastatin [Zocor] 40 mg PO BEDTIME 01/09/16 [History] metFORMIN HCl [Metformin HCl ER] 1,000 mg PO BID 01/09/16 [History] Apixaban [Eliquis] 5 mg PO BID 05/17/18 [History] Ascorbate Calcium [Vitamin C] 500 mg PO DAILY 05/18/18 [History] Furosemide [Lasix] 20 mg PO DAILY #30 tab 05/19/18 [Rx] Lisinopril 20 mg PO DAILY #30 tablet 05/19/18 [Rx] Aspirin 81 mg PO DAILY 01/28/19 [History] Ubidecarenone [Co Q-10] 100 mg PO TID 01/28/19 [History] Azithromycin [Zithromax] 500 mg PO BEDTIME 2 Days #2 tablet 01/31/19 [Rx] cephALEXin [Keflex] 500 mg PO Q8H 2 Days #6 cap 01/31/19 [Rx] Past Medical History HEENT History: Reports: Cataract, Impaired Vision, Other (See Below) Other HEENT History: wears glasses Cardiovascular History: Reports: Heart Failure, Heart Murmur, Hypertension, Pacemaker Gastrointestinal History: Reports: Hemorrhoids, Other (See Below) Other Gastrointestinal History: permanent hemorrhoids Genitourinary History: Reports: 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 Incontinence 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 Social & Family History - Family History Family Medical History: Noncontributory - Tobacco Use Smoking Status *Q: Former Smoker Used Tobacco, but Quit: Yes Month/Year Tobacco Last Used: 50 yr - Caffeine Use Caffeine Use: Reports: Coffee, Tea - Recreational Drug Use Recreational Drug Use: No H&P Review of Systems - Review of Systems: Review Of Systems: Unable To Obtain (due to patient's respiratory status) Exam - Exam Exam: See Below - Vital Signs Vital Signs: Last Vital Signs Temp Pulse 110 H 01/28/19 19:53 Resp 36 H 01/28/19 19:53 BP 157/111 H 01/28/19 19:53 Pulse Ox 59 L 01/28/19 19:53 Weight: 69.4 kg - Exam General: Alert, Severe Distress, Lethargic HEENT: Conjunctiva Clear, EACs Clear, Pupils Equal, Pupils Reactive Neck: Supple Lungs: Decreased Breath Sounds, Crackles, Rales, Rhonchi, Wheezing Cardiovascular: Irregular Rhythm, Tachycardia. No: Systolic Murmur, Diastolic Murmur, Rubs, Gallop/S3, Gallop/S4 GI/Abdominal Exam: Normal Bowel Sounds, Soft, Non-Tender, No Distention Back Exam: Normal Inspection Extremities: Pedal Edema, Slow Capillary Refill - Patient Data Lab Results Last 24 hrs: Laboratory Results - last 24 hr 01/28/19 01/28/19 01/28/19 Range/Units 19:50 19:55 19:55 WBC 15.42 H (3.98-10.04) K/mm3 RBC 4.16 (3.98-5.22) M/mm3 Hgb 12.4 (11.2-15.7) gm/dl Hct 37.4 (34.1-44.9) % MCV 89.9 D (79.4-94.8) fl MCH 29.8 (25.6-32.2) pg MCHC 33.2 (32.2-35.5) g/dl RDW Std Deviation 46.3 (36.4-46.3) fL Plt Count 431 H (182-369) K/mm3 MPV 9.5 (9.4-12.3) fl Neutrophils % (Manual) 59 (40-60) % Band Neutrophils % 0 (0-10) % Lymphocytes % (Manual) 32 (20-40) % Atypical Lymphs % 0 % Monocytes % (Manual) 2 (2-10) % Eosinophils % (Manual) 5 (0.7-5.8) % Basophils % (Manual) 2 H (0.1-1.2) Platelet Estimate Increased RBC Morph Comment Normal PT 10.6 (9.7-12.0) SECONDS INR 0.97 APTT 29 D (22-31) SECONDS D-Dimer, Quantitative (0.19-0.50) mg/L Puncture Site Rt radial ABG pH 7.05 L* (7.35-7.45) ABG pCO2 56.4 H (35.0-45.0) mmHg ABG pO2 116.0 H (80.0-100.0) mmHg ABG HCO3 14.7 L (22.0-26.0) meq/L ABG O2 Saturation 97.1 H (96.0-97.0) % ABG Base Excess -15.7 L (-2-2.0) Cassius Test positive A-a Gradient 529 mmHg O2 Delivery Device Nrb mask Oxygen Flow Rate 15.0 FiO2 100.00 (21.00-100.00) % Blood Gas Comments Sodium (136-145) mEq/L Potassium (3.5-5.1) mEq/L Chloride (98-107) mEq/L Carbon Dioxide (21-32) mEq/L Anion Gap (5-15) BUN (7-18) mg/dL Creatinine (0.55-1.02) mg/dL Est Cr Clr Drug Dosing mL/min Estimated GFR (MDRD) (>60) mL/min BUN/Creatinine Ratio (14-18) Glucose (83-115) mg/dL Lactic Acid (0.4-2.0) mmol/L Calcium (8.5-10.1) mg/dL Total Bilirubin (0.2-1.0) mg/dL AST (15-37) U/L ALT (14-59) U/L Alkaline Phosphatase (46-116) U/L Troponin I (0.00-0.056) ng/mL Total Protein (6.4-8.2) g/dl Albumin (3.4-5.0) g/dl Globulin gm/dL Albumin/Globulin Ratio (1-2) Urine Color (Yellow) Urine Appearance (Clear) Urine pH (5.0-8.0) Ur Specific [place] (1.005-1.030) Urine Protein (Negative) Urine Glucose (UA) (Negative) Urine Ketones (Negative) Urine Occult Blood (Negative) Urine Nitrite (Negative) Urine Bilirubin (Negative) Urine Urobilinogen (0.2-1.0) Ur Leukocyte Esterase (Negative) Urine RBC (0-5) /hpf Urine WBC (0-5) /hpf Ur Epithelial Cells (0-5) /hpf Urine Bacteria (FEW) /hpf Urine Mucus (FEW) /hpf Digoxin (0.9-2.0) ng/mL 01/28/19 01/28/19 01/28/19 Range/Units 19:55 19:55 20:00 WBC (3.98-10.04) K/mm3 RBC (3.98-5.22) M/mm3 Hgb (11.2-15.7) gm/dl Hct (34.1-44.9) % MCV (79.4-94.8) fl MCH (25.6-32.2) pg MCHC (32.2-35.5) g/dl RDW Std Deviation (36.4-46.3) fL Plt Count (182-369) K/mm3 MPV (9.4-12.3) fl Neutrophils % (Manual) (40-60) % Band Neutrophils % (0-10) % Lymphocytes % (Manual) (20-40) % Atypical Lymphs % % Monocytes % (Manual) (2-10) % Eosinophils % (Manual) (0.7-5.8) % Basophils % (Manual) (0.1-1.2) Platelet Estimate RBC Morph Comment PT (9.7-12.0) SECONDS INR APTT (22-31) SECONDS D-Dimer, Quantitative 0.87 H (0.19-0.50) mg/L Puncture Site ABG pH (7.35-7.45) ABG pCO2 (35.0-45.0) mmHg ABG pO2 (80.0-100.0) mmHg ABG HCO3 (22.0-26.0) meq/L ABG O2 Saturation (96.0-97.0) % ABG Base Excess (-2-2.0) Cassius Test A-a Gradient mmHg O2 Delivery Device Oxygen Flow Rate FiO2 (21.00-100.00) % Blood Gas Comments Sodium 133 L (136-145) mEq/L Potassium 4.7 (3.5-5.1) mEq/L Chloride 98 (98-107) mEq/L Carbon Dioxide 16 L D (21-32) mEq/L Anion Gap 23.7 H (5-15) BUN 32 H (7-18) mg/dL Creatinine 1.8 H (0.55-1.02) mg/dL Est Cr Clr Drug Dosing 22.34 mL/min Estimated GFR (MDRD) 28 (>60) mL/min BUN/Creatinine Ratio 17.8 (14-18) Glucose 348 H (83-115) mg/dL Lactic Acid (0.4-2.0) mmol/L Calcium 9.0 (8.5-10.1) mg/dL Total Bilirubin 0.3 (0.2-1.0) mg/dL AST 36 (15-37) U/L ALT 23 (14-59) U/L Alkaline Phosphatase 142 H (46-116) U/L Troponin I 0.031 (0.00-0.056) ng/mL Total Protein 7.4 (6.4-8.2) g/dl Albumin 3.3 L (3.4-5.0) g/dl Globulin 4.1 gm/dL Albumin/Globulin Ratio 0.8 L (1-2) Urine Color (Yellow) Urine Appearance (Clear) Urine pH (5.0-8.0) Ur Specific [place] (1.005-1.030) Urine Protein (Negative) Urine Glucose (UA) (Negative) Urine Ketones (Negative) Urine Occult Blood (Negative) Urine Nitrite (Negative) Urine Bilirubin (Negative) Urine Urobilinogen (0.2-1.0) Ur Leukocyte Esterase (Negative) Urine RBC (0-5) /hpf Urine WBC (0-5) /hpf Ur Epithelial Cells (0-5) /hpf Urine Bacteria (FEW) /hpf Urine Mucus (FEW) /hpf Digoxin 1.0 (0.9-2.0) ng/mL 01/28/19 01/28/19 01/28/19 Range/Units 20:48 21:00 21:23 WBC (3.98-10.04) K/mm3 RBC (3.98-5.22) M/mm3 Hgb (11.2-15.7) gm/dl Hct (34.1-44.9) % MCV (79.4-94.8) fl MCH (25.6-32.2) pg MCHC (32.2-35.5) g/dl RDW Std Deviation (36.4-46.3) fL Plt Count (182-369) K/mm3 MPV (9.4-12.3) fl Neutrophils % (Manual) (40-60) % Band Neutrophils % (0-10) % Lymphocytes % (Manual) (20-40) % Atypical Lymphs % % Monocytes % (Manual) (2-10) % Eosinophils % (Manual) (0.7-5.8) % Basophils % (Manual) (0.1-1.2) Platelet Estimate RBC Morph Comment PT (9.7-12.0) SECONDS INR APTT (22-31) SECONDS D-Dimer, Quantitative (0.19-0.50) mg/L Puncture Site Lt radial ABG pH 7.30 L (7.35-7.45) ABG pCO2 41.3 (35.0-45.0) mmHg ABG pO2 69.0 L (80.0-100.0) mmHg ABG HCO3 19.5 L (22.0-26.0) meq/L ABG O2 Saturation 89.0 L (96.0-97.0) % ABG Base Excess -6.1 L (-2-2.0) Cassius Test positive A-a Gradient 51 mmHg O2 Delivery Device Bipap Oxygen Flow Rate FiO2 24.00 (21.00-100.00) % Blood Gas Comments 03/30 bipap Sodium (136-145) mEq/L Potassium (3.5-5.1) mEq/L Chloride (98-107) mEq/L Carbon Dioxide (21-32) mEq/L Anion Gap (5-15) BUN (7-18) mg/dL Creatinine (0.55-1.02) mg/dL Est Cr Clr Drug Dosing mL/min Estimated GFR (MDRD) (>60) mL/min BUN/Creatinine Ratio (14-18) Glucose (83-115) mg/dL Lactic Acid 4.4 H (0.4-2.0) mmol/L Calcium (8.5-10.1) mg/dL Total Bilirubin (0.2-1.0) mg/dL AST (15-37) U/L ALT (14-59) U/L Alkaline Phosphatase (46-116) U/L Troponin I (0.00-0.056) ng/mL Total Protein (6.4-8.2) g/dl Albumin (3.4-5.0) g/dl Globulin gm/dL Albumin/Globulin Ratio (1-2) Urine Color Yellow (Yellow) Urine Appearance Clear (Clear) Urine pH 6.0 (5.0-8.0) Ur Specific [place] 1.025 (1.005-1.030) Urine Protein 2+ H (Negative) Urine Glucose (UA) Trace H (Negative) Urine Ketones Negative (Negative) Urine Occult Blood Trace-lysed H (Negative) Urine Nitrite Positive H (Negative) Urine Bilirubin Negative (Negative) Urine Urobilinogen 0.2 (0.2-1.0) Ur Leukocyte Esterase 3+ H (Negative) Urine RBC 0-5 (0-5) /hpf Urine WBC 20-30 H (0-5) /hpf Ur Epithelial Cells 0-5 (0-5) /hpf Urine Bacteria Moderate H (FEW) /hpf Urine Mucus Few (FEW) /hpf Digoxin (0.9-2.0) ng/mL Result Diagrams: 01/29/19 04:18 01/30/19 05:18 - Problem List (1) Sepsis SNOMED Code(s): 54070647 ICD Code: A41.9 - SEPSIS, UNSPECIFIED ORGANISM Status: Acute (2) Acute decompensated heart failure SNOMED Code(s): 15761441, 357265102 ICD Code: I50.9 - HEART FAILURE, UNSPECIFIED Status: Acute (3) [id number]-bs-pltwgug kidney injury SNOMED Code(s): 035722328 ICD Code: N17.9 - ACUTE KIDNEY FAILURE, UNSPECIFIED; N18.9 - CHRONIC KIDNEY DISEASE, UNSPECIFIED Status: Acute (4) Hyperglycemia SNOMED Code(s): 73902327 ICD Code: R73.9 - HYPERGLYCEMIA, UNSPECIFIED Status: Acute (5) Hypoalbuminemia SNOMED Code(s): 459951107 ICD Code: E88.09 - OTH DISORDERS OF PLASMA-PROTEIN METABOLISM, NEC Status: Acute (6) Metabolic acidosis SNOMED Code(s): 97270293 ICD Code: E87.2 - ACIDOSIS Status: Acute (7) Respiratory acidosis SNOMED Code(s): 46709615 ICD Code: E87.2 - ACIDOSIS Status: Acute (8) Congestive heart failure SNOMED Code(s): 67284086 ICD Code: I50.9 - HEART FAILURE, UNSPECIFIED Status: Acute Priority: High Qualifiers: Heart failure type: combined systolic and diastolic Heart failure chronicity: acute on chronic Qualified Code(s): I50.43 - Acute on chronic combined systolic (congestive) and diastolic (congestive) heart failure (9) Hyponatremia SNOMED Code(s): 15577458 ICD Code: E87.1 - HYPO-OSMOLALITY AND HYPONATREMIA Status: Acute Priority : High (10) Hypertension SNOMED Code(s): 06868133 ICD Code: I10 - ESSENTIAL (PRIMARY) HYPERTENSION Status: Chronic Priority : Low Qualifiers: Hypertension type: unspecified Qualified Code(s): I10 - Essential (primary ) hypertension (11) Hypothyroidism SNOMED Code(s): 26322357 ICD Code: E03.9 - HYPOTHYROIDISM, UNSPECIFIED Status: Chronic Priority: Low Qualifiers: Hypothyroidism type: unspecified Qualified Code(s): E03.9 - Hypothyroidism , unspecified (12) Presence of cardiac pacemaker SNOMED Code(s): 183893101 ICD Code: Z95.0 - PRESENCE OF CARDIAC PACEMAKER Status: Chronic Priority : Low (13) Type II diabetes mellitus SNOMED Code(s): 93160687 ICD Code: E11.9 - TYPE 2 DIABETES MELLITUS WITHOUT COMPLICATIONS Status: Chronic Priority: Low Qualifiers: Diabetes mellitus shelter insulin use: without shelter use Diabetes mellitus complication status: without complication Qualified Code(s): E11.9 - Type 2 diabetes mellitus without complications (14) High anion gap metabolic acidosis SNOMED Code(s): 18389474 ICD Code: E87.2 - ACIDOSIS Status: Acute (15) UTI (urinary tract infection) SNOMED Code(s): 04547914 ICD Code: N39.0 - URINARY TRACT INFECTION, SITE NOT SPECIFIED Status: Acute (16) Pneumonia SNOMED Code(s): 869349757 ICD Code: J18.9 - PNEUMONIA, UNSPECIFIED ORGANISM Status: Acute Problem List Initiated/Reviewed/Updated: Yes Assessment/Plan Comment:: Acute on chronic decompensated heart failure s/p PM vs AICD with multifactorial hypoxemic respiratory failure Last EF is unknown Elevated BNP + worsening SOB + weight gain + worsening LE edema +Pulmonary congestion on CXR Severe SOB in ED with hypoxemia improved with BiPAP PLAN - IV lasix - Daily weights - Telemetry - Strict I/Os - Continue BiPAP - Fluid and sodium restricted diet - Interrogate device Sepsis 2/2 UTI + PNA Lactic acidosis + pathologic UA + fever + elevated WBC count Tachycardia + hypothermia PLAN - Rocephin + Azithromycin - Blood and urine culture - Repeat Lactic acid - Conservative fluid repletion due to heart failure High anion gap metabolic acidosis Multifactorial: Lactic acidemia and uremia PLAN - Monitor BMP with electrolytes - Start treatment for UTI Fqpaf-gg-ykkmyph kidney injury with electrolyte abnormalities Multifactorial PLAN - Monitor urine output - Renally dosed medications - Repeat BMP, Mg and Pi daily and replace electrolytes as needed Hypertension BP on admission PLAN - Hold home medications for now Type II diabetes mellitus, unknown HbA1c Home management with insulin Admission glucose > 380 PLAN - Scheduled accuchecks - 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
[2019-01-29] MEDS: Azithromycin 500 MG in Sodium Chloride 0.9% 250 ML IV SCH ×2 (00:04→01:10)
[2019-01-29] MEDS: Lactated Ringers 1,000 ML IV SCH ×2 (00:07→10:23)
[2019-01-29] MEDS ORDERED: Sodium Chloride 0.9% 250 ML IV SCH (00:45)
[2019-01-29] MEDS: Insulin Glarg,Human.Rec.Analog 100 UNIT/ML ML SUBCUT SCH ×2 (01:14→09:09)
[2019-01-29] MEDS: Carvedilol 12.5 MG Tab PO SCH ×2 (06:09→16:32)
[2019-01-29] MEDS: Furosemide 40 MG/4 ML VIAL IVPUSH SCH ×2 (06:12→14:27)
--- NOTE | 2019-01-29 08:00 | CR ---
Chest: Portable view of the chest was obtained. Comparison: Prior chest x-ray of 05/17/18. Heart is enlarged. Pulmonary vessels are slightly congested. Focal density is noted within the right lung base suspicious for pneumonia. Slight scoliosis is noted within the spine. AICD is present. Impression: 1. Cardiomegaly and mild pulmonary vascular congestion as well as finding suspicious for pneumonia within the right lung base. Diagnostic code #3
[2019-01-29] MEDS: Ascorbic Acid 500 MG Tab PO SCH (08:25)
[2019-01-29] MEDS: Digoxin 125 MCG Tab PO SCH (08:25)
[2019-01-29] MEDS: Apixaban 5 MG Tab PO SCH ×2 (08:25→21:12)
[2019-01-29] MEDS: Aspirin 81 MG Tab.EC PO SCH (08:27)
--- NOTE | 2019-01-29 09:41 | CR ---
Chest: Two views of the chest were obtained. Comparison: Prior chest x-ray of 01/28/19. Heart is enlarged. Tortuous thoracic aorta is seen. Significantly improved density within the right base from prior study. Pulmonary vessels are minimally congested but felt to be improved. Chronic blunting noted within the lateral left costophrenic angle with slight scarring also noted within the left lung base. Impression: 1. Significantly improved density within the right base from prior exam. This rapid improvement suggests previous finding is due to atelectasis rather than pneumonia. 2. Stable cardiomegaly with minimal pulmonary vascular congestion also appearing stable. 3. Other findings as noted above are also stable. Diagnostic code #2
[2019-01-29] MEDS ORDERED: Magnesium Sulfate/Water 2 GM in Premix Bag 1 BAG IV ONE (12:00)
[2019-01-29] MEDS ORDERED: Magnesium Oxide 400 MG Tab PO ONE (12:00)
[2019-01-29 15:18] LABS: HEMOGLOBIN A1C 6.2 % (4.50-6.20)
--- NOTE | 2019-01-29 20:16 | PCM.PN ---
- General Info Date of Service: 01/29/19 Subjective Update: Slept ok SOB id greatly improved BM today Tolerating diet - Patient Data Vitals - Most Recent: Last Vital Signs Temp 36.3 C 01/29/19 16:00 Pulse 75 01/29/19 16:32 Resp 16 01/29/19 16:00 BP 123/69 01/29/19 16:32 Pulse Ox 96 01/29/19 16:00 Weight - Most Recent: 73.3 kg I&O - Last 24 Hours: Intake & Output 01/29/19 01/29/19 01/29/19 06:59 14:59 22:59 Intake Total 1633 930 9670 Output Total 330 1350 575 Balance -1 -2 509 Lab Results Last 24 Hours: Laboratory Results - last 24 hr 01/28/19 01/28/19 01/28/19 Range/Units 19:55 19:55 19:55 WBC (3.98-10.04) K/mm3 RBC (3.98-5.22) M/mm3 Hgb (11.2-15.7) gm/dl Hct (34.1-44.9) % MCV (79.4-94.8) fl MCH (25.6-32.2) pg MCHC (32.2-35.5) g/dl RDW Std Deviation (36.4-46.3) fL Plt Count (182-369) K/mm3 MPV (9.4-12.3) fl Neut % (Auto) (34.0-71.1) % Lymph % (Auto) (19.3-51.7) % [place] % (Auto) (4.7-12.5) % Eos % (Auto) (0.7-5.8) Baso % (Auto) (0.1-1.2) % Neut # (Auto) (1.56-6.13) K/mm3 Lymph # (Auto) (1.18-3.74) K/mm3 [place] # (Auto) (0.24-0.36) K/mm3 Eos # (Auto) (0.04-0.36) K/mm3 Baso # (Auto) (0.01-0.08) K/mm3 Neutrophils % (Manual) 59 (40-60) % Band Neutrophils % 0 (0-10) % Lymphocytes % (Manual) 32 (20-40) % Atypical Lymphs % 0 % Monocytes % (Manual) 2 (2-10) % Eosinophils % (Manual) 5 (0.7-5.8) % Basophils % (Manual) 2 H (0.1-1.2) Platelet Estimate Increased RBC Morph Comment Normal PT 10.6 (9.7-12.0) SECONDS INR 0.97 APTT 29 D (22-31) SECONDS D-Dimer, Quantitative (0.19-0.50) mg/L Puncture Site ABG pH (7.35-7.45) ABG pCO2 (35.0-45.0) mmHg ABG pO2 (80.0-100.0) mmHg ABG HCO3 (22.0-26.0) meq/L ABG O2 Saturation (96.0-97.0) % ABG Base Excess (-2-2.0) Cassius Test A-a Gradient mmHg O2 Delivery Device FiO2 (21.00-100.00) % Blood Gas Comments Sodium 133 L (136-145) mEq/L Potassium 4.7 (3.5-5.1) mEq/L Chloride 98 (98-107) mEq/L Carbon Dioxide 16 L D (21-32) mEq/L Anion Gap 23.7 H (5-15) BUN 32 H (7-18) mg/dL Creatinine 1.8 H (0.55-1.02) mg/dL Est Cr Clr Drug Dosing 22.34 mL/min Estimated GFR (MDRD) 28 (>60) mL/min BUN/Creatinine Ratio 17.8 (14-18) Glucose 348 H (83-115) mg/dL POC Glucose (83-110) mg/dL Hemoglobin A1c (4.50-6.20) % Lactic Acid (0.4-2.0) mmol/L Calcium 9.0 (8.5-10.1) mg/dL Phosphorus (2.6-4.7) mg/dL Magnesium (1.8-2.4) mg/dl Total Bilirubin 0.3 (0.2-1.0) mg/dL AST 36 (15-37) U/L ALT 23 (14-59) U/L Alkaline Phosphatase 142 H (46-116) U/L Troponin I 0.031 (0.00-0.056) ng/mL NT-Pro-B Natriuret Pep (0-125) pg/mL Total Protein 7.4 (6.4-8.2) g/dl Albumin 3.3 L (3.4-5.0) g/dl Globulin 4.1 gm/dL Albumin/Globulin Ratio 0.8 L (1-2) Urine Color (Yellow) Urine Appearance (Clear) Urine pH (5.0-8.0) Ur Specific [place] (1.005-1.030) Urine Protein (Negative) Urine Glucose (UA) (Negative) Urine Ketones (Negative) Urine Occult Blood (Negative) Urine Nitrite (Negative) Urine Bilirubin (Negative) Urine Urobilinogen (0.2-1.0) Ur Leukocyte Esterase (Negative) Urine RBC (0-5) /hpf Urine WBC (0-5) /hpf Ur Epithelial Cells (0-5) /hpf Urine Bacteria (FEW) /hpf Urine Mucus (FEW) /hpf Digoxin (0.9-2.0) ng/mL 01/28/19 01/28/19 01/28/19 Range/Units 19:55 19:55 20:00 WBC (3.98-10.04) K/mm3 RBC (3.98-5.22) M/mm3 Hgb (11.2-15.7) gm/dl Hct (34.1-44.9) % MCV (79.4-94.8) fl MCH (25.6-32.2) pg MCHC (32.2-35.5) g/dl RDW Std Deviation (36.4-46.3) fL Plt Count (182-369) K/mm3 MPV (9.4-12.3) fl Neut % (Auto) (34.0-71.1) % Lymph % (Auto) (19.3-51.7) % [place] % (Auto) (4.7-12.5) % Eos % (Auto) (0.7-5.8) Baso % (Auto) (0.1-1.2) % Neut # (Auto) (1.56-6.13) K/mm3 Lymph # (Auto) (1.18-3.74) K/mm3 [place] # (Auto) (0.24-0.36) K/mm3 Eos # (Auto) (0.04-0.36) K/mm3 Baso # (Auto) (0.01-0.08) K/mm3 Neutrophils % (Manual) (40-60) % Band Neutrophils % (0-10) % Lymphocytes % (Manual) (20-40) % Atypical Lymphs % % Monocytes % (Manual) (2-10) % Eosinophils % (Manual) (0.7-5.8) % Basophils % (Manual) (0.1-1.2) Platelet Estimate RBC Morph Comment PT (9.7-12.0) SECONDS INR APTT (22-31) SECONDS D-Dimer, Quantitative 0.87 H (0.19-0.50) mg/L Puncture Site ABG pH (7.35-7.45) ABG pCO2 (35.0-45.0) mmHg ABG pO2 (80.0-100.0) mmHg ABG HCO3 (22.0-26.0) meq/L ABG O2 Saturation (96.0-97.0) % ABG Base Excess (-2-2.0) Cassius Test A-a Gradient mmHg O2 Delivery Device FiO2 (21.00-100.00) % Blood Gas Comments Sodium (136-145) mEq/L Potassium (3.5-5.1) mEq/L Chloride (98-107) mEq/L Carbon Dioxide (21-32) mEq/L Anion Gap (5-15) BUN (7-18) mg/dL Creatinine (0.55-1.02) mg/dL Est Cr Clr Drug Dosing mL/min Estimated GFR (MDRD) (>60) mL/min BUN/Creatinine Ratio (14-18) Glucose (83-115) mg/dL POC Glucose (83-110) mg/dL Hemoglobin A1c (4.50-6.20) % Lactic Acid (0.4-2.0) mmol/L Calcium (8.5-10.1) mg/dL Phosphorus (2.6-4.7) mg/dL Magnesium (1.8-2.4) mg/dl Total Bilirubin (0.2-1.0) mg/dL AST (15-37) U/L ALT (14-59) U/L Alkaline Phosphatase (46-116) U/L Troponin I (0.00-0.056) ng/mL NT-Pro-B Natriuret Pep 9691 H (0-125) pg/mL Total Protein (6.4-8.2) g/dl Albumin (3.4-5.0) g/dl Globulin gm/dL Albumin/Globulin Ratio (1-2) Urine Color (Yellow) Urine Appearance (Clear) Urine pH (5.0-8.0) Ur Specific [place] (1.005-1.030) Urine Protein (Negative) Urine Glucose (UA) (Negative) Urine Ketones (Negative) Urine Occult Blood (Negative) Urine Nitrite (Negative) Urine Bilirubin (Negative) Urine Urobilinogen (0.2-1.0) Ur Leukocyte Esterase (Negative) Urine RBC (0-5) /hpf Urine WBC (0-5) /hpf Ur Epithelial Cells (0-5) /hpf Urine Bacteria (FEW) /hpf Urine Mucus (FEW) /hpf Digoxin 1.0 (0.9-2.0) ng/mL 01/28/19 01/28/19 01/28/19 Range/Units 20:48 21:00 21:23 WBC (3.98-10.04) K/mm3 RBC (3.98-5.22) M/mm3 Hgb (11.2-15.7) gm/dl Hct (34.1-44.9) % MCV (79.4-94.8) fl MCH (25.6-32.2) pg MCHC (32.2-35.5) g/dl RDW Std Deviation (36.4-46.3) fL Plt Count (182-369) K/mm3 MPV (9.4-12.3) fl Neut % (Auto) (34.0-71.1) % Lymph % (Auto) (19.3-51.7) % [place] % (Auto) (4.7-12.5) % Eos % (Auto) (0.7-5.8) Baso % (Auto) (0.1-1.2) % Neut # (Auto) (1.56-6.13) K/mm3 Lymph # (Auto) (1.18-3.74) K/mm3 [place] # (Auto) (0.24-0.36) K/mm3 Eos # (Auto) (0.04-0.36) K/mm3 Baso # (Auto) (0.01-0.08) K/mm3 Neutrophils % (Manual) (40-60) % Band Neutrophils % (0-10) % Lymphocytes % (Manual) (20-40) % Atypical Lymphs % % Monocytes % (Manual) (2-10) % Eosinophils % (Manual) (0.7-5.8) % Basophils % (Manual) (0.1-1.2) Platelet Estimate RBC Morph Comment PT (9.7-12.0) SECONDS INR APTT (22-31) SECONDS D-Dimer, Quantitative (0.19-0.50) mg/L Puncture Site Lt radial ABG pH 7.30 L (7.35-7.45) ABG pCO2 41.3 (35.0-45.0) mmHg ABG pO2 69.0 L (80.0-100.0) mmHg ABG HCO3 19.5 L (22.0-26.0) meq/L ABG O2 Saturation 89.0 L (96.0-97.0) % ABG Base Excess -6.1 L (-2-2.0) Cassius Test positive A-a Gradient 51 mmHg O2 Delivery Device Bipap FiO2 24.00 (21.00-100.00) % Blood Gas Comments 6 bipap Sodium (136-145) mEq/L Potassium (3.5-5.1) mEq/L Chloride (98-107) mEq/L Carbon Dioxide (21-32) mEq/L Anion Gap (5-15) BUN (7-18) mg/dL Creatinine (0.55-1.02) mg/dL Est Cr Clr Drug Dosing mL/min Estimated GFR (MDRD) (>60) mL/min BUN/Creatinine Ratio (14-18) Glucose (83-115) mg/dL POC Glucose (83-110) mg/dL Hemoglobin A1c (4.50-6.20) % Lactic Acid 4.4 H (0.4-2.0) mmol/L Calcium (8.5-10.1) mg/dL Phosphorus (2.6-4.7) mg/dL Magnesium (1.8-2.4) mg/dl Total Bilirubin (0.2-1.0) mg/dL AST (15-37) U/L ALT (14-59) U/L Alkaline Phosphatase (46-116) U/L Troponin I (0.00-0.056) ng/mL NT-Pro-B Natriuret Pep (0-125) pg/mL Total Protein (6.4-8.2) g/dl Albumin (3.4-5.0) g/dl Globulin gm/dL Albumin/Globulin Ratio (1-2) Urine Color Yellow (Yellow) Urine Appearance Clear (Clear) Urine pH 6.0 (5.0-8.0) Ur Specific [place] 1.025 (1.005-1.030) Urine Protein 2+ H (Negative) Urine Glucose (UA) Trace H (Negative) Urine Ketones Negative (Negative) Urine Occult Blood Trace-lysed H (Negative) Urine Nitrite Positive H (Negative) Urine Bilirubin Negative (Negative) Urine Urobilinogen 0.2 (0.2-1.0) Ur Leukocyte Esterase 3+ H (Negative) Urine RBC 0-5 (0-5) /hpf Urine WBC 20-30 H (0-5) /hpf Ur Epithelial Cells 0-5 (0-5) /hpf Urine Bacteria Moderate H (FEW) /hpf Urine Mucus Few (FEW) /hpf Digoxin (0.9-2.0) ng/mL 01/29/19 01/29/19 01/29/19 Range/Units 00:25 01:13 04:18 WBC 10.65 H (3.98-10.04) K/mm3 RBC 3.71 L (3.98-5.22) M/mm3 Hgb 10.9 L D (11.2-15.7) gm/dl Hct 32.3 L (34.1-44.9) % MCV 87.1 (79.4-94.8) fl MCH 29.4 (25.6-32.2) pg MCHC 33.7 (32.2-35.5) g/dl RDW Std Deviation 43.9 (36.4-46.3) fL Plt Count 320 D (182-369) K/mm3 MPV 9.4 (9.4-12.3) fl Neut % (Auto) 68.3 (34.0-71.1) % Lymph % (Auto) 19.8 (19.3-51.7) % [place] % (Auto) 9.1 (4.7-12.5) % Eos % (Auto) 2.4 (0.7-5.8) Baso % (Auto) 0.4 (0.1-1.2) % Neut # (Auto) 7.27 H (1.56-6.13) K/mm3 Lymph # (Auto) 2.11 (1.18-3.74) K/mm3 [place] # (Auto) 0.97 H (0.24-0.36) K/mm3 Eos # (Auto) 0.26 (0.04-0.36) K/mm3 Baso # (Auto) 0.04 (0.01-0.08) K/mm3 Neutrophils % (Manual) (40-60) % Band Neutrophils % (0-10) % Lymphocytes % (Manual) (20-40) % Atypical Lymphs % % Monocytes % (Manual) (2-10) % Eosinophils % (Manual) (0.7-5.8) % Basophils % (Manual) (0.1-1.2) Platelet Estimate RBC Morph Comment PT (9.7-12.0) SECONDS INR APTT (22-31) SECONDS D-Dimer, Quantitative (0.19-0.50) mg/L Puncture Site ABG pH (7.35-7.45) ABG pCO2 (35.0-45.0) mmHg ABG pO2 (80.0-100.0) mmHg ABG HCO3 (22.0-26.0) meq/L ABG O2 Saturation (96.0-97.0) % ABG Base Excess (-2-2.0) Cassius Test A-a Gradient mmHg O2 Delivery Device FiO2 (21.00-100.00) % Blood Gas Comments Sodium (136-145) mEq/L Potassium (3.5-5.1) mEq/L Chloride (98-107) mEq/L Carbon Dioxide (21-32) mEq/L Anion Gap (5-15) BUN (7-18) mg/dL Creatinine (0.55-1.02) mg/dL Est Cr Clr Drug Dosing mL/min Estimated GFR (MDRD) (>60) mL/min BUN/Creatinine Ratio (14-18) Glucose (83-115) mg/dL POC Glucose 132 H (83-110) mg/dL Hemoglobin A1c (4.50-6.20) % Lactic Acid 3.4 H (0.4-2.0) mmol/L Calcium (8.5-10.1) mg/dL Phosphorus (2.6-4.7) mg/dL Magnesium (1.8-2.4) mg/dl Total Bilirubin (0.2-1.0) mg/dL AST (15-37) U/L ALT (14-59) U/L Alkaline Phosphatase (46-116) U/L Troponin I (0.00-0.056) ng/mL NT-Pro-B Natriuret Pep (0-125) pg/mL Total Protein (6.4-8.2) g/dl Albumin (3.4-5.0) g/dl Globulin gm/dL Albumin/Globulin Ratio (1-2) Urine Color (Yellow) Urine Appearance (Clear) Urine pH (5.0-8.0) Ur Specific [place] (1.005-1.030) Urine Protein (Negative) Urine Glucose (UA) (Negative) Urine Ketones (Negative) Urine Occult Blood (Negative) Urine Nitrite (Negative) Urine Bilirubin (Negative) Urine Urobilinogen (0.2-1.0) Ur Leukocyte Esterase (Negative) Urine RBC (0-5) /hpf Urine WBC (0-5) /hpf Ur Epithelial Cells (0-5) /hpf Urine Bacteria (FEW) /hpf Urine Mucus (FEW) /hpf Digoxin (0.9-2.0) ng/mL 01/29/19 01/29/19 01/29/19 Range/Units 04:18 04:18 04:18 WBC (3.98-10.04) K/mm3 RBC (3.98-5.22) M/mm3 Hgb (11.2-15.7) gm/dl Hct (34.1-44.9) % MCV (79.4-94.8) fl MCH (25.6-32.2) pg MCHC (32.2-35.5) g/dl RDW Std Deviation (36.4-46.3) fL Plt Count (182-369) K/mm3 MPV (9.4-12.3) fl Neut % (Auto) (34.0-71.1) % Lymph % (Auto) (19.3-51.7) % [place] % (Auto) (4.7-12.5) % Eos % (Auto) (0.7-5.8) Baso % (Auto) (0.1-1.2) % Neut # (Auto) (1.56-6.13) K/mm3 Lymph # (Auto) (1.18-3.74) K/mm3 [place] # (Auto) (0.24-0.36) K/mm3 Eos # (Auto) (0.04-0.36) K/mm3 Baso # (Auto) (0.01-0.08) K/mm3 Neutrophils % (Manual) (40-60) % Band Neutrophils % (0-10) % Lymphocytes % (Manual) (20-40) % Atypical Lymphs % % Monocytes % (Manual) (2-10) % Eosinophils % (Manual) (0.7-5.8) % Basophils % (Manual) (0.1-1.2) Platelet Estimate RBC Morph Comment PT (9.7-12.0) SECONDS INR APTT (22-31) SECONDS D-Dimer, Quantitative (0.19-0.50) mg/L Puncture Site ABG pH (7.35-7.45) ABG pCO2 (35.0-45.0) mmHg ABG pO2 (80.0-100.0) mmHg ABG HCO3 (22.0-26.0) meq/L ABG O2 Saturation (96.0-97.0) % ABG Base Excess (-2-2.0) Cassius Test A-a Gradient mmHg O2 Delivery Device FiO2 (21.00-100.00) % Blood Gas Comments Sodium 135 L (136-145) mEq/L Potassium 4.2 (3.5-5.1) mEq/L Chloride 101 (98-107) mEq/L Carbon Dioxide 21 (21-32) mEq/L Anion Gap 17.2 H (5-15) BUN 32 H (7-18) mg/dL Creatinine 1.3 H (0.55-1.02) mg/dL Est Cr Clr Drug Dosing 30.67 mL/min Estimated GFR (MDRD) 40 (>60) mL/min BUN/Creatinine Ratio 24.6 H (14-18) Glucose 124 H (83-115) mg/dL POC Glucose (83-110) mg/dL Hemoglobin A1c 6.20 (4.50-6.20) % Lactic Acid (0.4-2.0) mmol/L Calcium 8.5 (8.5-10.1) mg/dL Phosphorus 3.9 (2.6-4.7) mg/dL Magnesium 1.3 L (1.8-2.4) mg/dl Total Bilirubin (0.2-1.0) mg/dL AST (15-37) U/L ALT (14-59) U/L Alkaline Phosphatase (46-116) U/L Troponin I (0.00-0.056) ng/mL NT-Pro-B Natriuret Pep (0-125) pg/mL Total Protein (6.4-8.2) g/dl Albumin (3.4-5.0) g/dl Globulin gm/dL Albumin/Globulin Ratio (1-2) Urine Color (Yellow) Urine Appearance (Clear) Urine pH (5.0-8.0) Ur Specific [place] (1.005-1.030) Urine Protein (Negative) Urine Glucose (UA) (Negative) Urine Ketones (Negative) Urine Occult Blood (Negative) Urine Nitrite (Negative) Urine Bilirubin (Negative) Urine Urobilinogen (0.2-1.0) Ur Leukocyte Esterase (Negative) Urine RBC (0-5) /hpf Urine WBC (0-5) /hpf Ur Epithelial Cells (0-5) /hpf Urine Bacteria (FEW) /hpf Urine Mucus (FEW) /hpf Digoxin (0.9-2.0) ng/mL 01/29/19 01/29/19 01/29/19 Range/Units 06:41 13:35 17:44 WBC (3.98-10.04) K/mm3 RBC (3.98-5.22) M/mm3 Hgb (11.2-15.7) gm/dl Hct (34.1-44.9) % MCV (79.4-94.8) fl MCH (25.6-32.2) pg MCHC (32.2-35.5) g/dl RDW Std Deviation (36.4-46.3) fL Plt Count (182-369) K/mm3 MPV (9.4-12.3) fl Neut % (Auto) (34.0-71.1) % Lymph % (Auto) (19.3-51.7) % [place] % (Auto) (4.7-12.5) % Eos % (Auto) (0.7-5.8) Baso % (Auto) (0.1-1.2) % Neut # (Auto) (1.56-6.13) K/mm3 Lymph # (Auto) (1.18-3.74) K/mm3 [place] # (Auto) (0.24-0.36) K/mm3 Eos # (Auto) (0.04-0.36) K/mm3 Baso # (Auto) (0.01-0.08) K/mm3 Neutrophils % (Manual) (40-60) % Band Neutrophils % (0-10) % Lymphocytes % (Manual) (20-40) % Atypical Lymphs % % Monocytes % (Manual) (2-10) % Eosinophils % (Manual) (0.7-5.8) % Basophils % (Manual) (0.1-1.2) Platelet Estimate RBC Morph Comment PT (9.7-12.0) SECONDS INR APTT (22-31) SECONDS D-Dimer, Quantitative (0.19-0.50) mg/L Puncture Site ABG pH (7.35-7.45) ABG pCO2 (35.0-45.0) mmHg ABG pO2 (80.0-100.0) mmHg ABG HCO3 (22.0-26.0) meq/L ABG O2 Saturation (96.0-97.0) % ABG Base Excess (-2-2.0) Cassius Test A-a Gradient mmHg O2 Delivery Device FiO2 (21.00-100.00) % Blood Gas Comments Sodium (136-145) mEq/L Potassium (3.5-5.1) mEq/L Chloride (98-107) mEq/L Carbon Dioxide (21-32) mEq/L Anion Gap (5-15) BUN (7-18) mg/dL Creatinine (0.55-1.02) mg/dL Est Cr Clr Drug Dosing mL/min Estimated GFR (MDRD) (>60) mL/min BUN/Creatinine Ratio (14-18) Glucose (83-115) mg/dL POC Glucose 105 104 130 H (83-110) mg/dL Hemoglobin A1c (4.50-6.20) % Lactic Acid (0.4-2.0) mmol/L Calcium (8.5-10.1) mg/dL Phosphorus (2.6-4.7) mg/dL Magnesium (1.8-2.4) mg/dl Total Bilirubin (0.2-1.0) mg/dL AST (15-37) U/L ALT (14-59) U/L Alkaline Phosphatase (46-116) U/L Troponin I (0.00-0.056) ng/mL NT-Pro-B Natriuret Pep (0-125) pg/mL Total Protein (6.4-8.2) g/dl Albumin (3.4-5.0) g/dl Globulin gm/dL Albumin/Globulin Ratio (1-2) Urine Color (Yellow) Urine Appearance (Clear) Urine pH (5.0-8.0) Ur Specific [place] (1.005-1.030) Urine Protein (Negative) Urine Glucose (UA) (Negative) Urine Ketones (Negative) Urine Occult Blood (Negative) Urine Nitrite (Negative) Urine Bilirubin (Negative) Urine Urobilinogen (0.2-1.0) Ur Leukocyte Esterase (Negative) Urine RBC (0-5) /hpf Urine WBC (0-5) /hpf Ur Epithelial Cells (0-5) /hpf Urine Bacteria (FEW) /hpf Urine Mucus (FEW) /hpf Digoxin (0.9-2.0) ng/mL Alfie Results Last 24 Hours: Microbiology 01/28/19 20:46 Urine Culture - Preliminary Urine, Clean Catch Gram Negative Rods Med Orders - Current: Current Medications Acetaminophen (Tylenol) 650 mg PO Q4H PRN PRN Reason: Pain (Mild 1-3)/fever Albuterol/Ipratropium (Duoneb 3.0-0.5 Mg/3 Ml) 3 ml NEB Q4H PRN PRN Reason: Shortness Of Breath/wheezing Apixaban (Eliquis) 5 mg PO BID [facility] Last Admin: 01/29/19 08:25 Dose: 5 mg Ascorbic Acid (Vitamin C) 500 mg PO DAILY [facility] Last Admin: 01/29/19 08:25 Dose: 500 mg Aspirin (Halfprin) 81 mg PO DAILY [facility] Last Admin: 01/29/19 08:27 Dose: 81 mg Azithromycin (Zithromax) 500 mg PO BEDTIME [facility] Carvedilol (Coreg) 25 mg PO BIDMEALS [facility] Last Admin: 01/29/19 16:32 Dose: 25 mg Digoxin (Lanoxin) 125 mcg PO DAILY [facility] Last Admin: 01/29/19 08:25 Dose: 125 mcg Furosemide (Lasix) 60 mg IVPUSH BIDDIURETIC [facility] Last Admin: 01/29/19 14:27 Dose: 60 mg Ceftriaxone Sodium 2 gm/ (Sodium Chloride) 100 mls @ 200 mls/hr IV Q24H [facility] Last Admin: 01/29/19 00:00 Dose: 200 mls/hr Sodium Chloride (Normal Saline) 250 mls @ 250 mls/hr IV ASDIRECTED [facility] Insulin Glargine (Lantus) 3 unit SUBCUT DAILY [facility] Last Admin: 01/29/19 09:09 Dose: 3 units Ondansetron HCl (Zofran) 4 mg IV Q4H PRN PRN Reason: Nausea/Vomiting Ondansetron HCl (Zofran Odt) 4 mg PO Q4H PRN PRN Reason: nausea, able to take PO Senna/Docusate Sodium (Senna Plus) 1 tab PO BID PRN PRN Reason: Constipation Discontinued Medications Furosemide (Lasix) 60 mg IVPUSH NOW ONE Stop: 01/28/19 20:13 Last Admin: 01/28/19 20:20 Dose: 60 mg Sodium Chloride (Normal Saline) 500 mls @ 999 mls/hr IV .BOLUS ONE Stop: 01/28/19 22:08 Last Admin: 01/28/19 21:50 Dose: 999 mls/hr Sodium Chloride (Normal Saline) 1,000 mls @ 125 mls/hr IV ASDIRECTED [facility] Azithromycin 500 mg/ Sodium (Chloride) 250 mls @ 250 mls/hr IV BEDTIME [facility] Last Admin: 01/29/19 01:10 Dose: 250 mls/hr Lactated Ringer's (Ringers, Lactated) 1,000 mls @ 100 mls/hr IV ASDIRECTED [facility] Last Admin: 01/29/19 10:23 Dose: 100 mls/hr Azithromycin 500 mg/ Sodium (Chloride) 250 mls @ 250 mls/hr IV BEDTIME [facility] Magnesium Sulfate 2 gm/ Premix 50 mls @ 25 mls/hr IV ONETIME ONE Stop: 01/29/19 13:59 Last Admin: 01/29/19 13:23 Dose: 25 mls/hr Magnesium Oxide (Magnesium Oxide) 800 mg PO ONETIME ONE Stop: 01/29/19 12:01 Last Admin: 01/29/19 13:23 Dose: 800 mg - Exam General: Alert, Oriented, Cooperative, No Acute Distress HEENT: Pupils Equal, Pupils Reactive Neck: Supple, Trachea Midline, No JVD, No Thyromegaly Lungs: Clear to Auscultation, Normal Respiratory Effort, Crackles, Rales Cardiovascular: Regular Rate, Regular Rhythm GI/Abdominal Exam: Normal Bowel Sounds, Soft, Non-Tender Back Exam: Normal Inspection. No: CVA Tenderness (L), CVA Tenderness (R) Extremities: Normal Inspection, Non-Tender. No: No Pedal Edema Neurological: No New Focal Deficit Psy/Mental Status: Alert - Problem List & Annotations (1) Acute decompensated heart failure SNOMED Code(s): 35956445, 093680217 Code(s): I50.9 - HEART FAILURE, UNSPECIFIED Status: Acute (2) Jpzxr-ha-xjqragz kidney injury SNOMED Code(s): 794729722 Code(s): N17.9 - ACUTE KIDNEY FAILURE, UNSPECIFIED; N18.9 - CHRONIC KIDNEY DISEASE, UNSPECIFIED Status: Acute (3) Congestive heart failure SNOMED Code(s): 04178863 Code(s): I50.9 - HEART FAILURE, UNSPECIFIED Status: Acute Priority: High Qualifiers: Heart failure type: combined systolic and diastolic Heart failure chronicity: acute on chronic Qualified Code(s): I50.43 - Acute on chronic combined systolic (congestive) and diastolic (congestive) heart failure (4) Decreased vision in both eyes SNOMED Code(s): 571163315 Code(s): H54.3 - UNQUALIFIED VISUAL LOSS, BOTH EYES Status: Acute (5) High anion gap metabolic acidosis SNOMED Code(s): 81623232 Code(s): E87.2 - ACIDOSIS Status: Acute (6) Hyperglycemia SNOMED Code(s): 64285558 Code(s): R73.9 - HYPERGLYCEMIA, UNSPECIFIED Status: Acute (7) Pneumonia SNOMED Code(s): 256149038 Code(s): J18.9 - PNEUMONIA, UNSPECIFIED ORGANISM Status: Acute (8) Respiratory acidosis SNOMED Code(s): 33658846 Code(s): E87.2 - ACIDOSIS Status: Acute (9) Sepsis SNOMED Code(s): 99924345 Code(s): A41.9 - SEPSIS, UNSPECIFIED ORGANISM Status: Acute (10) UTI (urinary tract infection) SNOMED Code(s): 48686927 Code(s): N39.0 - URINARY TRACT INFECTION, SITE NOT SPECIFIED Status: Acute (11) Hypertension SNOMED Code(s): 85160995 Code(s): I10 - ESSENTIAL (PRIMARY) HYPERTENSION Status: Chronic Priority : Low Qualifiers: Hypertension type: unspecified Qualified Code(s): I10 - Essential (primary ) hypertension (12) Hypothyroidism SNOMED Code(s): 19556689 Code(s): E03.9 - HYPOTHYROIDISM, UNSPECIFIED Status: Chronic Priority: Low Qualifiers: Hypothyroidism type: unspecified Qualified Code(s): E03.9 - Hypothyroidism , unspecified (13) Presence of cardiac pacemaker SNOMED Code(s): 068182507 Code(s): Z95.0 - PRESENCE OF CARDIAC PACEMAKER Status: Chronic Priority: Low (14) Type II diabetes mellitus SNOMED Code(s): 61420219 Code(s): E11.9 - TYPE 2 DIABETES MELLITUS WITHOUT COMPLICATIONS Status: Chronic Priority: Low Qualifiers: Diabetes mellitus terminal system operator insulin use: without senior living use Diabetes mellitus complication status: without complication Qualified Code(s): E11.9 - Type 2 diabetes mellitus without complications (15) Hypoxia SNOMED Code(s): 300213484 Code(s): R09.02 - HYPOXEMIA Status: Ruled-out Priority: High - Problem List Review Problem List Initiated/Reviewed/Updated: Yes - Plan Plan:: Acute on chronic decompensated heart failure s/p PM vs AICD with multifactorial hypoxemic respiratory failure, improving Last EF is unknown Elevated BNP + worsening SOB + weight gain + worsening LE edema +Pulmonary congestion on CXR Severe SOB in ED with hypoxemia improved with BiPAP Off BiPAP DEvice interrogated and ok PLAN - IV lasix - Daily weights - Telemetry - Strict I/Os - Continue BiPAP - Fluid and sodium restricted diet - Digoxin level Sepsis 2/2 UTI + PNA, improving Lactic acidosis + pathologic UA + fever + elevated WBC count Tachycardia + hypothermia Urine culture growing gram negative rods PLAN - Rocephin + Azithromycin - Blood and urine culture High anion gap metabolic acidosis Multifactorial: Lactic acidemia and uremia PLAN - Monitor BMP with electrolytes - Start treatment for UTI Tnqtg-li-sjjixoi kidney injury with electrolyte abnormalities Multifactorial PLAN - Monitor urine output - Renally dosed medications - Repeat BMP, Mg and Pi daily and replace electrolytes as needed Hypertension BP on admission PLAN - Hold home medications for now Type II diabetes mellitus, unknown HbA1c Home management with insulin Admission glucose > 380 PLAN - Scheduled accuchecks - Diabetic diet - family living educator - New HbA1c - Hypoglycemia protocol Hypothyroidism No acute issues PLAN - Continue home levothyroxine DISPOSITION: Patient will be admitted for respiratory status improvement and initiation of antibiotic therapy.
[2019-01-29] MEDS ORDERED: Azithromycin 500 MG in Sodium Chloride 0.9% 250 ML IV SCH (21:00)
[2019-01-29] MEDS ORDERED: Azithromycin 250 MG Tab PO SCH (21:00)
[2019-01-29] MEDS: cefTRIAXone 2 GM in Sodium Chloride 0.9% 100 ML IV SCH ×4 (21:13→23:23)
[2019-01-30] MEDS: Carvedilol 12.5 MG Tab PO SCH ×2 (06:53→17:14)
[2019-01-30] MEDS: Furosemide 40 MG/4 ML VIAL IVPUSH SCH ×2 (06:54→13:52)
[2019-01-30] MEDS: Apixaban 5 MG Tab PO SCH ×2 (08:35→21:15)
[2019-01-30] MEDS: Digoxin 125 MCG Tab PO SCH (08:35)
[2019-01-30] MEDS: Aspirin 81 MG Tab.EC PO SCH (08:35)
[2019-01-30] MEDS: Ascorbic Acid 500 MG Tab PO SCH (08:35)
[2019-01-30] MEDS: Insulin Glarg,Human.Rec.Analog 100 UNIT/ML ML SUBCUT SCH (08:39)
[2019-01-30] MEDS ORDERED: Azithromycin 250 MG Tab PO SCH (21:00)
[2019-01-30] MEDS: Cephalexin 500 MG Cap PO SCH (21:15)
[2019-01-31] MEDS: Carvedilol 12.5 MG Tab PO SCH (06:41)
[2019-01-31] MEDS: Furosemide 40 MG/4 ML VIAL IVPUSH SCH (06:41)
[2019-01-31] MEDS: Cephalexin 500 MG Cap PO SCH (06:41)
--- NOTE | 2019-01-31 08:14 | PCM.DCSUM1 ---
Discharge Summary - Hospital Course HPI Initial Comments: This is a 73 year old female with past medical history of chronic heart failure and diabetes mellitus who came to the ED complaining of severely worsening shortness of breath Was found to be hypoxemic in the 70's% in the ED--> started on BiPAP--> CXR complatible with fluid overload and PNA UA with UTI + septic on admission + SNEHA Admitted on BiPAP with azithromycin and ceftriaxone REspiratory status improved AICD interrogated and ok REsponded to IV lasix Repeat HbA1c here shows patient very controlled in the setting of anemia - Discharge Data Discharge Date: 01/31/19 Discharge Disposition: Home, Self-Care 01 Condition: Good - Referral to Home Health Primary Care Physician: Carol Trujillo MD - Discharge Diagnosis/Problem(s) (1) Urinary tract infection due to Klebsiella species SNOMED Code(s): 437089547803821 ICD Code: N39.0 - URINARY TRACT INFECTION, SITE NOT SPECIFIED; B96.1 - KLEBSIELLA PNEUMONIAE THE CAUSE OF DISEASES CLASSD ELSWHR Status: Acute (2) Fall SNOMED Code(s): 7076309, 982880831 ICD Code: W19.XXXA - UNSPECIFIED FALL, INITIAL ENCOUNTER Status: Acute Priority: High Qualifiers: Encounter type: initial encounter Qualified Code(s): W19.XXXA - Unspecified fall, initial encounter (3) Hypertension SNOMED Code(s): 81361309 ICD Code: I10 - ESSENTIAL (PRIMARY) HYPERTENSION Status: Chronic Priority : Low Qualifiers: Hypertension type: unspecified Qualified Code(s): I10 - Essential (primary ) hypertension (4) Hypothyroidism SNOMED Code(s): 06076528 ICD Code: E03.9 - HYPOTHYROIDISM, UNSPECIFIED Status: Chronic Priority: Low Qualifiers: Hypothyroidism type: unspecified Qualified Code(s): E03.9 - Hypothyroidism , unspecified (5) Presence of cardiac pacemaker SNOMED Code(s): 867061738 ICD Code: Z95.0 - PRESENCE OF CARDIAC PACEMAKER Status: Chronic Priority : Low (6) Type II diabetes mellitus SNOMED Code(s): 39650385 ICD Code: E11.9 - TYPE 2 DIABETES MELLITUS WITHOUT COMPLICATIONS Status: Chronic Priority: Low Qualifiers: Diabetes mellitus half-way insulin use: without half-way use Diabetes mellitus complication status: without complication Qualified Code(s): E11.9 - Type 2 diabetes mellitus without complications - Patient Summary/Data Consults: Consultations 01/28/19 22:47 OT Evaluation and Treatment [CONS] Routine PT Evaluation and Treatment [CONS] Routine 01/30/19 11:11 Consult to Diabetic Nurse Specialist [CONS] Routine - Patient Instructions Diet: Heart Healthy Diet Fluid Restriction: 2000 mL Activity: As Tolerated - Discharge Plan Prescriptions/Med Rec: Azithromycin [Zithromax] 500 mg PO BEDTIME 2 Days #2 tablet cephALEXin [Keflex] 500 mg PO Q8H 2 Days #6 cap Home Medications: Home Meds Carvedilol 25 mg PO BID 01/09/16 [History] Digoxin 125 mcg PO DAILY 01/09/16 [History] Diltiazem HCl [Diltiazem 24Hr ER] 120 mg PO DAILY 01/09/16 [History] Simvastatin [Zocor] 40 mg PO BEDTIME 01/09/16 [History] metFORMIN HCl [Metformin HCl ER] 1,000 mg PO BID 01/09/16 [History] Apixaban [Eliquis] 5 mg PO BID 05/17/18 [History] Ascorbate Calcium [Vitamin C] 500 mg PO DAILY 05/18/18 [History] Furosemide [Lasix] 20 mg PO DAILY #30 tab 05/19/18 [Rx] Lisinopril 20 mg PO DAILY #30 tablet 05/19/18 [Rx] Aspirin 81 mg PO DAILY 01/28/19 [History] Ubidecarenone [Co Q-10] 100 mg PO TID 01/28/19 [History] Azithromycin [Zithromax] 500 mg PO BEDTIME 2 Days #2 tablet 01/31/19 [Rx] cephALEXin [Keflex] 500 mg PO Q8H 2 Days #6 cap 01/31/19 [Rx] Oxygen Therapy Mode: Room Air Patient Handouts: Heart Failure, [id number] Referrals: Penny Hatahway NP [Ordering Only Provider] - 02/05/19 10:45 am () - Discharge Summary/Plan Comment DC Time >30 min.: Yes - General Info Subjective Update: Feels a lot better ambulating shortness of breth resolved tolerating diet slept ok - Patient Data Vitals - Most Recent: Last Vital Signs Temp 36.9 C 01/30/19 15:57 Pulse 84 01/31/19 06:41 Resp 18 01/31/19 06:39 BP 123/86 01/31/19 06:41 Pulse Ox 95 01/31/19 06:39 Weight - Most Recent: 69.082 kg I&O - Last 24 hours: Intake & Output 01/30/19 01/31/19 01/31/19 22:59 06:59 14:59 Intake Total 1160 800 Output Total 1600 1500 Balance -440 -700 Lab Results - Last 24 hrs: Laboratory Results - last 24 hr 01/30/19 01/30/19 01/30/19 Range/Units 11:55 17:12 21:19 POC Glucose 152 H 143 H 240 H (83-110) mg/dL 01/31/19 Range/Units 06:53 POC Glucose 177 H (83-110) mg/dL ESEQUIEL Results - Last 24 hrs: Microbiology 01/28/19 20:22 Aerobic Blood Culture - Preliminary Blood - Venous NO GROWTH AFTER 2 DAYS Anaerobic Blood Culture - Preliminary NO GROWTH AFTER 2 DAYS 01/28/19 20:38 Aerobic Blood Culture - Preliminary Blood - Venous - Lab Draw NO GROWTH AFTER 2 DAYS Anaerobic Blood Culture - Preliminary NO GROWTH AFTER 2 DAYS 01/28/19 20:46 Urine Culture - Final Urine, Clean Catch Klebsiella Pneumoniae Med Orders - Current: Current Medications Acetaminophen (Tylenol) 650 mg PO Q4H PRN PRN Reason: Pain (Mild 1-3)/fever Albuterol/Ipratropium (Duoneb 3.0-0.5 Mg/3 Ml) 3 ml NEB Q4H PRN PRN Reason: Shortness Of Breath/wheezing Apixaban (Eliquis) 5 mg PO BID [facility] Last Admin: 01/30/19 21:15 Dose: 5 mg Ascorbic Acid (Vitamin C) 500 mg PO DAILY [facility] Last Admin: 01/30/19 08:35 Dose: 500 mg Aspirin (Halfprin) 81 mg PO DAILY [facility] Last Admin: 01/30/19 08:35 Dose: 81 mg Azithromycin (Zithromax) 500 mg PO BEDTIME [facility] Last Admin: 01/30/19 21:15 Dose: 500 mg Carvedilol (Coreg) 25 mg PO BIDMEALS [facility] Last Admin: 01/31/19 06:41 Dose: 25 mg Cephalexin (Keflex) 500 mg PO Q8H [facility] Last Admin: 01/31/19 06:41 Dose: 500 mg Digoxin (Lanoxin) 125 mcg PO DAILY [facility] Last Admin: 01/30/19 08:35 Dose: 125 mcg Furosemide (Lasix) 60 mg IVPUSH BIDDIURETIC [facility] Last Admin: 01/31/19 06:41 Dose: Not Given Insulin Glargine (Lantus) 3 unit SUBCUT DAILY [facility] Last Admin: 01/30/19 08:39 Dose: 3 units Ondansetron HCl (Zofran) 4 mg IV Q4H PRN PRN Reason: Nausea/Vomiting Ondansetron HCl (Zofran Odt) 4 mg PO Q4H PRN PRN Reason: nausea, able to take PO Senna/Docusate Sodium (Senna Plus) 1 tab PO BID PRN PRN Reason: Constipation Discontinued Medications Azithromycin (Zithromax) 500 mg PO BEDTIME [facility] Last Admin: 01/29/19 21:12 Dose: 500 mg Furosemide (Lasix) 60 mg IVPUSH NOW ONE Stop: 01/28/19 20:13 Last Admin: 01/28/19 20:20 Dose: 60 mg Sodium Chloride (Normal Saline) 500 mls @ 999 mls/hr IV .BOLUS ONE Stop: 01/28/19 22:08 Last Admin: 01/28/19 21:50 Dose: 999 mls/hr Sodium Chloride (Normal Saline) 1,000 mls @ 125 mls/hr IV ASDIRECTED [facility] Azithromycin 500 mg/ Sodium (Chloride) 250 mls @ 250 mls/hr IV BEDTIME [facility] Last Admin: 01/29/19 01:10 Dose: 250 mls/hr Ceftriaxone Sodium 2 gm/ (Sodium Chloride) 100 mls @ 200 mls/hr IV Q24H [facility] Last Admin: 01/29/19 23:23 Dose: Not Given Lactated Ringer's (Ringers, Lactated) 1,000 mls @ 100 mls/hr IV ASDIRECTED [facility] Last Admin: 01/29/19 10:23 Dose: 100 mls/hr Sodium Chloride (Normal Saline) 250 mls @ 250 mls/hr IV ASDIRECTED [facility] Azithromycin 500 mg/ Sodium (Chloride) 250 mls @ 250 mls/hr IV BEDTIME [facility] Magnesium Sulfate 2 gm/ Premix 50 mls @ 25 mls/hr IV ONETIME ONE Stop: 01/29/19 13:59 Last Admin: 01/29/19 13:23 Dose: 25 mls/hr Magnesium Oxide (Magnesium Oxide) 800 mg PO ONETIME ONE Stop: 01/29/19 12:01 Last Admin: 01/29/19 13:23 Dose: 800 mg - Exam Quality Assessment: Denies: Supplemental Oxygen General: Reports: Alert, Oriented, Cooperative, No Acute Distress HEENT: Reports: Pupils Equal, Pupils Reactive Neck: Reports: Supple, Trachea Midline, No JVD Lungs: Reports: Clear to Auscultation, Normal Respiratory Effort Cardiovascular: Reports: Regular Rate, Regular Rhythm GI/Abdominal Exam: Normal Bowel Sounds, Soft, Non-Tender Back Exam: Reports: Normal Inspection Extremities: Normal Inspection, Non-Tender, No Pedal Edema Skin: Reports: Warm, Dry Neurological: Reports: No New Focal Deficit Psy/Mental Status: Reports: Alert, Normal Affect
[2019-01-31] MEDS: Insulin Glarg,Human.Rec.Analog 100 UNIT/ML ML SUBCUT SCH (08:40)
[2019-01-31] MEDS: Aspirin 81 MG Tab.EC PO SCH (08:58)
[2019-01-31] MEDS: Ascorbic Acid 500 MG Tab PO SCH (08:58)
[2019-01-31] MEDS: Apixaban 5 MG Tab PO SCH (08:58)
[2019-01-31] MEDS: Digoxin 125 MCG Tab PO SCH (08:58)
--- NOTE | 2019-02-21 09:30 | PCM.PN ---
- General Info Date of Service: 01/30/19 Subjective Update: Feels a lot better ambulating shortness of breth resolved tolerating diet slept ok - Patient Data Vitals - Most Recent: Last Vital Signs Temp 36.8 C 01/31/19 08:58 Pulse 83 01/31/19 08:58 Resp 16 01/31/19 08:58 BP 107/61 01/31/19 08:58 Pulse Ox 96 01/31/19 08:58 Weight - Most Recent: 69.082 kg - Exam Quality Assessment: No: Supplemental Oxygen General: Alert, Oriented HEENT: Pupils Equal, Pupils Reactive Neck: Supple, Trachea Midline, No JVD Lungs: Clear to Auscultation, Normal Respiratory Effort, Crackles. No: Rales, Rhonchi, Rub, Stridor, Wheezing Cardiovascular: Regular Rate, Regular Rhythm. No: Murmurs, Gallops, Rubs GI/Abdominal Exam: Normal Bowel Sounds, Soft, Non-Tender Back Exam: Normal Inspection Extremities: Normal Inspection, Pedal Edema Neurological: No New Focal Deficit Psy/Mental Status: Alert - Problem List & Annotations (1) Urinary tract infection due to Klebsiella species SNOMED Code(s): 561342934218159 Code(s): N39.0 - URINARY TRACT INFECTION, SITE NOT SPECIFIED; B96.1 - KLEBSIELLA PNEUMONIAE THE CAUSE OF DISEASES CLASSD ELSWHR Status: Acute (2) Fall SNOMED Code(s): 3783621, 304056320 Code(s): W19.XXXA - UNSPECIFIED FALL, INITIAL ENCOUNTER Status: Acute Priority: High Qualifiers: Encounter type: initial encounter Qualified Code(s): W19.XXXA - Unspecified fall, initial encounter (3) Hypertension SNOMED Code(s): 93265223 Code(s): I10 - ESSENTIAL (PRIMARY) HYPERTENSION Status: Chronic Priority : Low Qualifiers: Hypertension type: unspecified Qualified Code(s): I10 - Essential (primary ) hypertension (4) Hypothyroidism SNOMED Code(s): 42210176 Code(s): E03.9 - HYPOTHYROIDISM, UNSPECIFIED Status: Chronic Priority: Low Qualifiers: Hypothyroidism type: unspecified Qualified Code(s): E03.9 - Hypothyroidism , unspecified (5) Presence of cardiac pacemaker SNOMED Code(s): 049949397 Code(s): Z95.0 - PRESENCE OF CARDIAC PACEMAKER Status: Chronic Priority: Low (6) Type II diabetes mellitus SNOMED Code(s): 43002461 Code(s): E11.9 - TYPE 2 DIABETES MELLITUS WITHOUT COMPLICATIONS Status: Chronic Priority: Low Qualifiers: Diabetes mellitus custodial insulin use: without custodial use Diabetes mellitus complication status: without complication Qualified Code(s): E11.9 - Type 2 diabetes mellitus without complications (7) Acute decompensated heart failure SNOMED Code(s): 48453352, 913345143 Code(s): I50.9 - HEART FAILURE, UNSPECIFIED Status: Acute (8) Kiugc-js-ojqyceq kidney injury SNOMED Code(s): 418253662 Code(s): N17.9 - ACUTE KIDNEY FAILURE, UNSPECIFIED; N18.9 - CHRONIC KIDNEY DISEASE, UNSPECIFIED Status: Acute (9) Congestive heart failure SNOMED Code(s): 90258074 Code(s): I50.9 - HEART FAILURE, UNSPECIFIED Status: Acute Priority: High Qualifiers: Heart failure type: combined systolic and diastolic Heart failure chronicity: acute on chronic Qualified Code(s): I50.43 - Acute on chronic combined systolic (congestive) and diastolic (congestive) heart failure (10) Decreased vision in both eyes SNOMED Code(s): 529726866 Code(s): H54.3 - UNQUALIFIED VISUAL LOSS, BOTH EYES Status: Acute (11) High anion gap metabolic acidosis SNOMED Code(s): 72355851 Code(s): E87.2 - ACIDOSIS Status: Acute (12) Hyperglycemia SNOMED Code(s): 82405312 Code(s): R73.9 - HYPERGLYCEMIA, UNSPECIFIED Status: Acute - Problem List Review Problem List Initiated/Reviewed/Updated: Yes - Plan Plan:: Acute on chronic decompensated heart failure s/p AICD, EF 25% (10/2018) Responded to IV lasix Transition to PO lasix Devide interrogation completed and ok Digoxin level is normal PLAN - Daily weights - Telemetry - Strict I/Os - Continue BiPAP - Fluid and sodium restricted diet UTI 2/2 pansensitive Klebsiella Transition to PO keflex afebrile PLAN - Transition to PO keflex PNA, improving SOB resolved PLAN - Transition to POAzithromycin Nxsai-og-lgybzmo kidney injury with electrolyte abnormalities, improving Multifactorial PLAN - Monitor urine output - Renally dosed medications - Repeat BMP, Mg and Pi daily and replace electrolytes as needed Hypertension BP controlled PLAN - Hold home medications for now Type II diabetes mellitus, unknown HbA1c Controlled Does not need insulin Discontinue prior to dc REpeat labs as an outpatient PLAN - Diabetic diet - Hypoglycemia protocol Hypothyroidism No acute issues PLAN - Continue home levothyroxine Sepsis on admission resolved Hypoxemic respiratory failure on admission, resolved High anion gap metabolic acidosis on admission, resolved DISPOSITION: Patient will be admitted for respiratory status improvement and initiation of antibiotic therapy.
== END 2019-01-31 09:35 | disposition home or self-care (01) | DRG 871 ==
LOC: JD.ED 19:50 → SUPCPDRO 19:50 → JD.ICU 22:30 → JD.MS 01-29 18:50
PROVIDERS: ADMIT Internal Medicine; ATTEND Internal Medicine
PROC: 5A09457 Assistance with Respiratory Ventilation, 24-96 Consecutive Hours, Continuous Positive Airway Pressure (ICD-10-PCS; principal; 2019-01-28)
DX: A41.9 Sepsis, unspecified organism (principal); I50.43 Acute on chronic combined systolic (congestive) and diastolic (congestive) heart failure; J18.9 Pneumonia, unspecified organism; J96.91 Respiratory failure, unspecified with hypoxia; R06.02 Shortness of breath; N39.0 Urinary tract infection, site not specified; N17.9 Acute kidney failure, unspecified; I13.0 Hypertensive heart and chronic kidney disease with heart failure and stage 1 through stage 4 chronic kidney disease, or unspecified chronic kidney disease; Z79.84 Long term (current) use of oral hypoglycemic drugs; E87.2 Acidosis; E87.1 Hypo-osmolality and hyponatremia; E03.9 Hypothyroidism, unspecified; H54.3 Unqualified visual loss, both eyes; Z96.653 Presence of artificial knee joint, bilateral; D64.9 Anemia, unspecified; B96.1 Klebsiella pneumoniae [K. pneumoniae] as the cause of diseases classified elsewhere; W19.XXXA Unspecified fall, initial encounter; N18.9 Chronic kidney disease, unspecified; E11.22 Type 2 diabetes mellitus with diabetic chronic kidney disease; E11.65 Type 2 diabetes mellitus with hyperglycemia; E88.09 Other disorders of plasma-protein metabolism, not elsewhere classified; R32 Unspecified urinary incontinence; Z95.0 Presence of cardiac pacemaker; Z90.49 Acquired absence of other specified parts of digestive tract; Z87.891 Personal history of nicotine dependence; Z79.899 Other long term (current) drug therapy; Z79.4 Long term (current) use of insulin; Z79.82 Long term (current) use of aspirin
CPT/HCPCS: 36415; 36600; 71045; 71045-26; 71046; 71046-26; 80048; 80053; 80162; 81001; 82803; 82962; 83036; 83605; 83735; 83880; 84100; 84484; 85007; 85025; 85027; 85379; 85610; 85730; 87040; 87086; 87088; 87186; 93005; 93010; 93306; 94660; 96361; 96374; 97161-GP; 97165-GO; 99285; 99285-25; A9270-GY; J0456; J0696; J1815-GY; J1940; J3475; J7030; J7040; J7050; J7120

== ENCOUNTER 2019-06-24 19:40 | Observation (INO) | payer MEDICARE, BC ==
[2019-06-24] MEDS ORDERED: Furosemide 40 MG/4 ML VIAL IVPUSH ONE (21:10)
--- NOTE | 2019-06-24 21:19 | EDM.PDOC ---
ED HPI GENERAL MEDICAL PROBLEM - General Chief Complaint: Respiratory Problem Stated Complaint: SOB Time Seen by Provider: 06/24/19 20:35 Source of Information: Reports: Patient, Family History Limitations: Reports: No Limitations - History of Present Illness INITIAL COMMENTS - FREE TEXT/NARRATIVE: Ms. Trujillo is a very pleasant 73-year-old woman with a past medical history significant for diabetes, hypertension, moderate aortic stenosis, and CHF, who now presents to the ED stating that she has been dyspneic, even at rest, but worse with exertion, since 18:00. She denies orthopnea, although she has not been lying down since she became dyspneic. No associated cough, fever, chest pain, palpitations, nausea, vomiting, constipation, diarrhea, abdominal pain, urinary symptoms, or recent lower extremity edema. She states that she drank three 8 ounce glasses of water today, which is more than her usual, although she is not on a fluid restriction. She denies recent excess salt or canned food intake. She reports similar symptoms in the past, due to CHF, although she is concerned that her current symptoms are due to pneumonia, which she also states she has had in the past. Upon arrival to the ED, the patient's initial BP was 169/98, with a RR of 28. Her oxygen saturation was 81% on room air, up to 95% on 6 L nasal cannula. The patient does not have supplemental oxygen at home. She states that her dyspnea substantially improved after she was placed on the supplemental oxygen. By that time, her BP had decreased to 143/96. An echocardiogram performed 02/08/2019 found a LVEF of 45 to 50% with a dilated LV and global hypokinesia. There was moderate aortic valve stenosis and mild mitral valve regurgitation. The LA was severely dilated. The RA and RV were normal. The patient reports that she was diagnosed with a UTI about 3 weeks ago, and has been on 2 rounds of antibiotics, just finishing yesterday, Tuesday, 2019. The patient checks her blood glucose once a day, with a normal range between 120 and 150. She last checked it yesterday, finding it to be 160. The patient's PCP is Penny Hathaway NP, in [place]. Her Multimedia Authoring Specialist Dr. Matthias Mcmahon. She does not recall the name of her "pacemaker Multimedia Authoring Specialist", at [facility]. She did not receive an influenza vaccine this season, but agreed to receive one here today. - Related Data Allergies Allergy/AdvReac Type Severity Reaction Status Date / Time vancomycin Allergy Itching Verified 06/24/19 20:40 vitamin intolerant Allergy Other Uncoded 06/25/19 00:34 Home Meds: Home Meds Digoxin 125 mcg PO DAILY 01/09/16 [History] Diltiazem HCl [Diltiazem 24Hr ER] 120 mg PO DAILY 01/09/16 [History] Simvastatin [Zocor] 40 mg PO BEDTIME 01/09/16 [History] carvediloL [Carvedilol] 25 mg PO BID 01/09/16 [History] metFORMIN HCl [Metformin HCl ER] 1,000 mg PO BID 01/09/16 [History] Apixaban [Eliquis] 5 mg PO BID 05/17/18 [History] Ascorbate Calcium [Vitamin C] 500 mg PO DAILY PRN 05/18/18 [History] Aspirin 81 mg PO DAILY 01/28/19 [History] Ubidecarenone [Co Q-10] 100 mg PO TID 01/28/19 [History] Furosemide [Lasix] 20 mg PO BID 06/24/19 [History] Insulin Glarg,Human.Rec.Analog [Lantus] 0.3 unit INJECT BEDTIME 06/24/19 [ History] Lisinopril 20 mg PO BID 06/24/19 [History] Past Medical History HEENT History: Reports: Cataract Other HEENT History: wears glasses Cardiovascular History: Reports: Heart Failure, Heart Murmur (Moderate aortic stenosis, mild mitral valve regurgitation), Hypertension Gastrointestinal History: Reports: Hemorrhoids Genitourinary History: Reports: Urinary Incontinence Endocrine/Metabolic History: Reports: Diabetes, Type II, Hypothyroidism - Infectious Disease History Infectious Disease History: Reports: Chicken Pox, Influenza, Measles - Past Surgical History Cardiovascular Surgical History: Reports: Pacer, Other (See Below) (Coronary angiogram x 1) GI Surgical History: Reports: Appendectomy, Cholecystectomy (around 1967), Colonoscopy (x 1) Female Surgical History: Reports: D&C (x 1) Musculoskeletal Surgical History: Reports: Knee Replacement (bilateral) Social & Family History - Family History Family Medical History: Noncontributory - Tobacco Use Smoking Status *Q: Former Smoker Years of Tobacco use: 14 Packs/Tins Daily: 0.3 Month/Year Tobacco Last Used: Quit 1976 - Caffeine Use Caffeine Use: Reports: Coffee Caffeine Use Comment: Daily coffee - Alcohol Use Alcohol Use History: Yes Alcohol Use Frequency: Rarely - Recreational Drug Use Recreational Drug Use: No - Living Situation & Occupation Living situation: Reports: , Alone Occupation: Retired ED ROS GENERAL - Review of Systems Review Of Systems: Comprehensive ROS is negative, except as noted in HPI. ED EXAM, GENERAL - Physical Exam Exam: See Below Exam Limited By: No Limitations General Appearance: Alert, WD/WN, No Apparent Distress Eye Exam: Bilateral Eye: EOMI, Normal Inspection Ears: Normal External Exam, Hearing Grossly Normal Nose: Normal Inspection Throat/Mouth: Normal Inspection, Normal Lips, Normal Voice, No Airway Compromise Head: Atraumatic, Normocephalic Neck: Normal Inspection, Full Range of Motion Respiratory/Chest: No Respiratory Distress, Lungs Clear, Normal Breath Sounds, No Accessory Muscle Use, Crackles (bibasilar, Rt > Lt). No: Decreased Breath Sounds, Rhonchi, Wheezing, Stridor, Prolonged Expiration Cardiovascular: Normal Peripheral Pulses, Regular Rate, Rhythm, No Edema, No Gallop, No JVD, No Rub, Systolic Murmur (harsh, heard best at the left upper sternal border, consistent with aortic stenosis) Peripheral Pulses: 4+: Radial (L), Radial (R) GI/Abdominal: Normal Bowel Sounds, Soft, Non-Tender, No Organomegaly, No Distention, No Abnormal Bruit, No Mass (Female) Exam: Deferred Rectal (Female) Exam: Deferred Back Exam: Normal Inspection, Full Range of Motion, NT Extremities: Normal Inspection, Normal Range of Motion, No Pedal Edema, Normal Capillary Refill Neurological: Alert, Oriented, Normal Cognition, No Motor/Sensory Deficits Psychiatric: Normal Affect Skin Exam: Warm, Dry, Intact, Normal Color, No Rash EKG INTERPRETATION EKG Date: 06/24/19 Time: 21:17 Rhythm: Other (A-V paced with 2 PVCs) Rate (Beats/Min): 80 Comparison: Change From Previous EKG ([facility] [employer] 01/28/2019 V-paced only) Course - Vital Signs Last Recorded V/S: Last Vital Signs Temp 37.0 C 06/25/19 02:10 Pulse 76 06/25/19 02:10 Resp 14 06/25/19 02:10 BP 124/80 06/25/19 02:10 Pulse Ox 95 06/25/19 02:10 - Orders/Labs/Meds Orders: Active Orders 24 hr Category Date Time Status Influenza Vaccine Charge [RC] .DISCHARGE Care 06/24/19 21:09 Active CULTURE BLOOD [BC] Stat Lab 06/24/19 21:35 Received CULTURE BLOOD [BC] Stat Lab 06/24/19 21:40 Received Blood Culture x2 Reflex Set [OM.PC] Stat Oth 06/24/19 21:07 Ordered Labs: Laboratory Tests 06/24/19 06/24/19 06/24/19 Range/Units 20:05 20:05 20:05 WBC 14.03 H (3.98-10.04) K/mm3 RBC 4.18 (3.98-5.22) M/mm3 Hgb 11.8 (11.2-15.7) gm/dl Hct 37.4 (34.1-44.9) % MCV 89.5 (79.4-94.8) fl MCH 28.2 (25.6-32.2) pg MCHC 31.6 L (32.2-35.5) g/dl RDW Std Deviation 45.7 (36.4-46.3) fL Plt Count 481 H D (182-369) K/mm3 MPV 9.7 (9.4-12.3) fl Neutrophils % (Manual) 69 H (40-60) % Band Neutrophils % 0 (0-10) % Lymphocytes % (Manual) 24 (20-40) % Atypical Lymphs % 0 % Monocytes % (Manual) 3 (2-10) % Eosinophils % (Manual) 3 (0.7-5.8) % Basophils % (Manual) 1 (0.1-1.2) Platelet Estimate Increased Plt Morphology Comment Normal Poikilocytosis 1+ slight Anisocytosis 1+ slight RBC Morph Comment Not Reportable PT 10.6 (9.7-12.0) SECONDS INR 0.97 APTT 37 H D (22-31) SECONDS D-Dimer, Quantitative 0.90 H (0.19-0.50) mg/L Puncture Site ABG pH (7.35-7.45) ABG pCO2 (35.0-45.0) mmHg ABG pO2 (80.0-100.0) mmHg ABG HCO3 (22.0-26.0) meq/L ABG O2 Saturation (96.0-97.0) % ABG Base Excess (-2-2.0) Cassius Test A-a Gradient mmHg O2 Delivery Device Oxygen Flow Rate FiO2 (21.00-100.00) % Sodium 125 L (136-145) mEq/L Potassium 5.1 (3.5-5.1) mEq/L Chloride 91 L (98-107) mEq/L Carbon Dioxide 23 (21-32) mEq/L Anion Gap 16.1 H (5-15) BUN 20 H (7-18) mg/dL Creatinine 1.0 (0.55-1.02) mg/dL Est Cr Clr Drug Dosing 40.22 mL/min Estimated GFR (MDRD) 55 (>60) mL/min BUN/Creatinine Ratio 20.0 H (14-18) Glucose 247 H (83-115) mg/dL Lactic Acid (0.4-2.0) mmol/L Calcium 9.1 (8.5-10.1) mg/dL Total Bilirubin 0.4 (0.2-1.0) mg/dL AST 60 H (15-37) U/L ALT 47 (14-59) U/L Alkaline Phosphatase 98 (46-116) U/L Troponin I < 0.017 (0.00-0.056) ng/mL NT-Pro-B Natriuret Pep (0-125) pg/mL Total Protein 7.2 (6.4-8.2) g/dl Albumin 3.2 L (3.4-5.0) g/dl Globulin 4.0 gm/dL Albumin/Globulin Ratio 0.8 L (1-2) 06/24/19 06/24/19 06/24/19 Range/Units 20:05 21:35 21:35 WBC (3.98-10.04) K/mm3 RBC (3.98-5.22) M/mm3 Hgb (11.2-15.7) gm/dl Hct (34.1-44.9) % MCV (79.4-94.8) fl MCH (25.6-32.2) pg MCHC (32.2-35.5) g/dl RDW Std Deviation (36.4-46.3) fL Plt Count (182-369) K/mm3 MPV (9.4-12.3) fl Neutrophils % (Manual) (40-60) % Band Neutrophils % (0-10) % Lymphocytes % (Manual) (20-40) % Atypical Lymphs % % Monocytes % (Manual) (2-10) % Eosinophils % (Manual) (0.7-5.8) % Basophils % (Manual) (0.1-1.2) Platelet Estimate Plt Morphology Comment Poikilocytosis Anisocytosis RBC Morph Comment PT (9.7-12.0) SECONDS INR APTT (22-31) SECONDS D-Dimer, Quantitative (0.19-0.50) mg/L Puncture Site Lt radial ABG pH 7.42 (7.35-7.45) ABG pCO2 34.2 L (35.0-45.0) mmHg ABG pO2 99.0 (80.0-100.0) mmHg ABG HCO3 21.5 L (22.0-26.0) meq/L ABG O2 Saturation 97.1 H (96.0-97.0) % ABG Base Excess -1.9 (-2-2.0) Cassius Test Positive A-a Gradient 88 mmHg O2 Delivery Device Cannula Oxygen Flow Rate 3.0 FiO2 32.00 (21.00-100.00) % Sodium (136-145) mEq/L Potassium (3.5-5.1) mEq/L Chloride (98-107) mEq/L Carbon Dioxide (21-32) mEq/L Anion Gap (5-15) BUN (7-18) mg/dL Creatinine (0.55-1.02) mg/dL Est Cr Clr Drug Dosing mL/min Estimated GFR (MDRD) (>60) mL/min BUN/Creatinine Ratio (14-18) Glucose (83-115) mg/dL Lactic Acid 2.3 H* (0.4-2.0) mmol/L Calcium (8.5-10.1) mg/dL Total Bilirubin (0.2-1.0) mg/dL AST (15-37) U/L ALT (14-59) U/L Alkaline Phosphatase (46-116) U/L Troponin I (0.00-0.056) ng/mL NT-Pro-B Natriuret Pep 48381 H (0-125) pg/mL Total Protein (6.4-8.2) g/dl Albumin (3.4-5.0) g/dl Globulin gm/dL Albumin/Globulin Ratio (1-2) Meds: Medications Discontinued Medications Generic Name Dose Route Start Last Admin Trade Name Oracio PRN Reason Stop Dose Admin Furosemide 40 mg 06/24/19 21:10 06/24/19 21:21 Lasix IVPUSH 06/24/19 21:11 40 mg NOW ONE Administration Influenza Virus Vaccine 1 each 06/24/19 21:09 Pharmacy To Dose - Influenza Vaccine IM 06/24/19 21:10 ONETIME ONE Influenza Virus Vaccine 180 mcg 06/24/19 21:30 Fluzone High-Dose 2019-20 Syringe IM 06/24/19 21:31 .ONCE ONE Influenza Virus Vaccine 1 each 06/25/19 00:42 Pharmacy To Dose - Influenza Vaccine IM 06/25/19 00:43 ONETIME ONE - Re-Assessments/Exams Free Text/Narrative Re-Assessment/Exam: 06/24/19 21:11 As above, the patient presents with dyspnea today, worse with exertion, but without a history of orthopnea. She is found to be significantly hypoxemic, improved on oxygen, and on examination, she has bibasilar crackles, worse on the right than the left. My suspicion for pneumonia is low, since she has no cough or fever. I suspect that she is suffering from an exacerbation of CHF, but not necessarily due to fluid overload, since she reports that her symptoms, not just her oxygen saturation, improved with supplemental oxygen. This indicates either an anxiety component or a pulmonary hypertension component. The echocardiogram from 02/08/2019, however, found a normal right ventricle, therefore pulmonary hypertension is unlikely. Examination, the patient has a loud murmur consistent with severe aortic stenosis. At this time, I suspect that anxiety caused the patient's systemic BP to rise, precipitating a CHF exacerbation due to . Her initial BP was 169/98, however, now that she is resting comfortably in the ED with supplemental oxygen on, her BP is down to 143 /96, and her symptoms have dramatically improved. I have ordered a work-up that includes blood work, an ABG, 2 sets of blood cultures, a chest x-ray, and an ECG. In the meantime, the patient will be given 40 mg of IV Lasix. 06/24/19 21:57 The patient CBC is remarkable for a WBC count elevated at 14.03, but with 0% bandemia. Her platelets are elevated at 481,000, with the remainder of her CBC being unremarkable. Her CMP is remarkable for a sodium depressed at 125, a BUN elevated at 20 with a Cr normal at 1.0, and the blood glucose elevated at 247, with the remainder of her CMP being unremarkable. Her troponin is undetectably low. Her BNP is substantially elevated at 12,473. Her D-dimer is mildly elevated at 0.90. The patient's PTT is mildly elevated at 37, with the remainder of her coags being normal. The patient's chest x-ray, lactic acid level, and ABG are all still pending. The patient's D-dimer is likely elevated due to a combination of age, gender, and CHF, and is not consistent with a PE. 06/24/19 23:23 Two-view chest radiograph reviewed. There is cardiomegaly and pulmonary vascular congestion consistent with decompensated CHF. No pleural effusions. No focal infiltrate. No pneumothorax. There is a sided 2-chamber AICD. Formal read per the Radiologist pending. The patient's ABG represents a chronic/compensated primary respiratory alkalosis. Her lactic acid level returned elevated at 2.3. The patient's elevated lactic acid level is consistent with hyperglycemia, not lactic acidosis, particularly since her bicarbonate is normal at 23. As above, the patient appears to be suffering from decompensated CHF with hypoxemia, along with hyperglycemia. No infectious process was found. I am recommending placement into observation for diuresis. 06/24/19 23:30 Test results and my recommendation for placing the patient into observation discussed with the patient, her sister, and son. The patient is agreeable. I will write bridge orders. Departure - Departure Time of Disposition: 23:31 Disposition: Refer to Observation Condition: Good Clinical Impression: Acute exacerbation of CHF (congestive heart failure), Hyperglycemia due to type 2 diabetes mellitus - Discharge Information *PRESCRIPTION DRUG MONITORING PROGRAM REVIEWED*: Not Applicable *COPY OF PRESCRIPTION DRUG MONITORING REPORT IN PATIENT HECTOR: Not Applicable Sepsis Event Note - Evaluation Sepsis Screening Result: No Definite Risk - Focused Exam Vital Signs: Vital Signs Temp Pulse Resp BP Pulse Ox 06/24/19 20:00 36.3 C 75 28 H 169/98 H 81 L Date Exam was Performed: 06/25/19 Time Exam was Performed: 07:26 - My Orders Last 24 Hours: My Active Orders 06/24/19 21:07 Blood Culture x2 Reflex Set [OM.PC] Stat 06/24/19 21:09 Influenza Vaccine Charge [RC] .DISCHARGE 06/24/19 21:35 CULTURE BLOOD [BC] Stat 06/24/19 21:40 CULTURE BLOOD [BC] Stat - Assessment/Plan Last 24 Hours: My Active Orders 06/24/19 21:07 Blood Culture x2 Reflex Set [OM.PC] Stat 06/24/19 21:09 Influenza Vaccine Charge [RC] .DISCHARGE 06/24/19 21:35 CULTURE BLOOD [BC] Stat 06/24/19 21:40 CULTURE BLOOD [BC] Stat
--- NOTE | 2019-06-25 07:03 | CR ---
Chest: Two views of the chest were obtained. Comparison: Prior chest x-ray of 03/16/19. Heart is enlarged. Chronic blunting of the lateral left costophrenic angle is seen. Pulmonary vessels are increased which are felt to be more prominent than on previous exam. AICD is present. Scoliosis is noted within the spine with scattered degenerative endplate osteophytes. Impression: 1. Cardiomegaly and mild pulmonary vascular congestion felt compatible with mild CHF. 2. Other findings believed to be nonacute as noted above. Diagnostic code #3 This report was dictated in [place] Standard Time
[2019-06-25] MEDS ORDERED: Furosemide 20 MG/2 ML VIAL IVPUSH ONE ×2 (09:12→17:00)
--- NOTE | 2019-06-25 09:46 | PCM.HP.2 ---
H&P History of Present Illness - General Date of Service: 06/25/19 Admit Problem/Dx: Admission Diagnosis/Problem Admission Diagnosis/Problem CHF, Congestive heart failure - History of Present Illness Initial Comments - Free Text/Narative: Patient presented to the emergency department secondary to increasing shortness of breath. Patient states that she felt dehydrated yesterday so drank around 6 glasses of water. She has heart failure with reduced ejection fraction. Her son who is with her stated that she also did not take all of her Lasix over the last 3 days. It was still in her pillbox. Patient states that she had extra pills and had to adjust them. Patient was admitted overnight by the emergency department physician and when I visited with her she was off oxygen, and was asymptomatic. He had given her 40 mg Lasix in the emergency room. Of note her sodium was 125 when she presented to the emergency room and 129 this morning. - Related Data Allergies/Adverse Reactions: Allergies Allergy/AdvReac Type Severity Reaction Status Date / Time vancomycin Allergy Itching Verified 06/24/19 20:40 vitamin intolerant Allergy Other Uncoded 06/25/19 00:34 Home Medications: Home Meds Digoxin 125 mcg PO DAILY 01/09/16 [History] Diltiazem HCl [Diltiazem 24Hr ER] 120 mg PO DAILY 01/09/16 [History] Simvastatin [Zocor] 40 mg PO BEDTIME 01/09/16 [History] carvediloL [Carvedilol] 25 mg PO BID 01/09/16 [History] metFORMIN HCl [Metformin HCl ER] 1,000 mg PO BID 01/09/16 [History] Apixaban [Eliquis] 5 mg PO BID 05/17/18 [History] Ascorbate Calcium [Vitamin C] 500 mg PO DAILY PRN 05/18/18 [History] Aspirin 81 mg PO DAILY 01/28/19 [History] Ubidecarenone [Co Q-10] 100 mg PO TID 01/28/19 [History] Furosemide [Lasix] 20 mg PO BID 06/24/19 [History] Insulin Glarg,Human.Rec.Analog [Lantus] 0.3 unit INJECT BEDTIME 06/24/19 [ History] Lisinopril 20 mg PO BID 06/24/19 [History] Past Medical History HEENT History: Reports: Cataract Other HEENT History: wears glasses Cardiovascular History: Reports: Heart Failure, Heart Murmur (Moderate aortic stenosis, mild mitral valve regurgitation), Hypertension Respiratory History: Reports: Other (See Below) Other Respiratory History: CHF Gastrointestinal History: Reports: Hemorrhoids Other Gastrointestinal History: permanent hemorrhoids Genitourinary History: Reports: Urinary Incontinence [employer] History: Reports: Musculoskeletal History: Reports: None Endocrine/Metabolic History: Reports: Diabetes, Type II, Hypothyroidism Other Endocrine/Metabolic History: doesnt take thyroid medications anymore, on metformin and lantus for dm - Infectious Disease History Infectious Disease History: Reports: Chicken Pox, Influenza, Measles - Past Surgical History Cardiovascular Surgical History: Reports: Pacer, Other (See Below) (Coronary angiogram x 1) GI Surgical History: Reports: Appendectomy, Cholecystectomy (around 1967), Colonoscopy (x 1) Female Surgical History: Reports: D&C (x 1) Musculoskeletal Surgical History: Reports: Knee Replacement (bilateral) Social & Family History - Family History Family Medical History: Noncontributory - Tobacco Use Smoking Status *Q: Former Smoker Years of Tobacco use: 14 Packs/Tins Daily: 0.3 Used Tobacco, but Quit: Yes Month/Year Tobacco Last Used: Quit 1976 Second Hand Smoke Exposure: No - Caffeine Use Caffeine Use: Reports: Coffee Other Caffeine Use: 2 large cups a day Caffeine Use Comment: Daily coffee - Recreational Drug Use Recreational Drug Use: No - Living Situation & Occupation Living situation: Reports: , Alone Occupation: Retired H&P Review of Systems - Review of Systems: Review Of Systems: Comprehensive ROS is negative, except as noted in HPI. Exam - Exam Exam: See Below - Vital Signs Vital Signs: Last Vital Signs Temp 98.1 F 06/25/19 08:30 Pulse 72 06/25/19 08:30 Resp 18 06/25/19 08:30 BP 124/78 06/25/19 08:30 Pulse Ox 95 06/25/19 08:30 Weight: 159 lb 9.6 oz - Exam Quality Assessment: No: Supplemental Oxygen General: Alert, Oriented, 4 HEENT: Conjunctiva Clear, Hearing Intact, Mucosa Moist & [place] Neck: Supple, Trachea Midline, 2 Lungs: Clear to Auscultation, Normal Respiratory Effort. No: Rales Cardiovascular: Regular Rate, Regular Rhythm GI/Abdominal Exam: Normal Bowel Sounds, Soft, Non-Tender, No Organomegaly, No Distention, No Abnormal Bruit, No Mass, Pelvis Stable Skin: Warm, Dry, Intact Neurological: Cranial Nerves Intact Neuro Extensive - Mental Status: Alert, Oriented x3, Normal Mood/Affect, Normal Cognition Neuro Extensive - Motor, Sensory, Reflexes: CN II-XII Intact Psychiatric: Alert, Normal Affect, Normal Mood - Patient Data Lab Results Last 24 hrs: Laboratory Results - last 24 hr 06/24/19 06/24/19 06/24/19 Range/Units 20:05 20:05 20:05 WBC 14.03 H (3.98-10.04) K/mm3 RBC 4.18 (3.98-5.22) M/mm3 Hgb 11.8 (11.2-15.7) gm/dl Hct 37.4 (34.1-44.9) % MCV 89.5 (79.4-94.8) fl MCH 28.2 (25.6-32.2) pg MCHC 31.6 L (32.2-35.5) g/dl RDW Std Deviation 45.7 (36.4-46.3) fL Plt Count 481 H D (182-369) K/mm3 MPV 9.7 (9.4-12.3) fl Neutrophils % (Manual) 69 H (40-60) % Band Neutrophils % 0 (0-10) % Lymphocytes % (Manual) 24 (20-40) % Atypical Lymphs % 0 % Monocytes % (Manual) 3 (2-10) % Eosinophils % (Manual) 3 (0.7-5.8) % Basophils % (Manual) 1 (0.1-1.2) Platelet Estimate Increased Plt Morphology Comment Normal Poikilocytosis 1+ slight Anisocytosis 1+ slight RBC Morph Comment Not Reportable PT 10.6 (9.7-12.0) SECONDS INR 0.97 APTT 37 H D (22-31) SECONDS D-Dimer, Quantitative 0.90 H (0.19-0.50) mg/L Puncture Site ABG pH (7.35-7.45) ABG pCO2 (35.0-45.0) mmHg ABG pO2 (80.0-100.0) mmHg ABG HCO3 (22.0-26.0) meq/L ABG O2 Saturation (96.0-97.0) % ABG Base Excess (-2-2.0) Cassius Test A-a Gradient mmHg O2 Delivery Device Oxygen Flow Rate FiO2 (21.00-100.00) % Sodium 125 L (136-145) mEq/L Potassium 5.1 (3.5-5.1) mEq/L Chloride 91 L (98-107) mEq/L Carbon Dioxide 23 (21-32) mEq/L Anion Gap 16.1 H (5-15) BUN 20 H (7-18) mg/dL Creatinine 1.0 (0.55-1.02) mg/dL Est Cr Clr Drug Dosing 40.22 mL/min Estimated GFR (MDRD) 55 (>60) mL/min BUN/Creatinine Ratio 20.0 H (14-18) Glucose 247 H (83-115) mg/dL Lactic Acid (0.4-2.0) mmol/L Calcium 9.1 (8.5-10.1) mg/dL Total Bilirubin 0.4 (0.2-1.0) mg/dL AST 60 H (15-37) U/L ALT 47 (14-59) U/L Alkaline Phosphatase 98 (46-116) U/L Troponin I < 0.017 (0.00-0.056) ng/mL NT-Pro-B Natriuret Pep (0-125) pg/mL Total Protein 7.2 (6.4-8.2) g/dl Albumin 3.2 L (3.4-5.0) g/dl Globulin 4.0 gm/dL Albumin/Globulin Ratio 0.8 L (1-2) 06/24/19 06/24/19 06/24/19 Range/Units 20:05 21:35 21:35 WBC (3.98-10.04) K/mm3 RBC (3.98-5.22) M/mm3 Hgb (11.2-15.7) gm/dl Hct (34.1-44.9) % MCV (79.4-94.8) fl MCH (25.6-32.2) pg MCHC (32.2-35.5) g/dl RDW Std Deviation (36.4-46.3) fL Plt Count (182-369) K/mm3 MPV (9.4-12.3) fl Neutrophils % (Manual) (40-60) % Band Neutrophils % (0-10) % Lymphocytes % (Manual) (20-40) % Atypical Lymphs % % Monocytes % (Manual) (2-10) % Eosinophils % (Manual) (0.7-5.8) % Basophils % (Manual) (0.1-1.2) Platelet Estimate Plt Morphology Comment Poikilocytosis Anisocytosis RBC Morph Comment PT (9.7-12.0) SECONDS INR APTT (22-31) SECONDS D-Dimer, Quantitative (0.19-0.50) mg/L Puncture Site Lt radial ABG pH 7.42 (7.35-7.45) ABG pCO2 34.2 L (35.0-45.0) mmHg ABG pO2 99.0 (80.0-100.0) mmHg ABG HCO3 21.5 L (22.0-26.0) meq/L ABG O2 Saturation 97.1 H (96.0-97.0) % ABG Base Excess -1.9 (-2-2.0) Cassius Test Positive A-a Gradient 88 mmHg O2 Delivery Device Cannula Oxygen Flow Rate 3.0 FiO2 32.00 (21.00-100.00) % Sodium (136-145) mEq/L Potassium (3.5-5.1) mEq/L Chloride (98-107) mEq/L Carbon Dioxide (21-32) mEq/L Anion Gap (5-15) BUN (7-18) mg/dL Creatinine (0.55-1.02) mg/dL Est Cr Clr Drug Dosing mL/min Estimated GFR (MDRD) (>60) mL/min BUN/Creatinine Ratio (14-18) Glucose (83-115) mg/dL Lactic Acid 2.3 H* (0.4-2.0) mmol/L Calcium (8.5-10.1) mg/dL Total Bilirubin (0.2-1.0) mg/dL AST (15-37) U/L ALT (14-59) U/L Alkaline Phosphatase (46-116) U/L Troponin I (0.00-0.056) ng/mL NT-Pro-B Natriuret Pep 94952 H (0-125) pg/mL Total Protein (6.4-8.2) g/dl Albumin (3.4-5.0) g/dl Globulin gm/dL Albumin/Globulin Ratio (1-2) 06/25/19 Range/Units 05:05 WBC (3.98-10.04) K/mm3 RBC (3.98-5.22) M/mm3 Hgb (11.2-15.7) gm/dl Hct (34.1-44.9) % MCV (79.4-94.8) fl MCH (25.6-32.2) pg MCHC (32.2-35.5) g/dl RDW Std Deviation (36.4-46.3) fL Plt Count (182-369) K/mm3 MPV (9.4-12.3) fl Neutrophils % (Manual) (40-60) % Band Neutrophils % (0-10) % Lymphocytes % (Manual) (20-40) % Atypical Lymphs % % Monocytes % (Manual) (2-10) % Eosinophils % (Manual) (0.7-5.8) % Basophils % (Manual) (0.1-1.2) Platelet Estimate Plt Morphology Comment Poikilocytosis Anisocytosis RBC Morph Comment PT (9.7-12.0) SECONDS INR APTT (22-31) SECONDS D-Dimer, Quantitative (0.19-0.50) mg/L Puncture Site ABG pH (7.35-7.45) ABG pCO2 (35.0-45.0) mmHg ABG pO2 (80.0-100.0) mmHg ABG HCO3 (22.0-26.0) meq/L ABG O2 Saturation (96.0-97.0) % ABG Base Excess (-2-2.0) Cassius Test A-a Gradient mmHg O2 Delivery Device Oxygen Flow Rate FiO2 (21.00-100.00) % Sodium 129 L (136-145) mEq/L Potassium 4.1 (3.5-5.1) mEq/L Chloride 95 L (98-107) mEq/L Carbon Dioxide 26 (21-32) mEq/L Anion Gap 12.1 (5-15) BUN 18 (7-18) mg/dL Creatinine 0.9 (0.55-1.02) mg/dL Est Cr Clr Drug Dosing 45.71 mL/min Estimated GFR (MDRD) > 60 (>60) mL/min BUN/Creatinine Ratio 20.0 H (14-18) Glucose 104 (83-115) mg/dL Lactic Acid (0.4-2.0) mmol/L Calcium 9.1 (8.5-10.1) mg/dL Total Bilirubin (0.2-1.0) mg/dL AST (15-37) U/L ALT (14-59) U/L Alkaline Phosphatase (46-116) U/L Troponin I (0.00-0.056) ng/mL NT-Pro-B Natriuret Pep (0-125) pg/mL Total Protein (6.4-8.2) g/dl Albumin (3.4-5.0) g/dl Globulin gm/dL Albumin/Globulin Ratio (1-2) Result Diagrams: 06/24/19 20:05 06/25/19 15:10 Imaging Impressions Last 24 hrs: Chest x-ray: Cardiomegaly with mild pulmonary vascular congestion felt to be compatible with CHF EKG INTERPRETATION EKG Date: 06/24/19 Time: 21:17 Rate (Beats/Min): 80 (Ventricular placed) Sepsis Event Note - Evaluation Sepsis Screening Result: No Definite Risk - Focused Exam Vital Signs: Vital Signs Temp Pulse Resp BP Pulse Ox 06/25/19 08:30 98.1 F 72 18 124/78 95 06/25/19 02:10 98.6 F 76 14 124/80 95 06/25/19 00:28 90 92 L 06/25/19 00:15 98.2 F 93 14 141/93 H 94 L Date Exam was Performed: 06/25/19 Time Exam was Performed: 16:44 Problem List Initiated/Reviewed/Updated: Yes Orders Last 24hrs: Active Orders 24 hr Category Date Time Status Patient Status [ADT] Routine ADT 06/25/19 00:14 Active Blood Glucose Check, Bedside [RC] QIDACANDBED Care 06/25/19 09:33 Active Blood Glucose Check, Bedside [RC] QIDACANDBED Care 06/25/19 09:33 Inactive Influenza Vaccine Charge [RC] .DISCHARGE Care 06/24/19 21:09 Active Oxygen Therapy Adult [Oxygen Therapy] [RC] ASDIRECTED Care 06/25/19 00:29 Active Up With Assistance [RC] ASDIRECTED Care 06/25/19 00:11 Active Fluid Restriction [DIET] Diet 06/25/19 Lunch Active Heart Healthy Diet [DIET] Diet 06/25/19 Lunch Active BASIC METABOLIC PANEL,BMP [CHEM] Routine Lab 06/25/19 15:00 Ordered CULTURE BLOOD [BC] Stat Lab 06/24/19 21:35 Received CULTURE BLOOD [BC] Stat Lab 06/24/19 21:40 Received Apixaban [Eliquis] Med 06/25/19 09:15 Pending 5 mg PO BID Aspirin [Halfprin] Med 06/26/19 09:00 Active 81 mg PO DAILY Carvedilol Med 06/25/19 09:30 Ordered 25 mg PO BID Digoxin [Digoxin] Med 06/25/19 09:00 Ordered 125 mcg PO DAILY Diltiazem HCl [Diltiazem 24Hr ER] Med 06/25/19 09:15 Ordered 120 mg PO DAILY Insulin Lispro [HumaLOG] Med 06/25/19 09:36 Active See Dose Instructions SUBCUT QIDACANDBED Lisinopril [Lisinopril] Med 06/25/19 09:15 Ordered 20 mg PO BID Simvastatin [Zocor] Med 06/25/19 21:00 Ordered 40 mg PO BEDTIME Blood Culture x2 Reflex Set [OM.PC] Stat Oth 06/24/19 21:07 Ordered Code Status [Resuscitation Status] Routine Resus Stat 06/25/19 00:13 Ordered Medication Orders Aspirin (Halfprin) 81 mg PO DAILY [facility] Insulin Human Lispro (Humalog) 0 unit SUBCUT QIDACANDBED ОЛЬГА; Protocol Non-Formulary Medication (Apixaban [Eliquis]) 5 mg PO BID [facility] Non-Formulary Medication (Carvedilol) 25 mg PO BID [facility] Non-Formulary Medication (Digoxin [Digoxin]) 125 mcg PO DAILY [facility] Non-Formulary Medication (Diltiazem Hcl [Diltiazem 24hr Er]) 120 mg PO DAILY [facility] Non-Formulary Medication (Lisinopril [Lisinopril]) 20 mg PO BID [facility] Non-Formulary Medication (Simvastatin [Zocor]) 40 mg PO BEDTIME [facility] Assessment/Plan Comment:: Plan * Acute exacerbation of CHF with preserved ejection fraction * Asymptomatic by the time she was seen this morning. * She is on furosemide 20 mg twice daily at home * BNP 12,473 * Given Lasix 40 mg IV push in the emergency room Echocardiogram from January 28, 2019: 1. Left jugular ejection fraction, by visual estimation, is 45 to 50%. 2. Global and mildly decreased left ventricular systolic function. 3. The left ventricular internal cavity size is moderate to severely increased. 4. Normal right ventricular systolic function. 5. Severely dilated left atrium. 6. Normal right atrium. 7. Moderate aortic valve stenosis. 8. There is moderate aortic valve sclerosis. 9. Mild mitral valve regurgitation. 10. Severely decreased posterior mitral leaflet mobility and mildly decreased anterior mitral leaflet mobility. 11. Mild tricuspid valve regurgitation. 12. Mild dilatation of the ascending aorta. 13. Mild pulmonic valve regurgitation. 14. The right ventricular systolic pressure is normal. * Hyponatremia * Initial sodium of 125 and recheck of 129 * Likely secondary to CHF and fluid overload * Leukocytosis with white count of 14,000 * Unlikely to be infectious. 0% bandemia * Likely stress reaction * Elevated d-dimer of 0.9 * Unlikely to be secondary to PE. * Likely secondary to CHF Plan * Refer for observation * Lasix 20 mg IV push twice daily * Recheck BMP at 1500 * Fluid restriction of 1500 mL/day * Sliding scale insulin * Continue other home meds except Lantus, metformin * Check CBC, CMP, magnesium in the morning * VTE prophylaxis with Eliquis * CODE STATUS: Full code * Length of stay likely 1 to 2 days. - Mortality Measure Prognosis:: Poor
[2019-06-25] MEDS: Insulin Lispro 100 Units/ML 3 ML Vial SUBCUT SCH ×4 (10:46→22:06)
[2019-06-25] MEDS: APIXABAN 5 MG PO SCH ×2 (11:06→20:27)
[2019-06-25] MEDS: DILTIAZEM 120 MG PO SCH (11:10)
[2019-06-25] MEDS: CARVEDILOL 25 MG PO SCH ×2 (11:10→20:28)
[2019-06-25] MEDS: LISINOPRIL 20 MG PO SCH ×3 (11:10→20:30)
[2019-06-25] MEDS: DIGOXIN 250 MCG PO SCH (11:11)
[2019-06-25] MEDS ORDERED: SIMVASTATIN 40 MG PO SCH (21:00)
[2019-06-26] MEDS ORDERED: Furosemide 20 MG/2 ML VIAL IVPUSH SCH (06:00)
[2019-06-26] MEDS ORDERED: Magnesium Sulfate/Water 4 GM in Premix Bag 1 BAG IV ONE (08:02)
[2019-06-26] MEDS: Insulin Lispro 100 Units/ML 3 ML Vial SUBCUT SCH ×2 (08:18→11:51)
[2019-06-26] MEDS: DILTIAZEM 120 MG PO SCH (08:20)
[2019-06-26] MEDS: APIXABAN 5 MG PO SCH (08:21)
[2019-06-26] MEDS: LISINOPRIL 20 MG PO SCH (08:21)
[2019-06-26] MEDS: CARVEDILOL 25 MG PO SCH (08:21)
[2019-06-26] MEDS ORDERED: Aspirin 81 MG Tab.EC PO SCH (09:00)
--- NOTE | 2019-06-26 09:47 | PCM.DCSUM1 ---
Discharge Summary - Hospital Course HPI Initial Comments: Patient presented to the emergency department secondary to increasing shortness of breath. Patient states that she felt dehydrated yesterday so drank around 6 glasses of water. She has heart failure with reduced ejection fraction. Her son who is with her stated that she also did not take all of her Lasix over the last 3 days. It was still in her pillbox. Patient states that she had extra pills and had to adjust them. Patient was admitted overnight by the emergency department physician and when I visited with her she was off oxygen, and was asymptomatic. He had given her 40 mg Lasix in the emergency room. Of note her sodium was 125 when she presented to the emergency room and 129 this morning. Diagnosis: Stroke: No - Discharge Data Discharge Date: 06/26/19 Discharge Disposition: Home, Self-Care 01 Condition: Good - Referral to Home Health Primary Care Physician: Penny Hathaway NP - Patient Summary/Data Hospital Course: Patient had low sodium at 125. She was given an extra 40 mg IV of Lasix in the emergency room. Repeat sodium was 1292. She was placed on a fluid restriction and this morning her sodium was 133. She will continue fluid restriction at home and follow-up with her primary care provider. She is discharged home in good condition. - Patient Instructions Diet: Heart Healthy Diet Fluid Restriction: 1500 mL Activity: As Tolerated Showering/Bathing: May Shower Other/Special Instructions: Restart your home magnesium. Follow up with your PCP in 1 - 2 weeks. - Discharge Plan *PRESCRIPTION DRUG MONITORING PROGRAM REVIEWED*: Not Applicable *COPY OF PRESCRIPTION DRUG MONITORING REPORT IN PATIENT HECTOR: Not Applicable Home Medications: Home Meds Digoxin 125 mcg PO DAILY 01/09/16 [History] Diltiazem HCl [Diltiazem 24Hr ER] 120 mg PO DAILY 01/09/16 [History] Simvastatin [Zocor] 40 mg PO BEDTIME 01/09/16 [History] carvediloL [Carvedilol] 25 mg PO BID 01/09/16 [History] metFORMIN HCl [Metformin HCl ER] 1,000 mg PO BID 01/09/16 [History] Apixaban [Eliquis] 5 mg PO BID 05/17/18 [History] Ascorbate Calcium [Vitamin C] 500 mg PO DAILY PRN 05/18/18 [History] Aspirin 81 mg PO DAILY 01/28/19 [History] Ubidecarenone [Co Q-10] 100 mg PO TID 01/28/19 [History] Furosemide [Lasix] 20 mg PO BID 06/24/19 [History] Insulin Glarg,Human.Rec.Analog [Lantus] 0.3 unit INJECT BEDTIME 06/24/19 [ History] Lisinopril 20 mg PO BID 06/24/19 [History] Oxygen Therapy Mode: Room Air Forms: ED Department Discharge Referrals: Penny Hathaway NP [Primary Care Provider] - - Discharge Summary/Plan Comment DC Time >30 min.: Yes Discharge Summary/Plan Comment: Follow-up with primary care provider next week. - General Info Date of Service: 06/26/19 Admission Dx/Problem (Free Text: Admission Diagnosis/Problem Admission Diagnosis/Problem CHF, Congestive heart failure Subjective Update: Patient denies any shortness of breath, chest pain, wheezing, abdominal pain. She states that she feels well and is ready for discharge. Functional Status: Reports: Pain Controlled - Review of Systems General: Reports: No Symptoms HEENT: Reports: No Symptoms Pulmonary: Reports: No Symptoms Cardiovascular: Reports: No Symptoms Gastrointestinal: Reports: No Symptoms Genitourinary: Reports: No Symptoms Musculoskeletal: Reports: No Symptoms Neurological: Reports: No Symptoms Psychiatric: Reports: No Symptoms - Patient Data Vitals - Most Recent: Last Vital Signs Temp 97.9 F 06/26/19 02:32 Pulse 70 06/26/19 08:20 Resp 18 06/26/19 02:32 BP 120/88 06/26/19 08:21 Pulse Ox 91 L 06/26/19 02:32 Weight - Most Recent: 150 lb 9.6 oz I&O - Last 24 hours: Intake & Output 06/25/19 06/26/19 06/26/19 22:59 06:59 14:59 Intake Total 480 100 Output Total 1200 2300 Balance -720 -2200 Lab Results - Last 24 hrs: Laboratory Results - last 24 hr 06/25/19 06/25/19 06/25/19 Range/Units 09:56 12:29 15:10 WBC (3.98-10.04) K/mm3 RBC (3.98-5.22) M/mm3 Hgb (11.2-15.7) gm/dl Hct (34.1-44.9) % MCV (79.4-94.8) fl MCH (25.6-32.2) pg MCHC (32.2-35.5) g/dl RDW Std Deviation (36.4-46.3) fL Plt Count (182-369) K/mm3 MPV (9.4-12.3) fl Neut % (Auto) (34.0-71.1) % Lymph % (Auto) (19.3-51.7) % Steele % (Auto) (4.7-12.5) % Eos % (Auto) (0.7-5.8) Baso % (Auto) (0.1-1.2) % Neut # (Auto) (1.56-6.13) K/mm3 Lymph # (Auto) (1.18-3.74) K/mm3 [place] # (Auto) (0.24-0.36) K/mm3 Eos # (Auto) (0.04-0.36) K/mm3 Baso # (Auto) (0.01-0.08) K/mm3 Sodium 129 L (136-145) mEq/L Potassium 4.5 (3.5-5.1) mEq/L Chloride 93 L (98-107) mEq/L Carbon Dioxide 24 (21-32) mEq/L Anion Gap 16.5 H (5-15) BUN 25 H (7-18) mg/dL Creatinine 1.0 (0.55-1.02) mg/dL Est Cr Clr Drug Dosing 41.14 mL/min Estimated GFR (MDRD) 55 (>60) mL/min BUN/Creatinine Ratio 25.0 H (14-18) Glucose 160 H (83-115) mg/dL POC Glucose 160 H 120 H (83-110) mg/dL Calcium 9.1 (8.5-10.1) mg/dL Magnesium (1.8-2.4) mg/dl Total Bilirubin (0.2-1.0) mg/dL AST (15-37) U/L ALT (14-59) U/L Alkaline Phosphatase (46-116) U/L Total Protein (6.4-8.2) g/dl Albumin (3.4-5.0) g/dl Globulin gm/dL Albumin/Globulin Ratio (1-2) 06/25/19 06/25/19 06/26/19 Range/Units 17:00 20:33 05:44 WBC 7.71 (3.98-10.04) K/mm3 RBC 4.21 (3.98-5.22) M/mm3 Hgb 11.7 (11.2-15.7) gm/dl Hct 35.9 (34.1-44.9) % MCV 85.3 D (79.4-94.8) fl MCH 27.8 (25.6-32.2) pg MCHC 32.6 (32.2-35.5) g/dl RDW Std Deviation 43.8 (36.4-46.3) fL Plt Count 380 H D (182-369) K/mm3 MPV 9.4 (9.4-12.3) fl Neut % (Auto) 58.4 (34.0-71.1) % Lymph % (Auto) 29.1 (19.3-51.7) % Steele % (Auto) 8.4 (4.7-12.5) % Eos % (Auto) 3.4 (0.7-5.8) Baso % (Auto) 0.6 (0.1-1.2) % Neut # (Auto) 4.50 (1.56-6.13) K/mm3 Lymph # (Auto) 2.24 (1.18-3.74) K/mm3 Steele # (Auto) 0.65 H (0.24-0.36) K/mm3 Eos # (Auto) 0.26 (0.04-0.36) K/mm3 Baso # (Auto) 0.05 (0.01-0.08) K/mm3 Sodium (136-145) mEq/L Potassium (3.5-5.1) mEq/L Chloride (98-107) mEq/L Carbon Dioxide (21-32) mEq/L Anion Gap (5-15) BUN (7-18) mg/dL Creatinine (0.55-1.02) mg/dL Est Cr Clr Drug Dosing mL/min Estimated GFR (MDRD) (>60) mL/min BUN/Creatinine Ratio (14-18) Glucose (83-115) mg/dL POC Glucose 145 H 155 H (83-110) mg/dL Calcium (8.5-10.1) mg/dL Magnesium (1.8-2.4) mg/dl Total Bilirubin (0.2-1.0) mg/dL AST (15-37) U/L ALT (14-59) U/L Alkaline Phosphatase (46-116) U/L Total Protein (6.4-8.2) g/dl Albumin (3.4-5.0) g/dl Globulin gm/dL Albumin/Globulin Ratio (1-2) 06/26/19 06/26/19 Range/Units 05:44 05:47 WBC (3.98-10.04) K/mm3 RBC (3.98-5.22) M/mm3 Hgb (11.2-15.7) gm/dl Hct (34.1-44.9) % MCV (79.4-94.8) fl MCH (25.6-32.2) pg MCHC (32.2-35.5) g/dl RDW Std Deviation (36.4-46.3) fL Plt Count (182-369) K/mm3 MPV (9.4-12.3) fl Neut % (Auto) (34.0-71.1) % Lymph % (Auto) (19.3-51.7) % Steele % (Auto) (4.7-12.5) % Eos % (Auto) (0.7-5.8) Baso % (Auto) (0.1-1.2) % Neut # (Auto) (1.56-6.13) K/mm3 Lymph # (Auto) (1.18-3.74) K/mm3 Steele # (Auto) (0.24-0.36) K/mm3 Eos # (Auto) (0.04-0.36) K/mm3 Baso # (Auto) (0.01-0.08) K/mm3 Sodium 133 L (136-145) mEq/L Potassium 3.9 (3.5-5.1) mEq/L Chloride 98 (98-107) mEq/L Carbon Dioxide 23 (21-32) mEq/L Anion Gap 15.9 H (5-15) BUN 26 H (7-18) mg/dL Creatinine 0.9 (0.55-1.02) mg/dL Est Cr Clr Drug Dosing 45.71 mL/min Estimated GFR (MDRD) > 60 (>60) mL/min BUN/Creatinine Ratio 28.9 H (14-18) Glucose 146 H (83-115) mg/dL POC Glucose 156 H (83-110) mg/dL Calcium 9.2 (8.5-10.1) mg/dL Magnesium 1.4 L (1.8-2.4) mg/dl Total Bilirubin 0.5 (0.2-1.0) mg/dL AST 34 (15-37) U/L ALT 33 (14-59) U/L Alkaline Phosphatase 87 (46-116) U/L Total Protein 7.3 (6.4-8.2) g/dl Albumin 3.2 L (3.4-5.0) g/dl Globulin 4.1 gm/dL Albumin/Globulin Ratio 0.8 L (1-2) ESEQUIEL Results - Last 24 hrs: Microbiology 06/24/19 21:35 Aerobic Blood Culture - Preliminary Blood - Venous NO GROWTH AFTER 1 DAY Anaerobic Blood Culture - Preliminary NO GROWTH AFTER 1 DAY 06/24/19 21:40 Aerobic Blood Culture - Preliminary Blood - Venous - Lab Draw NO GROWTH AFTER 1 DAY Anaerobic Blood Culture - Preliminary NO GROWTH AFTER 1 DAY Med Orders - Current: Current Medications Apixaban (Eliquis) 5 mg PO BID [facility] Last Admin: 06/26/19 08:21 Dose: 5 mg Aspirin (Halfprin) 81 mg PO DAILY [facility] Last Admin: 06/26/19 08:20 Dose: 81 mg Digoxin (Lanoxin) 125 mcg PO DAILY@1200 [facility] Last Admin: 06/25/19 11:11 Dose: 125 mcg Diltiazem HCl (Cardizem Cd) 120 mg PO DAILY [facility] Last Admin: 06/26/19 08:20 Dose: 120 mg Furosemide (Lasix) 20 mg IVPUSH BIDDIURETIC [facility] Last Admin: 06/26/19 05:51 Dose: 20 mg Insulin Human Lispro (Humalog) 0 unit SUBCUT QIDACANDBED [facility]; Protocol Last Admin: 06/26/19 08:18 Dose: 1 unit Lisinopril (Prinivil) 20 mg PO BID [facility] Last Admin: 06/26/19 08:21 Dose: 20 mg Carvedilol 25 Mg (Patient's Own ) 0 each PO BID [facility] Last Admin: 06/26/19 08:21 Dose: 1 each Simvastatin (Zocor) 40 mg PO BEDTIME ОЛЬГА Last Admin: 06/25/19 20:29 Dose: 40 mg Discontinued Medications Furosemide (Lasix) 40 mg IVPUSH NOW ONE Stop: 06/24/19 21:11 Last Admin: 06/24/19 21:21 Dose: 40 mg Furosemide (Lasix) 20 mg IVPUSH ONETIME ONE Stop: 06/25/19 09:13 Last Admin: 06/25/19 10:46 Dose: 20 mg Furosemide (Lasix) 20 mg IVPUSH ONETIME ONE Stop: 06/25/19 17:01 Last Admin: 06/25/19 17:34 Dose: 20 mg Magnesium Sulfate 4 gm/ Premix 100 mls @ 25 mls/hr IV ONETIME ONE Stop: 06/26/19 08:03 Last Admin: 06/26/19 08:14 Dose: 25 mls/hr Influenza Virus Vaccine (Pharmacy To Dose - Influenza Vaccine) 1 each IM ONETIME ONE Stop: 06/24/19 21:10 Influenza Virus Vaccine (Fluzone High-Dose Syringe) 180 mcg IM .ONCE ONE Stop: 06/24/19 21:31 Influenza Virus Vaccine (Pharmacy To Dose - Influenza Vaccine) 1 each IM ONETIME ONE Stop: 06/25/19 00:43 - Exam General: Reports: Alert, Oriented HEENT: Reports: Pupils Equal, Mucous Membr. Moist/[place] Neck: Reports: Supple Lungs: Reports: Clear to Auscultation, Normal Respiratory Effort Cardiovascular: Reports: Regular Rate, Regular Rhythm, Murmurs GI/Abdominal Exam: Normal Bowel Sounds, Soft, Non-Tender, No Distention Extremities: Normal Inspection, Normal Range of Motion, Non-Tender, No Pedal Edema, Normal Capillary Refill Skin: Reports: Warm, Dry, Intact Psy/Mental Status: Reports: Alert, Normal Affect, Normal Mood
[2019-06-26] MEDS: DIGOXIN 250 MCG PO SCH (11:54)
== END 2019-06-26 12:58 | disposition home or self-care (01) ==
LOC: JD.ED 19:40 → SUPCPDRO 19:40 → JD.MS 23:38
PROVIDERS: ADMIT Family Medicine; ATTEND Family Medicine
DX: I11.0 Hypertensive heart disease with heart failure (principal); I50.30 Unspecified diastolic (congestive) heart failure; E11.65 Type 2 diabetes mellitus with hyperglycemia; E03.9 Hypothyroidism, unspecified; I08.3 Combined rheumatic disorders of mitral, aortic and tricuspid valves; E87.1 Hypo-osmolality and hyponatremia; R09.02 Hypoxemia; D72.829 Elevated white blood cell count, unspecified; Z79.899 Other long term (current) drug therapy; Z79.01 Long term (current) use of anticoagulants; Z79.82 Long term (current) use of aspirin; Z79.4 Long term (current) use of insulin; Z23 Encounter for immunization; Z88.1 Allergy status to other antibiotic agents; Z88.8 Allergy status to other drugs, medicaments and biological substances; Z87.891 Personal history of nicotine dependence; Z79.1 Long term (current) use of non-steroidal anti-inflammatories (NSAID)
CPT/HCPCS: 36415; 36600; 71046; 71046-26; 80048; 80053; 82803; 82962; 83605; 83735; 83880; 84484; 85007; 85025; 85027; 85379; 85610; 85730; 87040; 93005; 93010; 96365; 96366; 96374; 96375; 96376; 99285; 99285-25; A9270-GY; G0008; G0378; J1815-GY; J1940; J3475

== ENCOUNTER 2019-11-03 10:11 | Emergency (ER) | payer MEDICARE, BC ==
--- NOTE | 2019-11-03 11:03 | EDM.PDOC ---
ED HPI GENERAL MEDICAL PROBLEM - General Chief Complaint: Genitourinary Problem Stated Complaint: POSSIBLE UTI Time Seen by Provider: 11/03/19 10:51 Source of Information: Reports: Patient, RN Notes Reviewed - History of Present Illness INITIAL COMMENTS - FREE TEXT/NARRATIVE: 74 yr female with onset of voiding dysuria today. No fever, chills, nausea or vomting. No other unusual sx. - Related Data Allergies Allergy/AdvReac Type Severity Reaction Status Date / Time vancomycin Allergy Itching Verified 11/03/19 10:55 vitamin intolerant Allergy Other Uncoded 06/25/19 00:34 Home Meds: Home Meds Digoxin 125 mcg PO DAILY 01/09/16 [History] Simvastatin [Zocor] 40 mg PO BEDTIME 01/09/16 [History] carvediloL [Carvedilol] 25 mg PO BID 01/09/16 [History] dilTIAZem HCL [Diltiazem 24Hr ER] 120 mg PO DAILY 01/09/16 [History] metFORMIN HCl [Metformin HCl ER] 1,000 mg PO BID 01/09/16 [History] Apixaban [Eliquis] 5 mg PO BID 05/17/18 [History] Ascorbate Calcium [Vitamin C] 500 mg PO DAILY PRN 05/18/18 [History] Aspirin 81 mg PO DAILY 01/28/19 [History] Ubidecarenone [Co Q-10] 100 mg PO TID 01/28/19 [History] Furosemide [Lasix] 20 mg PO BID 06/24/19 [History] Insulin Glarg,Human.Rec.Analog [Lantus] 0.3 unit INJECT BEDTIME 06/24/19 [History] Lisinopril 20 mg PO BID 06/24/19 [History] Nitrofurantoin Monohyd/M-Cryst [Macrobid 100 mg Capsule] 100 mg PO BID #14 capsule 11/03/19 [Rx] Past Medical History HEENT History: Reports: Cataract Other HEENT History: wears glasses Cardiovascular History: Reports: Heart Failure, Heart Murmur, Hypertension Respiratory History: Reports: Other (See Below) Other Respiratory History: CHF Gastrointestinal History: Reports: Hemorrhoids Other Gastrointestinal History: permanent hemorrhoids Genitourinary History: Reports: Urinary Incontinence [employer] History: Reports: Musculoskeletal History: Reports: None Endocrine/Metabolic History: Reports: Diabetes, Type II, Hypothyroidism Other Endocrine/Metabolic History: doesnt take thyroid medications anymore, on metformin and lantus for dm - Infectious Disease History Infectious Disease History: Reports: Chicken Pox, Influenza, Measles - Past Surgical History Head Surgeries/Procedures: Reports: None Cardiovascular Surgical History: Reports: Pacer, Valve Replacement GI Surgical History: Reports: Appendectomy, Cholecystectomy, Colonoscopy Female Surgical History: Reports: D&C Musculoskeletal Surgical History: Reports: Knee Replacement Social & Family History - Family History Family Medical History: Noncontributory - Tobacco Use Smoking Status *Q: Never Smoker - Caffeine Use Caffeine Use: Reports: None Other Caffeine Use: 2 large cups a day Caffeine Use Comment: Daily coffee - Living Situation & Occupation Living situation: Reports: , Alone Occupation: Retired ED ROS GENERAL - Review of Systems Review Of Systems: See Below Constitutional: Denies: Fever, Chills, Diaphoresis HEENT: Reports: No Symptoms Respiratory: Denies: Shortness of Breath Cardiovascular: Denies: Chest Pain GI/Abdominal: Denies: Abdominal Pain, Nausea, Vomiting : Reports: Dysuria. Denies: Frequency, Urgency Musculoskeletal: Denies: Back Pain Skin: Reports: No Symptoms Neurological: Reports: No Symptoms ED EXAM, RENAL/ - Physical Exam Exam: See Below General Appearance: Alert, No Apparent Distress Eye Exam: Bilateral Eye: PERRL Throat/Mouth: Normal Inspection, Normal Oropharynx Head: Atraumatic Neck: Supple Respiratory/Chest: No Respiratory Distress, Lungs Clear, Normal Breath Sounds Cardiovascular: Regular Rate, Rhythm GI/Abdominal: Soft, Non-Tender Back Exam: No: CVA Tenderness (L), CVA Tenderness (R) Extremities: Normal Inspection, Normal Range of Motion Skin Exam: Warm, Dry, Normal Color Course - Vital Signs Last Recorded V/S: Last Vital Signs Temp 97.9 F 11/03/19 10:50 Pulse 71 11/03/19 10:50 Resp 16 11/03/19 10:50 BP 117/71 11/03/19 10:50 Pulse Ox 100 11/03/19 10:50 - Orders/Labs/Meds Labs: Laboratory Tests 11/03/19 Range/Units 10:42 Urine Color Light yellow (Yellow) Urine Appearance Slt cloudy H (Clear) Urine pH 6.0 (5.0-8.0) Ur Specific [place] 1.020 (1.005-1.030) Urine Protein Negative (Negative) Urine Glucose (UA) 2+ H (Negative) Urine Ketones Negative (Negative) Urine Occult Blood 2+ H (Negative) Urine Nitrite Negative (Negative) Urine Bilirubin Negative (Negative) Urine Urobilinogen 0.2 (0.2-1.0) Ur Leukocyte Esterase 2+ H (Negative) Urine RBC 0-5 (0-5) /hpf Urine WBC 20-30 H (0-5) /hpf Urine WBC Clumps Few (NOT SEEN) /hpf Ur Epithelial Cells Not seen (0-5) /hpf Urine Bacteria Moderate H (FEW) /hpf Urine Mucus Not seen (FEW) /hpf Meds: Medications Discontinued Medications Generic Name Dose Route Start Last Admin Trade Name Freq PRN Reason Stop Dose Admin Nitrofurantoin Macrocrystals 100 mg 11/03/19 11:16 11/03/19 11:30 Macrobid PO 11/03/19 11:17 100 mg ONETIME ONE Administration - Re-Assessments/Exams Free Text/Narrative Re-Assessment/Exam: 11/06/19 07:49 Ua was positive for UTI, macrobid prescribed. Urine culture has come back growing out e coli sensitive to macrobid prescribed. Departure - Departure Time of Disposition: 11:19 Disposition: Home, Self-Care 01 Preliminary Cause of *Q: Sepsis & Multi System Organ Failure Clinical Impression: UTI, Urinary tract infectious disease - Discharge Information Prescriptions: Nitrofurantoin Monohyd/M-Cryst [Macrobid 100 mg Capsule] 100 mg PO BID #14 capsule Instructions: Urinary Tract Infection, Adult, [id number] Referrals: Penny Hathaway NP [Primary Care Provider] - Forms: ED Department Discharge Additional Instructions: macrobid 100 mg twice daily for 1 week or until gone. That has been sent electronic to [facility] at the [facility]. Drink plenty of water to maintain hydration. A urine culture has been done. Follow up with your local clinic provider Tuesday or Tuesday for recheck, call right away Tuesday morning for appt. Return to ED if symptoms worsening in any way. Sepsis Event Note (ED) - Evaluation Sepsis Screening Result: No Definite Risk
[2019-11-03] MEDS ORDERED: Nitrofurantoin Monohydrate/Macrocrystalline 100 MG Cap PO ONE (11:16)
== END 2019-11-03 11:30 | disposition home or self-care (01) ==
LOC: JD.ED 10:11
DX: N39.0 Urinary tract infection, site not specified (principal); I11.0 Hypertensive heart disease with heart failure; I50.9 Heart failure, unspecified; E11.9 Type 2 diabetes mellitus without complications; E03.9 Hypothyroidism, unspecified; Z88.1 Allergy status to other antibiotic agents; Z88.8 Allergy status to other drugs, medicaments and biological substances; Z79.82 Long term (current) use of aspirin; Z79.01 Long term (current) use of anticoagulants; Z79.4 Long term (current) use of insulin; Z79.899 Other long term (current) drug therapy
CPT/HCPCS: 81001; 87086; 87088; 87186; 99283; A9270

== ENCOUNTER 2020-01-18 16:04 | Emergency (ER) | payer MEDICARE, BC ==
[2020-01-18] MEDS ORDERED: Sodium Chloride 0.9% 10 ML Syringe FLUSH PRN (17:06)
--- NOTE | 2020-01-18 17:21 | EDM.PDOC ---
<Grzegorz Russ - Last Filed: 01/18/20 19:35> ED HPI GENERAL MEDICAL PROBLEM - General Chief Complaint: Cardiovascular Problem Stated Complaint: HIGH POTASSIUM Time Seen by Provider: 01/18/20 17:20 - History of Present Illness INITIAL COMMENTS - FREE TEXT/NARRATIVE: 74-year-old female presents the emergency room after being advised to do so by Dr. Ott's office Patient had blood work done today which revealed a potassium of 6.0 through the [facility] system. Patient was advised to come here for IV fluids and treatment of the her hyperkalemia. Patient was also advised to discontinue a bunch of medications that was left on a voice message on her cell phone however the patient cannot access this again. The patient at this time has no symptoms, and otherwise feels well. We were notified that the patient was coming in with a potassium of 6.0. - Related Data Allergies Allergy/AdvReac Type Severity Reaction Status Date / Time vancomycin Allergy Itching Verified 01/18/20 16:32 vitamin intolerant Allergy Other Uncoded 01/18/20 16:32 Home Meds: Home Meds Digoxin 125 mcg PO DAILY 01/09/16 [History] Simvastatin [Zocor] 40 mg PO BEDTIME 01/09/16 [History] carvediloL [Carvedilol] 25 mg PO BID 01/09/16 [History] dilTIAZem HCL [Diltiazem 24Hr ER] 120 mg PO DAILY 01/09/16 [History] metFORMIN HCl [Metformin HCl ER] 1,000 mg PO BID 01/09/16 [History] Apixaban [Eliquis] 5 mg PO BID 05/17/18 [History] Ascorbate Calcium [Vitamin C] 500 mg PO DAILY PRN 05/18/18 [History] Aspirin 81 mg PO DAILY 01/28/19 [History] Ubidecarenone [Co Q-10] 100 mg PO TID 01/28/19 [History] Furosemide [Lasix] 20 mg PO BID 06/24/19 [History] Insulin Glarg,Human.Rec.Analog [Lantus] 0.3 unit INJECT BEDTIME 06/24/19 [History] Lisinopril 20 mg PO BID 06/24/19 [History] Nitrofurantoin Monohyd/M-Cryst [Macrobid 100 mg Capsule] 100 mg PO BID #14 capsule 11/03/19 [Rx] Past Medical History HEENT History: Reports: Cataract Other HEENT History: wears glasses Cardiovascular History: Reports: Heart Failure, Heart Murmur, Hypertension Respiratory History: Reports: Other (See Below) Other Respiratory History: CHF Gastrointestinal History: Reports: Hemorrhoids Other Gastrointestinal History: permanent hemorrhoids Genitourinary History: Reports: Urinary Incontinence [employer] REPA[employer]ER History: Reports: Musculoskeletal History: Reports: None Endocrine/Metabolic History: Reports: Diabetes, Type II, Hypothyroidism Other Endocrine/Metabolic History: doesnt take thyroid medications anymore, on metformin and lantus for dm - Infectious Disease History Infectious Disease History: Reports: Chicken Pox, Influenza, Measles - Past Surgical History Head Surgeries/Procedures: Reports: None Cardiovascular Surgical History: Reports: Pacer, Valve Replacement GI Surgical History: Reports: Appendectomy, Cholecystectomy, Colonoscopy Female Surgical History: Reports: D&C Musculoskeletal Surgical History: Reports: Knee Replacement Social & Family History - Family History Family Medical History: Noncontributory - Tobacco Use Smoking Status *Q: Never Smoker Second Hand Smoke Exposure: No - Caffeine Use Caffeine Use: Reports: Coffee Other Caffeine Use: 2 large cups a day Caffeine Use Comment: Daily coffee - Recreational Drug Use Recreational Drug Use: No - Living Situation & Occupation Living situation: Reports: , Alone Occupation: Retired ED ROS GENERAL - Review of Systems Review Of Systems: See Below Constitutional: Reports: No Symptoms HEENT: Reports: No Symptoms Respiratory: Reports: No Symptoms Cardiovascular: Reports: No Symptoms Endocrine: Reports: No Symptoms GI/Abdominal: Reports: No Symptoms : Reports: No Symptoms Musculoskeletal: Reports: No Symptoms Skin: Reports: No Symptoms Neurological: Reports: No Symptoms ED EXAM, GENERAL - Physical Exam Exam: See Below Exam Limited By: No Limitations General Appearance: Alert, No Apparent Distress Head: Atraumatic, Normocephalic Neck: Normal Inspection, Supple, Non-Tender, Full Range of Motion Respiratory/Chest: No Respiratory Distress, Lungs Clear, Normal Breath Sounds Cardiovascular: Regular Rate, Rhythm, No Edema, No Murmur GI/Abdominal: Normal Bowel Sounds, Soft, Non-Tender EKG INTERPRETATION Rhythm: Other (Atrial fibrillation with unifocal PVCs with intermittent ventricular paced rhythm) Rate (Beats/Min): 109 [place]: LAD-Left [place] Deviation P-Wave: Absent QRS: LBBB Course - Re-Assessments/Exams Free Text/Narrative Re-Assessment/Exam: 01/18/20 19:38 Thinking her potassium was 6.0 the patient received 10 units of regular insulin with an amp of D50 after being started on D5 half NS at 125 an hour. We checked her in her potassium was 5.4. Patient also received 15 g of Kayexalate. Patient has developing renal insufficiency which makes sense for the medications that were changed. I discussed the situation with 1 call at [facility] in [place] who was able to access the medication changes and this is more consistent with a renal insufficiency problem. I will include these medication changes in the discharge instructions. At this time is change of shift further care and disposition per Dr. Rodrigues Departure - Departure Disposition: Home, Self-Care 01 Clinical Impression: Hyperkalemia, Renal insufficiency, mild Instructions: Hyperkalemia, [id number] Referrals: Ammy Kwon, [employer] [Primary Care Provider] - Forms: ED Department Discharge Additional Instructions: Return to the emergency room with any questions problems or worsening symptoms. The medication changes the Dr. Ott instructed you are: Decreased the carvedilol, or Coreg to 12.5 mg twice daily or a half a tablet twice daily. Stop the digoxin Decrease the Eliquis to 2.5 mg twice daily or 1/2 tablet twice daily Stop the furosemide Stop the lisinopril Stop the Metformin Decrease the clopidogrel, or Plavix to 1 tablet daily Stop the spironolactone. Sure to follow-up with Dr. Ott this week for recheck. Sepsis Event Note (ED) - Evaluation Sepsis Screening Result: No Definite Risk <Leif Rodrigues H - Last Filed: 01/18/20 22:29> Course - Vital Signs Last Recorded V/S: Last Vital Signs Temp 98.1 F 01/18/20 16:19 Pulse 98 01/18/20 16:19 Resp 18 01/18/20 16:19 BP 133/107 H 01/18/20 16:19 Pulse Ox 99 01/18/20 16:19 - Orders/Labs/Meds Orders: Active Orders 24 hr Category Date Time Status EKG Documentation Completion [RC] STAT Care 01/18/20 17:06 Active Peripheral IV Care [RC] . DIRECTED Care 01/18/20 17:06 Active Dextrose 5%-0.45% NaCl [Dextrose 5%-1/2 NS] 1,000 ml Med 01/18/20 17:45 Active IV ASDIRECTED Sodium Chloride 0.9% [Saline Flush] Med 01/18/20 17:06 Active 10 ml FLUSH ASDIRECTED PRN Peripheral IV Insertion Adult [OM.PC] Stat Oth 01/18/20 17:06 Ordered Medication Orders Dextrose/Sodium Chloride (Dextrose 5%-1/2 Ns) 1,000 mls @ 125 mls/hr IV ASDIRECTED ОЛЬГА Last Admin: 01/18/20 17:56 Dose: 125 mls/hr Documented by: DULCE Sodium Chloride (Saline Flush) 10 ml FLUSH ASDIRECTED PRN PRN Reason: Keep Vein Open Last Admin: 01/18/20 17:36 Dose: 10 ml Documented by: DULCE Labs: Laboratory Tests 01/18/20 01/18/20 01/18/20 Range/Units 17:10 17:10 17:10 WBC 8.07 (3.98-10.04) K/mm3 RBC 4.03 (3.98-5.22) M/mm3 Hgb 11.4 (11.2-15.7) gm/dl Hct 35.2 (34.1-44.9) % MCV 87.3 (79.4-94.8) fl MCH 28.3 (25.6-32.2) pg MCHC 32.4 (32.2-35.5) g/dl RDW Std Deviation 48.4 H (36.4-46.3) fL Plt Count 302 D (182-369) K/mm3 MPV 9.8 (9.4-12.3) fl Neut % (Auto) 68.4 (34.0-71.1) % Lymph % (Auto) 20.9 (19.3-51.7) % Bartholomew % (Auto) 8.1 (4.7-12.5) % Eos % (Auto) 2.2 (0.7-5.8) Baso % (Auto) 0.2 (0.1-1.2) % Neut # (Auto) 5.51 (1.56-6.13) K/mm3 Lymph # (Auto) 1.69 (1.18-3.74) K/mm3 Bartholomew # (Auto) 0.65 H (0.24-0.36) K/mm3 Eos # (Auto) 0.18 (0.04-0.36) K/mm3 Baso # (Auto) 0.02 (0.01-0.08) K/mm3 PT 11.9 H (9.7-11.7) SECONDS INR 1.11 APTT 38 H (22-31) SECONDS Sodium 131 L (136-145) mEq/L Potassium 5.4 H D (3.5-5.1) mEq/L Chloride 99 (98-107) mEq/L Carbon Dioxide 21 (21-32) mEq/L Anion Gap 16.4 H (5-15) BUN 95 H D (7-18) mg/dL Creatinine 2.3 H D (0.55-1.02) mg/dL Est Cr Clr Drug Dosing 17.23 mL/min Estimated GFR (MDRD) 21 (>60) mL/min BUN/Creatinine Ratio 41.3 H (14-18) Glucose 129 H (83-115) mg/dL POC Glucose (83-110) mg/dL Calcium 9.0 (8.5-10.1) mg/dL Magnesium 1.5 L (1.8-2.4) mg/dl Total Bilirubin 0.4 (0.2-1.0) mg/dL AST 16 (15-37) U/L ALT 15 (14-59) U/L Alkaline Phosphatase 102 (46-116) U/L Troponin I 0.034 (0.00-0.056) ng/mL NT-Pro-B Natriuret Pep (0-125) pg/mL Total Protein 7.4 (6.4-8.2) g/dl Albumin 3.5 (3.4-5.0) g/dl Globulin 3.9 gm/dL Albumin/Globulin Ratio 0.9 L (1-2) Digoxin (0.9-2.0) ng/mL 01/18/20 01/18/20 01/18/20 Range/Units 17:10 17:10 17:55 WBC (3.98-10.04) K/mm3 RBC (3.98-5.22) M/mm3 Hgb (11.2-15.7) gm/dl Hct (34.1-44.9) % MCV (79.4-94.8) fl MCH (25.6-32.2) pg MCHC (32.2-35.5) g/dl RDW Std Deviation (36.4-46.3) fL Plt Count (182-369) K/mm3 MPV (9.4-12.3) fl Neut % (Auto) (34.0-71.1) % Lymph % (Auto) (19.3-51.7) % Bartholomew % (Auto) (4.7-12.5) % Eos % (Auto) (0.7-5.8) Baso % (Auto) (0.1-1.2) % Neut # (Auto) (1.56-6.13) K/mm3 Lymph # (Auto) (1.18-3.74) K/mm3 Bartholomew # (Auto) (0.24-0.36) K/mm3 Eos # (Auto) (0.04-0.36) K/mm3 Baso # (Auto) (0.01-0.08) K/mm3 PT (9.7-11.7) SECONDS INR APTT (22-31) SECONDS Sodium (136-145) mEq/L Potassium (3.5-5.1) mEq/L Chloride (98-107) mEq/L Carbon Dioxide (21-32) mEq/L Anion Gap (5-15) BUN (7-18) mg/dL Creatinine (0.55-1.02) mg/dL Est Cr Clr Drug Dosing mL/min Estimated GFR (MDRD) (>60) mL/min BUN/Creatinine Ratio (14-18) Glucose (83-115) mg/dL POC Glucose 114 H (83-110) mg/dL Calcium (8.5-10.1) mg/dL Magnesium (1.8-2.4) mg/dl Total Bilirubin (0.2-1.0) mg/dL AST (15-37) U/L ALT (14-59) U/L Alkaline Phosphatase (46-116) U/L Troponin I (0.00-0.056) ng/mL NT-Pro-B Natriuret Pep 6571 H (0-125) pg/mL Total Protein (6.4-8.2) g/dl Albumin (3.4-5.0) g/dl Globulin gm/dL Albumin/Globulin Ratio (1-2) Digoxin 1.2 (0.9-2.0) ng/mL 01/18/20 01/18/20 01/18/20 Range/Units 19:11 20:15 21:50 WBC (3.98-10.04) K/mm3 RBC (3.98-5.22) M/mm3 Hgb (11.2-15.7) gm/dl Hct (34.1-44.9) % MCV (79.4-94.8) fl MCH (25.6-32.2) pg MCHC (32.2-35.5) g/dl RDW Std Deviation (36.4-46.3) fL Plt Count (182-369) K/mm3 MPV (9.4-12.3) fl Neut % (Auto) (34.0-71.1) % Lymph % (Auto) (19.3-51.7) % Bartholomew % (Auto) (4.7-12.5) % Eos % (Auto) (0.7-5.8) Baso % (Auto) (0.1-1.2) % Neut # (Auto) (1.56-6.13) K/mm3 Lymph # (Auto) (1.18-3.74) K/mm3 Bartholomew # (Auto) (0.24-0.36) K/mm3 Eos # (Auto) (0.04-0.36) K/mm3 Baso # (Auto) (0.01-0.08) K/mm3 PT (9.7-11.7) SECONDS INR APTT (22-31) SECONDS Sodium 133 L (136-145) mEq/L Potassium 4.8 (3.5-5.1) mEq/L Chloride 101 (98-107) mEq/L Carbon Dioxide 20 L (21-32) mEq/L Anion Gap 16.8 H (5-15) BUN 93 H (7-18) mg/dL Creatinine 2.2 H (0.55-1.02) mg/dL Est Cr Clr Drug Dosing 18.01 mL/min Estimated GFR (MDRD) 22 (>60) mL/min BUN/Creatinine Ratio 42.3 H (14-18) Glucose 171 H (83-115) mg/dL POC Glucose 101 122 H (83-110) mg/dL Calcium 9.4 (8.5-10.1) mg/dL Magnesium (1.8-2.4) mg/dl Total Bilirubin (0.2-1.0) mg/dL AST (15-37) U/L ALT (14-59) U/L Alkaline Phosphatase (46-116) U/L Troponin I (0.00-0.056) ng/mL NT-Pro-B Natriuret Pep (0-125) pg/mL Total Protein (6.4-8.2) g/dl Albumin (3.4-5.0) g/dl Globulin gm/dL Albumin/Globulin Ratio (1-2) Digoxin (0.9-2.0) ng/mL Meds: Medications Generic Name Dose Route Start Last Admin Trade Name Freq PRN Reason Stop Dose Admin Dextrose/Sodium Chloride 1,000 mls @ 125 mls/hr 01/18/20 17:45 01/18/20 17:56 Dextrose 5%-1/2 Ns IV 125 mls/hr ASDIRECTED ОЛЬГА Administration Sodium Chloride 10 ml 01/18/20 17:06 01/18/20 17:36 Saline Flush FLUSH 10 ml ASDIRECTED PRN Administration Keep Vein Open Discontinued Medications Generic Name Dose Route Start Last Admin Trade Name Freq PRN Reason Stop Dose Admin Dextrose/Water 50 ml 01/18/20 17:40 01/18/20 17:57 Dextrose 50% In Water IVPUSH 01/18/20 17:41 50 ml ONETIME ONE Administration Insulin Human Regular 10 unit 01/18/20 17:38 01/18/20 17:57 Humulin R IV 01/18/20 17:39 10 unit ONETIME ONE Administration Sodium Polystyrene Sulfonate 15 gm 01/18/20 18:19 01/18/20 18:26 Kayexalate PO 01/18/20 18:20 15 gm ONETIME ONE Administration - Re-Assessments/Exams Free Text/Narrative Re-Assessment/Exam: 01/18/20 22:23 I spoke to the patient regarding her potassium of 4.8. We need to stop the lisinopril since it causes renal insufficiency as well as hyperkalemia. I will advise her to follow-up with her family doctor this coming week for recheck and see if they need to adjust her medications otherwise. Departure - Departure Time of Disposition: 22:24 Condition: Fair Sepsis Event Note (ED) - Focused Exam Vital Signs: Vital Signs Temp Pulse Resp BP Pulse Ox 01/18/20 16:19 98.1 F 98 18 133/107 H 99
[2020-01-18] MEDS ORDERED: Insulin Regular, Human 100 Units/ML 3 ML Vial IV ONE (17:38)
[2020-01-18] MEDS ORDERED: 50% Dextrose in Water 50 ML Syringe IVPUSH ONE (17:40)
[2020-01-18] MEDS ORDERED: Dextrose 5%-0.45% NaCl 1,000 ML IV SCH (17:45)
--- NOTE | 2020-01-18 17:57 | CR ---
Chest: Portable view of the chest was obtained. Comparison: Prior chest x-ray of 06/24/19. Heart is enlarged. AICD is in place. Lungs are clear with no acute parenchymal change bony structures are grossly intact. Impression: 1. Cardiomegaly with AICD. 2. Nothing acute is appreciated on portable chest x-ray. Diagnostic code #2 This report was dictated in MDT
[2020-01-18] MEDS ORDERED: Sodium Polystyrene Sulfonate 15 GM/60 ML Susp 60 ML Bot PO ONE (18:19)
== END 2020-01-18 23:10 | disposition home or self-care (01) ==
LOC: JD.ED 16:04
DX: E87.5 Hyperkalemia (principal); N28.9 Disorder of kidney and ureter, unspecified; I11.0 Hypertensive heart disease with heart failure; I50.9 Heart failure, unspecified; E11.9 Type 2 diabetes mellitus without complications; M19.90 Unspecified osteoarthritis, unspecified site; Z79.82 Long term (current) use of aspirin; Z79.4 Long term (current) use of insulin; Z88.1 Allergy status to other antibiotic agents; Z91.048 Other nonmedicinal substance allergy status; Z79.84 Long term (current) use of oral hypoglycemic drugs; Z79.01 Long term (current) use of anticoagulants; Z79.899 Other long term (current) drug therapy
CPT/HCPCS: 36415; 71045; 80048; 80053; 80162; 82962; 83735; 83880; 84484; 85025; 85610; 85730; 93005; 96361; 96374; 99285; A9270; J1815; J7042; 93010; 99283

== ENCOUNTER 2020-03-04 08:55 | Emergency (ER) | payer MEDICARE, BC ==
--- NOTE | 2020-03-04 09:19 | EDM.PDOC ---
ED HPI GENERAL MEDICAL PROBLEM - General Chief Complaint: Respiratory Problem Stated Complaint: SOB Time Seen by Provider: 03/04/20 09:18 Source of Information: Reports: Patient History Limitations: Reports: No Limitations - History of Present Illness INITIAL COMMENTS - FREE TEXT/NARRATIVE: 74-year-old female presents to the ED for evaluation of gradually worsening dyspnea over the last 3 perhaps 4 days. She has developed orthopnea the last 2 nights and has spent the night sitting up in an easy chair. Minimal associated cough. No sputum production. No chest pains. No significant increased weight gain to her knowledge. She has chronic swelling in her left lower extremity which is no worse than normal. Denies any problems with bowel or bladder function. No recent fever chills nausea vomiting or diarrhea. She has had a medication change sometime within the last month and we are still sorting this out. She has a known history of congestive heart failure and mild aortic stenosis. She has a history of chronic atrial fibrillation and is on Eliquis for this. Onset: Gradual Onset Date: 03/01/20 Duration: Day(s):, Getting Worse Location: Reports: Chest (Dyspnea with orthopnea) Quality: Reports: Other (Of breath on minimal exertion.) Severity: Moderate Improves with: Reports: Rest Worsens with: Reports: Other (Worse on exertion or if she is lifting or carrying something) Context: Denies: Activity, Exercise, Lifting, Sick Contact, Trauma, Other Associated Symptoms: Reports: No Other Symptoms, Cough, Shortness of Breath. 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 (see below) - Related Data Allergies Allergy/AdvReac Type Severity Reaction Status Date / Time vancomycin Allergy Itching Verified 03/04/20 09:10 vitamin intolerant Allergy Other Uncoded 03/04/20 09:10 Home Meds: Home Meds Digoxin 125 mcg PO DAILY 01/09/16 [History] Simvastatin [Zocor] 40 mg PO BEDTIME 01/09/16 [History] metFORMIN HCl [Metformin HCl ER] 1,000 mg PO BID 01/09/16 [History] Apixaban [Eliquis] 5 mg PO BID 05/17/18 [History] Ascorbate Calcium [Vitamin C] 500 mg PO DAILY 05/18/18 [History] Aspirin 81 mg PO DAILY 01/28/19 [History] Ubidecarenone [Co Q-10] 100 mg PO MOWEFR 01/28/19 [History] Furosemide [Lasix] 20 mg PO DAILY 06/24/19 [History] Insulin Glarg,Human.Rec.Analog [Lantus] 4 unit INJECT BEDTIME 06/24/19 [History] Lisinopril 10 mg PO BEDTIME 06/24/19 [History] Clopidogrel Bisulfate [Plavix] 75 mg PO DAILY 03/04/20 [History] Furosemide [Lasix] 40 mg PO BID #60 tablet 03/04/20 [Rx] Magnesium Oxide 400 mg PO DAILY #30 tablet 03/04/20 [Rx] Metoprolol Succinate [Toprol XL 100mg] 100 mg PO BID 03/04/20 [History] Potassium Chloride 20 meq PO BID #60 tablet.er 03/04/20 [Rx] Past Medical History HEENT History: Reports: Cataract Other HEENT History: wears glasses Cardiovascular History: Reports: Cardiomyopathy, Heart Failure, Heart Murmur, Hypertension Respiratory History: Reports: Other (See Below) Other Respiratory History: CHF Gastrointestinal History: Reports: Hemorrhoids Other Gastrointestinal History: permanent hemorrhoids Genitourinary History: Reports: Urinary Incontinence 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: Musculoskeletal History: Reports: None Endocrine/Metabolic History: Reports: Diabetes, Type II, Hypothyroidism Other Endocrine/Metabolic History: doesnt take thyroid medications anymore, on metformin and lantus for dm - Infectious Disease History Infectious Disease History: Reports: Chicken Pox, Influenza, Measles - Past Surgical History Head Surgeries/Procedures: Reports: None Cardiovascular Surgical History: Reports: Pacer, Valve Replacement GI Surgical History: Reports: Appendectomy, Cholecystectomy, Colonoscopy Female Surgical History: Reports: D&C Musculoskeletal Surgical History: Reports: Knee Replacement Social & Family History - Family History Family Medical History: No Pertinent Family History - Caffeine Use Caffeine Use: Reports: Coffee Other Caffeine Use: 2 large cups a day Caffeine Use Comment: Daily coffee - Living Situation & Occupation Living situation: Reports: , Alone Occupation: Retired ED ROS GENERAL - Review of Systems Review Of Systems: See Below Constitutional: Reports: Malaise, Fatigue. Denies: Fever, Chills, Night Sweats, Diaphoresis, Decreased Appetite, Weight Loss HEENT: Reports: Glasses Respiratory: Reports: Shortness of Breath, Cough. Denies: Wheezing, Pleuritic Chest Pain, Sputum Cardiovascular: Reports: Blood Pressure Problem, Dyspnea on Exertion (Edema particular involving her left lower extremity.), Edema, Orthopnea, Palpitations (Patiently aware of palpitations. She has a history of chronic atrial fib.). Denies: Chest Pain (Nonproductive cough), Claudication, Lightheadedness Endocrine: Reports: Fatigue GI/Abdominal: Reports: No Symptoms. Denies: Constipation, Diarrhea, Nausea, Vomiting : Reports: No Symptoms Musculoskeletal: Reports: Back Pain (Problems with neck and low back pain) Skin: Reports: No Symptoms Neurological: Reports: No Symptoms Psychiatric: Reports: No Symptoms Hematologic/Lymphatic: Reports: No Symptoms Immunologic: Reports: No Symptoms ED EXAM, GENERAL - Physical Exam Exam: See Below Exam Limited By: No Limitations General Appearance: Alert, WD/WN, No Apparent Distress, Other (Temperature is 36.6. Heart rate is 88 and sinus respiratory is 24 with O2 sats 97% room air BP 1 3599) Eye Exam: Bilateral Eye: Normal Inspection (No scleral icterus or blepharal pallor.), PERRL Throat/Mouth: Normal Inspection, Normal Lips, Normal Teeth, Normal Oropharynx Head: Atraumatic, Normocephalic Neck: Normal Inspection, Supple, Non-Tender, Full Range of Motion. No: Lymphadenopathy (R) Respiratory/Chest: No Respiratory Distress, Lungs Clear, Normal Breath Sounds, No Accessory Muscle Use, Chest Non-Tender, Other (Pacemaker upper anterior left chest.). No: Rales, Rhonchi, Wheezing Cardiovascular: Normal Peripheral Pulses, Regular Rate, Rhythm, No Edema, No Gallop, No Rub, Systolic Murmur (Neck atrial fibrillation 1 pansystolic ejection murmur best heard at the left lower sternal border combined with mild aortic stenosis.), Irregularly Irregular Peripheral Pulses: 2+: Carotid (L), Carotid (R), Posterior Tibial (L), Posterior Tibial (R), Dorsalis Pedis (L), Dorsalis Pedis (R) GI/Abdominal: Normal Bowel Sounds, Soft, Non-Tender, No Organomegaly, No Abnormal Bruit, No Mass, Pelvis Stable, Other (Previous appendectomy and laparoscopic cholecystectomy.) Back Exam: Normal Inspection, Full Range of Motion. No: CVA Tenderness (L), CVA Tenderness (R) Extremities: Normal Inspection, Pedal Edema (1+ pitting edema left lower extremity up to the tibial tuberosity.) Neurological: Alert ( Trace of edema right lower extremity around the ankle), Oriented, CN II-XII Intact, Normal Cognition Psychiatric: Normal Affect, Normal Mood Skin Exam: Warm, Dry, Intact, Normal Color, No Rash #1 Interpretation EKG Date: 03/04/20 Time: 09:11 Rhythm: Other (Patient's primary underlying rhythm appears to be atrial fib/atrial flutter. He has a paced rhythm at 70/min.) EKG Interpretation Comments: No further analysis attempted. Course - Vital Signs Last Recorded V/S: Last Vital Signs Temp 36.6 C 03/04/20 09:05 Pulse 88 03/04/20 09:05 Resp 24 H 03/04/20 09:05 BP 135/99 H 03/04/20 09:05 Pulse Ox 97 03/04/20 09:05 - Orders/Labs/Meds Orders: Active Orders 24 hr Category Date Time Status EKG Documentation Completion [RC] STAT Care 03/04/20 09:25 Active Peripheral IV Care [RC] . DIRECTED Care 03/04/20 09:28 Active CORONAVIRUS COVID-19 JENNA [MOLEC] Stat Lab 03/04/20 13:27 Received CULTURE URINE [RM] Routine Lab 03/04/20 11:08 Ordered Magnesium Sulfate/Water [Magnesium Sulfate in Water Med 03/04/20 11:09 Active Premix] 4 gm Premix Bag 1 bag IV ONETIME Sodium Chloride 0.9% [Saline Flush] Med 03/04/20 09:28 Active 10 ml FLUSH ASDIRECTED PRN Peripheral IV Insertion Adult [OM.PC] Stat Oth 03/04/20 09:28 Ordered Medication Orders Magnesium Sulfate 4 gm/ Premix 50 mls @ 12.5 mls/hr IV ONETIME ONE Stop: 03/04/20 15:08 Last Admin: 03/04/20 11:24 Dose: 12.5 mls/hr Documented by: RIVERA Sodium Chloride (Saline Flush) 10 ml FLUSH ASDIRECTED PRN PRN Reason: Keep Vein Open Last Admin: 03/04/20 09:47 Dose: 10 ml Documented by: SCHUHEI Labs: Laboratory Tests 03/04/20 03/04/20 03/04/20 Range/Units 09:40 09:40 09:40 WBC 10.82 H (3.98-10.04) K/mm3 RBC 3.59 L (3.98-5.22) M/mm3 Hgb 10.0 L (11.2-15.7) gm/dl Hct 32.5 L (34.1-44.9) % MCV 90.5 D (79.4-94.8) fl MCH 27.9 (25.6-32.2) pg MCHC 30.8 L (32.2-35.5) g/dl RDW Std Deviation 50.9 H (36.4-46.3) fL Plt Count 409 H D (182-369) K/mm3 MPV 9.2 L (9.4-12.3) fl Neut % (Auto) 77.9 H (34.0-71.1) % Lymph % (Auto) 12.8 L (19.3-51.7) % [place] % (Auto) 6.9 (4.7-12.5) % Eos % (Auto) 1.6 (0.7-5.8) Baso % (Auto) 0.5 (0.1-1.2) % Neut # (Auto) 8.44 H (1.56-6.13) K/mm3 Lymph # (Auto) 1.38 (1.18-3.74) K/mm3 [place] # (Auto) 0.75 H (0.24-0.36) K/mm3 Eos # (Auto) 0.17 (0.04-0.36) K/mm3 Baso # (Auto) 0.05 (0.01-0.08) K/mm3 Manual Slide Review Abnormal smear PT 15.0 H (9.7-12.0) SECONDS INR 1.41 APTT 44.9 H (21.7-31.4) SECONDS Sodium 137 (136-145) mEq/L Potassium 4.2 (3.5-5.1) mEq/L Chloride 101 (98-107) mEq/L Carbon Dioxide 23 (21-32) mEq/L Anion Gap 17.2 H (5-15) BUN 29 H D (7-18) mg/dL Creatinine 1.5 H (0.55-1.02) mg/dL Est Cr Clr Drug Dosing 26.42 mL/min Estimated GFR (MDRD) 34 (>60) mL/min BUN/Creatinine Ratio 19.3 H (14-18) Glucose 116 H (83-115) mg/dL Calcium 8.1 L (8.5-10.1) mg/dL Magnesium 0.9 L (1.8-2.4) mg/dl Total Bilirubin 0.5 (0.2-1.0) mg/dL AST 25 (15-37) U/L ALT 18 (14-59) U/L Alkaline Phosphatase 126 H (46-116) U/L Troponin I 0.030 (0.00-0.056) ng/mL C-Reactive Protein 5.2 H* (<1.0) mg/dL NT-Pro-B Natriuret Pep (0-125) pg/mL Total Protein 7.1 (6.4-8.2) g/dl Albumin 2.9 L (3.4-5.0) g/dl Globulin 4.2 gm/dL Albumin/Globulin Ratio 0.7 L (1-2) Urine Color (Yellow) Urine Appearance (Clear) Urine pH (5.0-8.0) Ur Specific [place] (1.005-1.030) Urine Protein (Negative) Urine Glucose (UA) (Negative) Urine Ketones (Negative) Urine Occult Blood (Negative) Urine Nitrite (Negative) Urine Bilirubin (Negative) Urine Urobilinogen (0.2-1.0) Ur Leukocyte Esterase (Negative) U Hyaline Cast (Auto) (0-5) /lpf Urine RBC (0-5) /hpf Urine WBC (0-5) /hpf Ur Epithelial Cells (0-5) /hpf Urine Bacteria (FEW) /hpf Urine Mucus (FEW) /hpf Digoxin (0.9-2.0) ng/mL 03/04/20 03/04/20 03/04/20 Range/Units 09:40 09:40 10:06 WBC (3.98-10.04) K/mm3 RBC (3.98-5.22) M/mm3 Hgb (11.2-15.7) gm/dl Hct (34.1-44.9) % MCV (79.4-94.8) fl MCH (25.6-32.2) pg MCHC (32.2-35.5) g/dl RDW Std Deviation (36.4-46.3) fL Plt Count (182-369) K/mm3 MPV (9.4-12.3) fl Neut % (Auto) (34.0-71.1) % Lymph % (Auto) (19.3-51.7) % [place] % (Auto) (4.7-12.5) % Eos % (Auto) (0.7-5.8) Baso % (Auto) (0.1-1.2) % Neut # (Auto) (1.56-6.13) K/mm3 Lymph # (Auto) (1.18-3.74) K/mm3 [place] # (Auto) (0.24-0.36) K/mm3 Eos # (Auto) (0.04-0.36) K/mm3 Baso # (Auto) (0.01-0.08) K/mm3 Manual Slide Review PT (9.7-12.0) SECONDS INR APTT (21.7-31.4) SECONDS Sodium (136-145) mEq/L Potassium (3.5-5.1) mEq/L Chloride (98-107) mEq/L Carbon Dioxide (21-32) mEq/L Anion Gap (5-15) BUN (7-18) mg/dL Creatinine (0.55-1.02) mg/dL Est Cr Clr Drug Dosing mL/min Estimated GFR (MDRD) (>60) mL/min BUN/Creatinine Ratio (14-18) Glucose (83-115) mg/dL Calcium (8.5-10.1) mg/dL Magnesium (1.8-2.4) mg/dl Total Bilirubin (0.2-1.0) mg/dL AST (15-37) U/L ALT (14-59) U/L Alkaline Phosphatase (46-116) U/L Troponin I (0.00-0.056) ng/mL C-Reactive Protein (<1.0) mg/dL NT-Pro-B Natriuret Pep > 82552 H (0-125) pg/mL Total Protein (6.4-8.2) g/dl Albumin (3.4-5.0) g/dl Globulin gm/dL Albumin/Globulin Ratio (1-2) Urine Color Light yellow (Yellow) Urine Appearance Slt cloudy H (Clear) Urine pH 6.0 (5.0-8.0) Ur Specific [place] 1.015 (1.005-1.030) Urine Protein 2+ H (Negative) Urine Glucose (UA) Negative (Negative) Urine Ketones Negative (Negative) Urine Occult Blood Negative (Negative) Urine Nitrite Negative (Negative) Urine Bilirubin Negative (Negative) Urine Urobilinogen 0.2 (0.2-1.0) Ur Leukocyte Esterase 1+ H (Negative) U Hyaline Cast (Auto) 0-5 (0-5) /lpf Urine RBC 0-5 (0-5) /hpf Urine WBC 20-30 H (0-5) /hpf Ur Epithelial Cells 5-10 H (0-5) /hpf Urine Bacteria Moderate H (FEW) /hpf Urine Mucus Few (FEW) /hpf Digoxin 1.3 (0.9-2.0) ng/mL Meds: Medications Generic Name Dose Route Start Last Admin Trade Name Freq PRN Reason Stop Dose Admin Magnesium Sulfate 4 gm/ Premix 50 mls @ 12.5 mls/hr 03/04/20 11:09 03/04/20 11:24 IV 03/04/20 15:08 12.5 mls/hr ONETIME ONE Administration Sodium Chloride 10 ml 03/04/20 09:28 03/04/20 09:47 Saline Flush FLUSH 10 ml ASDIRECTED PRN Administration Keep Vein Open Discontinued Medications Generic Name Dose Route Start Last Admin Trade Name Freq PRN Reason Stop Dose Admin Furosemide 40 mg 03/04/20 09:29 03/04/20 09:45 Lasix IVPUSH 03/04/20 09:30 40 mg NOW ONE Administration Magnesium Oxide 400 mg 03/04/20 11:24 03/04/20 11:30 Magnesium Oxide PO 03/04/20 11:25 400 mg ONETIME ONE Administration - Radiology Interpretation Free Text/Narrative:: 74-year-old female brought to the ED for evaluation of orthopnea and gradually worsening dyspnea over the last 3 to 4 days. She carries a history of chronic atrial fibrillation with rate apparently controlled in the 70s at this point time. Paced maker is set at 70/min. No chest pain. She has mild aortic stenosis on examination. Lungs sound clear to auscultation percussion but she is exhibiting orthopnea for the last 2 nights and has had to sleep in an easy chair. She is usually on Lasix 20 mg twice daily. Plan she will be given Lasix 40 mg IV through a saline lock. Routine labs to be collected and a chest x-ray to be done. ECG as well. - Re-Assessments/Exams Free Text/Narrative Re-Assessment/Exam: 03/04/20 11:05 chest x-ray done portably reveals moderate cardiomegaly. Visualized portions of the lung fischer are clear although the left heart border does extend up to the costal margin. There is a pacemaker defibrillator left upper anterior chest. 03/04/20 11:08 White count is 10.82 with 78% neutrophils on the auto differential. Hemoglobin is low at 10 with a hematocrit of 32.5. MCV is 90.5. The smear suggests the leukocytes appear normal. Red blood cells appear normal including a few ovalocytes and slight anisocytosis and poikilocytosis. There is slight thrombocytosis with normal morphology. PT is 15.0 with an INR of 1.41. PTT is 44.9. Sodium 137 with potassium of 4.2 chloride 101 with a bicarb of 23. Anion gap is 17.2 BUN is 29 with a creatinine of 1.5. GFR is 34 glucose 116 calcium 8.1 magnesium 0.9 moderately low. Liver function is normal. Troponin I is 0.030. C-reactive protein is 5.2. BNP is greater than 35,000. Total protein 7.1 with an albumin fraction of 2.9 urinalysis shows 2+ proteinuria 1+ leukocyte esterase 20-30 WBCs per high-power field and 5-10 epithelial cells and moderate bacteria. Urine culture will be ordered. 03/04/20 11:25 Patient appraised of the findings of the labs indicating her BNP is greater than 35,000 and that her serum magnesium is extremely low at 0.9. She states she is usually on a magnesium supplement but admits she has not been taking it as of late. She usually can tolerate the 400 mg magnesium tablets daily. Plan at present she has voided 4 times since the initial dose of Lasix. Plan will to use 4 g of magnesium intravenously at this time. Will probably repeat Lasix prior to discharge. Denies any symptoms or signs of a urinary tract infection with no dysuria urgency or frequency. 03/04/20 13:03 Departure - Departure Time of Disposition: 13:47 Disposition: Home, Self-Care 01 Condition: Fair Clinical Impression: Hypomagnesemia Acute exacerbation of CHF (congestive heart failure) Qualifiers: Heart failure type: diastolic Qualified Code(s): I50.33 - Acute on chronic diastolic (congestive) heart failure - Discharge Information *PRESCRIPTION DRUG MONITORING PROGRAM REVIEWED*: Not Applicable *COPY OF PRESCRIPTION DRUG MONITORING REPORT IN PATIENT HECTOR: Not Applicable Prescriptions: Furosemide [Lasix] 40 mg PO BID #60 tablet Magnesium Oxide 400 mg PO DAILY #30 tablet Potassium Chloride 20 meq PO BID #60 tablet.er Referrals: Penny Hathaway NP [Primary Care Provider] - Forms: ED Department Discharge Additional Instructions: Evaluation in the emergency room today in regards to gradually worsening shortness of breath with inability to lie down to sleep which we call orthopnea for the last 2 to 3 days. For some reason your heart has decided to fail and become weaker. There is a large accumulation of fluid within your body according to the lab work. 2 problems were identified one was severe hypomagnesemia with a magnesium level of 0.9 and normal is 2.0. You were given 4 g of magnesium intravenously while in the department. Your BNP which is a measuring stick for how well the heart is functioning was third greater than 35,000 with normal being less than 175. You will need to take Lasix 40 mg in the morning and 40 mg mid afternoon between 2 and 3:00 daily to help gradually bring down the fluid accumulation in your lungs. You should take a second 40 mg tablet of Lasix this afternoon after you get them. You will need a potassium supplement 20 mEq twice daily because of the higher dose of Lasix to prevent low serum potassium levels. You will need repeat lab work on Tuesday and you could just come to the hospital to have it done and I can call you with the results later. You are going to need to find a physician to provide care for you. You require further investigations by way of echocardiogram with a jewel hole finish opener or computer technical specialist. I would suggest that you have your primary care provider in [place] arrange for cardiology consultation. I wish for you to step on the scale every morning and write down your weight which will help us decide how well medication is working for you. Sepsis Event Note (ED) - Evaluation Sepsis Screening Result: No Definite Risk - Focused Exam Vital Signs: Vital Signs Temp Pulse Resp BP Pulse Ox 03/04/20 09:05 36.6 C 88 24 H 135/99 H 97 - My Orders Last 24 Hours: My Active Orders 03/04/20 09:25 EKG Documentation Completion [RC] STAT 03/04/20 09:28 Peripheral IV Care [RC] . DIRECTED Sodium Chloride 0.9% [Saline Flush] 10 ml FLUSH ASDIRECTED PRN Peripheral IV Insertion Adult [OM.PC] Stat 03/04/20 11:08 CULTURE URINE [RM] Routine 03/04/20 11:09 Magnesium Sulfate/Water [Magnesium Sulfate in Water Premix] 4 gm Premix Bag 1 bag IV ONETIME 03/04/20 13:27 CORONAVIRUS COVID-19 JENNA [MOLEC] Stat - Assessment/Plan Last 24 Hours: My Active Orders 03/04/20 09:25 EKG Documentation Completion [RC] STAT 03/04/20 09:28 Peripheral IV Care [RC] . DIRECTED Sodium Chloride 0.9% [Saline Flush] 10 ml FLUSH ASDIRECTED PRN Peripheral IV Insertion Adult [OM.PC] Stat 03/04/20 11:08 CULTURE URINE [RM] Routine 03/04/20 11:09 Magnesium Sulfate/Water [Magnesium Sulfate in Water Premix] 4 gm Premix Bag 1 bag IV ONETIME 03/04/20 13:27 CORONAVIRUS COVID-19 JENNA [MOLEC] Stat
[2020-03-04] MEDS ORDERED: Sodium Chloride 0.9% 10 ML Syringe FLUSH PRN (09:28)
[2020-03-04] MEDS ORDERED: Furosemide 40 MG/4 ML VIAL IVPUSH ONE (09:29)
[2020-03-04] MEDS ORDERED: Magnesium Sulfate/Water 4 GM in Premix Bag 1 BAG IV ONE (11:09)
--- NOTE | 2020-03-04 11:19 | CR ---
PROCEDURE INFORMATION: Exam: XR Chest, 1 View Exam date and time: 03/04/2020 9:13 AM Age: 74 years old Clinical indication: Patient HX: Dyspnea on minimal exertion, orthopnea, known chf TECHNIQUE: Imaging protocol: XR of the chest Views: 1 view. COMPARISON: OT Chest 1V Frontal 01/18/2020 5:13 PM FINDINGS: Tubes, catheters and devices: Overlying EKG wires Lungs: Unremarkable. No consolidation. Pleural space: Unremarkable. No pleural effusion. No pneumothorax. Heart/Mediastinum: Transvenous pacemaker leads are stable in the heart Stable cardiac silhouette Bones/joints: Unremarkable. IMPRESSION: No acute process No significant change Thank you for allowing us to participate in the care of your patient. Dictated and Authenticated by: Farzana Handy MD 03/04/2020 10:59 AM Central Time ([place] & [place]) [facility]
[2020-03-04] MEDS ORDERED: Magnesium Oxide 400 MG Tab PO ONE (11:24)
== END 2020-03-04 14:45 | disposition home or self-care (01) ==
LOC: JD.ED 08:55
DX: I11.0 Hypertensive heart disease with heart failure (principal); I50.33 Acute on chronic diastolic (congestive) heart failure; E83.42 Hypomagnesemia; Z79.01 Long term (current) use of anticoagulants; Z79.82 Long term (current) use of aspirin; Z79.4 Long term (current) use of insulin; Z79.02 Long term (current) use of antithrombotics/antiplatelets; Z79.899 Other long term (current) drug therapy; Z88.1 Allergy status to other antibiotic agents; Z91.048 Other nonmedicinal substance allergy status; Z20.828 Contact with and (suspected) exposure to other viral communicable diseases
CPT/HCPCS: 36415; 71045; 80053; 80162; 81001; 83735; 83880; 84484; 85025; 85610; 85730; 86140; 87086; 87088; 87186; 93005; 96365; 96366; 96375; 99285; A9270; J1940; J3475; U0002; 93010; 99284

== ENCOUNTER 2020-03-08 10:54 | Emergency (ER) | payer MEDICARE, BC | END 2020-03-08 11:13 | disposition left against medical advice (07) | LOC: JD.ED 10:54 | DX: Z53.21 Procedure and treatment not carried out due to patient leaving prior to being seen by health care provider (principal); E83.42 Hypomagnesemia; I50.9 Heart failure, unspecified | CPT/HCPCS: 36415; 80053; 83735; 83880 ==

== ENCOUNTER 2020-03-28 08:14 | Inpatient (IN) | payer MEDICARE, BC ==
[2020-03-28] MEDS ORDERED: Sodium Chloride 0.9% 10 ML Syringe FLUSH PRN (08:45)
--- NOTE | 2020-03-28 08:52 | EDM.PDOC ---
ED HPI GENERAL MEDICAL PROBLEM - General Chief Complaint: Respiratory Problem Stated Complaint: SOB/INSOMNIA Time Seen by Provider: 03/28/20 08:28 Source of Information: Reports: Patient History Limitations: Reports: No Limitations - History of Present Illness INITIAL COMMENTS - FREE TEXT/NARRATIVE: The patient presents with shortness of breath at night and insomnia. The patie nt says for the past 3 nights she has not been able to sleep because she is short of breath. She has to sit up or use pillows. She also has edema in her legs. She has a history of CHF. She thinks he metoprolol was increased recently. She did have some chest pain early this morning. It only lasted a few minutes and she has none now. She has no fever, chills, cough, congestion, runny nose, abdominal pain, nausea or vomiting. Onset: Gradual Duration: Day(s): (3) Severity: Moderate Improves with: Reports: None Worsens with: Reports: None Associated Symptoms: Reports: Chest Pain, Shortness of Breath. Denies: Cough, Fever/Chills, Headaches, Nausea/Vomiting - Related Data Allergies Allergy/AdvReac Type Severity Reaction Status Date / Time vancomycin Allergy Itching Verified 03/28/20 08:36 vitamin intolerant Allergy Other Uncoded 03/28/20 08:36 Home Meds: Home Meds Digoxin 125 mcg PO DAILY 01/09/16 [History] Simvastatin [Zocor] 40 mg PO BEDTIME 01/09/16 [History] metFORMIN HCl [Metformin HCl ER] 1,000 mg PO BID 01/09/16 [History] Apixaban [Eliquis] 5 mg PO BID 05/17/18 [History] Ascorbate Calcium [Vitamin C] 500 mg PO DAILY 05/18/18 [History] Aspirin 81 mg PO DAILY 01/28/19 [History] Ubidecarenone [Co Q-10] 100 mg PO MOWEFR 01/28/19 [History] Furosemide [Lasix] 20 mg PO DAILY 06/24/19 [History] Insulin Glarg,Human.Rec.Analog [Lantus] 4 unit INJECT BEDTIME 06/24/19 [History] Lisinopril 10 mg PO BEDTIME 06/24/19 [History] Clopidogrel Bisulfate [Plavix] 75 mg PO DAILY 03/04/20 [History] Furosemide [Lasix] 40 mg PO BID #60 tablet 11/10/20 [Rx] Magnesium Oxide 400 mg PO DAILY #30 tablet 03/04/20 [Rx] Metoprolol Succinate [Toprol XL 100mg] 100 mg PO BID 03/04/20 [History] Potassium Chloride 20 meq PO BID #60 tablet.er 03/04/20 [Rx] Past Medical History HEENT History: Reports: Cataract Other HEENT History: wears glasses Cardiovascular History: Reports: Cardiomyopathy, Heart Failure, Heart Murmur, Hypertension Respiratory History: Reports: Other (See Below) Other Respiratory History: CHF Gastrointestinal History: Reports: Hemorrhoids Other Gastrointestinal History: permanent hemorrhoids Genitourinary History: Reports: Urinary Incontinence [employer] History: Reports: Musculoskeletal History: Reports: None Endocrine/Metabolic History: Reports: Diabetes, Type II, Hypothyroidism Other Endocrine/Metabolic History: doesnt take thyroid medications anymore, on metformin and lantus for dm - Infectious Disease History Infectious Disease History: Reports: Chicken Pox, Influenza, Measles - Past Surgical History Head Surgeries/Procedures: Reports: None HEENT Surgical History: Reports: None Cardiovascular Surgical History: Reports: Pacer, Valve Replacement GI Surgical History: Reports: Appendectomy, Cholecystectomy, Colonoscopy Female Surgical History: Reports: D&C Endocrine Surgical History: Reports: None Musculoskeletal Surgical History: Reports: Knee Replacement Other Musculoskeletal Surgeries/Procedures:: bilateral knee replacements. Social & Family History - Family History Family Medical History: No Pertinent Family History - Tobacco Use Tobacco Use Status *Q: Never Tobacco User - Caffeine Use Caffeine Use: Reports: Coffee Other Caffeine Use: 2 large cups a day Caffeine Use Comment: Daily coffee - Living Situation & Occupation Living situation: Reports: , Alone Occupation: Retired ED ROS GENERAL - Review of Systems Review Of Systems: See Below Constitutional: Reports: No Symptoms HEENT: Reports: No Symptoms Respiratory: Reports: Shortness of Breath. Denies: Cough Cardiovascular: Reports: Chest Pain, Edema (both legs) Endocrine: Reports: No Symptoms GI/Abdominal: Reports: No Symptoms ED EXAM, GENERAL - Physical Exam Exam: See Below Exam Limited By: No Limitations General Appearance: Alert, No Apparent Distress Ears: Normal External Exam Nose: Normal Inspection Head: Atraumatic, Normocephalic Neck: Normal Inspection Respiratory/Chest: No Respiratory Distress, Rales (bases) Cardiovascular: Regular Rate, Rhythm, No Edema, No Murmur GI/Abdominal: Soft, Non-Tender, No Organomegaly, No Mass Back Exam: Normal Inspection Extremities: Other (Moderate edema to both legs) Neurological: Alert, Oriented, No Motor/Sensory Deficits #1 Interpretation EKG Date: 03/28/20 Time: 10:06 Rhythm: A-Fib (and ventricular paced rhythm) Rate (Beats/Min): 109 False Pass: LAD-Left False Pass Deviation P-Wave: Absent Course - Vital Signs Last Recorded V/S: Last Vital Signs Temp 98.1 F 03/28/20 08:30 Pulse 111 H 03/28/20 08:30 Resp 18 03/28/20 08:30 BP 122/83 03/28/20 08:30 Pulse Ox 100 03/28/20 08:30 - Orders/Labs/Meds Orders: Active Orders 24 hr Category Date Time Status Cardiac Monitoring [RC] . DIRECTED Care 03/28/20 08:45 Active EKG Documentation Completion [RC] STAT Care 03/28/20 08:46 Active Oxygen Therapy [RC] PRN Care 03/28/20 08:45 Active Peripheral IV Care [RC] . DIRECTED Care 03/28/20 08:46 Active DIGOXIN [CHEM] Stat Lab 03/28/20 08:57 Received Sodium Chloride 0.9% [Saline Flush] Med 03/28/20 08:45 Active 10 ml FLUSH ASDIRECTED PRN Peripheral IV Insertion Adult [OM.PC] Stat Oth 03/28/20 08:45 Ordered Medication Orders Sodium Chloride (Saline Flush) 10 ml FLUSH ASDIRECTED PRN PRN Reason: Keep Vein Open Last Admin: 03/28/20 09:50 Dose: 10 ml Documented by: IRENA Labs: Laboratory Tests 03/28/20 03/28/20 03/28/20 Range/Units 08:57 08:57 08:57 WBC 12.27 H (3.98-10.04) K/mm3 RBC 3.83 L (3.98-5.22) M/mm3 Hgb 10.6 L (11.2-15.7) gm/dl Hct 35.0 (34.1-44.9) % MCV 91.4 (79.4-94.8) fl MCH 27.7 (25.6-32.2) pg MCHC 30.3 L (32.2-35.5) g/dl RDW Std Deviation 55.0 H (36.4-46.3) fL Plt Count 317 D (182-369) K/mm3 MPV 9.3 L (9.4-12.3) fl Neut % (Auto) 83.2 H (34.0-71.1) % Lymph % (Auto) 11.7 L (19.3-51.7) % Swain % (Auto) 4.4 L (4.7-12.5) % Eos % (Auto) 0.2 L (0.7-5.8) Baso % (Auto) 0.3 (0.1-1.2) % Neut # (Auto) 10.20 H (1.56-6.13) K/mm3 Lymph # (Auto) 1.44 (1.18-3.74) K/mm3 Swain # (Auto) 0.54 H (0.24-0.36) K/mm3 Eos # (Auto) 0.02 L (0.04-0.36) K/mm3 Baso # (Auto) 0.04 (0.01-0.08) K/mm3 D-Dimer, Quantitative 0.93 H (0.19-0.50) mg/L Sodium 135 L (136-145) mEq/L Potassium 5.1 (3.5-5.1) mEq/L Chloride 101 (98-107) mEq/L Carbon Dioxide 19 L (21-32) mEq/L Anion Gap 20.1 H (5-15) BUN 61 H D (7-18) mg/dL Creatinine 1.7 H (0.55-1.02) mg/dL Est Cr Clr Drug Dosing 23.85 mL/min Estimated GFR (MDRD) 29 (>60) mL/min BUN/Creatinine Ratio 35.9 H (14-18) Glucose 193 H (83-115) mg/dL Calcium 9.2 (8.5-10.1) mg/dL Total Bilirubin 1.0 (0.2-1.0) mg/dL AST 40 H (15-37) U/L ALT 37 (14-59) U/L Alkaline Phosphatase 159 H (46-116) U/L Troponin I 0.032 (0.00-0.056) ng/mL NT-Pro-B Natriuret Pep (0-125) pg/mL Total Protein 6.8 (6.4-8.2) g/dl Albumin 3.1 L (3.4-5.0) g/dl Globulin 3.7 gm/dL Albumin/Globulin Ratio 0.8 L (1-2) Urine Color (Yellow) Urine Appearance (Clear) Urine pH (5.0-8.0) Ur Specific [place] (1.005-1.030) Urine Protein (Negative) Urine Glucose (UA) (Negative) Urine Ketones (Negative) Urine Occult Blood (Negative) Urine Nitrite (Negative) Urine Bilirubin (Negative) Urine Urobilinogen (0.2-1.0) Ur Leukocyte Esterase (Negative) Urine RBC (0-5) /hpf Urine WBC (0-5) /hpf Ur Squamous Epith Cells (0-5) /hpf Urine Bacteria (FEW) /hpf Urine Mucus (FEW) /hpf Influenza Type A RNA (NEGATIVE) Influenza Type B RNA (NEGATIVE) SARS-CoV-2 RNA (JENNA) (NEGATIVE) 03/28/20 03/28/20 03/28/20 Range/Units 08:57 10:09 11:24 WBC (3.98-10.04) K/mm3 RBC (3.98-5.22) M/mm3 Hgb (11.2-15.7) gm/dl Hct (34.1-44.9) % MCV (79.4-94.8) fl MCH (25.6-32.2) pg MCHC (32.2-35.5) g/dl RDW Std Deviation (36.4-46.3) fL Plt Count (182-369) K/mm3 MPV (9.4-12.3) fl Neut % (Auto) (34.0-71.1) % Lymph % (Auto) (19.3-51.7) % Sw[place] % (Auto) (4.7-12.5) % Eos % (Auto) (0.7-5.8) Baso % (Auto) (0.1-1.2) % Neut # (Auto) (1.56-6.13) K/mm3 Lymph # (Auto) (1.18-3.74) K/mm3 Swain # (Auto) (0.24-0.36) K/mm3 Eos # (Auto) (0.04-0.36) K/mm3 Baso # (Auto) (0.01-0.08) K/mm3 D-Dimer, Quantitative (0.19-0.50) mg/L Sodium (136-145) mEq/L Potassium (3.5-5.1) mEq/L Chloride (98-107) mEq/L Carbon Dioxide (21-32) mEq/L Anion Gap (5-15) BUN (7-18) mg/dL Creatinine (0.55-1.02) mg/dL Est Cr Clr Drug Dosing mL/min Estimated GFR (MDRD) (>60) mL/min BUN/Creatinine Ratio (14-18) Glucose (83-115) mg/dL Calcium (8.5-10.1) mg/dL Total Bilirubin (0.2-1.0) mg/dL AST (15-37) U/L ALT (14-59) U/L Alkaline Phosphatase (46-116) U/L Troponin I (0.00-0.056) ng/mL NT-Pro-B Natriuret Pep > 69567 H (0-125) pg/mL Total Protein (6.4-8.2) g/dl Albumin (3.4-5.0) g/dl Globulin gm/dL Albumin/Globulin Ratio (1-2) Urine Color Yellow (Yellow) Urine Appearance Clear (Clear) Urine pH 5.5 (5.0-8.0) Ur Specific [place] 1.020 (1.005-1.030) Urine Protein 1+ H (Negative) Urine Glucose (UA) Negative (Negative) Urine Ketones Negative (Negative) Urine Occult Blood Negative (Negative) Urine Nitrite Negative (Negative) Urine Bilirubin Negative (Negative) Urine Urobilinogen 0.2 (0.2-1.0) Ur Leukocyte Esterase Trace H (Negative) Urine RBC 0-5 (0-5) /hpf Urine WBC 5-10 H (0-5) /hpf Ur Squamous Epith Cells 0-5 (0-5) /hpf Urine Bacteria Few (FEW) /hpf Urine Mucus Not seen (FEW) /hpf Influenza Type A RNA Negative (NEGATIVE) Influenza Type B RNA Negative (NEGATIVE) SARS-CoV-2 RNA (JENNA) Negative (NEGATIVE) Meds: Medications Generic Name Dose Route Start Last Admin Trade Name Freq PRN Reason Stop Dose Admin Sodium Chloride 10 ml 03/28/20 08:45 03/28/20 09:50 Saline Flush FLUSH 10 ml ASDIRECTED PRN Administration Keep Vein Open Discontinued Medications Generic Name Dose Route Start Last Admin Trade Name Oracio PRN Reason Stop Dose Admin Furosemide 80 mg 03/28/20 09:01 03/28/20 09:50 Lasix IVPUSH 03/28/20 09:02 80 mg NOW ONE Administration - Re-Assessments/Exams Free Text/Narrative Re-Assessment/Exam: 03/28/20 08:51 I have ordered oxygen, IV saline lock, labs, EKG and CXR. 03/28/20 10:35 Her EKG shows a paced rhythm. Her CXR shows cardiomegaly and some congestive changes. Her WBC was elevated at 12.27. Her Hgb is low at 10.6. Her d-dimer is elevated at 0.93. Her Na is low at 135. Her anion gap is elevated at 20.1. Her creatinine is elevated at 1.7. Her glucose is elevated at 193. Her AST is elevated at 40. Her alk phos is elevated at 154. Her troponin is negative. Her BNP >35,000. 03/28/20 11:53 Her COVID 19 is negative. Her UA shows a possible UTI. I will get a urine culture. 03/28/20 11:55 She has a CHF exacerbation, chest pain and UTI. I called Dr Max and he agreed to the admission. Departure - Departure Time of Disposition: 12:00 Disposition: Admitted As Inpatient 67 Condition: Poor Clinical Impression: Renal insufficiency Acute exacerbation of CHF (congestive heart failure) Qualifiers: Heart failure type: diastolic Qualified Code(s): I50.33 - Acute on chronic diastolic (congestive) heart failure UTI (urinary tract infection) Qualifiers: Urinary tract infection type: site unspecified Hematuria presence: without hematuria Qualified Code(s): N39.0 - Urinary tract infection, site not specified Chest pain Qualifiers: Chest pain type: unspecified Qualified Code(s): R07.9 - Chest pain, unspecified - Discharge Information Referrals: Penny Hathaway NP [Primary Care Provider] - Forms: ED Department Discharge Sepsis Event Note (ED) - Evaluation Sepsis Screening Result: No Definite Risk - Focused Exam Vital Signs: Vital Signs Temp Pulse Resp BP Pulse Ox 03/28/20 08:30 98.1 F 111 H 18 122/83 100 - My Orders Last 24 Hours: My Active Orders 03/28/20 08:45 Cardiac Monitoring [RC] . DIRECTED Oxygen Therapy [RC] PRN Sodium Chloride 0.9% [Saline Flush] 10 ml FLUSH ASDIRECTED PRN Peripheral IV Insertion Adult [OM.PC] Stat 03/28/20 08:46 EKG Documentation Completion [RC] STAT Peripheral IV Care [RC] . DIRECTED 03/28/20 08:57 DIGOXIN [CHEM] Stat - Assessment/Plan Last 24 Hours: My Active Orders 03/28/20 08:45 Cardiac Monitoring [RC] . DIRECTED Oxygen Therapy [RC] PRN Sodium Chloride 0.9% [Saline Flush] 10 ml FLUSH ASDIRECTED PRN Peripheral IV Insertion Adult [OM.PC] Stat 03/28/20 08:46 EKG Documentation Completion [RC] STAT Peripheral IV Care [RC] . DIRECTED 03/28/20 08:57 DIGOXIN [CHEM] Stat
[2020-03-28] MEDS ORDERED: Furosemide 40 MG/4 ML VIAL IVPUSH ONE (09:01)
--- NOTE | 2020-03-28 09:37 | CR ---
Chest: 2 views of the chest were obtained. Comparison: Prior chest x-ray of 01/18/20. Findings: Heart and mediastinum: Heart is enlarged. Tortuous thoracic aorta is seen. Stent is present. AICD is noted. Lungs: Pulmonary vessels may be minimally congested. Lungs otherwise are clear. Osseous: Diffuse disc space narrowing within the thoracic and lumbar spine are noted. Scattered endplate osteophytes are seen with minimal scoliosis. Nothing acute is seen. Impression: 1. Cardiomegaly. Questionable minimal pulmonary vascular congestion also noted. 2. Other findings believed to be incidental as described above. Diagnostic code #3
[2020-03-28 10:59] LABS: CORONAVIRUS COVID-19 NAA NEGATIVE (NEGATIVE)
[2020-03-28] MEDS ORDERED: cefTRIAXone 2 GM in Sodium Chloride 0.9% 100 ML IV ONE (11:57)
[2020-03-28] MEDS ORDERED: Acetaminophen 325 MG Tab PO PRN (15:02)
--- NOTE | 2020-03-28 15:02 | PCM.HP.2 ---
H&P History of Present Illness - General Date of Service: 03/28/20 Admit Problem/Dx: Admission Diagnosis/Problem Admission Diagnosis/Problem Congestive heart failure - History of Present Illness Initial Comments - Free Text/Narative: 74-year-old female with severe left ventricular dysfunction with estimated eject ion fraction of 20% on echocardiogram done in August of this year presents to the emergency department after several days of worsening shortness of breath, dyspnea on exertion, orthopnea, and PND. Patient states that she is sleeping in the couch sitting up. She denies any fever or chills. She is does states she has had increased swelling of her lower extremities. 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 Patient has a long history of heart disease including heart failure with reduced ejection fraction, atrial fibrillation, pacemaker, cardiomyopathy, severe aortic stenosis. Patient was seen on March 04 and and at both those emergency room appointments her proBNP was greater than 35,000. proBNP was again greater than 35,000 today. Patient also has diabetes, insulin-dependent, and stage III renal insufficiency in the emergency department she was started on O2 via nasal cannula and given Lasix 80 mg IV. She was then transferred to the ICU for further care. - Related Data Allergies/Adverse Reactions: Allergies Allergy/AdvReac Type Severity Reaction Status Date / Time vancomycin Allergy Itching Verified 03/28/20 08:36 vitamin intolerant Allergy Other Uncoded 03/28/20 18:17 Home Medications: Home Meds Digoxin 125 mcg PO DAILY 01/09/16 [History] Simvastatin [Zocor] 40 mg PO BEDTIME 01/09/16 [History] metFORMIN HCl [Metformin HCl ER] 1,000 mg PO BID 01/09/16 [History] Insulin Glarg,Human.Rec.Analog [Lantus] 6 unit INJECT BEDTIME 06/24/19 [History] Lisinopril 20 mg PO BID 06/24/19 [History] Clopidogrel Bisulfate [Plavix] 75 mg PO DAILY 03/04/20 [History] Potassium Chloride 20 meq PO BID #60 tablet.er 03/04/20 [Rx] Furosemide [Lasix] 40 mg PO 0800,1200 03/28/20 [History] Insulin Aspart [NovoLOG] 0 unit SQ TID 03/28/20 [History] Metoprolol Succinate [Toprol XL] 25 mg PO BID 03/28/20 [History] Metoprolol Succinate [Toprol Xl] 100 mg PO BID 03/28/20 [History] Past Medical History HEENT History: Reports: Cataract Other HEENT History: wears glasses Cardiovascular History: Reports: Cardiomyopathy, Heart Failure, Heart Murmur, Hypertension Respiratory History: Reports: Other (See Below) Other Respiratory History: CHF Gastrointestinal History: Reports: Hemorrhoids Other Gastrointestinal History: permanent hemorrhoids Genitourinary History: Reports: Urinary Incontinence 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: Musculoskeletal History: Reports: None Endocrine/Metabolic History: Reports: Diabetes, Type II, Hypothyroidism Other Endocrine/Metabolic History: doesnt take thyroid medications anymore, on metformin and lantus for dm - Infectious Disease History Infectious Disease History: Reports: Chicken Pox, Influenza, Measles - Past Surgical History Head Surgeries/Procedures: Reports: None HEENT Surgical History: Reports: None Cardiovascular Surgical History: Reports: Pacer, Valve Replacement GI Surgical History: Reports: Appendectomy, Cholecystectomy, Colonoscopy Female Surgical History: Reports: D&C Endocrine Surgical History: Reports: None Musculoskeletal Surgical History: Reports: Knee Replacement Other Musculoskeletal Surgeries/Procedures:: bilateral knee replacements. Social & Family History - Family History Family Medical History: No Pertinent Family History - Tobacco Use Tobacco Use Status *Q: Never Tobacco User - Caffeine Use Caffeine Use: Reports: Coffee Other Caffeine Use: 2 large cups a day Caffeine Use Comment: Daily coffee - Living Situation & Occupation Living situation: Reports: , Alone Occupation: Retired H&P Review of Systems - Review of Systems: Review Of Systems: Comprehensive ROS is negative, except as noted in HPI. Exam - Exam Exam: See Below - Vital Signs Vital Signs: Last Vital Signs Temp 98.1 F 03/28/20 08:30 Pulse 111 H 03/28/20 08:30 Resp 18 03/28/20 08:30 BP 122/83 03/28/20 08:30 Pulse Ox 95 03/28/20 14:08 Weight: 157 lb 4.8 oz - Exam Quality Assessment: Supplemental Oxygen General: Alert, Oriented, 4 HEENT: Conjunctiva Clear, Hearing Intact, Mucosa Moist & [place], Normal Nasal Septum Neck: Supple, Trachea Midline Lungs: Normal Respiratory Effort, Rales (Throughout both lung fischer) Cardiovascular: Irregular Rhythm, Systolic Murmur (3 out of 6 best heard in the right second intercostal space) GI/Abdominal Exam: Normal Bowel Sounds, Soft, Non-Tender, No Organomegaly, No Distention, No Abnormal Bruit, No Mass Extremities: Normal Inspection, Normal Capillary Refill, Pedal Edema (2+ pitting edema bilaterally) Skin: Warm, Dry, Intact Neurological: Cranial Nerves Intact Neuro Extensive - Mental Status: Alert, Oriented x3, Normal Mood/Affect, Normal Cognition, Memory Intact Neuro Extensive - Motor, Sensory, Reflexes: CN II-XII Intact Psychiatric: Alert, Normal Affect, Normal Mood - Patient Data Lab Results Last 24 hrs: Laboratory Results - last 24 hr 03/28/20 03/28/20 03/28/20 Range/Units 08:57 08:57 08:57 WBC 12.27 H (3.98-10.04) K/mm3 RBC 3.83 L (3.98-5.22) M/mm3 Hgb 10.6 L (11.2-15.7) gm/dl Hct 35.0 (34.1-44.9) % MCV 91.4 (79.4-94.8) fl MCH 27.7 (25.6-32.2) pg MCHC 30.3 L (32.2-35.5) g/dl RDW Std Deviation 55.0 H (36.4-46.3) fL Plt Count 317 D (182-369) K/mm3 MPV 9.3 L (9.4-12.3) fl Neut % (Auto) 83.2 H (34.0-71.1) % Lymph % (Auto) 11.7 L (19.3-51.7) % [place] % (Auto) 4.4 L (4.7-12.5) % Eos % (Auto) 0.2 L (0.7-5.8) Baso % (Auto) 0.3 (0.1-1.2) % Neut # (Auto) 10.20 H (1.56-6.13) K/mm3 Lymph # (Auto) 1.44 (1.18-3.74) K/mm3 [place] # (Auto) 0.54 H (0.24-0.36) K/mm3 Eos # (Auto) 0.02 L (0.04-0.36) K/mm3 Baso # (Auto) 0.04 (0.01-0.08) K/mm3 D-Dimer, Quantitative 0.93 H (0.19-0.50) mg/L Puncture Site ABG pH (7.35-7.45) ABG pCO2 (35.0-45.0) mmHg ABG pO2 (80.0-100.0) mmHg ABG HCO3 (22.0-26.0) meq/L ABG O2 Saturation (96.0-97.0) % ABG Base Excess (-2-2.0) Cassius Test A-a Gradient mmHg O2 Delivery Device Oxygen Flow Rate FiO2 (21.00-100.00) % Blood Gas Comments Sodium 135 L (136-145) mEq/L Potassium 5.1 (3.5-5.1) mEq/L Chloride 101 (98-107) mEq/L Carbon Dioxide 19 L (21-32) mEq/L Anion Gap 20.1 H (5-15) BUN 61 H D (7-18) mg/dL Creatinine 1.7 H (0.55-1.02) mg/dL Est Cr Clr Drug Dosing 23.85 mL/min Estimated GFR (MDRD) 29 (>60) mL/min BUN/Creatinine Ratio 35.9 H (14-18) Glucose 193 H (83-115) mg/dL Calcium 9.2 (8.5-10.1) mg/dL Total Bilirubin 1.0 (0.2-1.0) mg/dL AST 40 H (15-37) U/L ALT 37 (14-59) U/L Alkaline Phosphatase 159 H (46-116) U/L Troponin I 0.032 (0.00-0.056) ng/mL NT-Pro-B Natriuret Pep (0-125) pg/mL Total Protein 6.8 (6.4-8.2) g/dl Albumin 3.1 L (3.4-5.0) g/dl Globulin 3.7 gm/dL Albumin/Globulin Ratio 0.8 L (1-2) Urine Color (Yellow) Urine Appearance (Clear) Urine pH (5.0-8.0) Ur Specific [place] (1.005-1.030) Urine Protein (Negative) Urine Glucose (UA) (Negative) Urine Ketones (Negative) Urine Occult Blood (Negative) Urine Nitrite (Negative) Urine Bilirubin (Negative) Urine Urobilinogen (0.2-1.0) Ur Leukocyte Esterase (Negative) Urine RBC (0-5) /hpf Urine WBC (0-5) /hpf Ur Squamous Epith Cells (0-5) /hpf Urine Bacteria (FEW) /hpf Urine Mucus (FEW) /hpf Digoxin (0.9-2.0) ng/mL Influenza Type A RNA (NEGATIVE) Influenza Type B RNA (NEGATIVE) SARS-CoV-2 RNA (JENNA) (NEGATIVE) 03/28/20 03/28/20 03/28/20 Range/Units 08:57 08:57 10:09 WBC (3.98-10.04) K/mm3 RBC (3.98-5.22) M/mm3 Hgb (11.2-15.7) gm/dl Hct (34.1-44.9) % MCV (79.4-94.8) fl MCH (25.6-32.2) pg MCHC (32.2-35.5) g/dl RDW Std Deviation (36.4-46.3) fL Plt Count (182-369) K/mm3 MPV (9.4-12.3) fl Neut % (Auto) (34.0-71.1) % Lymph % (Auto) (19.3-51.7) % [place] % (Auto) (4.7-12.5) % Eos % (Auto) (0.7-5.8) Baso % (Auto) (0.1-1.2) % Neut # (Auto) (1.56-6.13) K/mm3 Lymph # (Auto) (1.18-3.74) K/mm3 [place] # (Auto) (0.24-0.36) K/mm3 Eos # (Auto) (0.04-0.36) K/mm3 Baso # (Auto) (0.01-0.08) K/mm3 D-Dimer, Quantitative (0.19-0.50) mg/L Puncture Site ABG pH (7.35-7.45) ABG pCO2 (35.0-45.0) mmHg ABG pO2 (80.0-100.0) mmHg ABG HCO3 (22.0-26.0) meq/L ABG O2 Saturation (96.0-97.0) % ABG Base Excess (-2-2.0) Cassius Test A-a Gradient mmHg O2 Delivery Device Oxygen Flow Rate FiO2 (21.00-100.00) % Blood Gas Comments Sodium (136-145) mEq/L Potassium (3.5-5.1) mEq/L Chloride (98-107) mEq/L Carbon Dioxide (21-32) mEq/L Anion Gap (5-15) BUN (7-18) mg/dL Creatinine (0.55-1.02) mg/dL Est Cr Clr Drug Dosing mL/min Estimated GFR (MDRD) (>60) mL/min BUN/Creatinine Ratio (14-18) Glucose (83-115) mg/dL Calcium (8.5-10.1) mg/dL Total Bilirubin (0.2-1.0) mg/dL AST (15-37) U/L ALT (14-59) U/L Alkaline Phosphatase (46-116) U/L Troponin I (0.00-0.056) ng/mL NT-Pro-B Natriuret Pep > 38093 H (0-125) pg/mL Total Protein (6.4-8.2) g/dl Albumin (3.4-5.0) g/dl Globulin gm/dL Albumin/Globulin Ratio (1-2) Urine Color (Yellow) Urine Appearance (Clear) Urine pH (5.0-8.0) Ur Specific [place] (1.005-1.030) Urine Protein (Negative) Urine Glucose (UA) (Negative) Urine Ketones (Negative) Urine Occult Blood (Negative) Urine Nitrite (Negative) Urine Bilirubin (Negative) Urine Urobilinogen (0.2-1.0) Ur Leukocyte Esterase (Negative) Urine RBC (0-5) /hpf Urine WBC (0-5) /hpf Ur Squamous Epith Cells (0-5) /hpf Urine Bacteria (FEW) /hpf Urine Mucus (FEW) /hpf Digoxin 0.8 L (0.9-2.0) ng/mL Influenza Type A RNA Negative (NEGATIVE) Influenza Type B RNA Negative (NEGATIVE) SARS-CoV-2 RNA (JENNA) Negative (NEGATIVE) 03/28/20 03/28/20 Range/Units 11:24 13:38 WBC (3.98-10.04) K/mm3 RBC (3.98-5.22) M/mm3 Hgb (11.2-15.7) gm/dl Hct (34.1-44.9) % MCV (79.4-94.8) fl MCH (25.6-32.2) pg MCHC (32.2-35.5) g/dl RDW Std Deviation (36.4-46.3) fL Plt Count (182-369) K/mm3 MPV (9.4-12.3) fl Neut % (Auto) (34.0-71.1) % Lymph % (Auto) (19.3-51.7) % [place] % (Auto) (4.7-12.5) % Eos % (Auto) (0.7-5.8) Baso % (Auto) (0.1-1.2) % Neut # (Auto) (1.56-6.13) K/mm3 Lymph # (Auto) (1.18-3.74) K/mm3 [place] # (Auto) (0.24-0.36) K/mm3 Eos # (Auto) (0.04-0.36) K/mm3 Baso # (Auto) (0.01-0.08) K/mm3 D-Dimer, Quantitative (0.19-0.50) mg/L Puncture Site Lt radial ABG pH 7.40 (7.35-7.45) ABG pCO2 37.0 (35.0-45.0) mmHg ABG pO2 46.0 L (80.0-100.0) mmHg ABG HCO3 22.3 (22.0-26.0) meq/L ABG O2 Saturation 68.0 L (96.0-97.0) % ABG Base Excess -1.7 (-2-2.0) Cassius Test Positive A-a Gradient 57 mmHg O2 Delivery Device Room air Oxygen Flow Rate 0.0 FiO2 21.00 (21.00-100.00) % Blood Gas Comments Md aware mixed blood Sodium (136-145) mEq/L Potassium (3.5-5.1) mEq/L Chloride (98-107) mEq/L Carbon Dioxide (21-32) mEq/L Anion Gap (5-15) BUN (7-18) mg/dL Creatinine (0.55-1.02) mg/dL Est Cr Clr Drug Dosing mL/min Estimated GFR (MDRD) (>60) mL/min BUN/Creatinine Ratio (14-18) Glucose (83-115) mg/dL Calcium (8.5-10.1) mg/dL Total Bilirubin (0.2-1.0) mg/dL AST (15-37) U/L ALT (14-59) U/L Alkaline Phosphatase (46-116) U/L Troponin I (0.00-0.056) ng/mL NT-Pro-B Natriuret Pep (0-125) pg/mL Total Protein (6.4-8.2) g/dl Albumin (3.4-5.0) g/dl Globulin gm/dL Albumin/Globulin Ratio (1-2) Urine Color Yellow (Yellow) Urine Appearance Clear (Clear) Urine pH 5.5 (5.0-8.0) Ur Specific [place] 1.020 (1.005-1.030) Urine Protein 1+ H (Negative) Urine Glucose (UA) Negative (Negative) Urine Ketones Negative (Negative) Urine Occult Blood Negative (Negative) Urine Nitrite Negative (Negative) Urine Bilirubin Negative (Negative) Urine Urobilinogen 0.2 (0.2-1.0) Ur Leukocyte Esterase Trace H (Negative) Urine RBC 0-5 (0-5) /hpf Urine WBC 5-10 H (0-5) /hpf Ur Squamous Epith Cells 0-5 (0-5) /hpf Urine Bacteria Few (FEW) /hpf Urine Mucus Not seen (FEW) /hpf Digoxin (0.9-2.0) ng/mL Influenza Type A RNA (NEGATIVE) Influenza Type B RNA (NEGATIVE) SARS-CoV-2 RNA (JENNA) (NEGATIVE) Result Diagrams: 03/28/20 08:57 03/28/20 08:57 Imaging Impressions Last 24 hrs: Chest x-ray shows cardiomegaly with questionable minimal pulmonary vascular congestion. #1 Interpretation EKG Date: 03/28/20 Rhythm: A-Fib (Paced) Rate (Beats/Min): 109 [place]: LAD-Left [place] Deviation P-Wave: Absent Sepsis Event Note - Evaluation Sepsis Screening Result: No Definite Risk - Focused Exam Vital Signs: Vital Signs Temp Pulse Resp BP Pulse Ox Pulse Ox 03/28/20 14:08 95 03/28/20 08:30 98.1 F 111 H 18 122/83 100 - Problem List (1) Acute exacerbation of CHF (congestive heart failure) SNOMED Code(s): 794538354, 14676203877139 ICD Code: I50.9 - HEART FAILURE, UNSPECIFIED Status: Acute Current Visit: Yes Qualifiers: Heart failure type: systolic Qualified Code(s): I50.23 - Acute on chronic systolic (congestive) heart failure (2) Renal insufficiency SNOMED Code(s): 694311489, 620724405 ICD Code: N28.9 - DISORDER OF KIDNEY AND URETER, UNSPECIFIED Status: Acute Current Visit: Yes (3) Ulgck-ck-onsspbb kidney injury SNOMED Code(s): 379155131 ICD Code: N17.9 - ACUTE KIDNEY FAILURE, UNSPECIFIED; N18.9 - CHRONIC KIDNEY DISEASE, UNSPECIFIED Status: Acute Current Visit: No (4) UTI, Urinary tract infectious disease SNOMED Code(s): 56849175 ICD Code: N39.0 - URINARY TRACT INFECTION, SITE NOT SPECIFIED Status: Acute Current Visit: No Problem List Initiated/Reviewed/Updated: Yes Orders Last 24hrs: Active Orders 24 hr Category Date Time Status Patient Status [ADT] Routine ADT 03/28/20 13:25 Active Cardiac Monitoring [RC] . DIRECTED Care 03/28/20 08:45 Active EKG Documentation Completion [RC] STAT Care 03/28/20 08:46 Active Insert [place] Catheter [Insert Urinary Catheter] [OM.PC] Care 03/28/20 14:30 Ordered Q24H Oxygen Therapy [RC] PRN Care 03/28/20 08:45 Active Peripheral IV Care [RC] Q2HR Care 03/28/20 08:46 Active Urinary Catheter Assessment [RC] Q4HR Care 03/28/20 14:30 Active Echo Comp wo Cont [US] Routine Exams 03/28/20 Ordered Furosemide [Lasix] 100 mg Med 03/28/20 15:00 Active Sodium Chloride 0.9% [Normal Saline] 90 ml IV CONTINUOUS Sodium Chloride 0.9% [Saline Flush] Med 03/28/20 08:45 Active 10 ml FLUSH ASDIRECTED PRN Peripheral IV Insertion Adult [OM.PC] Stat Oth 03/28/20 08:45 Ordered Medication Orders Furosemide 100 mg/ Sodium (Chloride) 100 mls @ 7 mls/hr IV CONTINUOUS ОЛЬГА; Protocol Sodium Chloride (Saline Flush) 10 ml FLUSH ASDIRECTED PRN PRN Reason: Keep Vein Open Last Admin: 03/28/20 09:50 Dose: 10 ml Documented by: IRENA Assessment/Plan Comment:: Assessment 74-year-old female with severe heart failure with decreased ejection fraction of 20% in August presented to the emergency department with worsening shortness of breath, edema, orthopnea, and PND consistent with exacerbation of CHF. Hypertension Severe aortic stenosis Likely pulmonary artery stenosis * In the emergency department she was given 80 mg of Lasix with apparent good urine output. * She takes metoprolol succinate 125 mg twice a day and missed this morning's dose. * On rhythm strip in the ICU she has had multiple runs of tachycardia at baseline heart rate is in the 90s to low 100s * On Eliquis 5 mg twice daily for stroke prophylaxis. * Digoxin 125 mg p.o. daily. Missed morning dose. * Home medications include Lasix 60 mg in the morning and 40 mg in the evening * Chest x-ray shows cardiomegaly with mild vascular congestion * proBNP is greater than 35,000. This has been present since at least 03/04/2020 Type 2 diabetes mellitus, insulin-dependent Diabetic nephropathy Elevated anion gap * On glargine 6 units at bedtime and Metformin 1000 mg twice daily * Estimated GFR 29, creatinine 1.7, BUN 61, anion gap 20.1 * Unknown hemoglobin A1c * 1+ proteinuria on UA Plan * Admit to ICU * Lasix drip titrated to keep urine output between 100-200 mL/h. * Peralta for strict I's and O's * Continue full dose metoprolol succinate secondary to cardiac arrhythmias. May need to consider decreasing this to half-strength if blood pressure does not tolerate diuresis. * Daily weights * Continue home glargine 6 units at bedtime. Sliding scale insulin low-dose with bedside glucose monitoring 4 times daily * Follow proBNP every other day. * Follow electrolytes daily. * Hemoglobin A1c, TSH, dig level in the morning * VTE prophylaxis with Eliquis * CODE STATUS: Full code - Mortality Measure Prognosis:: Poor
[2020-03-28] MEDS: Furosemide 100 MG in Sodium Chloride 0.9% 90 ML IV SCH (15:47)
[2020-03-28] MEDS: Simvastatin 40 MG Tab PO SCH (20:11)
[2020-03-28] MEDS: Metoprolol Succinate 50 MG Tab.ER PO SCH (20:11)
[2020-03-28] MEDS: Metoprolol Succinate 25 MG Tab.ER PO SCH (20:12)
[2020-03-28] MEDS: Potassium Chloride 20 MEQ Tab.ER PO SCH (20:12)
[2020-03-28] MEDS: Insulin Glarg,Human.Rec.Analog 100 Unit/ML SUBCUT SCH (20:14)
[2020-03-29] MEDS: Furosemide 100 MG in Sodium Chloride 0.9% 90 ML IV SCH ×2 (05:06→20:00)
[2020-03-29 07:47] LABS: HEMOGLOBIN A1C 7.9 % (4.50-6.20)
[2020-03-29] MEDS ORDERED: Magnesium Sulfate/Water 4 GM in Premix Bag 1 BAG IV ONE (07:51)
[2020-03-29] MEDS: Metoprolol Succinate 50 MG Tab.ER PO SCH ×2 (08:14→21:06)
[2020-03-29] MEDS: Metoprolol Succinate 25 MG Tab.ER PO SCH ×2 (08:14→21:07)
[2020-03-29] MEDS: Clopidogrel 75 MG Tab PO SCH (08:14)
[2020-03-29] MEDS: Potassium Chloride 20 MEQ Tab.ER PO SCH ×2 (08:15→21:08)
[2020-03-29] MEDS: Digoxin 125 MCG Tab PO SCH (11:19)
--- NOTE | 2020-03-29 20:21 | PCM.PN ---
- General Info Date of Service: 03/29/20 Admission Dx/Problem (Free Text): Admission Diagnosis/Problem Admission Diagnosis/Problem Congestive heart failure Subjective Update: Patient is doing much better. She states that she is now able to lie flat, although she does not like to, with the significant urine output. She has had approximately 3 L out. Appetite is good eating 100% of her meals. Functional Status: Reports: Pain Controlled - Review of Systems General: Reports: No Symptoms HEENT: Reports: No Symptoms Pulmonary: Reports: No Symptoms Cardiovascular: Reports: No Symptoms Gastrointestinal: Reports: No Symptoms Musculoskeletal: Reports: No Symptoms Neurological: Reports: No Symptoms Psychiatric: Reports: No Symptoms - Patient Data Vitals - Most Recent: Last Vital Signs Temp 98.1 F 03/29/20 19:43 Pulse 93 03/29/20 19:43 Resp 21 H 03/29/20 19:43 BP 111/51 L 03/29/20 19:43 Pulse Ox 95 03/29/20 19:43 Weight - Most Recent: 150 lb 4.8 oz I&O - Last 24 Hours: Intake & Output 03/29/20 03/29/20 03/29/20 06:59 14:59 22:59 Intake Total 340 230 675 Output Total 1500 2650 1900 Balance -1160 -9090 -3509 Lab Results Last 24 Hours: Laboratory Results - last 24 hr 03/28/20 03/29/20 03/29/20 Range/Units 20:20 04:19 04:19 WBC 13.44 H (3.98-10.04) K/mm3 RBC 3.60 L (3.98-5.22) M/mm3 Hgb 10.1 L (11.2-15.7) gm/dl Hct 33.0 L (34.1-44.9) % MCV 91.7 (79.4-94.8) fl MCH 28.1 (25.6-32.2) pg MCHC 30.6 L (32.2-35.5) g/dl RDW Std Deviation 55.6 H (36.4-46.3) fL Plt Count 300 (182-369) K/mm3 MPV 9.7 (9.4-12.3) fl Neut % (Auto) 71.4 H (34.0-71.1) % Lymph % (Auto) 17.7 L (19.3-51.7) % [place] % (Auto) 8.5 (4.7-12.5) % Eos % (Auto) 1.9 (0.7-5.8) Baso % (Auto) 0.3 (0.1-1.2) % Neut # (Auto) 9.60 H (1.56-6.13) K/mm3 Lymph # (Auto) 2.38 (1.18-3.74) K/mm3 [place] # (Auto) 1.14 H (0.24-0.36) K/mm3 Eos # (Auto) 0.25 (0.04-0.36) K/mm3 Baso # (Auto) 0.04 (0.01-0.08) K/mm3 Manual Slide Review Not Reportable Sodium 139 (136-145) mEq/L Potassium 4.3 (3.5-5.1) mEq/L Chloride 103 (98-107) mEq/L Carbon Dioxide 25 (21-32) mEq/L Anion Gap 15.3 H (5-15) BUN 59 H (7-18) mg/dL Creatinine 1.8 H (0.55-1.02) mg/dL Est Cr Clr Drug Dosing 22.52 mL/min Estimated GFR (MDRD) 28 (>60) mL/min BUN/Creatinine Ratio 32.8 H (14-18) Glucose 202 H (83-115) mg/dL POC Glucose 185 H (83-110) mg/dL Hemoglobin A1c (4.50-6.20) % Calcium 8.8 (8.5-10.1) mg/dL Phosphorus 3.3 (2.6-4.7) mg/dL Magnesium 1.6 L (1.8-2.4) mg/dl Total Bilirubin 0.6 (0.2-1.0) mg/dL AST 24 (15-37) U/L ALT 30 (14-59) U/L Alkaline Phosphatase 128 H (46-116) U/L Total Protein 6.2 L (6.4-8.2) g/dl Albumin 2.7 L (3.4-5.0) g/dl Globulin 3.5 gm/dL Albumin/Globulin Ratio 0.8 L (1-2) TSH 3rd Generation 1.035 (0.358-3.74) uIU/mL Digoxin 0.5 L (0.9-2.0) ng/mL 03/29/20 03/29/20 03/29/20 Range/Units 04:19 07:53 11:22 WBC (3.98-10.04) K/mm3 RBC (3.98-5.22) M/mm3 Hgb (11.2-15.7) gm/dl Hct (34.1-44.9) % MCV (79.4-94.8) fl MCH (25.6-32.2) pg MCHC (32.2-35.5) g/dl RDW Std Deviation (36.4-46.3) fL Plt Count (182-369) K/mm3 MPV (9.4-12.3) fl Neut % (Auto) (34.0-71.1) % Lymph % (Auto) (19.3-51.7) % [place] % (Auto) (4.7-12.5) % Eos % (Auto) (0.7-5.8) Baso % (Auto) (0.1-1.2) % Neut # (Auto) (1.56-6.13) K/mm3 Lymph # (Auto) (1.18-3.74) K/mm3 [place] # (Auto) (0.24-0.36) K/mm3 Eos # (Auto) (0.04-0.36) K/mm3 Baso # (Auto) (0.01-0.08) K/mm3 Manual Slide Review Sodium (136-145) mEq/L Potassium (3.5-5.1) mEq/L Chloride (98-107) mEq/L Carbon Dioxide (21-32) mEq/L Anion Gap (5-15) BUN (7-18) mg/dL Creatinine (0.55-1.02) mg/dL Est Cr Clr Drug Dosing mL/min Estimated GFR (MDRD) (>60) mL/min BUN/Creatinine Ratio (14-18) Glucose (83-115) mg/dL POC Glucose 214 H 184 H (83-110) mg/dL Hemoglobin A1c 7.90 H (4.50-6.20) % Calcium (8.5-10.1) mg/dL Phosphorus (2.6-4.7) mg/dL Magnesium (1.8-2.4) mg/dl Total Bilirubin (0.2-1.0) mg/dL AST (15-37) U/L ALT (14-59) U/L Alkaline Phosphatase (46-116) U/L Total Protein (6.4-8.2) g/dl Albumin (3.4-5.0) g/dl Globulin gm/dL Albumin/Globulin Ratio (1-2) TSH 3rd Generation (0.358-3.74) uIU/mL Digoxin (0.9-2.0) ng/mL 03/29/20 Range/Units 16:45 WBC (3.98-10.04) K/mm3 RBC (3.98-5.22) M/mm3 Hgb (11.2-15.7) gm/dl Hct (34.1-44.9) % MCV (79.4-94.8) fl MCH (25.6-32.2) pg MCHC (32.2-35.5) g/dl RDW Std Deviation (36.4-46.3) fL Plt Count (182-369) K/mm3 MPV (9.4-12.3) fl Neut % (Auto) (34.0-71.1) % Lymph % (Auto) (19.3-51.7) % [place] % (Auto) (4.7-12.5) % Eos % (Auto) (0.7-5.8) Baso % (Auto) (0.1-1.2) % Neut # (Auto) (1.56-6.13) K/mm3 Lymph # (Auto) (1.18-3.74) K/mm3 [place] # (Auto) (0.24-0.36) K/mm3 Eos # (Auto) (0.04-0.36) K/mm3 Baso # (Auto) (0.01-0.08) K/mm3 Manual Slide Review Sodium (136-145) mEq/L Potassium (3.5-5.1) mEq/L Chloride (98-107) mEq/L Carbon Dioxide (21-32) mEq/L Anion Gap (5-15) BUN (7-18) mg/dL Creatinine (0.55-1.02) mg/dL Est Cr Clr Drug Dosing mL/min Estimated GFR (MDRD) (>60) mL/min BUN/Creatinine Ratio (14-18) Glucose (83-115) mg/dL POC Glucose 309 H (83-110) mg/dL Hemoglobin A1c (4.50-6.20) % Calcium (8.5-10.1) mg/dL Phosphorus (2.6-4.7) mg/dL Magnesium (1.8-2.4) mg/dl Total Bilirubin (0.2-1.0) mg/dL AST (15-37) U/L ALT (14-59) U/L Alkaline Phosphatase (46-116) U/L Total Protein (6.4-8.2) g/dl Albumin (3.4-5.0) g/dl Globulin gm/dL Albumin/Globulin Ratio (1-2) TSH 3rd Generation (0.358-3.74) uIU/mL Digoxin (0.9-2.0) ng/mL Med Orders - Current: Current Medications Acetaminophen (Tylenol) 650 mg PO Q4H PRN PRN Reason: Pain (Mild 1-3)/fever Clopidogrel Bisulfate (Plavix) 75 mg PO DAILY [facility] Last Admin: 03/29/20 08:14 Dose: 75 mg Documented by: Digoxin (Lanoxin) 125 mcg PO DAILY@1200 [facility] Last Admin: 03/29/20 11:19 Dose: 125 mcg Documented by: Furosemide 100 mg/ Sodium (Chloride) 100 mls @ 7 mls/hr IV CONTINUOUS [facility]; Protocol Last Admin: 03/29/20 20:00 Dose: 7 mg/hr, 7 mls/hr Documented by: Insulin Glargine (Lantus) 6 unit SUBCUT BEDTIME [facility] Last Admin: 03/28/20 20:14 Dose: 6 units Documented by: Insulin Human Lispro (Humalog) 0 unit SUBCUT QIDACANDBED [facility]; Protocol Last Admin: 03/29/20 17:41 Dose: 4 units Documented by: Metoprolol Succinate (Toprol Xl) 25 mg PO BID [facility] Last Admin: 03/29/20 08:14 Dose: 25 mg Documented by: Metoprolol Succinate (Toprol Xl) 100 mg PO BID [facility] Last Admin: 03/29/20 08:14 Dose: 100 mg Documented by: Potassium Chloride (Klor-Con M20) 20 meq PO BID [facility] Last Admin: 03/29/20 08:15 Dose: 20 meq Documented by: Simvastatin (Zocor) 40 mg PO BEDTIME [facility] Last Admin: 03/28/20 20:11 Dose: 40 mg Documented by: Sodium Chloride (Saline Flush) 10 ml FLUSH ASDIRECTED PRN PRN Reason: Keep Vein Open Last Admin: 03/28/20 09:50 Dose: 10 ml Documented by: Discontinued Medications Furosemide (Lasix) 80 mg IVPUSH NOW ONE Stop: 03/28/20 09:02 Last Admin: 03/28/20 09:50 Dose: 80 mg Documented by: Ceftriaxone Sodium 2 gm/ (Sodium Chloride) 100 mls @ 200 mls/hr IV ONETIME ONE Stop: 03/28/20 12:26 Last Admin: 03/28/20 13:38 Dose: 200 mls/hr Documented by: Magnesium Sulfate 4 gm/ Premix 50 mls @ 12.5 mls/hr IV ONETIME ONE Stop: 03/29/20 11:50 Last Admin: 03/29/20 08:34 Dose: 12.5 mls/hr Documented by: - Exam Quality Assessment: Urine Catheter. No: Supplemental Oxygen General: Alert, Oriented HEENT: Pupils Equal, Mucous Membr. Moist/[place] Neck: Supple Lungs: Normal Respiratory Effort, Crackles (Bilaterally) Cardiovascular: Irregular Rhythm. No: Tachycardia GI/Abdominal Exam: Normal Bowel Sounds, Non-Tender, No Abnormal Bruit Extremities: Normal Capillary Refill, Pedal Edema (3+) Skin: Warm, Dry, Intact Psy/Mental Status: Alert, Normal Affect, Normal Mood Sepsis Event Note - Evaluation Sepsis Screening Result: Sepsis Risk - Focused Exam Vital Signs: Vital Signs Temp Pulse Pulse Resp BP BP Pulse Ox 03/29/20 19:43 98.1 F 93 21 H 111/51 L 95 03/29/20 18:03 24 H 91/69 03/29/20 17:19 21 H 107/63 03/29/20 16:00 97.5 F 22 H 112/68 97 03/29/20 15:11 15 111/75 95 03/29/20 14:00 22 H 132/78 97 03/29/20 13:00 29 H 123/81 100 03/29/20 12:00 97.5 F 20 124/78 95 12/05/20 11:19 96 03/29/20 11:14 130/90 93 L 03/29/20 11:13 12 94 L 03/29/20 10:00 20 104/59 L 03/29/20 09:01 22 H 96/84 - Problem List & Annotations (1) Acute exacerbation of CHF (congestive heart failure) SNOMED Code(s): 216832352, 55532986123127 Code(s): I50.9 - HEART FAILURE, UNSPECIFIED Status: Acute Current Visit: Yes Qualifiers: Heart failure type: systolic Qualified Code(s): I50.23 - Acute on chronic systolic (congestive) heart failure (2) Renal insufficiency SNOMED Code(s): 567975031, 943310479 Code(s): N28.9 - DISORDER OF KIDNEY AND URETER, UNSPECIFIED Status: Acute Current Visit: Yes (3) Ursev-li-rscitmx kidney injury SNOMED Code(s): 755584072 Code(s): N17.9 - ACUTE KIDNEY FAILURE, UNSPECIFIED; N18.9 - CHRONIC KIDNEY D ISEASE, UNSPECIFIED Status: Acute Current Visit: No (4) UTI, Urinary tract infectious disease SNOMED Code(s): 24777654 Code(s): N39.0 - URINARY TRACT INFECTION, SITE NOT SPECIFIED Status: Acute Current Visit: No - Problem List Review Problem List Initiated/Reviewed/Updated: Yes - My Orders Last 24 Hours: My Active Orders 03/28/20 20:27 Blood Glucose Check, Bedside [RC] WITHMEALSANDBED 03/28/20 21:00 Insulin Glarg,Human.Rec.Analog [LantUS] 6 unit SUBCUT BEDTIME Metoprolol Succinate [Toprol XL] 100 mg PO BID Metoprolol Succinate [Toprol XL] 25 mg PO BID Potassium Chloride [Klor-Con M20] 20 meq PO BID Simvastatin [Zocor] 40 mg PO BEDTIME 03/28/20 22:00 Insulin Lispro [HumaLOG] See Protocol SUBCUT QIDACANDBED 03/29/20 04:19 PROCALCITONIN [REF] Routine 03/29/20 09:00 Clopidogrel [Plavix] 75 mg PO DAILY 03/29/20 Lunch Fluid Restriction [DIET] 03/29/20 12:00 Digoxin [Lanoxin] 125 mcg PO DAILY@1200 - Plan Plan:: Assessment 74-year-old female with severe heart failure with decreased ejection fraction of 20% in August presented to the emergency department with worsening shortness of breath, edema, orthopnea, and PND consistent with exacerbation of CHF. Hypertension Severe aortic stenosis Likely pulmonary artery stenosis * On Lasix drip with good urine output at 7 mg/h * On home dose of metoprolol succinate 125 mg twice daily * No significant arrhythmias reported over the last 24 hours * On Eliquis 5 mg twice daily for stroke prophylaxis. * Digoxin 125 mg p.o. daily. Dig level is low at 0.5 likely secondary to missing yesterday's dose. * Home medications include Lasix 60 mg in the morning and 40 mg in the evening * Admission chest x-ray shows cardiomegaly with mild vascular congestion * Admission proBNP is greater than 35,000. This has been present since at least 03/04/2020 Type 2 diabetes mellitus, insulin-dependent Diabetic nephropathy Elevated anion gap * On glargine 6 units at bedtime * Metformin held * Estimated GFR 28, creatinine 1.8, BUN 59, anion gap 15.3 * Hemoglobin A1c is 7.9 * 1+ proteinuria on UA Plan * Admit to ICU * Lasix drip titrated to keep urine output between 100-200 mL/h. Plan to DC tomorrow morning * [place] for strict I's and O's * Continue full dose metoprolol succinate secondary to cardiac arrhythmias. May need to consider decreasing this to half-strength if blood pressure does not tolerate diuresis. * Daily weights * Continue home glargine 6 units at bedtime. Sliding scale insulin low-dose with bedside glucose monitoring 4 times daily * BNP in the morning * Follow electrolytes daily. * VTE prophylaxis with Eliquis * CODE STATUS: Full code
[2020-03-29] MEDS: Simvastatin 40 MG Tab PO SCH (21:08)
[2020-03-29] MEDS: Insulin Glarg,Human.Rec.Analog 100 Unit/ML SUBCUT SCH (21:09)
[2020-03-29] MEDS ORDERED: Cyclobenzaprine 10 MG Tab PO ONE (23:37)
[2020-03-30] MEDS: Acetaminophen/HYDROcodone 325-5 MG Tab PO PRN (00:53)
[2020-03-30] MEDS: Potassium Chloride 20 MEQ Tab.ER PO SCH ×2 (08:08→20:52)
[2020-03-30] MEDS: Metoprolol Succinate 25 MG Tab.ER PO SCH ×2 (08:08→20:52)
[2020-03-30] MEDS: Metoprolol Succinate 50 MG Tab.ER PO SCH ×2 (08:09→20:51)
[2020-03-30] MEDS: Clopidogrel 75 MG Tab PO SCH (08:09)
--- NOTE | 2020-03-30 09:28 | PCM.PN ---
- General Info Date of Service: 03/30/20 Admission Dx/Problem (Free Text): Admission Diagnosis/Problem Admission Diagnosis/Problem Congestive heart failure Subjective Update: Sun has had good results overnight with decreased shortness of breath. Patient has had a 8 pound weight loss since yesterday. Functional Status: Reports: Pain Controlled - Review of Systems General: Reports: No Symptoms HEENT: Reports: No Symptoms Pulmonary: Reports: No Symptoms Cardiovascular: Reports: No Symptoms Genitourinary: Reports: No Symptoms Musculoskeletal: Reports: Leg Pain - Patient Data Vitals - Most Recent: Last Vital Signs Temp 98.4 F 03/30/20 08:00 Pulse 87 03/30/20 08:09 Resp 16 03/30/20 08:00 BP 118/73 03/30/20 08:09 Pulse Ox 92 L 03/30/20 08:00 Weight - Most Recent: 142 lb 9.6 oz I&O - Last 24 Hours: Intake & Output 03/29/20 03/30/20 03/30/20 22:59 06:59 14:59 Intake Total 675 384 Output Total 2340 2345 125 Balance -1665 -1961 -125 Lab Results Last 24 Hours: Laboratory Results - last 24 hr 03/29/20 03/29/20 03/29/20 Range/Units 11:22 16:45 21:05 Sodium (136-145) mEq/L Potassium (3.5-5.1) mEq/L Chloride (98-107) mEq/L Carbon Dioxide (21-32) mEq/L Anion Gap (5-15) BUN (7-18) mg/dL Creatinine (0.55-1.02) mg/dL Est Cr Clr Drug Dosing mL/min Estimated GFR (MDRD) (>60) mL/min BUN/Creatinine Ratio (14-18) Glucose (83-115) mg/dL POC Glucose 184 H 309 H 210 H (83-110) mg/dL Calcium (8.5-10.1) mg/dL Magnesium (1.8-2.4) mg/dl NT-Pro-B Natriuret Pep (0-125) pg/mL 03/29/20 03/29/20 03/30/20 Range/Units 23:45 23:45 06:18 Sodium 137 (136-145) mEq/L Potassium 4.2 (3.5-5.1) mEq/L Chloride 99 (98-107) mEq/L Carbon Dioxide 30 (21-32) mEq/L Anion Gap 12.2 (5-15) BUN 59 H (7-18) mg/dL Creatinine 1.6 H (0.55-1.02) mg/dL Est Cr Clr Drug Dosing 25.34 mL/min Estimated GFR (MDRD) 32 (>60) mL/min BUN/Creatinine Ratio 36.9 H (14-18) Glucose 153 H (83-115) mg/dL POC Glucose 156 H (83-110) mg/dL Calcium 9.4 (8.5-10.1) mg/dL Magnesium 2.5 H (1.8-2.4) mg/dl NT-Pro-B Natriuret Pep 11966 H (0-125) pg/mL Med Orders - Current: Current Medications Acetaminophen (Tylenol) 650 mg PO Q4H PRN PRN Reason: Pain (Mild 1-3)/fever Hydrocodone Bitart/Acetaminophen (Mize 325-5 Mg) 1 tab PO Q4H PRN PRN Reason: Pain Last Admin: 03/30/20 00:53 Dose: 1 tab Documented by: Clopidogrel Bisulfate (Plavix) 75 mg PO DAILY [facility] Last Admin: 03/30/20 08:09 Dose: 75 mg Documented by: Digoxin (Lanoxin) 125 mcg PO DAILY@1200 [facility] Last Admin: 03/29/20 11:19 Dose: 125 mcg Documented by: Furosemide 100 mg/ Sodium (Chloride) 100 mls @ 7 mls/hr IV CONTINUOUS [facility]; Protocol Last Titration: 03/30/20 05:00 Dose: 0 mg/hr, 0 mls/hr Documented by: Insulin Glargine (Lantus) 6 unit SUBCUT BEDTIME [facility] Last Admin: 03/29/20 21:09 Dose: 6 units Documented by: Insulin Human Lispro (Humalog) 0 unit SUBCUT QIDACANDBED [facility]; Protocol Last Admin: 03/30/20 08:05 Dose: 1 units Documented by: Metoprolol Succinate (Toprol Xl) 25 mg PO BID [facility] Last Admin: 03/30/20 08:08 Dose: 25 mg Documented by: Metoprolol Succinate (Toprol Xl) 100 mg PO BID [facility] Last Admin: 03/30/20 08:09 Dose: 100 mg Documented by: Potassium Chloride (Klor-Con M20) 20 meq PO BID [facility] Last Admin: 03/30/20 08:08 Dose: 20 meq Documented by: Simvastatin (Zocor) 40 mg PO BEDTIME [facility] Last Admin: 03/29/20 21:08 Dose: 40 mg Documented by: Sodium Chloride (Saline Flush) 10 ml FLUSH ASDIRECTED PRN PRN Reason: Keep Vein Open Last Admin: 03/28/20 09:50 Dose: 10 ml Documented by: Discontinued Medications Cyclobenzaprine HCl (Flexeril) 10 mg PO ONETIME ONE Stop: 03/29/20 23:38 Last Admin: 03/29/20 23:47 Dose: 10 mg Documented by: Furosemide (Lasix) 80 mg IVPUSH NOW ONE Stop: 03/28/20 09:02 Last Admin: 03/28/20 09:50 Dose: 80 mg Documented by: Ceftriaxone Sodium 2 gm/ (Sodium Chloride) 100 mls @ 200 mls/hr IV ONETIME ONE Stop: 03/28/20 12:26 Last Admin: 03/28/20 13:38 Dose: 200 mls/hr Documented by: Magnesium Sulfate 4 gm/ Premix 50 mls @ 12.5 mls/hr IV ONETIME ONE Stop: 03/29/20 11:50 Last Admin: 03/29/20 08:34 Dose: 12.5 mls/hr Documented by: - Exam Quality Assessment: No: Supplemental Oxygen General: Alert, Oriented HEENT: Pupils Equal, Mucous Membr. Moist/[place] Neck: Supple Lungs: Normal Respiratory Effort, Rales (Normal bibasilar) Cardiovascular: Irregular Rhythm GI/Abdominal Exam: Normal Bowel Sounds, Soft, Non-Tender, No Distention Extremities: Normal Inspection, Normal Capillary Refill, Pedal Edema (1+) Peripheral Pulses: 2+: Popliteal (R), Posterior Tibial (L), Posterior Tibial (R), Dorsalis Pedis (L), Dorsalis Pedis (R) Skin: Warm, Dry, Intact Psy/Mental Status: Alert, Normal Affect, Normal Mood Sepsis Event Note - Evaluation Sepsis Screening Result: Sepsis Risk - Focused Exam Vital Signs: Vital Signs Temp Pulse Pulse Resp BP BP Pulse Ox 03/30/20 08:09 87 118/73 03/30/20 08:08 87 118/73 03/30/20 08:00 98.4 F 16 99/74 92 L 03/30/20 05:00 105/67 03/30/20 04:00 98.1 F 78 17 109/60 94 L 03/30/20 03:00 99/56 L 03/30/20 01:00 120/73 03/30/20 00:00 119/69 03/29/20 23:17 98.1 F 93 22 H 116/74 96 03/29/20 22:00 110/72 - Problem List & Annotations (1) Acute exacerbation of CHF (congestive heart failure) SNOMED Code(s): 665627538, 13246357753348 Code(s): I50.9 - HEART FAILURE, UNSPECIFIED Status: Acute Current Visit: Yes Qualifiers: Heart failure type: systolic Qualified Code(s): I50.23 - Acute on chronic systolic (congestive) heart failure (2) Renal insufficiency SNOMED Code(s): 961242096, 306844319 Code(s): N28.9 - DISORDER OF KIDNEY AND URETER, UNSPECIFIED Status: Acute Current Visit: Yes (3) Wecin-hl-kyqpiet kidney injury SNOMED Code(s): 240606808 Code(s): N17.9 - ACUTE KIDNEY FAILURE, UNSPECIFIED; N18.9 - CHRONIC KIDNEY DISEASE, UNSPECIFIED Status: Acute Current Visit: No (4) UTI, Urinary tract infectious disease SNOMED Code(s): 67263705 Code(s): N39.0 - URINARY TRACT INFECTION, SITE NOT SPECIFIED Status: Acute Current Visit: No - Problem List Review Problem List Initiated/Reviewed/Updated: Yes - My Orders Last 24 Hours: My Active Orders 03/29/20 09:00 Clopidogrel [Plavix] 75 mg PO DAILY 03/29/20 Lunch Fluid Restriction [DIET] 03/29/20 12:00 Digoxin [Lanoxin] 125 mcg PO DAILY@1200 03/29/20 23:38 Acetaminophen/HYDROcodone [Mize 325-5 MG] 1 tab PO Q4H PRN - Plan Plan:: Assessment 74-year-old female with severe heart failure with decreased ejection fraction of 20% in August presented to the emergency department with worsening shortness of breath, edema, orthopnea, and PND consistent with exacerbation of CHF. Hypertension Severe aortic stenosis Likely pulmonary artery stenosis * Lasix drip stopped early this morning * On home dose of metoprolol succinate 125 mg twice daily * No significant arrhythmias reported over the last 24 hours * On Eliquis 5 mg twice daily for stroke prophylaxis. * Digoxin 125 mg p.o. daily. Dig level is low at 0.5 likely secondary to missing dose prior to admission * Home medications include Lasix 60 mg in the morning and 40 mg in the evening * Admission chest x-ray shows cardiomegaly with mild vascular congestion * Admission proBNP is greater than 35,000. This has been present since at least 03/04/2020 * Follow-up BNP today was 28,533 Type 2 diabetes mellitus, insulin-dependent Diabetic nephropathy Elevated anion gap * On glargine 6 units at bedtime * Metformin held * Estimated GFR 32 which is improved, creatinine 1.6, BUN 59 * Hemoglobin A1c is 7.9 * 1+ proteinuria on UA Leg cramping * Patient had an episode of leg cramping last night. She had to keep standing up and sitting down because of cramping. * She was given 10 mg of cyclobenzaprine with good results. * Also added Mize 5/325 1 tablet every 4 hours as needed pain. Plan * Changed to MedSurg status * Switch to Lasix 40 mg IV x1 this afternoon and then titrate based on urine output * [place] for strict I's and O's * Continue full dose metoprolol succinate secondary to cardiac arrhythmias. * Daily weights * Continue home glargine 6 units at bedtime. Sliding scale insulin low-dose with bedside glucose monitoring 4 times daily * Routine labs in the morning * Follow electrolytes daily. * VTE prophylaxis with Eliquis * CODE STATUS: Full code
[2020-03-30] MEDS: Digoxin 125 MCG Tab PO SCH (12:29)
[2020-03-30] MEDS ORDERED: Furosemide 40 MG/4 ML VIAL IVPUSH ONE (14:18)
[2020-03-30] MEDS: Cyclobenzaprine 10 MG Tab PO PRN (15:01)
[2020-03-30] MEDS: Simvastatin 40 MG Tab PO SCH (20:52)
[2020-03-30] MEDS: Insulin Glarg,Human.Rec.Analog 100 Unit/ML SUBCUT SCH (20:53)
[2020-03-31] MEDS: Acetaminophen/HYDROcodone 325-5 MG Tab PO PRN ×3 (00:14→20:49)
[2020-03-31] MEDS: Metoprolol Succinate 25 MG Tab.ER PO SCH ×2 (09:23→20:49)
[2020-03-31] MEDS: Potassium Chloride 20 MEQ Tab.ER PO SCH ×2 (09:23→20:49)
[2020-03-31] MEDS: Clopidogrel 75 MG Tab PO SCH (09:30)
[2020-03-31] MEDS: Metoprolol Succinate 50 MG Tab.ER PO SCH ×2 (09:31→20:50)
[2020-03-31] MEDS ORDERED: Furosemide 40 MG/4 ML VIAL IVPUSH ONE (11:00)
[2020-03-31] MEDS: Digoxin 125 MCG Tab PO SCH (11:16)
--- NOTE | 2020-03-31 17:38 | PCM.PN ---
- General Info Date of Service: 03/31/20 Admission Dx/Problem (Free Text): Admission Diagnosis/Problem Admission Diagnosis/Problem Congestive heart failure Subjective Update: Patient states she is feeling much better with the almost 10 L of fluid that has been removed. She states that she is still weak and would like another day to help get stronger. Appetite is good. Functional Status: Reports: Pain Controlled - Review of Systems General: Reports: Weakness HEENT: Reports: No Symptoms Pulmonary: Reports: No Symptoms Cardiovascular: Reports: No Symptoms Gastrointestinal: Reports: No Symptoms Musculoskeletal: Reports: No Symptoms Neurological: Reports: No Symptoms Psychiatric: Reports: No Symptoms - Patient Data Vitals - Most Recent: Last Vital Signs Temp 98.2 F 03/31/20 11:21 Pulse 97 03/31/20 11:16 Resp 16 03/31/20 11:21 BP 107/70 03/31/20 11:21 Pulse Ox 93 L 03/31/20 11:21 Weight - Most Recent: 150 lb I&O - Last 24 Hours: Intake & Output 03/31/20 03/31/20 03/31/20 06:59 14:59 22:59 Intake Total 500 300 Output Total 600 550 Balance -600 -50 300 Lab Results Last 24 Hours: Laboratory Results - last 24 hr 03/30/20 03/30/20 03/31/20 Range/Units 17:37 20:37 08:26 WBC (3.98-10.04) K/mm3 RBC (3.98-5.22) M/mm3 Hgb (11.2-15.7) gm/dl Hct (34.1-44.9) % MCV (79.4-94.8) fl MCH (25.6-32.2) pg MCHC (32.2-35.5) g/dl RDW Std Deviation (36.4-46.3) fL Plt Count (182-369) K/mm3 MPV (9.4-12.3) fl Neut % (Auto) (34.0-71.1) % Lymph % (Auto) (19.3-51.7) % [place] % (Auto) (4.7-12.5) % Eos % (Auto) (0.7-5.8) Baso % (Auto) (0.1-1.2) % Neut # (Auto) (1.56-6.13) K/mm3 Lymph # (Auto) (1.18-3.74) K/mm3 [place] # (Auto) (0.24-0.36) K/mm3 Eos # (Auto) (0.04-0.36) K/mm3 Baso # (Auto) (0.01-0.08) K/mm3 Manual Slide Review Sodium (136-145) mEq/L Potassium (3.5-5.1) mEq/L Chloride (98-107) mEq/L Carbon Dioxide (21-32) mEq/L Anion Gap (5-15) BUN (7-18) mg/dL Creatinine (0.55-1.02) mg/dL Est Cr Clr Drug Dosing mL/min Estimated GFR (MDRD) (>60) mL/min BUN/Creatinine Ratio (14-18) Glucose (83-115) mg/dL POC Glucose 315 H 216 H 167 H (83-110) mg/dL Calcium (8.5-10.1) mg/dL Phosphorus (2.6-4.7) mg/dL Magnesium (1.8-2.4) mg/dl Total Bilirubin (0.2-1.0) mg/dL AST (15-37) U/L ALT (14-59) U/L Alkaline Phosphatase (46-116) U/L Total Protein (6.4-8.2) g/dl Albumin (3.4-5.0) g/dl Globulin gm/dL Albumin/Globulin Ratio (1-2) 03/31/20 03/31/20 03/31/20 Range/Units 08:35 08:35 11:14 WBC 16.25 H (3.98-10.04) K/mm3 RBC 3.85 L (3.98-5.22) M/mm3 Hgb 10.7 L (11.2-15.7) gm/dl Hct 34.9 (34.1-44.9) % MCV 90.6 (79.4-94.8) fl MCH 27.8 (25.6-32.2) pg MCHC 30.7 L (32.2-35.5) g/dl RDW Std Deviation 55.5 H (36.4-46.3) fL Plt Count 314 (182-369) K/mm3 MPV 9.2 L (9.4-12.3) fl Neut % (Auto) 80.6 H (34.0-71.1) % Lymph % (Auto) 7.9 L (19.3-51.7) % [place] % (Auto) 9.8 (4.7-12.5) % Eos % (Auto) 1.3 (0.7-5.8) Baso % (Auto) 0.2 (0.1-1.2) % Neut # (Auto) 13.10 H (1.56-6.13) K/mm3 Lymph # (Auto) 1.29 (1.18-3.74) K/mm3 [place] # (Auto) 1.59 H (0.24-0.36) K/mm3 Eos # (Auto) 0.21 (0.04-0.36) K/mm3 Baso # (Auto) 0.03 (0.01-0.08) K/mm3 Manual Slide Review Abnormal smear Sodium 135 L (136-145) mEq/L Potassium 4.0 (3.5-5.1) mEq/L Chloride 101 (98-107) mEq/L Carbon Dioxide 25 (21-32) mEq/L Anion Gap 13.0 (5-15) BUN 45 H (7-18) mg/dL Creatinine 1.4 H (0.55-1.02) mg/dL Est Cr Clr Drug Dosing 28.95 mL/min Estimated GFR (MDRD) 37 (>60) mL/min BUN/Creatinine Ratio 32.1 H (14-18) Glucose 159 H (83-115) mg/dL POC Glucose 234 H (83-110) mg/dL Calcium 9.4 (8.5-10.1) mg/dL Phosphorus 3.3 (2.6-4.7) mg/dL Magnesium 2.0 (1.8-2.4) mg/dl Total Bilirubin 1.2 H (0.2-1.0) mg/dL AST 15 (15-37) U/L ALT 18 (14-59) U/L Alkaline Phosphatase 108 (46-116) U/L Total Protein 6.5 (6.4-8.2) g/dl Albumin 2.5 L (3.4-5.0) g/dl Globulin 4.0 gm/dL Albumin/Globulin Ratio 0.6 L (1-2) 03/31/20 Range/Units 16:10 WBC (3.98-10.04) K/mm3 RBC (3.98-5.22) M/mm3 Hgb (11.2-15.7) gm/dl Hct (34.1-44.9) % MCV (79.4-94.8) fl MCH (25.6-32.2) pg MCHC (32.2-35.5) g/dl RDW Std Deviation (36.4-46.3) fL Plt Count (182-369) K/mm3 MPV (9.4-12.3) fl Neut % (Auto) (34.0-71.1) % Lymph % (Auto) (19.3-51.7) % [place] % (Auto) (4.7-12.5) % Eos % (Auto) (0.7-5.8) Baso % (Auto) (0.1-1.2) % Neut # (Auto) (1.56-6.13) K/mm3 Lymph # (Auto) (1.18-3.74) K/mm3 [place] # (Auto) (0.24-0.36) K/mm3 Eos # (Auto) (0.04-0.36) K/mm3 Baso # (Auto) (0.01-0.08) K/mm3 Manual Slide Review Sodium (136-145) mEq/L Potassium (3.5-5.1) mEq/L Chloride (98-107) mEq/L Carbon Dioxide (21-32) mEq/L Anion Gap (5-15) BUN (7-18) mg/dL Creatinine (0.55-1.02) mg/dL Est Cr Clr Drug Dosing mL/min Estimated GFR (MDRD) (>60) mL/min BUN/Creatinine Ratio (14-18) Glucose (83-115) mg/dL POC Glucose 334 H (83-110) mg/dL Calcium (8.5-10.1) mg/dL Phosphorus (2.6-4.7) mg/dL Magnesium (1.8-2.4) mg/dl Total Bilirubin (0.2-1.0) mg/dL AST (15-37) U/L ALT (14-59) U/L Alkaline Phosphatase (46-116) U/L Total Protein (6.4-8.2) g/dl Albumin (3.4-5.0) g/dl Globulin gm/dL Albumin/Globulin Ratio (1-2) Med Orders - Current: Current Medications Acetaminophen (Tylenol) 650 mg PO Q4H PRN PRN Reason: Pain (Mild 1-3)/fever Hydrocodone Bitart/Acetaminophen ([place] 325-5 Mg) 1 tab PO Q4H PRN PRN Reason: Pain Last Admin: 03/31/20 11:12 Dose: 1 tab Documented by: Clopidogrel Bisulfate (Plavix) 75 mg PO DAILY [facility] Last Admin: 03/31/20 09:30 Dose: 75 mg Documented by: Cyclobenzaprine HCl (Flexeril) 10 mg PO TID PRN PRN Reason: Muscle Spasm Last Admin: 03/30/20 15:01 Dose: 10 mg Documented by: Digoxin (Lanoxin) 125 mcg PO DAILY@1200 [facility] Last Admin: 03/31/20 11:16 Dose: 125 mcg Documented by: Furosemide (Lasix) 40 mg IVPUSH BID [facility] Insulin Glargine (Lantus) 6 unit SUBCUT BEDTIME [facility] Last Admin: 03/30/20 20:53 Dose: 6 units Documented by: Insulin Human Lispro (Humalog) 0 unit SUBCUT QIDACANDBED [facility]; Protocol Last Admin: 03/31/20 16:18 Dose: 4 units Documented by: Metoprolol Succinate (Toprol Xl) 25 mg PO BID [facility] Last Admin: 03/31/20 09:23 Dose: 25 mg Documented by: Metoprolol Succinate (Toprol Xl) 100 mg PO BID [facility] Last Admin: 03/31/20 09:31 Dose: 100 mg Documented by: Potassium Chloride (Klor-Con M20) 20 meq PO BID [facility] Last Admin: 03/31/20 09:23 Dose: 20 meq Documented by: Simvastatin (Zocor) 40 mg PO BEDTIME [facility] Last Admin: 03/30/20 20:52 Dose: 40 mg Documented by: Sodium Chloride (Saline Flush) 10 ml FLUSH ASDIRECTED PRN PRN Reason: Keep Vein Open Last Admin: 03/28/20 09:50 Dose: 10 ml Documented by: Discontinued Medications Cyclobenzaprine HCl (Flexeril) 10 mg PO ONETIME ONE Stop: 03/29/20 23:38 Last Admin: 03/29/20 23:47 Dose: 10 mg Documented by: Furosemide (Lasix) 80 mg IVPUSH NOW ONE Stop: 03/28/20 09:02 Last Admin: 03/28/20 09:50 Dose: 80 mg Documented by: Furosemide (Lasix) 40 mg IVPUSH NOW ONE Stop: 03/30/20 14:19 Last Admin: 03/30/20 15:02 Dose: 40 mg Documented by: Furosemide (Lasix) 40 mg IVPUSH NOW ONE Stop: 03/31/20 11:01 Last Admin: 03/31/20 11:12 Dose: 40 mg Documented by: Ceftriaxone Sodium 2 gm/ (Sodium Chloride) 100 mls @ 200 mls/hr IV ONETIME ONE Stop: 03/28/20 12:26 Last Admin: 03/28/20 13:38 Dose: 200 mls/hr Documented by: Furosemide 100 mg/ Sodium (Chloride) 100 mls @ 7 mls/hr IV CONTINUOUS [facility]; Protocol Last Titration: 03/30/20 05:00 Dose: 0 mg/hr, 0 mls/hr Documented by: Magnesium Sulfate 4 gm/ Premix 50 mls @ 12.5 mls/hr IV ONETIME ONE Stop: 03/29/20 11:50 Last Admin: 03/29/20 08:34 Dose: 12.5 mls/hr Documented by: - Exam Quality Assessment: No: Supplemental Oxygen General: Alert, Oriented HEENT: Pupils Equal, Mucous Membr. Moist/[place] Lungs: Normal Respiratory Effort, Crackles (Throughout both lung fischer) Cardiovascular: Regular Rate, Regular Rhythm GI/Abdominal Exam: Normal Bowel Sounds, Soft, Non-Tender, No Distention Extremities: Normal Inspection, Normal Capillary Refill, Pedal Edema (1+) Skin: Warm, Dry, Intact Psy/Mental Status: Alert, Normal Affect, Normal Mood Sepsis Event Note - Evaluation Sepsis Screening Result: No Definite Risk - Focused Exam Vital Signs: Vital Signs Temp Pulse Resp BP BP Pulse Ox 03/31/20 11:21 98.2 F 16 107/70 93 L 03/31/20 11:16 97 03/31/20 09:31 106 H 114/66 03/31/20 09:23 90 114/66 03/31/20 08:00 98.2 F 20 114/66 94 L - Problem List & Annotations (1) Acute exacerbation of CHF (congestive heart failure) SNOMED Code(s): 588214311, 35124887096836 Code(s): I50.9 - HEART FAILURE, UNSPECIFIED Status: Acute Current Visit: Yes Qualifiers: Heart failure type: systolic Qualified Code(s): I50.23 - Acute on chronic systolic (congestive) heart failure (2) Renal insufficiency SNOMED Code(s): 891109871, 325513926 Code(s): N28.9 - DISORDER OF KIDNEY AND URETER, UNSPECIFIED Status: Acute Current Visit: Yes (3) [id number] kidney injury SNOMED Code(s): 516782494 Code(s): N17.9 - ACUTE KIDNEY FAILURE, UNSPECIFIED; N18.9 - CHRONIC KIDNEY DISEASE, UNSPECIFIED Status: Acute Current Visit: No (4) UTI, Urinary tract infectious disease SNOMED Code(s): 69340866 Code(s): N39.0 - URINARY TRACT INFECTION, SITE NOT SPECIFIED Status: Acute Current Visit: No - Problem List Review Problem List Initiated/Reviewed/Updated: Yes - My Orders Last 24 Hours: My Active Orders 03/31/20 09:52 OT Evaluation and Treatment [CONS] Routine PT Evaluation and Treatment [CONS] Routine 03/31/20 21:00 Furosemide [Lasix] 40 mg IVPUSH BID - Plan Plan:: Assessment 74-year-old female with severe heart failure with decreased ejection fraction of 20% in August presented to the emergency department with worsening shortness of breath, edema, orthopnea, and PND consistent with exacerbation of CHF. Hypertension Severe aortic stenosis Likely pulmonary artery stenosis * Switch to Lasix IV pushes * Total of 10 L negative fluid balance * On home dose of metoprolol succinate 125 mg twice daily * No significant arrhythmias reported over the last 24 hours * On Eliquis 5 mg twice daily for stroke prophylaxis. * Digoxin 125 mg p.o. daily. Dig level is low at 0.5 likely secondary to missing dose prior to admission * Home medications include Lasix 60 mg in the morning and 40 mg in the evening * Admission chest x-ray shows cardiomegaly with mild vascular congestion * Admission proBNP is greater than 35,000. This has been present since at least 03/04/2020 * Follow-up BNP today was 28,533 Type 2 diabetes mellitus, insulin-dependent Diabetic nephropathy Elevated anion gap * On glargine 6 units at bedtime * Blood sugars have been poorly controlled * Metformin held * Estimated GFR 32 which is improved, creatinine 1.6, BUN 59 * Hemoglobin A1c is 7.9 * 1+ proteinuria on UA Leg cramping * Patient had an episode of leg cramping last night. She had to keep standing up and sitting down because of cramping. * She was given 10 mg of cyclobenzaprine with good results. * Also added [place] 5/325 1 tablet every 4 hours as needed pain. Plan * Changed to MedSurg status * Lasix 40 mg IV twice daily. * [place] for strict I's and O's * Continue full dose metoprolol succinate secondary to cardiac arrhythmias. * Daily weights * Increase glargine to 10 units at bedtime. Sliding scale insulin low-dose with bedside glucose monitoring 4 times daily * Routine labs in the morning * Follow electrolytes daily. * VTE prophylaxis with Eliquis * CODE STATUS: Full code
[2020-03-31] MEDS: Furosemide 40 MG/4 ML VIAL IVPUSH SCH (20:49)
[2020-03-31] MEDS: Simvastatin 40 MG Tab PO SCH (20:49)
[2020-03-31] MEDS: Cyclobenzaprine 10 MG Tab PO PRN (20:49)
[2020-03-31] MEDS ORDERED: Insulin Glarg,Human.Rec.Analog 100 Unit/ML SUBCUT SCH (21:00)
[2020-04-01] MEDS: Clopidogrel 75 MG Tab PO SCH (07:59)
[2020-04-01] MEDS: Metoprolol Succinate 25 MG Tab.ER PO SCH ×2 (07:59→20:10)
[2020-04-01] MEDS: Furosemide 40 MG/4 ML VIAL IVPUSH SCH (08:03)
[2020-04-01] MEDS: Potassium Chloride 20 MEQ Tab.ER PO SCH ×2 (08:03→20:10)
[2020-04-01] MEDS: Metoprolol Succinate 50 MG Tab.ER PO SCH ×2 (08:03→20:10)
--- NOTE | 2020-04-01 09:13 | PCM.PN ---
<Rosenda Caballero - Last Filed: 04/01/20 10:40> - General Info Date of Service: 04/01/20 Admission Dx/Problem (Free Text): Admission Diagnosis/Problem Admission Diagnosis/Problem Congestive heart failure Subjective Update: Patient states she is feeling good. She has a very good appetite, and she slept well overnight. Functional Status: Reports: Pain Controlled - Review of Systems General: Reports: No Symptoms. Denies: Fever, Chills HEENT: Reports: No Symptoms Pulmonary: Reports: No Symptoms. Denies: Shortness of Breath Cardiovascular: Reports: No Symptoms. Denies: Chest Pain Gastrointestinal: Reports: No Symptoms Genitourinary: Reports: No Symptoms Musculoskeletal: Reports: No Symptoms Skin: Reports: No Symptoms Neurological: Reports: No Symptoms Psychiatric: Reports: No Symptoms - Patient Data Vitals - Most Recent: Last Vital Signs Temp 97.5 F 04/01/20 07:26 Pulse 84 04/01/20 08:03 Resp 20 04/01/20 07:26 BP 100/47 L 04/01/20 08:03 Pulse Ox 93 L 04/01/20 07:26 Weight - Most Recent: 66.134 kg I&O - Last 24 Hours: Intake & Output 03/31/20 04/01/20 04/01/20 22:59 06:59 14:59 Intake Total 600 60 Output Total 400 550 Balance 200 -490 Lab Results Last 24 Hours: Laboratory Results - last 24 hr 03/31/20 03/31/20 03/31/20 Range/Units 08:35 11:14 16:10 WBC (3.98-10.04) K/mm3 RBC (3.98-5.22) M/mm3 Hgb (11.2-15.7) gm/dl Hct (34.1-44.9) % MCV (79.4-94.8) fl MCH (25.6-32.2) pg MCHC (32.2-35.5) g/dl RDW Std Deviation (36.4-46.3) fL Plt Count (182-369) K/mm3 MPV (9.4-12.3) fl Neut % (Auto) (34.0-71.1) % Lymph % (Auto) (19.3-51.7) % Brown % (Auto) (4.7-12.5) % Eos % (Auto) (0.7-5.8) Baso % (Auto) (0.1-1.2) % Neut # (Auto) (1.56-6.13) K/mm3 Lymph # (Auto) (1.18-3.74) K/mm3 Brown # (Auto) (0.24-0.36) K/mm3 Eos # (Auto) (0.04-0.36) K/mm3 Baso # (Auto) (0.01-0.08) K/mm3 Manual Slide Review Abnormal smear Sodium (136-145) mEq/L Potassium (3.5-5.1) mEq/L Chloride (98-107) mEq/L Carbon Dioxide (21-32) mEq/L Anion Gap (5-15) BUN (7-18) mg/dL Creatinine (0.55-1.02) mg/dL Est Cr Clr Drug Dosing mL/min Estimated GFR (MDRD) (>60) mL/min BUN/Creatinine Ratio (14-18) Glucose (83-115) mg/dL POC Glucose 234 H 334 H (83-110) mg/dL Calcium (8.5-10.1) mg/dL Magnesium (1.8-2.4) mg/dl Total Bilirubin (0.2-1.0) mg/dL AST (15-37) U/L ALT (14-59) U/L Alkaline Phosphatase (46-116) U/L NT-Pro-B Natriuret Pep (0-125) pg/mL Total Protein (6.4-8.2) g/dl Albumin (3.4-5.0) g/dl Globulin gm/dL Albumin/Globulin Ratio (1-2) 03/31/20 04/01/20 04/01/20 Range/Units 20:47 07:08 07:08 WBC 14.73 H (3.98-10.04) K/mm3 RBC 3.69 L (3.98-5.22) M/mm3 Hgb 10.2 L (11.2-15.7) gm/dl Hct 33.7 L (34.1-44.9) % MCV 91.3 (79.4-94.8) fl MCH 27.6 (25.6-32.2) pg MCHC 30.3 L (32.2-35.5) g/dl RDW Std Deviation 57.2 H (36.4-46.3) fL Plt Count 322 (182-369) K/mm3 MPV 9.2 L (9.4-12.3) fl Neut % (Auto) 69.9 (34.0-71.1) % Lymph % (Auto) 18.1 L (19.3-51.7) % Brown % (Auto) 8.2 (4.7-12.5) % Eos % (Auto) 3.4 (0.7-5.8) Baso % (Auto) 0.2 (0.1-1.2) % Neut # (Auto) 10.29 H (1.56-6.13) K/mm3 Lymph # (Auto) 2.67 (1.18-3.74) K/mm3 Brown # (Auto) 1.21 H (0.24-0.36) K/mm3 Eos # (Auto) 0.50 H (0.04-0.36) K/mm3 Baso # (Auto) 0.03 (0.01-0.08) K/mm3 Manual Slide Review Abnormal smear Sodium 134 L (136-145) mEq/L Potassium 4.3 (3.5-5.1) mEq/L Chloride 100 (98-107) mEq/L Carbon Dioxide 25 (21-32) mEq/L Anion Gap 13.3 (5-15) BUN 53 H (7-18) mg/dL Creatinine 1.6 H (0.55-1.02) mg/dL Est Cr Clr Drug Dosing 25.34 mL/min Estimated GFR (MDRD) 32 (>60) mL/min BUN/Creatinine Ratio 33.1 H (14-18) Glucose 148 H (83-115) mg/dL POC Glucose 328 H (83-110) mg/dL Calcium 9.4 (8.5-10.1) mg/dL Magnesium 2.1 (1.8-2.4) mg/dl Total Bilirubin 0.8 (0.2-1.0) mg/dL AST 16 (15-37) U/L ALT 17 (14-59) U/L Alkaline Phosphatase 94 (46-116) U/L NT-Pro-B Natriuret Pep (0-125) pg/mL Total Protein 6.5 (6.4-8.2) g/dl Albumin 2.3 L (3.4-5.0) g/dl Globulin 4.2 gm/dL Albumin/Globulin Ratio 0.6 L (1-2) 04/01/20 Range/Units 07:08 WBC (3.98-10.04) K/mm3 RBC (3.98-5.22) M/mm3 Hgb (11.2-15.7) gm/dl Hct (34.1-44.9) % MCV (79.4-94.8) fl MCH (25.6-32.2) pg MCHC (32.2-35.5) g/dl RDW Std Deviation (36.4-46.3) fL Plt Count (182-369) K/mm3 MPV (9.4-12.3) fl Neut % (Auto) (34.0-71.1) % Lymph % (Auto) (19.3-51.7) % Brown % (Auto) (4.7-12.5) % Eos % (Auto) (0.7-5.8) Baso % (Auto) (0.1-1.2) % Neut # (Auto) (1.56-6.13) K/mm3 Lymph # (Auto) (1.18-3.74) K/mm3 Brown # (Auto) (0.24-0.36) K/mm3 Eos # (Auto) (0.04-0.36) K/mm3 Baso # (Auto) (0.01-0.08) K/mm3 Manual Slide Review Sodium (136-145) mEq/L Potassium (3.5-5.1) mEq/L Chloride (98-107) mEq/L Carbon Dioxide (21-32) mEq/L Anion Gap (5-15) BUN (7-18) mg/dL Creatinine (0.55-1.02) mg/dL Est Cr Clr Drug Dosing mL/min Estimated GFR (MDRD) (>60) mL/min BUN/Creatinine Ratio (14-18) Glucose (83-115) mg/dL POC Glucose (83-110) mg/dL Calcium (8.5-10.1) mg/dL Magnesium (1.8-2.4) mg/dl Total Bilirubin (0.2-1.0) mg/dL AST (15-37) U/L ALT (14-59) U/L Alkaline Phosphatase (46-116) U/L NT-Pro-B Natriuret Pep 73319 H (0-125) pg/mL Total Protein (6.4-8.2) g/dl Albumin (3.4-5.0) g/dl Globulin gm/dL Albumin/Globulin Ratio (1-2) Med Orders - Current: Current Medications Acetaminophen (Tylenol) 650 mg PO Q4H PRN PRN Reason: Pain (Mild 1-3)/fever Hydrocodone Bitart/Acetaminophen ([place] 325-5 Mg) 1 tab PO Q4H PRN PRN Reason: Pain Last Admin: 03/31/20 20:49 Dose: 1 tab Documented by: Clopidogrel Bisulfate (Plavix) 75 mg PO DAILY [facility] Last Admin: 04/01/20 07:59 Dose: 75 mg Documented by: Cyclobenzaprine HCl (Flexeril) 10 mg PO TID PRN PRN Reason: Muscle Spasm Last Admin: 03/31/20 20:49 Dose: 10 mg Documented by: Digoxin (Lanoxin) 125 mcg PO DAILY@1200 [facility] Last Admin: 03/31/20 11:16 Dose: 125 mcg Documented by: Furosemide (Lasix) 40 mg PO 0800,1200 [facility] Insulin Glargine (Lantus) 10 unit SUBCUT BEDTIME [facility] Last Admin: 03/31/20 20:48 Dose: 10 unit Documented by: Insulin Human Lispro (Humalog) 0 unit SUBCUT QIDACANDBED [facility]; Protocol Last Admin: 04/01/20 06:03 Dose: 1 units Documented by: Lisinopril (Prinivil) 20 mg PO BID [facility] Metoprolol Succinate (Toprol Xl) 25 mg PO BID [facility] Last Admin: 04/01/20 07:59 Dose: 25 mg Documented by: Metoprolol Succinate (Toprol Xl) 100 mg PO BID [facility] Last Admin: 04/01/20 08:03 Dose: 100 mg Documented by: Potassium Chloride (Klor-Con M20) 20 meq PO BID [facility] Last Admin: 04/01/20 08:03 Dose: 20 meq Documented by: Simvastatin (Zocor) 40 mg PO BEDTIME [facility] Last Admin: 03/31/20 20:49 Dose: 40 mg Documented by: Sodium Chloride (Saline Flush) 10 ml FLUSH ASDIRECTED PRN PRN Reason: Keep Vein Open Last Admin: 03/28/20 09:50 Dose: 10 ml Documented by: Discontinued Medications Cyclobenzaprine HCl (Flexeril) 10 mg PO ONETIME ONE Stop: 03/29/20 23:38 Last Admin: 03/29/20 23:47 Dose: 10 mg Documented by: Furosemide (Lasix) 80 mg IVPUSH NOW ONE Stop: 03/28/20 09:02 Last Admin: 03/28/20 09:50 Dose: 80 mg Documented by: Furosemide (Lasix) 40 mg IVPUSH NOW ONE Stop: 03/30/20 14:19 Last Admin: 03/30/20 15:02 Dose: 40 mg Documented by: Furosemide (Lasix) 40 mg IVPUSH NOW ONE Stop: 03/31/20 11:01 Last Admin: 03/31/20 11:12 Dose: 40 mg Documented by: Furosemide (Lasix) 40 mg IVPUSH BID [facility] Last Admin: 04/01/20 08:03 Dose: 40 mg Documented by: Ceftriaxone Sodium 2 gm/ (Sodium Chloride) 100 mls @ 200 mls/hr IV ONETIME ONE Stop: 03/28/20 12:26 Last Admin: 03/28/20 13:38 Dose: 200 mls/hr Documented by: Furosemide 100 mg/ Sodium (Chloride) 100 mls @ 7 mls/hr IV CONTINUOUS [facility]; Protocol Last Titration: 03/30/20 05:00 Dose: 0 mg/hr, 0 mls/hr Documented by: Magnesium Sulfate 4 gm/ Premix 50 mls @ 12.5 mls/hr IV ONETIME ONE Stop: 03/29/20 11:50 Last Admin: 03/29/20 08:34 Dose: 12.5 mls/hr Documented by: Insulin Glargine (Lantus) 6 unit SUBCUT BEDTIME [facility] Last Admin: 03/30/20 20:53 Dose: 6 units Documented by: - Exam Quality Assessment: No: Supplemental Oxygen General: Alert, Oriented HEENT: Pupils Equal, EOMI Neck: Supple Lungs: Clear to Auscultation, Normal Respiratory Effort Cardiovascular: Regular Rate, Regular Rhythm, Murmurs (systolic) GI/Abdominal Exam: Soft, Non-Tender, No Distention Extremities: Normal Inspection, Normal Range of Motion, Non-Tender, No Pedal Edema Skin: Warm, Dry, Intact Psy/Mental Status: Alert, Normal Affect, Normal Mood Sepsis Event Note - Evaluation Sepsis Screening Result: No Definite Risk - Focused Exam Vital Signs: Vital Signs Temp Pulse Resp BP BP Pulse Ox 04/01/20 08:03 84 100/47 L 04/01/20 07:59 95 100/47 L 04/01/20 07:26 97.5 F 20 92/58 L 93 L 04/01/20 03:36 97.4 F 20 102/59 L 95 03/31/20 21:09 97.5 F 18 99/79 95 - Problem List & Annotations (1) Acute exacerbation of CHF (congestive heart failure) SNOMED Code(s): 078305393, 92199775862918 Code(s): I50.9 - HEART FAILURE, UNSPECIFIED Status: Acute Current Visit: Yes Qualifiers: Heart failure type: systolic Qualified Code(s): I50.23 - Acute on chronic systolic (congestive) heart failure (2) Renal insufficiency SNOMED Code(s): 465355485, 913920359 Code(s): N28.9 - DISORDER OF KIDNEY AND URETER, UNSPECIFIED Status: Acute Current Visit: Yes - Problem List Review Problem List Initiated/Reviewed/Updated: Yes - Plan Plan:: Assessment: 74 year old female with severe heart failure who presented to ED on 03/28 with worsening shortness of breath, edema, orthopnea, and PND consistent with exacerbation of CHF. [place] [address] on 03/29 [place] [address] today. Her creatinine is 1.6, BUN 53, GFR 32. She gained 2 lbs two days ago and gained 1.5 lb since yesterday. She has been on fluid restrictions and continues to gain weight. She has a good appetite and ate all of her meals yesterday. Has not had a BM recently. Blood sugars have not been well controlled. Plan: CHF exacerbation. Severe aortic stenosis and likely pulmonary artery stenosis. * Switched to her home oral medications - 40 mg furosemide BID * On home dose of metoprolol succinate 125 mg BID * On Eliquis 5 mg BID for stroke prophylaxis * Digoxin 125 mcg daily * Continue strict I's and O's * Daily weights * Routine labs Type 2 diabetes mellitus, insulin-dependent. Diabetic nephropathy. * On glargine 10 units at bedtime * Sliding scale insulin low-dose with bedside glucose monitoring 4 times daily * Start home lisinopril 20 mg PO BID Discharge plan. * PT/OT reassessment before discharge * Continue to monitor fluid status and weights * Possible discharge tomorrow * CODE STATUS: Full code <Hero Schulz - Last Filed: 04/03/20 05:22> - General Info Subjective Update: No overnight or acute issues. She is feeling good. No complaints this morning. She has gained > 1 lbs today. She gained 2 lbs yesterday. She is afebrile and WBC improves to 14.73. She is eating and drinking fine. - Review of Systems General: Reports: Weakness Cardiovascular: Denies: Edema Gastrointestinal: Denies: Abdominal Pain, Nausea, Vomiting Genitourinary: Denies: Retention Musculoskeletal: Denies: Joint Pain Skin: Denies: Rash Neurological: Denies: Confusion Psychiatric: Denies: Depression, Anxiety - Patient Data Vitals - Most Recent: Last Vital Signs Temp 36.4 C 04/01/20 07:26 Pulse 99 04/01/20 11:28 Resp 20 04/01/20 07:26 BP 99/64 04/01/20 09:50 Pulse Ox 93 L 04/01/20 07:26 I&O - Last 24 Hours: Intake & Output 03/31/20 04/01/20 04/01/20 22:59 06:59 14:59 Intake Total 600 60 400 Output Total 400 550 375 Balance 200 -490 25 Lab Results Last 24 Hours: Laboratory Results - last 24 hr 03/31/20 03/31/20 04/01/20 Range/Units 16:10 20:47 05:43 WBC (3.98-10.04) K/mm3 RBC (3.98-5.22) M/mm3 Hgb (11.2-15.7) gm/dl Hct (34.1-44.9) % MCV (79.4-94.8) fl MCH (25.6-32.2) pg MCHC (32.2-35.5) g/dl RDW Std Deviation (36.4-46.3) fL Plt Count (182-369) K/mm3 MPV (9.4-12.3) fl Neut % (Auto) (34.0-71.1) % Lymph % (Auto) (19.3-51.7) % Brown % (Auto) (4.7-12.5) % Eos % (Auto) (0.7-5.8) Baso % (Auto) (0.1-1.2) % Neut # (Auto) (1.56-6.13) K/mm3 Lymph # (Auto) (1.18-3.74) K/mm3 Brown # (Auto) (0.24-0.36) K/mm3 Eos # (Auto) (0.04-0.36) K/mm3 Baso # (Auto) (0.01-0.08) K/mm3 Manual Slide Review Sodium (136-145) mEq/L Potassium (3.5-5.1) mEq/L Chloride (98-107) mEq/L Carbon Dioxide (21-32) mEq/L Anion Gap (5-15) BUN (7-18) mg/dL Creatinine (0.55-1.02) mg/dL Est Cr Clr Drug Dosing mL/min Estimated GFR (MDRD) (>60) mL/min BUN/Creatinine Ratio (14-18) Glucose (83-115) mg/dL POC Glucose 334 H 328 H 160 H (83-110) mg/dL Calcium (8.5-10.1) mg/dL Magnesium (1.8-2.4) mg/dl Total Bilirubin (0.2-1.0) mg/dL AST (15-37) U/L ALT (14-59) U/L Alkaline Phosphatase (46-116) U/L NT-Pro-B Natriuret Pep (0-125) pg/mL Total Protein (6.4-8.2) g/dl Albumin (3.4-5.0) g/dl Globulin gm/dL Albumin/Globulin Ratio (1-2) 04/01/20 04/01/20 04/01/20 Range/Units 07:08 07:08 07:08 WBC 14.73 H (3.98-10.04) K/mm3 RBC 3.69 L (3.98-5.22) M/mm3 Hgb 10.2 L (11.2-15.7) gm/dl Hct 33.7 L (34.1-44.9) % MCV 91.3 (79.4-94.8) fl MCH 27.6 (25.6-32.2) pg MCHC 30.3 L (32.2-35.5) g/dl RDW Std Deviation 57.2 H (36.4-46.3) fL Plt Count 322 (182-369) K/mm3 MPV 9.2 L (9.4-12.3) fl Neut % (Auto) 69.9 (34.0-71.1) % Lymph % (Auto) 18.1 L (19.3-51.7) % Brown % (Auto) 8.2 (4.7-12.5) % Eos % (Auto) 3.4 (0.7-5.8) Baso % (Auto) 0.2 (0.1-1.2) % Neut # (Auto) 10.29 H (1.56-6.13) K/mm3 Lymph # (Auto) 2.67 (1.18-3.74) K/mm3 Brown # (Auto) 1.21 H (0.24-0.36) K/mm3 Eos # (Auto) 0.50 H (0.04-0.36) K/mm3 Baso # (Auto) 0.03 (0.01-0.08) K/mm3 Manual Slide Review Abnormal smear Sodium 134 L (136-145) mEq/L Potassium 4.3 (3.5-5.1) mEq/L Chloride 100 (98-107) mEq/L Carbon Dioxide 25 (21-32) mEq/L Anion Gap 13.3 (5-15) BUN 53 H (7-18) mg/dL Creatinine 1.6 H (0.55-1.02) mg/dL Est Cr Clr Drug Dosing 25.34 mL/min Estimated GFR (MDRD) 32 (>60) mL/min BUN/Creatinine Ratio 33.1 H (14-18) Glucose 148 H (83-115) mg/dL POC Glucose (83-110) mg/dL Calcium 9.4 (8.5-10.1) mg/dL Magnesium 2.1 (1.8-2.4) mg/dl Total Bilirubin 0.8 (0.2-1.0) mg/dL AST 16 (15-37) U/L ALT 17 (14-59) U/L Alkaline Phosphatase 94 (46-116) U/L NT-Pro-B Natriuret Pep 27637 H (0-125) pg/mL Total Protein 6.5 (6.4-8.2) g/dl Albumin 2.3 L (3.4-5.0) g/dl Globulin 4.2 gm/dL Albumin/Globulin Ratio 0.6 L (1-2) 04/01/20 Range/Units 11:21 WBC (3.98-10.04) K/mm3 RBC (3.98-5.22) M/mm3 Hgb (11.2-15.7) gm/dl Hct (34.1-44.9) % MCV (79.4-94.8) fl MCH (25.6-32.2) pg MCHC (32.2-35.5) g/dl RDW Std Deviation (36.4-46.3) fL Plt Count (182-369) K/mm3 MPV (9.4-12.3) fl Neut % (Auto) (34.0-71.1) % Lymph % (Auto) (19.3-51.7) % Brown % (Auto) (4.7-12.5) % Eos % (Auto) (0.7-5.8) Baso % (Auto) (0.1-1.2) % Neut # (Auto) (1.56-6.13) K/mm3 Lymph # (Auto) (1.18-3.74) K/mm3 Brown # (Auto) (0.24-0.36) K/mm3 Eos # (Auto) (0.04-0.36) K/mm3 Baso # (Auto) (0.01-0.08) K/mm3 Manual Slide Review Sodium (136-145) mEq/L Potassium (3.5-5.1) mEq/L Chloride (98-107) mEq/L Carbon Dioxide (21-32) mEq/L Anion Gap (5-15) BUN (7-18) mg/dL Creatinine (0.55-1.02) mg/dL Est Cr Clr Drug Dosing mL/min Estimated GFR (MDRD) (>60) mL/min BUN/Creatinine Ratio (14-18) Glucose (83-115) mg/dL POC Glucose 220 H (83-110) mg/dL Calcium (8.5-10.1) mg/dL Magnesium (1.8-2.4) mg/dl Total Bilirubin (0.2-1.0) mg/dL AST (15-37) U/L ALT (14-59) U/L Alkaline Phosphatase (46-116) U/L NT-Pro-B Natriuret Pep (0-125) pg/mL Total Protein (6.4-8.2) g/dl Albumin (3.4-5.0) g/dl Globulin gm/dL Albumin/Globulin Ratio (1-2) Med Orders - Current: Current Medications Acetaminophen (Tylenol) 650 mg PO Q4H PRN PRN Reason: Pain (Mild 1-3)/fever Hydrocodone Bitart/Acetaminophen ([place] 325-5 Mg) 1 tab PO Q4H PRN PRN Reason: Pain Last Admin: 04/01/20 09:50 Dose: 1 tab Documented by: Clopidogrel Bisulfate (Plavix) 75 mg PO DAILY [facility] Last Admin: 04/01/20 07:59 Dose: 75 mg Documented by: Cyclobenzaprine HCl (Flexeril) 10 mg PO TID PRN PRN Reason: Muscle Spasm Last Admin: 03/31/20 20:49 Dose: 10 mg Documented by: Digoxin (Lanoxin) 125 mcg PO DAILY@1200 [facility] Last Admin: 04/01/20 11:28 Dose: 125 mcg Documented by: Furosemide (Lasix) 40 mg PO 0800,1200 [facility] Last Admin: 04/01/20 11:11 Dose: Not Given Documented by: Insulin Glargine (Lantus) 10 unit SUBCUT BEDTIME [facility] Last Admin: 03/31/20 20:48 Dose: 10 unit Documented by: Insulin Human Lispro (Humalog) 0 unit SUBCUT QIDACANDBED [facility]; Protocol Last Admin: 04/01/20 11:28 Dose: 2 units Documented by: Lisinopril (Prinivil) 20 mg PO BID [facility] Last Admin: 04/01/20 09:50 Dose: 20 mg Documented by: Metoprolol Succinate (Toprol Xl) 25 mg PO BID [facility] Last Admin: 04/01/20 07:59 Dose: 25 mg Documented by: Metoprolol Succinate (Toprol Xl) 100 mg PO BID [facility] Last Admin: 04/01/20 08:03 Dose: 100 mg Documented by: Potassium Chloride (Klor-Con M20) 20 meq PO BID [facility] Last Admin: 04/01/20 08:03 Dose: 20 meq Documented by: Simvastatin (Zocor) 40 mg PO BEDTIME [facility] Last Admin: 03/31/20 20:49 Dose: 40 mg Documented by: Sodium Chloride (Saline Flush) 10 ml FLUSH ASDIRECTED PRN PRN Reason: Keep Vein Open Last Admin: 03/28/20 09:50 Dose: 10 ml Documented by: Discontinued Medications Cyclobenzaprine HCl (Flexeril) 10 mg PO ONETIME ONE Stop: 03/29/20 23:38 Last Admin: 03/29/20 23:47 Dose: 10 mg Documented by: Furosemide (Lasix) 80 mg IVPUSH NOW ONE Stop: 03/28/20 09:02 Last Admin: 03/28/20 09:50 Dose: 80 mg Documented by: Furosemide (Lasix) 40 mg IVPUSH NOW ONE Stop: 03/30/20 14:19 Last Admin: 03/30/20 15:02 Dose: 40 mg Documented by: Furosemide (Lasix) 40 mg IVPUSH NOW ONE Stop: 03/31/20 11:01 Last Admin: 03/31/20 11:12 Dose: 40 mg Documented by: Furosemide (Lasix) 40 mg IVPUSH BID [facility] Last Admin: 04/01/20 08:03 Dose: 40 mg Documented by: Ceftriaxone Sodium 2 gm/ (Sodium Chloride) 100 mls @ 200 mls/hr IV ONETIME ONE Stop: 03/28/20 12:26 Last Admin: 03/28/20 13:38 Dose: 200 mls/hr Documented by: Furosemide 100 mg/ Sodium (Chloride) 100 mls @ 7 mls/hr IV CONTINUOUS [facility]; Protocol Last Titration: 03/30/20 05:00 Dose: 0 mg/hr, 0 mls/hr Documented by: Magnesium Sulfate 4 gm/ Premix 50 mls @ 12.5 mls/hr IV ONETIME ONE Stop: 03/29/20 11:50 Last Admin: 03/29/20 08:34 Dose: 12.5 mls/hr Documented by: Insulin Glargine (Lantus) 6 unit SUBCUT BEDTIME [facility] Last Admin: 03/30/20 20:53 Dose: 6 units Documented by: Magnesium Hydroxide (Milk Of Magnesia) 30 ml PO ONETIME ONE Stop: 04/01/20 11:21 Last Admin: 04/01/20 11:28 Dose: 30 ml Documented by: - Exam Extremities: Other (weak and unsteady) Neurological: No New Focal Deficit Sepsis Event Note - Focused Exam Vital Signs: Vital Signs Temp Pulse Resp BP BP Pulse Ox 04/01/20 11:28 99 04/01/20 09:50 99/64 04/01/20 08:03 84 100/47 L 04/01/20 07:59 95 100/47 L 04/01/20 07:26 36.4 C 20 92/58 L 93 L 04/01/20 03:36 36.3 C 20 102/59 L 95 - Problem List Review Problem List Initiated/Reviewed/Updated: Yes - My Orders Last 24 Hours: My Active Orders 04/01/20 09:00 lisinopriL [Prinivil] 20 mg PO BID 04/01/20 12:00 Furosemide [Lasix] 40 mg PO 0800,1200 - Assessment Assessment:: Assessment: Acute: CHF, acute on chronic -Has underlying cardiomyopathy -ED echo 03/28/2020: EF of 25-30%. Severely decreased and global LVS function. Multiple LV regional wall motion abnormalities. Mild-Mod MVR. AoV prosthesis size of 26. There is bi-atrial dilation. -> 35K on admission now proBNP of 11K -CXR showed pulmonary vascular congestion -TSH level normal -Will switch to home dose Lasix of 40 mg po BID and Lisinopril 20 mg po BID and KCl of 20 meQ po BID -Continue AHA diet and fluid/salt restriction Hyperglycemia with DM2 -On Insulin and Metformin for maintenance medications -Metformin on hold -BS not well controlled -Will increase Lantus to 15 Units BID from 10 and change accu-check to TIDAC from QID and go up to medium intensity ISS Normocytic Hypochromic Anemia, POA -Appears to be chronic -Stable Hgb level of 10.2 grams SNEHA vs CKD -Cr 1.7 on admission; now at 1,6 -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 The assessment and plans formulated by the medical student were discussed and agreed upon with me. Please see additional information pertaining to assessment and plan. Plan: -Will adjust insulin regimen and resume home heart failure regimen -Routine AM Labs -Encourage to move and be more mobile -Additional orders as above -Continue PT/OT -LOS expect > 96 hrs needs more time for tune up; she is weak and unsteady -Fall precautions -Discharge: HHS with PT/OT
[2020-04-01] MEDS: Lisinopril 10 MG Tab PO SCH ×2 (09:50→20:09)
[2020-04-01] MEDS: Acetaminophen/HYDROcodone 325-5 MG Tab PO PRN ×2 (09:50→20:09)
[2020-04-01] MEDS: Furosemide 40 MG Tab PO SCH (11:11)
[2020-04-01] MEDS ORDERED: Magnesium Hydroxide 400 MG/5 ML Susp 30 ML Cup PO ONE (11:20)
[2020-04-01] MEDS: Digoxin 125 MCG Tab PO SCH (11:28)
[2020-04-01] MEDS ORDERED: Docusate Sodium 100 MG Cap PO PRN (15:43)
[2020-04-01] MEDS: Insulin Glarg,Human.Rec.Analog 100 Unit/ML SUBCUT SCH (20:08)
[2020-04-01] MEDS: Cyclobenzaprine 10 MG Tab PO PRN (20:09)
[2020-04-01] MEDS: Simvastatin 40 MG Tab PO SCH (20:10)
[2020-04-02] MEDS: Furosemide 40 MG Tab PO SCH ×2 (07:45→12:17)
[2020-04-02] MEDS: Metoprolol Succinate 50 MG Tab.ER PO SCH ×3 (07:47→20:25)
[2020-04-02] MEDS: Clopidogrel 75 MG Tab PO SCH ×2 (07:48→09:34)
[2020-04-02] MEDS: Lisinopril 10 MG Tab PO SCH ×3 (07:48→20:23)
[2020-04-02] MEDS: Potassium Chloride 20 MEQ Tab.ER PO SCH ×2 (08:47→20:19)
--- NOTE | 2020-04-02 09:03 | PCM.PN ---
- General Info Date of Service: 04/02/20 Admission Dx/Problem (Free Text): Admission Diagnosis/Problem Admission Diagnosis/Problem Congestive heart failure Subjective Update: Patient is feeling good and reports no pain. She had several low blood pressures overnight. She is eating and drinking well. She had a large BM yesterday. No weight gain noted. Denies chest pain, shortness of breath, and edema. She walked with PT yesterday and noted no loss of balance or dizziness. Functional Status: Reports: Pain Controlled, Tolerating Diet, Ambulating, Urinating - Review of Systems General: Reports: No Symptoms HEENT: Reports: No Symptoms Pulmonary: Reports: No Symptoms. Denies: Shortness of Breath, Cough Cardiovascular: Reports: No Symptoms. Denies: Chest Pain, Dyspnea on Exertion, Edema, Lightheadedness Gastrointestinal: Reports: No Symptoms Musculoskeletal: Reports: No Symptoms Skin: Reports: No Symptoms - Patient Data Vitals - Most Recent: Last Vital Signs Temp 97.6 F 04/02/20 04:00 Pulse 92 04/02/20 07:47 Resp 17 04/02/20 04:00 BP 116/69 04/02/20 07:48 Pulse Ox 93 L 04/02/20 04:00 Weight - Most Recent: 143 lb 12.356 oz I&O - Last 24 Hours: Intake & Output 04/01/20 04/02/20 04/02/20 22:59 06:59 14:59 Intake Total 400 Output Total 555 500 Balance -155 -500 Lab Results Last 24 Hours: Laboratory Results - last 24 hr 04/01/20 04/01/20 04/01/20 Range/Units 05:43 11:21 16:40 Sodium (136-145) mEq/L Potassium (3.5-5.1) mEq/L Chloride (98-107) mEq/L Carbon Dioxide (21-32) mEq/L Anion Gap (5-15) BUN (7-18) mg/dL Creatinine (0.55-1.02) mg/dL Est Cr Clr Drug Dosing mL/min Estimated GFR (MDRD) (>60) mL/min BUN/Creatinine Ratio (14-18) Glucose (83-115) mg/dL POC Glucose 160 H 220 H 286 H (83-110) mg/dL Calcium (8.5-10.1) mg/dL Magnesium (1.8-2.4) mg/dl NT-Pro-B Natriuret Pep (0-125) pg/mL Digoxin (0.9-2.0) ng/mL 04/01/20 04/02/20 04/02/20 Range/Units 20:07 05:07 05:08 Sodium (136-145) mEq/L Potassium (3.5-5.1) mEq/L Chloride (98-107) mEq/L Carbon Dioxide (21-32) mEq/L Anion Gap (5-15) BUN (7-18) mg/dL Creatinine (0.55-1.02) mg/dL Est Cr Clr Drug Dosing mL/min Estimated GFR (MDRD) (>60) mL/min BUN/Creatinine Ratio (14-18) Glucose (83-115) mg/dL POC Glucose 256 H 155 H (83-110) mg/dL Calcium (8.5-10.1) mg/dL Magnesium (1.8-2.4) mg/dl NT-Pro-B Natriuret Pep 9269 H (0-125) pg/mL Digoxin (0.9-2.0) ng/mL 04/02/20 04/02/20 04/02/20 Range/Units 05:08 05:08 07:44 Sodium 133 L (136-145) mEq/L Potassium 5.0 (3.5-5.1) mEq/L Chloride 101 (98-107) mEq/L Carbon Dioxide 26 (21-32) mEq/L Anion Gap 11.0 (5-15) BUN 58 H (7-18) mg/dL Creatinine 1.6 H (0.55-1.02) mg/dL Est Cr Clr Drug Dosing 25.34 mL/min Estimated GFR (MDRD) 32 (>60) mL/min BUN/Creatinine Ratio 36.3 H (14-18) Glucose 164 H (83-115) mg/dL POC Glucose 175 H (83-110) mg/dL Calcium 9.6 (8.5-10.1) mg/dL Magnesium 2.4 (1.8-2.4) mg/dl NT-Pro-B Natriuret Pep (0-125) pg/mL Digoxin 1.1 (0.9-2.0) ng/mL Med Orders - Current: Current Medications Acetaminophen (Tylenol) 650 mg PO Q4H PRN PRN Reason: Pain (Mild 1-3)/fever Hydrocodone Bitart/Acetaminophen ([place] 325-5 Mg) 1 tab PO Q4H PRN PRN Reason: Pain Last Admin: 04/01/20 20:09 Dose: 1 tab Documented by: Clopidogrel Bisulfate (Plavix) 75 mg PO DAILY [facility] Last Admin: 04/02/20 07:48 Dose: 75 mg Documented by: Cyclobenzaprine HCl (Flexeril) 10 mg PO TID PRN PRN Reason: Muscle Spasm Last Admin: 04/01/20 20:09 Dose: 10 mg Documented by: Digoxin (Lanoxin) 125 mcg PO DAILY@1200 [facility] Last Admin: 04/01/20 11:28 Dose: 125 mcg Documented by: Docusate Sodium (Colace) 100 mg PO BID PRN PRN Reason: Constipation Furosemide (Lasix) 40 mg PO 0800,1200 [facility] Last Admin: 04/02/20 07:45 Dose: 40 mg Documented by: Insulin Glargine (Lantus) 15 unit SUBCUT BID [facility] Last Admin: 04/01/20 20:08 Dose: 15 units Documented by: Insulin Human Lispro (Humalog) 0 unit SUBCUT TIDAC [facility]; Protocol Last Admin: 04/02/20 07:45 Dose: 2 units Documented by: Lisinopril (Prinivil) 20 mg PO BID [facility] Last Admin: 04/02/20 07:48 Dose: 20 mg Documented by: Metoprolol Succinate (Toprol Xl) 50 mg PO BID [facility] Last Admin: 04/02/20 07:47 Dose: 50 mg Documented by: Potassium Chloride (Klor-Con M20) 20 meq PO BID [facility] Last Admin: 04/01/20 20:10 Dose: 20 meq Documented by: Simvastatin (Zocor) 40 mg PO BEDTIME [facility] Last Admin: 04/01/20 20:10 Dose: 40 mg Documented by: Sodium Chloride (Saline Flush) 10 ml FLUSH ASDIRECTED PRN PRN Reason: Keep Vein Open Last Admin: 03/28/20 09:50 Dose: 10 ml Documented by: Discontinued Medications Cyclobenzaprine HCl (Flexeril) 10 mg PO ONETIME ONE Stop: 03/29/20 23:38 Last Admin: 03/29/20 23:47 Dose: 10 mg Documented by: Furosemide (Lasix) 80 mg IVPUSH NOW ONE Stop: 03/28/20 09:02 Last Admin: 03/28/20 09:50 Dose: 80 mg Documented by: Furosemide (Lasix) 40 mg IVPUSH NOW ONE Stop: 03/30/20 14:19 Last Admin: 03/30/20 15:02 Dose: 40 mg Documented by: Furosemide (Lasix) 40 mg IVPUSH NOW ONE Stop: 03/31/20 11:01 Last Admin: 03/31/20 11:12 Dose: 40 mg Documented by: Furosemide (Lasix) 40 mg IVPUSH BID [facility] Last Admin: 04/01/20 08:03 Dose: 40 mg Documented by: Ceftriaxone Sodium 2 gm/ (Sodium Chloride) 100 mls @ 200 mls/hr IV ONETIME ONE Stop: 03/28/20 12:26 Last Admin: 03/28/20 13:38 Dose: 200 mls/hr Documented by: Furosemide 100 mg/ Sodium (Chloride) 100 mls @ 7 mls/hr IV CONTINUOUS [facility]; Protocol Last Titration: 03/30/20 05:00 Dose: 0 mg/hr, 0 mls/hr Documented by: Magnesium Sulfate 4 gm/ Premix 50 mls @ 12.5 mls/hr IV ONETIME ONE Stop: 03/29/20 11:50 Last Admin: 03/29/20 08:34 Dose: 12.5 mls/hr Documented by: Insulin Glargine (Lantus) 6 unit SUBCUT BEDTIME [facility] Last Admin: 03/30/20 20:53 Dose: 6 units Documented by: Insulin Glargine (Lantus) 10 unit SUBCUT BEDTIME [facility] Last Admin: 03/31/20 20:48 Dose: 10 unit Documented by: Insulin Human Lispro (Humalog) 0 unit SUBCUT QIDACANDBED [facility]; Protocol Last Admin: 04/01/20 11:28 Dose: 2 units Documented by: Magnesium Hydroxide (Milk Of Magnesia) 30 ml PO ONETIME ONE Stop: 04/01/20 11:21 Last Admin: 04/01/20 11:28 Dose: 30 ml Documented by: Metoprolol Succinate (Toprol Xl) 25 mg PO BID [facility] Last Admin: 04/01/20 20:10 Dose: 25 mg Documented by: Metoprolol Succinate (Toprol Xl) 100 mg PO BID [facility] Last Admin: 04/01/20 20:10 Dose: 100 mg Documented by: - Exam General: Alert, Oriented HEENT: Pupils Equal, Pupils Reactive, EOMI, Mucous Membr. Moist/[place] Neck: Supple Lungs: Clear to Auscultation, Normal Respiratory Effort Cardiovascular: Regular Rate, Regular Rhythm, Murmurs (systolic) GI/Abdominal Exam: Soft, Non-Tender Back Exam: Normal Inspection, Full Range of Motion Extremities: Normal Inspection, Normal Range of Motion, Non-Tender, No Pedal Edema, Normal Capillary Refill Skin: Warm, Dry, Intact Neurological: No New Focal Deficit Psy/Mental Status: Alert, Normal Affect, Normal Mood Sepsis Event Note - Evaluation Sepsis Screening Result: No Definite Risk - Focused Exam Vital Signs: Vital Signs Temp Pulse Resp BP BP Pulse Ox 04/02/20 07:48 116/69 04/02/20 07:47 92 116/69 04/02/20 04:00 97.6 F 17 90/63 93 L 04/01/20 21:00 97.5 F 18 87/59 L 95 - Problem List & Annotations (1) Acute exacerbation of CHF (congestive heart failure) SNOMED Code(s): 107401362, 41687780187903 Code(s): I50.9 - HEART FAILURE, UNSPECIFIED Status: Acute Current Visit: Yes Qualifiers: Heart failure type: systolic Qualified Code(s): I50.23 - Acute on chronic systolic (congestive) heart failure (2) Renal insufficiency SNOMED Code(s): 325024807, 136924642 Code(s): N28.9 - DISORDER OF KIDNEY AND URETER, UNSPECIFIED Status: Acute Current Visit: Yes - Problem List Review Problem List Initiated/Reviewed/Updated: Yes - Assessment Assessment:: Assessment and Plan: Acute: CHF, acute on chronic. Has underlying cardiomyopathy. ED echo 03/28/2020: EF of 25-30%. Severely decreased and global LVS function. Multiple LV regional wall motion abnormalities. Mild-Mod MVR. AoV prosthesis size of 26. There is bi- atrial dilation. proBNP continues to decrease, now 9269. CXR showed pulmonary vascular congestion. She has lost 2 lbs since yesterday. * Switched to home dose Lasix of 40 mg po BID and Lisinopril 20 mg po BID and KCl of 20 meQ po BID * Continue AHA diet and fluid/salt restriction Weakness. Yesterday, walked with PT with front wheeled walker. She denies loss of balance, but is quite weak. * Encourage to move and be more mobile * Continue PT/OT * Fall precautions * Discharge plan: [facility]HS with PT/OT Hypotension. Overnight had several low blood pressures. Changed digoxin to home dose regimen, and levels are now therapeutic at 1.1. Adjusted metoprolol succinate to 50 mg BID. * Continue home dose digoxin * Continue metoprolol succinate 50 mg BID Hyperglycemia with DM2. On Insulin and Metformin for maintenance medications. Blood sugars have not been well controlled. * Continue to hold metformin * Continue with increased Lantus of 15 Units BID from 10 and change accu-check to TIDAC from QID and up to medium intensity ISS SNEHA vs CKD. Cr 1.7 on admission; now at 1.6. 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 * Continue to monitor * Routine labs Normocytic Hypochromic Anemia, POA. Appears to be chronic. Stable Hgb level of 10.2. Metabolic Acidosis, POA. Resolved. Elevated AST and Alkaline phosphatase, POA. Resolved. Hypoalbuminemia, POA. Worsening. Hyponatremia, POA. Na now 133. * Continue to monitor * Routine labs Chronic: Hypertension Dyslipidemia Severe aortic stenosis s/p bioprosthesis replacement Mild-Moderate MVR S/p AICD placement Urinary incontinence S/p left knee replacement Hx/o Arrhythmia on Digoxin
[2020-04-02] MEDS: Insulin Glarg,Human.Rec.Analog 100 Unit/ML SUBCUT SCH ×2 (09:48→20:26)
[2020-04-02] MEDS: Digoxin 125 MCG Tab PO SCH (12:17)
[2020-04-02] MEDS: Acetaminophen/HYDROcodone 325-5 MG Tab PO PRN (20:20)
[2020-04-02] MEDS: Simvastatin 40 MG Tab PO SCH (20:20)
--- NOTE | 2020-04-03 06:48 | PCM.PN ---
- General Info Date of Service: 04/03/20 Admission Dx/Problem (Free Text): Admission Diagnosis/Problem Admission Diagnosis/Problem Congestive heart failure Subjective Update: No overnight or acute issues. She has no complaints this morning. She has lost 1.5 lbs today. However her heart rate and blood pressure are not controlled[place] [address]. She reports no fever or chills. Functional Status: Reports: Pain Controlled, Tolerating Diet, Ambulating, Urinating - Review of Systems General: Reports: Weakness. Denies: Fever, Chills Pulmonary: Denies: Shortness of Breath Cardiovascular: Denies: Chest Pain, Edema Gastrointestinal: Denies: Abdominal Pain, Nausea, Vomiting Genitourinary: Denies: Incontinence Musculoskeletal: Denies: Joint Pain Skin: Denies: Rash Neurological: Reports: Difficulty Walking. Denies: Confusion, Dizziness Psychiatric: Denies: Depression, Anxiety, Hallucinations - Patient Data Vitals - Most Recent: Last Vital Signs Temp 36.5 C 04/03/20 04:00 Pulse 113 H 04/02/20 20:25 Resp 13 04/03/20 04:00 BP 106/59 L 04/03/20 04:00 Pulse Ox 99 04/03/20 04:00 Weight - Most Recent: 64.183 kg I&O - Last 24 Hours: Intake & Output 04/02/20 04/02/20 04/03/20 14:59 22:59 06:59 Intake Total 200 300 Output Total 650 1350 1085 Balance -450 -1050 -1085 Lab Results Last 24 Hours: Laboratory Results - last 24 hr 04/02/20 04/02/20 04/02/20 Range/Units 05:08 07:44 12:10 WBC (3.98-10.04) K/mm3 RBC (3.98-5.22) M/mm3 Hgb (11.2-15.7) gm/dl Hct (34.1-44.9) % MCV (79.4-94.8) fl MCH (25.6-32.2) pg MCHC (32.2-35.5) g/dl RDW Std Deviation (36.4-46.3) fL Plt Count (182-369) K/mm3 MPV (9.4-12.3) fl Neut % (Auto) (34.0-71.1) % Lymph % (Auto) (19.3-51.7) % [place] % (Auto) (4.7-12.5) % Eos % (Auto) (0.7-5.8) Baso % (Auto) (0.1-1.2) % Neut # (Auto) (1.56-6.13) K/mm3 Lymph # (Auto) (1.18-3.74) K/mm3 [place] # (Auto) (0.24-0.36) K/mm3 Eos # (Auto) (0.04-0.36) K/mm3 Baso # (Auto) (0.01-0.08) K/mm3 Sodium (136-145) mEq/L Potassium (3.5-5.1) mEq/L Chloride (98-107) mEq/L Carbon Dioxide (21-32) mEq/L Anion Gap (5-15) BUN (7-18) mg/dL Creatinine (0.55-1.02) mg/dL Est Cr Clr Drug Dosing mL/min Estimated GFR (MDRD) (>60) mL/min BUN/Creatinine Ratio (14-18) Glucose (83-115) mg/dL POC Glucose 175 H 180 H (83-110) mg/dL Calcium (8.5-10.1) mg/dL Magnesium (1.8-2.4) mg/dl Digoxin 1.1 (0.9-2.0) ng/mL 04/02/20 04/02/20 04/03/20 Range/Units 17:53 20:29 05:21 WBC (3.98-10.04) K/mm3 RBC (3.98-5.22) M/mm3 Hgb (11.2-15.7) gm/dl Hct (34.1-44.9) % MCV (79.4-94.8) fl MCH (25.6-32.2) pg MCHC (32.2-35.5) g/dl RDW Std Deviation (36.4-46.3) fL Plt Count (182-369) K/mm3 MPV (9.4-12.3) fl Neut % (Auto) (34.0-71.1) % Lymph % (Auto) (19.3-51.7) % [place] % (Auto) (4.7-12.5) % Eos % (Auto) (0.7-5.8) Baso % (Auto) (0.1-1.2) % Neut # (Auto) (1.56-6.13) K/mm3 Lymph # (Auto) (1.18-3.74) K/mm3 [place] # (Auto) (0.24-0.36) K/mm3 Eos # (Auto) (0.04-0.36) K/mm3 Baso # (Auto) (0.01-0.08) K/mm3 Sodium 136 (136-145) mEq/L Potassium 4.8 (3.5-5.1) mEq/L Chloride 100 (98-107) mEq/L Carbon Dioxide 26 (21-32) mEq/L Anion Gap 14.8 (5-15) BUN 53 H (7-18) mg/dL Creatinine 1.5 H (0.55-1.02) mg/dL Est Cr Clr Drug Dosing 27.02 mL/min Estimated GFR (MDRD) 34 (>60) mL/min BUN/Creatinine Ratio 35.3 H (14-18) Glucose 131 H (83-115) mg/dL POC Glucose 198 H 190 H (83-110) mg/dL Calcium 9.9 (8.5-10.1) mg/dL Magnesium 2.2 (1.8-2.4) mg/dl Digoxin (0.9-2.0) ng/mL 04/03/20 04/03/20 Range/Units 05:21 06:27 WBC 11.56 H (3.98-10.04) K/mm3 RBC 4.02 (3.98-5.22) M/mm3 Hgb 11.2 (11.2-15.7) gm/dl Hct 36.5 (34.1-44.9) % MCV 90.8 (79.4-94.8) fl MCH 27.9 (25.6-32.2) pg MCHC 30.7 L (32.2-35.5) g/dl RDW Std Deviation 55.4 H (36.4-46.3) fL Plt Count 358 (182-369) K/mm3 MPV 9.7 (9.4-12.3) fl Neut % (Auto) 60.5 (34.0-71.1) % Lymph % (Auto) 24.1 (19.3-51.7) % [place] % (Auto) 7.7 (4.7-12.5) % Eos % (Auto) 7.1 H (0.7-5.8) Baso % (Auto) 0.3 (0.1-1.2) % Neut # (Auto) 6.99 H (1.56-6.13) K/mm3 Lymph # (Auto) 2.79 (1.18-3.74) K/mm3 [place] # (Auto) 0.89 H (0.24-0.36) K/mm3 Eos # (Auto) 0.82 H (0.04-0.36) K/mm3 Baso # (Auto) 0.04 (0.01-0.08) K/mm3 Sodium (136-145) mEq/L Potassium (3.5-5.1) mEq/L Chloride (98-107) mEq/L Carbon Dioxide (21-32) mEq/L Anion Gap (5-15) BUN (7-18) mg/dL Creatinine (0.55-1.02) mg/dL Est Cr Clr Drug Dosing mL/min Estimated GFR (MDRD) (>60) mL/min BUN/Creatinine Ratio (14-18) Glucose (83-115) mg/dL POC Glucose 128 H (83-110) mg/dL Calcium (8.5-10.1) mg/dL Magnesium (1.8-2.4) mg/dl Digoxin (0.9-2.0) ng/mL Med Orders - Current: Current Medications Acetaminophen (Tylenol) 650 mg PO Q4H PRN PRN Reason: Pain (Mild 1-3)/fever Hydrocodone Bitart/Acetaminophen ([place] 325-5 Mg) 1 tab PO Q4H PRN PRN Reason: Pain Last Admin: 04/02/20 20:20 Dose: 1 tab Documented by: Clopidogrel Bisulfate (Plavix) 75 mg PO DAILY [facility] Last Admin: 04/02/20 09:34 Dose: Not Given Documented by: Cyclobenzaprine HCl (Flexeril) 10 mg PO TID PRN PRN Reason: Muscle Spasm Last Admin: 04/01/20 20:09 Dose: 10 mg Documented by: Digoxin (Lanoxin) 125 mcg PO DAILY@1200 [facility] Last Admin: 04/02/20 12:17 Dose: 125 mcg Documented by: Docusate Sodium (Colace) 100 mg PO BID PRN PRN Reason: Constipation Furosemide (Lasix) 40 mg PO 0800,1200 [facility] Last Admin: 04/02/20 12:17 Dose: 40 mg Documented by: Insulin Glargine (Lantus) 15 unit SUBCUT BID [facility] Last Admin: 04/02/20 20:26 Dose: 15 units Documented by: Insulin Human Lispro (Humalog) 0 unit SUBCUT TIDAC [facility]; Protocol Last Admin: 04/02/20 18:03 Dose: 2 units Documented by: Lisinopril (Prinivil) 20 mg PO BID [facility] Last Admin: 04/02/20 20:23 Dose: 20 mg Documented by: Metoprolol Succinate (Toprol Xl) 50 mg PO BID [facility] Last Admin: 04/02/20 20:25 Dose: 50 mg Documented by: Potassium Chloride (Klor-Con M20) 20 meq PO BID [facility] Last Admin: 04/02/20 20:19 Dose: 20 meq Documented by: Simvastatin (Zocor) 40 mg PO BEDTIME [facility] Last Admin: 04/02/20 20:20 Dose: 40 mg Documented by: Sodium Chloride (Saline Flush) 10 ml FLUSH ASDIRECTED PRN PRN Reason: Keep Vein Open Last Admin: 03/28/20 09:50 Dose: 10 ml Documented by: Discontinued Medications Cyclobenzaprine HCl (Flexeril) 10 mg PO ONETIME ONE Stop: 03/29/20 23:38 Last Admin: 03/29/20 23:47 Dose: 10 mg Documented by: Furosemide (Lasix) 80 mg IVPUSH NOW ONE Stop: 03/28/20 09:02 Last Admin: 03/28/20 09:50 Dose: 80 mg Documented by: Furosemide (Lasix) 40 mg IVPUSH NOW ONE Stop: 03/30/20 14:19 Last Admin: 03/30/20 15:02 Dose: 40 mg Documented by: Furosemide (Lasix) 40 mg IVPUSH NOW ONE Stop: 03/31/20 11:01 Last Admin: 03/31/20 11:12 Dose: 40 mg Documented by: Furosemide (Lasix) 40 mg IVPUSH BID [facility] Last Admin: 04/01/20 08:03 Dose: 40 mg Documented by: Ceftriaxone Sodium 2 gm/ (Sodium Chloride) 100 mls @ 200 mls/hr IV ONETIME ONE Stop: 03/28/20 12:26 Last Admin: 03/28/20 13:38 Dose: 200 mls/hr Documented by: Furosemide 100 mg/ Sodium (Chloride) 100 mls @ 7 mls/hr IV CONTINUOUS [facility]; Protocol Last Titration: 03/30/20 05:00 Dose: 0 mg/hr, 0 mls/hr Documented by: Magnesium Sulfate 4 gm/ Premix 50 mls @ 12.5 mls/hr IV ONETIME ONE Stop: 03/29/20 11:50 Last Admin: 03/29/20 08:34 Dose: 12.5 mls/hr Documented by: Insulin Glargine (Lantus) 6 unit SUBCUT BEDTIME [facility] Last Admin: 03/30/20 20:53 Dose: 6 units Documented by: Insulin Glargine (Lantus) 10 unit SUBCUT BEDTIME [facility] Last Admin: 03/31/20 20:48 Dose: 10 unit Documented by: Insulin Human Lispro (Humalog) 0 unit SUBCUT QIDACANDBED [facility]; Protocol Last Admin: 04/01/20 11:28 Dose: 2 units Documented by: Magnesium Hydroxide (Milk Of Magnesia) 30 ml PO ONETIME ONE Stop: 04/01/20 11:21 Last Admin: 04/01/20 11:28 Dose: 30 ml Documented by: Metoprolol Succinate (Toprol Xl) 25 mg PO BID [facility] Last Admin: 04/01/20 20:10 Dose: 25 mg Documented by: Metoprolol Succinate (Toprol Xl) 100 mg PO BID [facility] Last Admin: 04/01/20 20:10 Dose: 100 mg Documented by: - Exam Quality Assessment: No: Supplemental Oxygen General: Alert, Oriented, Cooperative, No Acute Distress HEENT: Pupils Equal, Pupils Reactive, EOMI, Mucous Membr. Moist/[place] Neck: Supple Lungs: Normal Respiratory Effort, Crackles Cardiovascular: Irregular Rhythm GI/Abdominal Exam: Normal Bowel Sounds, Soft, Non-Tender, No Organomegaly, No Distention, No Abnormal Bruit (Female) Exam: Deferred Back Exam: Normal Inspection, Full Range of Motion Extremities: Normal Inspection, Normal Range of Motion, Non-Tender, No Pedal Edema, Normal Capillary Refill Peripheral Pulses: 2+: Dorsalis Pedis (L), Dorsalis Pedis (R) Skin: Warm, Dry, Intact Neurological: No New Focal Deficit Psy/Mental Status: Alert, Normal Affect, Normal Mood Sepsis Event Note - Evaluation Sepsis Screening Result: No Definite Risk - Focused Exam Vital Signs: Vital Signs Temp Pulse Resp BP BP Pulse Ox 04/03/20 04:00 36.5 C 13 106/59 L 99 04/02/20 22:00 37.0 C 14 108/55 L 95 04/02/20 20:25 113 H 108/55 L 04/02/20 20:23 108/55 L - Problem List Review Problem List Initiated/Reviewed/Updated: Yes - My Orders Last 24 Hours: My Active Orders 04/02/20 09:00 Metoprolol Succinate [Toprol XL] 50 mg PO BID 04/03/20 05:21 PRO B-TYPE NATRIUR PEPT,BNPPRO [CHEM] Routine - Assessment Assessment:: Assessment: Acute: CHF, acute on chronic, Stable -Has underlying cardiomyopathy -ED echo 03/28/2020: EF of 25-30%. Severely decreased and global LVS function. Multiple LV regional wall motion abnormalities. Mild-Mod MVR. AoV prosthesis size of 26. There is bi-atrial dilation. -> 35K on admission now proBNP of 13K -CXR showed pulmonary vascular congestion -TSH level normal -Will switch to home dose Lasix of 40 mg po BID and Lisinopril 20 mg po BID and KCl of 20 meQ po BID -Continue AHA diet and fluid/salt restriction Hyperglycemia with DM2, Improved -On Insulin and Metformin for maintenance medications -Metformin on hold -BS not well controlled -Continue Lantus to 15 units SubQ BID and accu-check to TIDAC Accelerated/malignant HTN -She is on Lasix and Lisinopril for maintenance medications -PRN hydralazine Q6H for BP > 150/90 mmHg Normocytic Hypochromic Anemia, POA -Appears to be chronic -Stable Hgb level of 10.2 grams SNEHA vs CKD -Cr 1.7 on admission; now at 1.5 -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 -Will monitor Metabolic Acidosis, POA, now resolved -Likely 2/2 SNEHA vs CKD Elevated AST, POA, now resolved Elavated Alkaline Phosphatase, POA, now resolved Hypoalbuminemia, POA, worsening Hyponatremia, POA, Na now 134 -Continue to monitor Subtherapeutic Digoxin -Continue home dose digoxin Leukocytosis, POA, WBC now 11.56, improving Hx/o Afib on Metoprolol/Digoxin and Eliquis -She has been in RVR with HR as high as 130s -Digoxin level at therapeutic range -Adjust Metoprolol dose -May consider anti-arrhythmic agent if no response to beta radha Chronic: Hypertension Dyslipidemia Severe aortic stenosis s/p bioprosthesis replacement Mild-Moderate MVR S/p AICD placement Urinary incontinence S/p left knee replacement Hx/o Arrhythmia on Digoxin - Plan Plan:: Plan: -Routine AM Labs -Need to weak her pressure and heart rate -Encourage to move and be more mobile -Additional orders as above -Continue PT/OT -LOS expect > 96 hrs needs more time for tune up; she is weak and unsteady -PRN IV Hydralazine and Metoprolol for elevated BP and rate control -Fall precautions -Due to generalized weakness and unsteadiness-she agreed to go rehab -Possible discharge tomorrow to [facility]
[2020-04-03] MEDS: Furosemide 40 MG Tab PO SCH ×2 (08:19→12:37)
[2020-04-03] MEDS: Lisinopril 20 MG Tab PO SCH ×2 (08:20→20:36)
[2020-04-03] MEDS: Metoprolol Succinate 50 MG Tab.ER PO SCH (08:20)
[2020-04-03] MEDS: Clopidogrel 75 MG Tab PO SCH (08:20)
[2020-04-03] MEDS: Potassium Chloride 20 MEQ Tab.ER PO SCH ×2 (08:21→20:35)
[2020-04-03] MEDS: Insulin Glarg,Human.Rec.Analog 100 Unit/ML SUBCUT SCH ×2 (08:21→20:36)
[2020-04-03] MEDS: Digoxin 125 MCG Tab PO SCH (09:53)
[2020-04-03] MEDS ORDERED: Metoprolol Tartrate 5 MG/5 ML SDV IVPUSH ONE (10:02)
[2020-04-03] MEDS ORDERED: hydrALAZINE 20 MG/ML SDV IVPUSH PRN (10:03)
[2020-04-03] MEDS: Apixaban 5 MG Tab PO SCH ×2 (13:16→20:35)
[2020-04-03] MEDS: Metoprolol Succinate 25 MG Tab.ER PO SCH (20:33)
[2020-04-03] MEDS: Simvastatin 40 MG Tab PO SCH (20:35)
[2020-04-03] MEDS: Metoprolol Tartrate 5 MG/5 ML SDV IVPUSH PRN (22:09)
[2020-04-04] MEDS: Lisinopril 20 MG Tab PO SCH ×2 (08:07→20:04)
[2020-04-04] MEDS: Digoxin 125 MCG Tab PO SCH (08:07)
[2020-04-04] MEDS: Apixaban 5 MG Tab PO SCH ×2 (08:08→20:03)
[2020-04-04] MEDS: Clopidogrel 75 MG Tab PO SCH (08:09)
[2020-04-04] MEDS: Furosemide 40 MG Tab PO SCH ×2 (08:09→12:00)
[2020-04-04] MEDS: Metoprolol Succinate 25 MG Tab.ER PO SCH ×2 (08:10→20:05)
[2020-04-04] MEDS: Potassium Chloride 20 MEQ Tab.ER PO SCH ×2 (08:10→20:04)
[2020-04-04] MEDS: Insulin Glarg,Human.Rec.Analog 100 Unit/ML SUBCUT SCH ×2 (08:12→20:06)
--- NOTE | 2020-04-04 16:37 | PCM.PN ---
<Kristy Tom - Last Filed: 04/04/20 16:40> - General Info Date of Service: 04/04/20 Admission Dx/Problem (Free Text): Admission Diagnosis/Problem Admission Diagnosis/Problem Congestive heart failure Subjective Update: 04/03 No overnight or acute issues. She has no complaints this morning. She has lost 1.5 lbs today. However her heart rate and blood pressure are not controlled[place] [address] She reports no fever or chills. 04/04: Patient had uneventful night. She states she is feeling well. She lost 1 lb today. Blood pressure is now well controlled and stable. She has been tachycardic [place] [address] and will be rechecked in the AM. Patient reports weakness but no fevers/chills. Patient denies any shortness of breath. Functional Status: Reports: Pain Controlled - Review of Systems General: Reports: Weakness HEENT: Reports: No Symptoms Pulmonary: Reports: No Symptoms Cardiovascular: Reports: No Symptoms Gastrointestinal: Reports: No Symptoms Genitourinary: Reports: No Symptoms Musculoskeletal: Reports: No Symptoms Skin: Reports: No Symptoms Neurological: Reports: No Symptoms Psychiatric: Reports: No Symptoms - Patient Data Vitals - Most Recent: Last Vital Signs Temp 97.0 F 04/04/20 10:00 Pulse 105 H 04/04/20 10:00 Resp 16 04/04/20 10:00 BP 112/67 04/04/20 10:00 Pulse Ox 96 04/04/20 10:00 Weight - Most Recent: 63.866 kg I&O - Last 24 Hours: Intake & Output 04/04/20 04/04/20 04/04/20 06:59 14:59 22:59 Intake Total 45 320 Output Total 1640 500 400 Balance -1595 -180 -400 Lab Results Last 24 Hours: Laboratory Results - last 24 hr 04/03/20 04/03/20 04/04/20 Range/Units 18:09 20:40 06:44 POC Glucose 196 H 225 H 179 H (83-110) mg/dL 04/04/20 Range/Units 11:25 POC Glucose 190 H (83-110) mg/dL Med Orders - Current: Current Medications Acetaminophen (Tylenol) 650 mg PO Q4H PRN PRN Reason: Pain (Mild 1-3)/fever Hydrocodone Bitart/Acetaminophen ([place] 325-5 Mg) 1 tab PO Q4H PRN PRN Reason: Pain Last Admin: 04/02/20 20:20 Dose: 1 tab Documented by: Apixaban (Eliquis) 5 mg PO BID [facility] Last Admin: 04/04/20 08:08 Dose: 5 mg Documented by: Clopidogrel Bisulfate (Plavix) 75 mg PO DAILY [facility] Last Admin: 04/04/20 08:09 Dose: 75 mg Documented by: Cyclobenzaprine HCl (Flexeril) 10 mg PO TID PRN PRN Reason: Muscle Spasm Last Admin: 04/01/20 20:09 Dose: 10 mg Documented by: Digoxin (Lanoxin) 125 mcg PO DAILY [facility] Last Admin: 04/04/20 08:07 Dose: 125 mcg Documented by: Docusate Sodium (Colace) 100 mg PO BID PRN PRN Reason: Constipation Furosemide (Lasix) 40 mg PO 0800,1200 [facility] Last Admin: 04/04/20 12:00 Dose: 40 mg Documented by: Hydralazine HCl (Apresoline) 15 mg IVPUSH Q4H PRN PRN Reason: Hypertension Insulin Glargine (Lantus) 20 unit SUBCUT BID [facility] Insulin Human Lispro (Humalog) 4 unit SUBCUT TIDAC [facility]; Protocol Lisinopril (Prinivil) 20 mg PO BID [facility] Last Admin: 04/04/20 08:07 Dose: 20 mg Documented by: Metoprolol Succinate (Toprol Xl) 75 mg PO BID [facility] Last Admin: 04/04/20 08:10 Dose: 75 mg Documented by: Metoprolol Tartrate (Lopressor) 5 mg IVPUSH Q4H PRN PRN Reason: Heart rate greater than 110 Last Admin: 04/03/20 22:09 Dose: 5 mg Documented by: Potassium Chloride (Klor-Con M20) 20 meq PO BID [facility] Last Admin: 04/04/20 08:10 Dose: 20 meq Documented by: Simvastatin (Zocor) 40 mg PO BEDTIME [facility] Last Admin: 04/03/20 20:35 Dose: 40 mg Documented by: Sodium Chloride (Saline Flush) 10 ml FLUSH ASDIRECTED PRN PRN Reason: Keep Vein Open Last Admin: 03/28/20 09:50 Dose: 10 ml Documented by: Discontinued Medications Cyclobenzaprine HCl (Flexeril) 10 mg PO ONETIME ONE Stop: 03/29/20 23:38 Last Admin: 03/29/20 23:47 Dose: 10 mg Documented by: Digoxin (Lanoxin) 125 mcg PO DAILY@1200 ОЛЬГА Last Admin: 04/02/20 12:17 Dose: 125 mcg Documented by: Furosemide (Lasix) 80 mg IVPUSH NOW ONE Stop: 03/28/20 09:02 Last Admin: 03/28/20 09:50 Dose: 80 mg Documented by: Furosemide (Lasix) 40 mg IVPUSH NOW ONE Stop: 03/30/20 14:19 Last Admin: 03/30/20 15:02 Dose: 40 mg Documented by: Furosemide (Lasix) 40 mg IVPUSH NOW ONE Stop: 03/31/20 11:01 Last Admin: 03/31/20 11:12 Dose: 40 mg Documented by: Furosemide (Lasix) 40 mg IVPUSH BID [facility] Last Admin: 04/01/20 08:03 Dose: 40 mg Documented by: Ceftriaxone Sodium 2 gm/ (Sodium Chloride) 100 mls @ 200 mls/hr IV ONETIME ONE Stop: 03/28/20 12:26 Last Admin: 03/28/20 13:38 Dose: 200 mls/hr Documented by: Furosemide 100 mg/ Sodium (Chloride) 100 mls @ 7 mls/hr IV CONTINUOUS ОЛЬГА; Protocol Last Titration: 03/30/20 05:00 Dose: 0 mg/hr, 0 mls/hr Documented by: Magnesium Sulfate 4 gm/ Premix 50 mls @ 12.5 mls/hr IV ONETIME ONE Stop: 03/29/20 11:50 Last Admin: 03/29/20 08:34 Dose: 12.5 mls/hr Documented by: Insulin Glargine (Lantus) 6 unit SUBCUT BEDTIME [facility] Last Admin: 03/30/20 20:53 Dose: 6 units Documented by: Insulin Glargine (Lantus) 10 unit SUBCUT BEDTIME [facility] Last Admin: 03/31/20 20:48 Dose: 10 unit Documented by: Insulin Glargine (Lantus) 15 unit SUBCUT BID [facility] Last Admin: 04/04/20 08:12 Dose: 15 units Documented by: Insulin Human Lispro (Humalog) 0 unit SUBCUT QIDACANDBED [facility]; Protocol Last Admin: 04/01/20 11:28 Dose: 2 units Documented by: Insulin Human Lispro (Humalog) 0 unit SUBCUT TIDAC [facility]; Protocol Last Admin: 04/04/20 11:30 Dose: 2 units Documented by: Insulin Human Lispro (Humalog) 100 unit .ROUTE .STK-MED ONE Stop: 03/28/20 21:26 Lisinopril (Prinivil) 20 mg PO BID [facility] Last Admin: 04/02/20 20:23 Dose: 20 mg Documented by: Magnesium Hydroxide (Milk Of Magnesia) 30 ml PO ONETIME ONE Stop: 04/01/20 11:21 Last Admin: 04/01/20 11:28 Dose: 30 ml Documented by: Metoprolol Succinate (Toprol Xl) 25 mg PO BID [facility] Last Admin: 04/01/20 20:10 Dose: 25 mg Documented by: Metoprolol Succinate (Toprol Xl) 100 mg PO BID [facility] Last Admin: 04/01/20 20:10 Dose: 100 mg Documented by: Metoprolol Succinate (Toprol Xl) 50 mg PO BID [facility] Last Admin: 04/03/20 08:20 Dose: 50 mg Documented by: Metoprolol Tartrate (Lopressor) 5 mg IVPUSH ONETIME ONE Stop: 04/03/20 10:03 Last Admin: 04/03/20 11:20 Dose: Not Given Documented by: - Exam General: Alert, Oriented HEENT: Pupils Equal, Pupils Reactive, EOMI, Mucous Membr. Moist/[place] Neck: Supple Lungs: Normal Respiratory Effort, Crackles Cardiovascular: Irregular Rhythm, Tachycardia GI/Abdominal Exam: Normal Bowel Sounds, Soft (Female) Exam: Deferred Back Exam: Normal Inspection, Full Range of Motion Extremities: Normal Inspection, Normal Range of Motion Skin: Warm, Dry, Intact Psy/Mental Status: Alert, Normal Affect, Normal Mood Sepsis Event Note - Evaluation Sepsis Screening Result: No Definite Risk - Focused Exam Vital Signs: Vital Signs Temp Pulse Pulse Resp BP BP Pulse Ox 04/04/20 10:00 97.0 F 105 H 16 112/67 96 04/04/20 08:10 110 H 112/67 04/04/20 08:07 110 H 112/67 - Assessment Assessment:: Assessment: Acute: CHF, acute on chronic, Stable -Has underlying cardiomyopathy -ED echo 03/28/2020: EF of 25-30%. Severely decreased and global LVS function. Multiple LV regional wall motion abnormalities. Mild-Mod MVR. AoV prosthesis size of 26. There is bi-atrial dilation. -> 35K on admission now proBNP of 13K -CXR showed pulmonary vascular congestion -TSH level normal -Will switch to home dose Lasix of 40 mg po BID and Lisinopril 20 mg po BID and KCl of 20 meQ po BID -Continue AHA diet and fluid/salt restriction Hyperglycemia with DM2, Improved -On Insulin and Metformin for maintenance medications -Metformin on hold -BS not well controlled -Continue Lantus to 15 units SubQ BID and accu-check to TIDAC Accelerated/malignant HTN -She is on Lasix and Lisinopril for maintenance medications -PRN hydralazine Q6H for BP > 150/90 mmHg Normocytic Hypochromic Anemia, POA -Appears to be chronic -Stable Hgb level of 10.2 grams SNEHA vs CKD -Cr 1.7 on admission; now at 1.5 -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 -Will monitor Metabolic Acidosis, POA, now resolved -Likely 2/2 SNEHA vs CKD Elevated AST, POA, now resolved Elavated Alkaline Phosphatase, POA, now resolved Hypoalbuminemia, POA, worsening Hyponatremia, POA, Na now 134 -Continue to monitor Subtherapeutic Digoxin -Continue home dose digoxin Leukocytosis, POA, WBC now 11.56, improving Chronic: Hypertension Dyslipidemia Severe aortic stenosis s/p bioprosthesis replacement Mild-Moderate MVR S/p AICD placement Urinary incontinence S/p left knee replacement Hx/o Arrhythmia on Digoxin - Plan Plan:: Plan: -Routine AM Labs -Need to weak her pressure and heart rate -Encourage to move and be more mobile -Additional orders as above -Continue PT/OT -LOS expect > 96 hrs needs more time for tune up; she is weak and unsteady -PRN IV Hydralazine and Metoprolol for elevated BP and rate control -Fall precautions -Due to generalized weakness and unsteadiness-she agreed to go rehab -Possible discharge tomorrow to [facility] <Dave Dickey - Last Filed: 04/05/20 12:02> - Patient Data Vitals - Most Recent: Last Vital Signs Temp 36.4 C 04/05/20 10:00 Pulse 94 04/05/20 10:00 Resp 17 04/05/20 10:00 BP 102/70 04/05/20 10:00 Pulse Ox 100 04/05/20 10:00 I&O - Last 24 Hours: Intake & Output 04/04/20 04/05/20 04/05/20 22:59 06:59 14:59 Intake Total 300 300 Output Total 1100 150 Balance -1100 150 300 Lab Results Last 24 Hours: Laboratory Results - last 24 hr 04/04/20 04/04/20 04/04/20 Range/Units 11:25 16:42 19:53 WBC (3.98-10.04) K/mm3 RBC (3.98-5.22) M/mm3 Hgb (11.2-15.7) gm/dl Hct (34.1-44.9) % MCV (79.4-94.8) fl MCH (25.6-32.2) pg MCHC (32.2-35.5) g/dl RDW Std Deviation (36.4-46.3) fL Plt Count (182-369) K/mm3 MPV (9.4-12.3) fl Neut % (Auto) (34.0-71.1) % Lymph % (Auto) (19.3-51.7) % Terrell % (Auto) (4.7-12.5) % Eos % (Auto) (0.7-5.8) Baso % (Auto) (0.1-1.2) % Neut # (Auto) (1.56-6.13) K/mm3 Lymph # (Auto) (1.18-3.74) K/mm3 Terrell # (Auto) (0.24-0.36) K/mm3 Eos # (Auto) (0.04-0.36) K/mm3 Baso # (Auto) (0.01-0.08) K/mm3 Sodium (136-145) mEq/L Potassium (3.5-5.1) mEq/L Chloride (98-107) mEq/L Carbon Dioxide (21-32) mEq/L Anion Gap (5-15) BUN (7-18) mg/dL Creatinine (0.55-1.02) mg/dL Est Cr Clr Drug Dosing mL/min Estimated GFR (MDRD) (>60) mL/min BUN/Creatinine Ratio (14-18) Glucose (83-115) mg/dL POC Glucose 190 H 186 H 153 H (83-110) mg/dL Calcium (8.5-10.1) mg/dL NT-Pro-B Natriuret Pep (0-125) pg/mL Digoxin (0.9-2.0) ng/mL 04/05/20 04/05/20 04/05/20 Range/Units 05:15 05:15 05:15 WBC 11.43 H (3.98-10.04) K/mm3 RBC 4.28 (3.98-5.22) M/mm3 Hgb 11.8 (11.2-15.7) gm/dl Hct 38.7 (34.1-44.9) % MCV 90.4 (79.4-94.8) fl MCH 27.6 (25.6-32.2) pg MCHC 30.5 L (32.2-35.5) g/dl RDW Std Deviation 54.3 H (36.4-46.3) fL Plt Count 414 H (182-369) K/mm3 MPV 9.9 (9.4-12.3) fl Neut % (Auto) 62.4 (34.0-71.1) % Lymph % (Auto) 21.3 (19.3-51.7) % Terrell % (Auto) 9.6 (4.7-12.5) % Eos % (Auto) 6.0 H (0.7-5.8) Baso % (Auto) 0.3 (0.1-1.2) % Neut # (Auto) 7.11 H (1.56-6.13) K/mm3 Lymph # (Auto) 2.44 (1.18-3.74) K/mm3 Terrell # (Auto) 1.10 H (0.24-0.36) K/mm3 Eos # (Auto) 0.69 H (0.04-0.36) K/mm3 Baso # (Auto) 0.04 (0.01-0.08) K/mm3 Sodium (136-145) mEq/L Potassium (3.5-5.1) mEq/L Chloride (98-107) mEq/L Carbon Dioxide (21-32) mEq/L Anion Gap (5-15) BUN (7-18) mg/dL Creatinine (0.55-1.02) mg/dL Est Cr Clr Drug Dosing mL/min Estimated GFR (MDRD) (>60) mL/min BUN/Creatinine Ratio (14-18) Glucose (83-115) mg/dL POC Glucose (83-110) mg/dL Calcium (8.5-10.1) mg/dL NT-Pro-B Natriuret Pep 98043 H (0-125) pg/mL Digoxin 1.0 (0.9-2.0) ng/mL 04/05/20 04/05/20 Range/Units 05:15 06:20 WBC (3.98-10.04) K/mm3 RBC (3.98-5.22) M/mm3 Hgb (11.2-15.7) gm/dl Hct (34.1-44.9) % MCV (79.4-94.8) fl MCH (25.6-32.2) pg MCHC (32.2-35.5) g/dl RDW Std Deviation (36.4-46.3) fL Plt Count (182-369) K/mm3 MPV (9.4-12.3) fl Neut % (Auto) (34.0-71.1) % Lymph % (Auto) (19.3-51.7) % Terrell % (Auto) (4.7-12.5) % Eos % (Auto) (0.7-5.8) Baso % (Auto) (0.1-1.2) % Neut # (Auto) (1.56-6.13) K/mm3 Lymph # (Auto) (1.18-3.74) K/mm3 Terrell # (Auto) (0.24-0.36) K/mm3 Eos # (Auto) (0.04-0.36) K/mm3 Baso # (Auto) (0.01-0.08) K/mm3 Sodium 136 (136-145) mEq/L Potassium 4.4 (3.5-5.1) mEq/L Chloride 101 (98-107) mEq/L Carbon Dioxide 26 (21-32) mEq/L Anion Gap 13.4 (5-15) BUN 56 H (7-18) mg/dL Creatinine 1.4 H (0.55-1.02) mg/dL Est Cr Clr Drug Dosing 28.95 mL/min Estimated GFR (MDRD) 37 (>60) mL/min BUN/Creatinine Ratio 40.0 H (14-18) Glucose 146 H (83-115) mg/dL POC Glucose 139 H (83-110) mg/dL Calcium 10.0 (8.5-10.1) mg/dL NT-Pro-B Natriuret Pep (0-125) pg/mL Digoxin (0.9-2.0) ng/mL Med Orders - Current: Current Medications Acetaminophen (Tylenol) 650 mg PO Q4H PRN PRN Reason: Pain (Mild 1-3)/fever Hydrocodone Bitart/Acetaminophen ([place] 325-5 Mg) 1 tab PO Q4H PRN PRN Reason: Pain Last Admin: 04/02/20 20:20 Dose: 1 tab Documented by: Apixaban (Eliquis) 5 mg PO BID [facility] Last Admin: 04/05/20 08:12 Dose: 5 mg Documented by: Clopidogrel Bisulfate (Plavix) 75 mg PO DAILY [facility] Last Admin: 04/05/20 08:12 Dose: 75 mg Documented by: Cyclobenzaprine HCl (Flexeril) 10 mg PO TID PRN PRN Reason: Muscle Spasm Last Admin: 04/01/20 20:09 Dose: 10 mg Documented by: Digoxin (Lanoxin) 125 mcg PO DAILY [facility] Last Admin: 04/05/20 08:08 Dose: 125 mcg Documented by: Docusate Sodium (Colace) 100 mg PO BID PRN PRN Reason: Constipation Furosemide (Lasix) 40 mg PO 0800,1200 [facility] Last Admin: 04/05/20 08:13 Dose: 40 mg Documented by: Insulin Glargine (Lantus) 20 unit SUBCUT BID [facility] Last Admin: 04/05/20 08:05 Dose: 20 units Documented by: Insulin Human Lispro (Humalog) 5 unit SUBCUT TIDAC [facility] Insulin Human Lispro (Humalog) 0 unit SUBCUT TIDAC [facility] Lisinopril (Prinivil) 20 mg PO BID [facility] Last Admin: 04/05/20 08:12 Dose: 20 mg Documented by: Metoprolol Succinate (Toprol Xl) 100 mg PO BID [facility] Metoprolol Tartrate (Lopressor) 5 mg IVPUSH Q4H PRN PRN Reason: Heart rate greater than 110 Last Admin: 04/05/20 08:33 Dose: 5 mg Documented by: Potassium Chloride (Klor-Con M20) 20 meq PO BID [facility] Last Admin: 04/05/20 08:13 Dose: 20 meq Documented by: Simvastatin (Zocor) 40 mg PO BEDTIME [facility] Last Admin: 04/04/20 20:04 Dose: 40 mg Documented by: Sodium Chloride (Saline Flush) 10 ml FLUSH ASDIRECTED PRN PRN Reason: Keep Vein Open Last Admin: 03/28/20 09:50 Dose: 10 ml Documented by: Discontinued Medications Cyclobenzaprine HCl (Flexeril) 10 mg PO ONETIME ONE Stop: 03/29/20 23:38 Last Admin: 03/29/20 23:47 Dose: 10 mg Documented by: Digoxin (Lanoxin) 125 mcg PO DAILY@1200 ОЛЬГА Last Admin: 04/02/20 12:17 Dose: 125 mcg Documented by: Furosemide (Lasix) 80 mg IVPUSH NOW ONE Stop: 03/28/20 09:02 Last Admin: 03/28/20 09:50 Dose: 80 mg Documented by: Furosemide (Lasix) 40 mg IVPUSH NOW ONE Stop: 03/30/20 14:19 Last Admin: 03/30/20 15:02 Dose: 40 mg Documented by: Furosemide (Lasix) 40 mg IVPUSH NOW ONE Stop: 03/31/20 11:01 Last Admin: 03/31/20 11:12 Dose: 40 mg Documented by: Furosemide (Lasix) 40 mg IVPUSH BID [facility] Last Admin: 04/01/20 08:03 Dose: 40 mg Documented by: Hydralazine HCl (Apresoline) 15 mg IVPUSH Q4H PRN PRN Reason: Hypertension Ceftriaxone Sodium 2 gm/ (Sodium Chloride) 100 mls @ 200 mls/hr IV ONETIME ONE Stop: 03/28/20 12:26 Last Admin: 03/28/20 13:38 Dose: 200 mls/hr Documented by: Furosemide 100 mg/ Sodium (Chloride) 100 mls @ 7 mls/hr IV CONTINUOUS [facility]; Protocol Last Titration: 03/30/20 05:00 Dose: 0 mg/hr, 0 mls/hr Documented by: Magnesium Sulfate 4 gm/ Premix 50 mls @ 12.5 mls/hr IV ONETIME ONE Stop: 03/29/20 11:50 Last Admin: 03/29/20 08:34 Dose: 12.5 mls/hr Documented by: Insulin Glargine (Lantus) 6 unit SUBCUT BEDTIME [facility] Last Admin: 03/30/20 20:53 Dose: 6 units Documented by: Insulin Glargine (Lantus) 10 unit SUBCUT BEDTIME [facility] Last Admin: 03/31/20 20:48 Dose: 10 unit Documented by: Insulin Glargine (Lantus) 15 unit SUBCUT BID [facility] Last Admin: 04/04/20 08:12 Dose: 15 units Documented by: Insulin Human Lispro (Humalog) 0 unit SUBCUT QIDACANDBED [facility]; Protocol Last Admin: 04/01/20 11:28 Dose: 2 units Documented by: Insulin Human Lispro (Humalog) 0 unit SUBCUT TIDAC [facility]; Protocol Last Admin: 04/04/20 11:30 Dose: 2 units Documented by: Insulin Human Lispro (Humalog) 100 unit .ROUTE .STK-MED ONE Stop: 03/28/20 21:26 Insulin Human Lispro (Humalog) 4 unit SUBCUT TIDAC [facility] Last Admin: 04/05/20 08:07 Dose: 4 units Documented by: Lisinopril (Prinivil) 20 mg PO BID [facility] Last Admin: 04/02/20 20:23 Dose: 20 mg Documented by: Lorazepam (Ativan) 2 mg PO ONETIME ONE Stop: 04/04/20 21:56 Last Admin: 04/04/20 22:19 Dose: 2 mg Documented by: Magnesium Hydroxide (Milk Of Magnesia) 30 ml PO ONETIME ONE Stop: 04/01/20 11:21 Last Admin: 04/01/20 11:28 Dose: 30 ml Documented by: Metoprolol Succinate (Toprol Xl) 25 mg PO BID [facility] Last Admin: 04/01/20 20:10 Dose: 25 mg Documented by: Metoprolol Succinate (Toprol Xl) 100 mg PO BID [facility] Last Admin: 04/01/20 20:10 Dose: 100 mg Documented by: Metoprolol Succinate (Toprol Xl) 50 mg PO BID [facility] Last Admin: 04/03/20 08:20 Dose: 50 mg Documented by: Metoprolol Succinate (Toprol Xl) 75 mg PO BID ОЛЬГА Last Admin: 04/05/20 08:09 Dose: 75 mg Documented by: Metoprolol Tartrate (Lopressor) 5 mg IVPUSH ONETIME ONE Stop: 04/03/20 10:03 Last Admin: 04/03/20 11:20 Dose: Not Given Documented by: Sepsis Event Note - Focused Exam Vital Signs: Vital Signs Temp Pulse Pulse Resp BP BP Pulse Ox 04/05/20 10:00 36.4 C 94 17 102/70 100 04/05/20 08:33 123 H 114/90 04/05/20 08:12 158/119 H 04/05/20 08:09 119 H 158/119 H 04/05/20 08:08 119 H 04/05/20 08:01 36.4 C 17 158/119 H 99 04/05/20 04:00 36.2 C 104 H 16 111/83 94 L 04/05/20 02:04 87 102/67 04/05/20 01:32 141 H 114/68 - Problem List & Annotations (1) Cardiomyopathy SNOMED Code(s): 30209769 Code(s): I42.9 - CARDIOMYOPATHY, UNSPECIFIED Status: Acute Priority: High Current Visit: Yes Onset Date: ~03/25/20 Qualifiers: Cardiomyopathy type: dilated Qualified Code(s): I42.0 - Dilated cardiomyopathy (2) Tachy-natividad syndrome SNOMED Code(s): 78891711 Code(s): I49.5 - SICK SINUS SYNDROME Status: Acute Priority: Medium Current Visit: Yes Onset Date: ~04/03/20 Annotation/Comment:: bradicardia resolved nad now having increased beta radha sec to tachi syndrome. metoprolol increased to 100 mg bid . (3) Acute exacerbation of CHF (congestive heart failure) SNOMED Code(s): 219956017, 14447207193342 Code(s): I50.9 - HEART FAILURE, UNSPECIFIED Status: Acute Priority: High Current Visit: Yes Onset Date: ~03/25/20 Qualifiers: Heart failure type: systolic Qualified Code(s): I50.23 - Acute on chronic systolic (congestive) heart failure (4) Renal insufficiency SNOMED Code(s): 858479995, 916447587 Code(s): N28.9 - DISORDER OF KIDNEY AND URETER, UNSPECIFIED Status: Acute Priority: Medium Current Visit: Yes Onset Date: ~03/25/20 (5) High anion gap metabolic acidosis SNOMED Code(s): 42023008 Code(s): E87.2 - ACIDOSIS Status: Acute Current Visit: No (6) Hyperkalemia SNOMED Code(s): 36656968 Code(s): E87.5 - HYPERKALEMIA Status: Acute Current Visit: No (7) Hypoalbuminemia SNOMED Code(s): 721734182 Code(s): E88.09 - OTH DISORDERS OF PLASMA-PROTEIN METABOLISM, NEC Status: Acute Priority: Medium Current Visit: No Onset Date: ~03/25/20 Annotation/Comment:: low protein and chf combining for edema which is better / protien still low and need calorie assesment . (8) Hypomagnesemia SNOMED Code(s): 836293770 Code(s): E83.42 - HYPOMAGNESEMIA Status: Acute Priority: Medium Current Visit: No Onset Date: ~03/26/20 (9) Hyponatremia SNOMED Code(s): 60774897 Code(s): E87.1 - HYPO-OSMOLALITY AND HYPONATREMIA Status: Acute Priority: Medium Current Visit: No Onset Date: ~03/25/20 (10) Respiratory acidosis SNOMED Code(s): 98852799 Code(s): E87.2 - ACIDOSIS Status: Acute Current Visit: No Annotation/Comment:: initial co2 shows high value and unlikely to improve /resolve completely / no repeat abg done (11) Type II diabetes mellitus SNOMED Code(s): 57693396 Code(s): E11.9 - TYPE 2 DIABETES MELLITUS WITHOUT COMPLICATIONS Status: Chronic Priority: Low Current Visit: No Onset Date: ~03/25/20 Qualifiers: Diabetes mellitus longterm insulin use: with director long term care use Diabetes latisha itus complication status: with hyperglycemia Qualified Code(s): E11.65 - Type 2 diabetes mellitus with hyperglycemia; Z79.4 - intermediate designer (current) use of insulin (12) Mitral regurgitation and aortic stenosis SNOMED Code(s): 325952804 Code(s): I08.0 - RHEUMATIC DISORDERS OF BOTH MITRAL AND AORTIC VALVES Status: Acute Priority: High Current Visit: Yes Onset Date: ~03/25/20 Annotation/Comment:: stable e.f 25 % and pulse pressure decreased to 24 mg this am and will taper diuretics as allowed - Problem List Review Problem List Initiated/Reviewed/Updated: Yes - My Orders Last 24 Hours: My Active Orders 04/04/20 21:00 Insulin Glarg,Human.Rec.Analog [LantUS] 20 unit SUBCUT BID 04/05/20 Lunch Fluid Restriction [DIET] Insulin Lispro [HumaLOG] See Dose Instructions SUBCUT TIDAC 04/05/20 21:00 Metoprolol Succinate [Toprol XL] 100 mg PO BID - Plan Plan:: 04/04/20 chf improved.bnp [id number] and weaning o.2 and eating better. mod aortic stenosis s/p tavr and mod mr resp failure improved. chest xray better. tachiarrythmias returning and increasing beta radha . dig level theraputic . mag corrected.monitor lytes. renal insuff prerenal component creat 1.5 hyperkalemia // on graciela / may have to reduce or switch to arb if lasix dose decreases. appetite better. confusion still comes and goes. sleeping better .weaning o2 now to 2 liters. [id number] severe and cont p.t/ot . boh
[2020-04-04] MEDS: Simvastatin 40 MG Tab PO SCH (20:04)
[2020-04-04] MEDS ORDERED: LORazepam 1 MG Tab PO ONE (21:55)
[2020-04-05] MEDS: Metoprolol Tartrate 5 MG/5 ML SDV IVPUSH PRN ×3 (01:32→12:58)
[2020-04-05] MEDS: Insulin Glarg,Human.Rec.Analog 100 Unit/ML SUBCUT SCH ×2 (08:05→20:11)
[2020-04-05] MEDS: Digoxin 125 MCG Tab PO SCH (08:08)
[2020-04-05] MEDS: Metoprolol Succinate 25 MG Tab.ER PO SCH (08:09)
[2020-04-05] MEDS: Apixaban 5 MG Tab PO SCH ×2 (08:12→20:10)
[2020-04-05] MEDS: Clopidogrel 75 MG Tab PO SCH (08:12)
[2020-04-05] MEDS: Lisinopril 20 MG Tab PO SCH ×2 (08:12→20:10)
[2020-04-05] MEDS: Furosemide 40 MG Tab PO SCH ×2 (08:13→12:57)
[2020-04-05] MEDS: Potassium Chloride 20 MEQ Tab.ER PO SCH ×2 (08:13→20:10)
--- NOTE | 2020-04-05 12:09 | PCM.PN ---
- General Info Date of Service: 04/05/20 Admission Dx/Problem (Free Text): Admission Diagnosis/Problem Admission Diagnosis/Problem Congestive heart failure Subjective Update: 04/05/20 s: afebrile /vss 2 episodes of tach requiring beta radha. her son last night and she was notified by family given ativan for sleep/anxiety. some increased confusion o: see physical a: unchanged /see problem list. p:chf decrease lasix in am / net loss 3 lbs /wean o2. tachi. increase metoprolol to 100 mg bid. lytes stable dm increase baseline mealtime insulin to 5 units bs now 150-200. cont lantis current dose. cont dig current dose. 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 boh Functional Status: Reports: Pain Controlled - Review of Systems General: Reports: No Symptoms HEENT: Reports: No Symptoms Pulmonary: Reports: No Symptoms, Shortness of Breath Cardiovascular: Reports: No Symptoms, Palpitations, Dyspnea on Exertion, Edema Gastrointestinal: Reports: No Symptoms Genitourinary: Reports: No Symptoms Musculoskeletal: Reports: No Symptoms Skin: Reports: No Symptoms Neurological: Reports: No Symptoms, Confusion, Pre-Existing Deficit, Tremors Psychiatric: Reports: No Symptoms, Confusion, Anxiety - Patient Data Vitals - Most Recent: Last Vital Signs Temp 36.4 C 04/05/20 10:00 Pulse 94 04/05/20 10:00 Resp 17 04/05/20 10:00 BP 102/70 04/05/20 10:00 Pulse Ox 100 04/05/20 10:00 Weight - Most Recent: 62.766 kg I&O - Last 24 Hours: Intake & Output 04/04/20 04/05/20 04/05/20 22:59 06:59 14:59 Intake Total 300 300 Output Total 1100 150 Balance -1100 150 300 Lab Results Last 24 Hours: Laboratory Results - last 24 hr 04/04/20 04/04/20 04/05/20 Range/Units 16:42 19:53 05:15 WBC (3.98-10.04) K/mm3 RBC (3.98-5.22) M/mm3 Hgb (11.2-15.7) gm/dl Hct (34.1-44.9) % MCV (79.4-94.8) fl MCH (25.6-32.2) pg MCHC (32.2-35.5) g/dl RDW Std Deviation (36.4-46.3) fL Plt Count (182-369) K/mm3 MPV (9.4-12.3) fl Neut % (Auto) (34.0-71.1) % Lymph % (Auto) (19.3-51.7) % [place]oard % (Auto) (4.7-12.5) % Eos % (Auto) (0.7-5.8) Baso % (Auto) (0.1-1.2) % Neut # (Auto) (1.56-6.13) K/mm3 Lymph # (Auto) (1.18-3.74) K/mm3 Foard # (Auto) (0.24-0.36) K/mm3 Eos # (Auto) (0.04-0.36) K/mm3 Baso # (Auto) (0.01-0.08) K/mm3 Sodium (136-145) mEq/L Potassium (3.5-5.1) mEq/L Chloride (98-107) mEq/L Carbon Dioxide (21-32) mEq/L Anion Gap (5-15) BUN (7-18) mg/dL Creatinine (0.55-1.02) mg/dL Est Cr Clr Drug Dosing mL/min Estimated GFR (MDRD) (>60) mL/min BUN/Creatinine Ratio (14-18) Glucose (83-115) mg/dL POC Glucose 186 H 153 H (83-110) mg/dL Calcium (8.5-10.1) mg/dL NT-Pro-B Natriuret Pep 55540 H (0-125) pg/mL Digoxin (0.9-2.0) ng/mL 04/05/20 04/05/20 04/05/20 Range/Units 05:15 05:15 05:15 WBC 11.43 H (3.98-10.04) K/mm3 RBC 4.28 (3.98-5.22) M/mm3 Hgb 11.8 (11.2-15.7) gm/dl Hct 38.7 (34.1-44.9) % MCV 90.4 (79.4-94.8) fl MCH 27.6 (25.6-32.2) pg MCHC 30.5 L (32.2-35.5) g/dl RDW Std Deviation 54.3 H (36.4-46.3) fL Plt Count 414 H (182-369) K/mm3 MPV 9.9 (9.4-12.3) fl Neut % (Auto) 62.4 (34.0-71.1) % Lymph % (Auto) 21.3 (19.3-51.7) % [place] % (Auto) 9.6 (4.7-12.5) % Eos % (Auto) 6.0 H (0.7-5.8) Baso % (Auto) 0.3 (0.1-1.2) % Neut # (Auto) 7.11 H (1.56-6.13) K/mm3 Lymph # (Auto) 2.44 (1.18-3.74) K/mm3 Foard # (Auto) 1.10 H (0.24-0.36) K/mm3 Eos # (Auto) 0.69 H (0.04-0.36) K/mm3 Baso # (Auto) 0.04 (0.01-0.08) K/mm3 Sodium 136 (136-145) mEq/L Potassium 4.4 (3.5-5.1) mEq/L Chloride 101 (98-107) mEq/L Carbon Dioxide 26 (21-32) mEq/L Anion Gap 13.4 (5-15) BUN 56 H (7-18) mg/dL Creatinine 1.4 H (0.55-1.02) mg/dL Est Cr Clr Drug Dosing 28.95 mL/min Estimated GFR (MDRD) 37 (>60) mL/min BUN/Creatinine Ratio 40.0 H (14-18) Glucose 146 H (83-115) mg/dL POC Glucose (83-110) mg/dL Calcium 10.0 (8.5-10.1) mg/dL NT-Pro-B Natriuret Pep (0-125) pg/mL Digoxin 1.0 (0.9-2.0) ng/mL 04/05/20 04/05/20 Range/Units 06:20 11:37 WBC (3.98-10.04) K/mm3 RBC (3.98-5.22) M/mm3 Hgb (11.2-15.7) gm/dl Hct (34.1-44.9) % MCV (79.4-94.8) fl MCH (25.6-32.2) pg MCHC (32.2-35.5) g/dl RDW Std Deviation (36.4-46.3) fL Plt Count (182-369) K/mm3 MPV (9.4-12.3) fl Neut % (Auto) (34.0-71.1) % Lymph % (Auto) (19.3-51.7) % [place]oard % (Auto) (4.7-12.5) % Eos % (Auto) (0.7-5.8) Baso % (Auto) (0.1-1.2) % Neut # (Auto) (1.56-6.13) K/mm3 Lymph # (Auto) (1.18-3.74) K/mm3 [place]oard # (Auto) (0.24-0.36) K/mm3 Eos # (Auto) (0.04-0.36) K/mm3 Baso # (Auto) (0.01-0.08) K/mm3 Sodium (136-145) mEq/L Potassium (3.5-5.1) mEq/L Chloride (98-107) mEq/L Carbon Dioxide (21-32) mEq/L Anion Gap (5-15) BUN (7-18) mg/dL Creatinine (0.55-1.02) mg/dL Est Cr Clr Drug Dosing mL/min Estimated GFR (MDRD) (>60) mL/min BUN/Creatinine Ratio (14-18) Glucose (83-115) mg/dL POC Glucose 139 H 128 H (83-110) mg/dL Calcium (8.5-10.1) mg/dL NT-Pro-B Natriuret Pep (0-125) pg/mL Digoxin (0.9-2.0) ng/mL Med Orders - Current: Current Medications Acetaminophen (Tylenol) 650 mg PO Q4H PRN PRN Reason: Pain (Mild 1-3)/fever Hydrocodone Bitart/Acetaminophen ([place] 325-5 Mg) 1 tab PO Q4H PRN PRN Reason: Pain Last Admin: 04/02/20 20:20 Dose: 1 tab Documented by: Apixaban (Eliquis) 5 mg PO BID [facility] Last Admin: 04/05/20 08:12 Dose: 5 mg Documented by: Clopidogrel Bisulfate (Plavix) 75 mg PO DAILY [facility] Last Admin: 04/05/20 08:12 Dose: 75 mg Documented by: Cyclobenzaprine HCl (Flexeril) 10 mg PO TID PRN PRN Reason: Muscle Spasm Last Admin: 04/01/20 20:09 Dose: 10 mg Documented by: Digoxin (Lanoxin) 125 mcg PO DAILY [facility] Last Admin: 04/05/20 08:08 Dose: 125 mcg Documented by: Docusate Sodium (Colace) 100 mg PO BID PRN PRN Reason: Constipation Furosemide (Lasix) 40 mg PO 0800,1200 [facility] Last Admin: 04/05/20 08:13 Dose: 40 mg Documented by: Insulin Glargine (Lantus) 20 unit SUBCUT BID [facility] Last Admin: 04/05/20 08:05 Dose: 20 units Documented by: Insulin Human Lispro (Humalog) 5 unit SUBCUT TIDAC [facility] Last Admin: 04/05/20 11:44 Dose: 5 units Documented by: Insulin Human Lispro (Humalog) 0 unit SUBCUT TIDAC [facility] Last Admin: 04/05/20 11:46 Dose: Not Given Documented by: Lisinopril (Prinivil) 20 mg PO BID [facility] Last Admin: 04/05/20 08:12 Dose: 20 mg Documented by: Metoprolol Succinate (Toprol Xl) 100 mg PO BID [facility] Metoprolol Tartrate (Lopressor) 5 mg IVPUSH Q4H PRN PRN Reason: Heart rate greater than 110 Last Admin: 04/05/20 08:33 Dose: 5 mg Documented by: Potassium Chloride (Klor-Con M20) 20 meq PO BID [facility] Last Admin: 04/05/20 08:13 Dose: 20 meq Documented by: Simvastatin (Zocor) 40 mg PO BEDTIME [facility] Last Admin: 04/04/20 20:04 Dose: 40 mg Documented by: Sodium Chloride (Saline Flush) 10 ml FLUSH ASDIRECTED PRN PRN Reason: Keep Vein Open Last Admin: 03/28/20 09:50 Dose: 10 ml Documented by: Discontinued Medications Cyclobenzaprine HCl (Flexeril) 10 mg PO ONETIME ONE Stop: 03/29/20 23:38 Last Admin: 03/29/20 23:47 Dose: 10 mg Documented by: Digoxin (Lanoxin) 125 mcg PO DAILY@1200 [facility] Last Admin: 04/02/20 12:17 Dose: 125 mcg Documented by: Furosemide (Lasix) 80 mg IVPUSH NOW ONE Stop: 03/28/20 09:02 Last Admin: 03/28/20 09:50 Dose: 80 mg Documented by: Furosemide (Lasix) 40 mg IVPUSH NOW ONE Stop: 03/30/20 14:19 Last Admin: 03/30/20 15:02 Dose: 40 mg Documented by: Furosemide (Lasix) 40 mg IVPUSH NOW ONE Stop: 03/31/20 11:01 Last Admin: 03/31/20 11:12 Dose: 40 mg Documented by: Furosemide (Lasix) 40 mg IVPUSH BID [facility] Last Admin: 04/01/20 08:03 Dose: 40 mg Documented by: Hydralazine HCl (Apresoline) 15 mg IVPUSH Q4H PRN PRN Reason: Hypertension Ceftriaxone Sodium 2 gm/ (Sodium Chloride) 100 mls @ 200 mls/hr IV ONETIME ONE Stop: 03/28/20 12:26 Last Admin: 03/28/20 13:38 Dose: 200 mls/hr Documented by: Furosemide 100 mg/ Sodium (Chloride) 100 mls @ 7 mls/hr IV CONTINUOUS [facility]; Protocol Last Titration: 03/30/20 05:00 Dose: 0 mg/hr, 0 mls/hr Documented by: Magnesium Sulfate 4 gm/ Premix 50 mls @ 12.5 mls/hr IV ONETIME ONE Stop: 03/29/20 11:50 Last Admin: 03/29/20 08:34 Dose: 12.5 mls/hr Documented by: Insulin Glargine (Lantus) 6 unit SUBCUT BEDTIME [facility] Last Admin: 03/30/20 20:53 Dose: 6 units Documented by: Insulin Glargine (Lantus) 10 unit SUBCUT BEDTIME [facility] Last Admin: 03/31/20 20:48 Dose: 10 unit Documented by: Insulin Glargine (Lantus) 15 unit SUBCUT BID [facility] Last Admin: 04/04/20 08:12 Dose: 15 units Documented by: Insulin Human Lispro (Humalog) 0 unit SUBCUT QIDACANDBED [facility]; Protocol Last Admin: 04/01/20 11:28 Dose: 2 units Documented by: Insulin Human Lispro (Humalog) 0 unit SUBCUT TIDAC [facility]; Protocol Last Admin: 04/04/20 11:30 Dose: 2 units Documented by: Insulin Human Lispro (Humalog) 100 unit .ROUTE .STK-MED ONE Stop: 03/28/20 21:26 [facility]ulin [facility] Last Admin: 04/05/20 08:07 Dose: 4 units Documented by: Lisinopril (Prinivil) 20 mg PO BID [facility] Last Admin: 04/02/20 20:23 Dose: 20 mg Documented by: Lorazepam (Ativan) 2 mg PO ONETIME ONE Stop: 04/04/20 21:56 Last Admin: 04/04/20 22:19 Dose: 2 mg Documented by: Magnesium Hydroxide (Milk Of Magnesia) 30 ml PO ONETIME ONE Stop: 04/01/20 11:21 Last Admin: 04/01/20 11:28 Dose: 30 ml Documented by: Metoprolol Succinate (Toprol Xl) 25 mg PO BID [facility] Last Admin: 04/01/20 20:10 Dose: 25 mg Documented by: Metoprolol Succinate (Toprol Xl) 100 mg PO BID [facility] Last Admin: 04/01/20 20:10 Dose: 100 mg Documented by: Metoprolol Succinate (Toprol Xl) 50 mg PO BID [facility] Last Admin: 04/03/20 08:20 Dose: 50 mg Documented by: Metoprolol Succinate (Toprol Xl) 75 mg PO BID [facility] Last Admin: 04/05/20 08:09 Dose: 75 mg Documented by: Metoprolol Tartrate (Lopressor) 5 mg IVPUSH ONETIME ONE Stop: 04/03/20 10:03 Last Admin: 04/03/20 11:20 Dose: Not Given Documented by: - Exam Quality Assessment: Supplemental Oxygen General: Alert, Oriented HEENT: Pupils Equal, Pupils Reactive, EOMI, Mucous Membr. Moist/[place] Neck: Supple Lungs: Clear to Auscultation, Normal Respiratory Effort Cardiovascular: Regular Rate, Regular Rhythm GI/Abdominal Exam: Normal Bowel Sounds, Soft, Non-Tender, No Organomegaly, No Distention, No Abnormal Bruit, No Mass, Pelvis Stable (Female) Exam: Normal External Exam, Normal Speculum Exam, Normal Bimanual Exam Back Exam: Normal Inspection, Full Range of Motion Extremities: Normal Inspection, Normal Range of Motion, Non-Tender, No Pedal Edema, Normal Capillary Refill Peripheral Pulses: 0: Femoral (L), 2+: Carotid (L), Carotid (R) Skin: Warm, Dry, Intact Wound/Incisions: Healing Well Neurological: No New Focal Deficit Psy/Mental Status: Alert, Normal Affect, Normal Mood Sepsis Event Note - Evaluation Sepsis Screening Result: No Definite Risk - Focused Exam Vital Signs: Vital Signs Temp Pulse Pulse Resp BP BP Pulse Ox 04/05/20 10:00 36.4 C 94 17 102/70 100 04/05/20 08:33 123 H 114/90 04/05/20 08:12 158/119 H 04/05/20 08:09 119 H 158/119 H 04/05/20 08:08 119 H 04/05/20 08:01 36.4 C 17 158/119 H 99 04/05/20 04:00 36.2 C 104 H 16 111/83 94 L 04/05/20 02:04 87 102/67 04/05/20 01:32 141 H 114/68 - Problem List & Annotations (1) Cardiomyopathy SNOMED Code(s): 75560117 Code(s): I42.9 - CARDIOMYOPATHY, UNSPECIFIED Status: Acute Priority: Medium Current Visit: Yes Onset Date: ~03/25/20 Qualifiers: Cardiomyopathy type: dilated Qualified Code(s): I42.0 - Dilated cardiomyopathy (2) Tachy-natividad syndrome SNOMED Code(s): 91876103 Code(s): I49.5 - SICK SINUS SYNDROME Status: Acute Priority: Low Current Visit: Yes Onset Date: ~04/03/20 Annotation/Comment:: bradicardia resolved nad now having increased beta radha sec to tachi syndrome. metoprolol increased to 100 mg bid . (3) Acute exacerbation of CHF (congestive heart failure) SNOMED Code(s): 374634461, 23776821898553 Code(s): I50.9 - HEART FAILURE, UNSPECIFIED Status: Acute Priority: Medium Current Visit: Yes Onset Date: ~03/25/20 Qualifiers: Heart failure type: systolic Qualified Code(s): I50.23 - Acute on chronic systolic (congestive) heart failure (4) Renal insufficiency SNOMED Code(s): 621761060, 550591408 Code(s): N28.9 - DISORDER OF KIDNEY AND URETER, UNSPECIFIED Status: Acute Priority: Medium Current Visit: Yes Onset Date: ~03/25/20 Annotation/Comment:: creat 1.4 today (5) High anion gap metabolic acidosis SNOMED Code(s): 29775044 Code(s): E87.2 - ACIDOSIS Status: Acute Priority: Medium Current Visit: No Onset Date: ~03/25/20 Annotation/Comment:: pulse ox 90 on 2 liters (6) Hyperkalemia SNOMED Code(s): 07115625 Code(s): E87.5 - HYPERKALEMIA Status: Acute Priority: Medium Current Visit: No Onset Date: ~04/04/20 (7) Hypoalbuminemia SNOMED Code(s): 508279582 Code(s): E88.09 - OTH DISORDERS OF PLASMA-PROTEIN METABOLISM, NEC Status: Acute Priority: Medium Current Visit: No Onset Date: ~03/25/20 Annotation/Comment:: low protein and chf combining for edema which is better / protien still low and need calorie assesment . (8) Hypomagnesemia SNOMED Code(s): 004333710 Code(s): E83.42 - HYPOMAGNESEMIA Status: Acute Priority: Medium Current Visit: No Onset Date: ~03/26/20 (9) Hyponatremia SNOMED Code(s): 05534546 Code(s): E87.1 - HYPO-OSMOLALITY AND HYPONATREMIA Status: Acute Priority: Medium Current Visit: No Onset Date: ~03/25/20 Annotation/Comment:: low protien unchanged. (10) Respiratory acidosis SNOMED Code(s): 59388346 Code(s): E87.2 - ACIDOSIS Status: Acute Current Visit: No Annotation/Comment:: initial co2 shows high value and unlikely to improve /resolve completely / no repeat abg done (11) Type II diabetes mellitus SNOMED Code(s): 23981369 Code(s): E11.9 - TYPE 2 DIABETES MELLITUS WITHOUT COMPLICATIONS Status: Chronic Priority: Low Current Visit: No Onset Date: ~03/25/20 Qualifiers: Diabetes mellitus custodial insulin use: with custodial use Diabetes mellitus complication status: with hyperglycemia Qualified Code(s): E11.65 - Type 2 diabetes mellitus with hyperglycemia; Z79.4 - USP (current) use of insulin Annotation/Comment:: renal insuff with protienuria (12) Mitral regurgitation and aortic stenosis SNOMED Code(s): 084780800 Code(s): I08.0 - RHEUMATIC DISORDERS OF BOTH MITRAL AND AORTIC VALVES Status: Acute Priority: High Current Visit: Yes Onset Date: ~03/25/20 Annotation/Comment:: stable e.f 25 % and pulse pressure decreased to 24 mg this am and will taper diuretics as allowed - Problem List Review Problem List Initiated/Reviewed/Updated: Yes - My Orders Last 24 Hours: My Active Orders 04/04/20 21:00 Insulin Glarg,Human.Rec.Analog [LantUS] 20 unit SUBCUT BID 04/05/20 Lunch Fluid Restriction [DIET] Insulin Lispro [HumaLOG] See Dose Instructions SUBCUT TIDAC 04/05/20 21:00 Metoprolol Succinate [Toprol XL] 100 mg PO BID - Assessment Assessment:: Assessment: Acute: CHF, acute on chronic, Stable -Has underlying cardiomyopathy -ED echo 03/28/2020: EF of 25-30%. Severely decreased and global LVS function. Multiple LV regional wall motion abnormalities. Mild-Mod MVR. AoV prosthesis size of 26. There is bi-atrial dilation. -> 35K on admission now proBNP of 13K -CXR showed pulmonary vascular congestion -TSH level normal -Will switch to home dose Lasix of 40 mg po BID and Lisinopril 20 mg po BID and KCl of 20 meQ po BID -Continue AHA diet and fluid/salt restriction Hyperglycemia with DM2, Improved -On Insulin and Metformin for maintenance medications -Metformin on hold -BS not well controlled -Continue Lantus to 15 units SubQ BID and accu-check to TIDAC Accelerated/malignant HTN -She is on Lasix and Lisinopril for maintenance medications -PRN hydralazine Q6H for BP > 150/90 mmHg Normocytic Hypochromic Anemia, POA -Appears to be chronic -Stable Hgb level of 10.2 grams SNEHA vs CKD -Cr 1.7 on admission; now at 1.5 -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 s: afebrile /vss 2 episodes of tach requiring beta radha. her son last night and she was notified by family given ativan for sleep/anxiety. some increased confusion o: see physical a: unchanged /see problem list. p:chf decrease lasix in am / net loss 3 lbs /wean o2. tachi. increase metoprolol to 100 mg bid. lytes stable dm increase baseline mealtime insulin to 5 units bs now 150-200. cont lantis current dose. cont dig current dose. 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 mod aortic stenosis s/p tavr and mod mr resp failure improved. chest xray better. tachiarrythmias returning and increasing beta radha . dig level theraputic . mag corrected.monitor lytes. renal insuff prerenal component creat 1.5 hyperkalemia // on graciela / may have to reduce or switch to arb if lasix dose decreases. appetite better. confusion still comes and goes. sleeping better .weaning o2 now to 2 liters. [id number] severe and cont p.t/ot . boh
[2020-04-05] MEDS: Simvastatin 40 MG Tab PO SCH (20:09)
[2020-04-05] MEDS: Metoprolol Succinate 50 MG Tab.ER PO SCH (20:09)
[2020-04-06] MEDS: Digoxin 125 MCG Tab PO SCH (08:30)
[2020-04-06] MEDS: Metoprolol Succinate 50 MG Tab.ER PO SCH ×2 (08:31→20:08)
[2020-04-06] MEDS: Lisinopril 20 MG Tab PO SCH ×2 (08:39→20:12)
[2020-04-06] MEDS: Clopidogrel 75 MG Tab PO SCH (08:39)
[2020-04-06] MEDS: Potassium Chloride 20 MEQ Tab.ER PO SCH ×2 (08:40→20:11)
[2020-04-06] MEDS: Furosemide 40 MG Tab PO SCH ×2 (08:40→11:33)
[2020-04-06] MEDS: Apixaban 5 MG Tab PO SCH ×2 (08:41→20:13)
[2020-04-06] MEDS: Insulin Glarg,Human.Rec.Analog 100 Unit/ML SUBCUT SCH ×2 (08:43→20:54)
--- NOTE | 2020-04-06 11:31 | PCM.PN ---
- General Info Date of Service: 04/06/20 Admission Dx/Problem (Free Text): Admission Diagnosis/Problem Admission Diagnosis/Problem Congestive heart failure Subjective Update: 04/05/20 s: afebrile /vss 2 episodes of tach requiring beta radha. her son last night and she was notified by family given ativan for sleep/anxiety. some increased confusion o: see physical a: unchanged /see problem list. p:chf decrease lasix in am / net loss 3 lbs /wean o2. tachi. increase metoprolol to 100 mg bid. lytes stable dm increase baseline mealtime insulin to 5 units bs now 150-200. cont lantis current dose. cont dig current dose. 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 boh 04/06: Patient states she feels good and slept well She is very sleepy this morning and was not able to converse much. She has a good appetite and has been ambulating around the room. Her blood pressures and heart rate have been stable. She is on room air - Review of Systems General: Reports: No Symptoms HEENT: Reports: No Symptoms Pulmonary: Reports: No Symptoms Cardiovascular: Reports: No Symptoms Gastrointestinal: Reports: No Symptoms Genitourinary: Reports: No Symptoms Musculoskeletal: Reports: No Symptoms Skin: Reports: No Symptoms Neurological: Reports: No Symptoms Psychiatric: Reports: No Symptoms - Patient Data Vitals - Most Recent: Last Vital Signs Temp 97.3 F 04/06/20 10:00 Pulse 79 04/06/20 10:00 Resp 16 04/06/20 10:00 BP 95/50 L 04/06/20 10:00 Pulse Ox 96 04/06/20 10:00 Weight - Most Recent: 138 lb 12.8 oz I&O - Last 24 Hours: Intake & Output 04/05/20 04/06/20 04/06/20 22:59 06:59 14:59 Intake Total 1520 300 360 Balance 1520 300 360 Lab Results Last 24 Hours: Laboratory Results - last 24 hr 04/05/20 04/05/20 04/05/20 Range/Units 11:37 16:42 20:13 POC Glucose 128 H 182 H 103 (83-110) mg/dL 04/06/20 Range/Units 07:16 POC Glucose 114 H (83-110) mg/dL Med Orders - Current: Current Medications Acetaminophen (Tylenol) 650 mg PO Q4H PRN PRN Reason: Pain (Mild 1-3)/fever Hydrocodone Bitart/Acetaminophen ([place] 325-5 Mg) 1 tab PO Q4H PRN PRN Reason: Pain Last Admin: 04/02/20 20:20 Dose: 1 tab Documented by: Apixaban (Eliquis) 5 mg PO BID [facility] Last Admin: 04/06/20 08:41 Dose: 5 mg Documented by: Clopidogrel Bisulfate (Plavix) 75 mg PO DAILY [facility] Last Admin: 04/06/20 08:39 Dose: 75 mg Documented by: Cyclobenzaprine HCl (Flexeril) 10 mg PO TID PRN PRN Reason: Muscle Spasm Last Admin: 04/01/20 20:09 Dose: 10 mg Documented by: Digoxin (Lanoxin) 125 mcg PO DAILY [facility] Last Admin: 04/06/20 08:30 Dose: 125 mcg Documented by: Docusate Sodium (Colace) 100 mg PO BID PRN PRN Reason: Constipation Furosemide (Lasix) 40 mg PO 0800,1200 [facility] Last Admin: 04/06/20 08:40 Dose: 40 mg Documented by: Insulin Glargine (Lantus) 20 unit SUBCUT BID [facility] Last Admin: 04/06/20 08:43 Dose: 20 units Documented by: Insulin Human Lispro (Humalog) 5 unit SUBCUT TIDAC [facility] Last Admin: 04/06/20 08:44 Dose: 5 units Documented by: Insulin Human Lispro (Humalog) 0 unit SUBCUT TIDAC [facility] Last Admin: 04/06/20 08:46 Dose: Not Given Documented by: Lisinopril (Prinivil) 20 mg PO BID [facility] Last Admin: 04/06/20 08:39 Dose: 20 mg Documented by: Metoprolol Succinate (Toprol Xl) 100 mg PO BID [facility] Last Admin: 04/06/20 08:31 Dose: 100 mg Documented by: Metoprolol Tartrate (Lopressor) 5 mg IVPUSH Q4H PRN PRN Reason: Heart rate greater than 110 Last Admin: 04/05/20 12:58 Dose: 5 mg Documented by: Potassium Chloride (Klor-Con M20) 20 meq PO BID [facility] Last Admin: 04/06/20 08:40 Dose: 20 meq Documented by: Simvastatin (Zocor) 40 mg PO BEDTIME [facility] Last Admin: 04/05/20 20:09 Dose: 40 mg Documented by: Sodium Chloride (Saline Flush) 10 ml FLUSH ASDIRECTED PRN PRN Reason: Keep Vein Open Last Admin: 03/28/20 09:50 Dose: 10 ml Documented by: Discontinued Medications Cyclobenzaprine HCl (Flexeril) 10 mg PO ONETIME ONE Stop: 03/29/20 23:38 Last Admin: 03/29/20 23:47 Dose: 10 mg Documented by: Digoxin (Lanoxin) 125 mcg PO DAILY@1200 [facility] Last Admin: 04/02/20 12:17 Dose: 125 mcg Documented by: Furosemide (Lasix) 80 mg IVPUSH NOW ONE Stop: 03/28/20 09:02 Last Admin: 03/28/20 09:50 Dose: 80 mg Documented by: Furosemide (Lasix) 40 mg IVPUSH NOW ONE Stop: 03/30/20 14:19 Last Admin: 03/30/20 15:02 Dose: 40 mg Documented by: Furosemide (Lasix) 40 mg IVPUSH NOW ONE Stop: 03/31/20 11:01 Last Admin: 03/31/20 11:12 Dose: 40 mg Documented by: Furosemide (Lasix) 40 mg IVPUSH BID [facility] Last Admin: 04/01/20 08:03 Dose: 40 mg Documented by: Hydralazine HCl (Apresoline) 15 mg IVPUSH Q4H PRN PRN Reason: Hypertension Ceftriaxone Sodium 2 gm/ (Sodium Chloride) 100 mls @ 200 mls/hr IV ONETIME ONE Stop: 03/28/20 12:26 Last Admin: 03/28/20 13:38 Dose: 200 mls/hr Documented by: Furosemide 100 mg/ Sodium (Chloride) 100 mls @ 7 mls/hr IV CONTINUOUS [facility]; Protocol Last Titration: 03/30/20 05:00 Dose: 0 mg/hr, 0 mls/hr Documented by: Magnesium Sulfate 4 gm/ Premix 50 mls @ 12.5 mls/hr IV ONETIME ONE Stop: 03/29/20 11:50 Last Admin: 03/29/20 08:34 Dose: 12.5 mls/hr Documented by: Insulin Glargine (Lantus) 6 unit SUBCUT BEDTIME [facility] Last Admin: 03/30/20 20:53 Dose: 6 units Documented by: Insulin Glargine (Lantus) 10 unit SUBCUT BEDTIME [facility] Last Admin: 03/31/20 20:48 Dose: 10 unit Documented by: Insulin Glargine (Lantus) 15 unit SUBCUT BID [facility] Last Admin: 04/04/20 08:12 Dose: 15 units Documented by: Insulin Human Lispro (Humalog) 0 unit SUBCUT QIDACANDBED [facility]; Protocol Last Admin: 04/01/20 11:28 Dose: 2 units Documented by: Insulin Human Lispro (Humalog) 0 unit SUBCUT TIDAC [facility]; Protocol Last Admin: 04/04/20 11:30 Dose: 2 units Documented by: Insulin Human Lispro (Humalog) 100 unit .ROUTE .STK-MED ONE Stop: 03/28/20 21:26 Insulin Human Lispro (Humalog) 4 unit SUBCUT TIDAC [facility] Last Admin: 04/05/20 08:07 Dose: 4 units Documented by: Lisinopril (Prinivil) 20 mg PO BID [facility] Last Admin: 04/02/20 20:23 Dose: 20 mg Documented by: Lorazepam (Ativan) 2 mg PO ONETIME ONE Stop: 04/04/20 21:56 Last Admin: 04/04/20 22:19 Dose: 2 mg Documented by: Magnesium Hydroxide (Milk Of Magnesia) 30 ml PO ONETIME ONE Stop: 04/01/20 11:21 Last Admin: 04/01/20 11:28 Dose: 30 ml Documented by: Metoprolol Succinate (Toprol Xl) 25 mg PO BID [facility] Last Admin: 04/01/20 20:10 Dose: 25 mg Documented by: Metoprolol Succinate (Toprol Xl) 100 mg PO BID [facility] Last Admin: 04/01/20 20:10 Dose: 100 mg Documented by: Metoprolol Succinate (Toprol Xl) 50 mg PO BID [facility] Last Admin: 04/03/20 08:20 Dose: 50 mg Documented by: Metoprolol Succinate (Toprol Xl) 75 mg PO BID [facility] Last Admin: 04/05/20 08:09 Dose: 75 mg Documented by: Metoprolol Tartrate (Lopressor) 5 mg IVPUSH ONETIME ONE Stop: 04/03/20 10:03 Last Admin: 04/03/20 11:20 Dose: Not Given Documented by: - Exam General: Other (Sleeping) Neck: Supple Lungs: Clear to Auscultation, Normal Respiratory Effort Cardiovascular: Regular Rate, Regular Rhythm GI/Abdominal Exam: Normal Bowel Sounds, Soft, Non-Tender Back Exam: Normal Inspection Extremities: Normal Inspection Skin: Warm, Dry, Intact, Other (Pale) Neurological: No New Focal Deficit Psy/Mental Status: Alert, Normal Affect, Normal Mood Sepsis Event Note - Evaluation Sepsis Screening Result: No Definite Risk - Focused Exam Vital Signs: Vital Signs Temp Pulse Pulse Resp BP BP Pulse Ox 04/06/20 10:00 97.3 F 79 16 95/50 L 96 04/06/20 08:39 118/99 H 04/06/20 08:31 97 118/99 H 04/06/20 08:30 90 04/06/20 04:00 96.7 F L 98 16 126/95 H 95 - Problem List & Annotations (1) Acute exacerbation of CHF (congestive heart failure) SNOMED Code(s): 230489510, 42790146598388 Code(s): I50.9 - HEART FAILURE, UNSPECIFIED Status: Acute Priority: Medium Current Visit: Yes Onset Date: ~03/25/20 Qualifiers: Heart failure type: systolic Qualified Code(s): I50.23 - Acute on chronic systolic (congestive) heart failure Annotation/Comment:: [place] [address] [place] [address]. Lung sounds sound better. (2) Tachy-natividad syndrome SNOMED Code(s): 45220914 Code(s): I49.5 - SICK SINUS SYNDROME Status: Acute Priority: Low Current Visit: Yes Onset Date: ~04/03/20 Annotation/Comment:: bradicardia resolved nad now having increased beta radha sec to tachi syndrome. metoprolol increased to 100 mg bid . (3) Type II diabetes mellitus SNOMED Code(s): 59422172 Code(s): E11.9 - TYPE 2 DIABETES MELLITUS WITHOUT COMPLICATIONS Status: Chronic Priority: Low Current Visit: No Onset Date: ~03/25/20 Qualifiers: Diabetes mellitus fci insulin use: with terminal system operator use Diabetes mellitus complication status: with hyperglycemia Qualified Code(s): E11.65 - Type 2 diabetes mellitus with hyperglycemia; Z79.4 - half-way (current) use of insulin Annotation/Comment:: renal insuff with protienuria (4) Cardiomyopathy SNOMED Code(s): 77085754 Code(s): I42.9 - CARDIOMYOPATHY, UNSPECIFIED Status: Acute Priority: Medium Current Visit: Yes Onset Date: ~03/25/20 Qualifiers: Cardiomyopathy type: dilated Qualified Code(s): I42.0 - Dilated cardiomyopathy (5) Mitral regurgitation and aortic stenosis SNOMED Code(s): 402269987 Code(s): I08.0 - RHEUMATIC DISORDERS OF BOTH MITRAL AND AORTIC VALVES Status: Acute Priority: High Current Visit: Yes Onset Date: ~03/25/20 Annotation/Comment:: stable e.f 25 % and pulse pressure decreased to 24 mg this am and will taper diuretics as allowed (6) Renal insufficiency SNOMED Code(s): 659997293, 074366573 Code(s): N28.9 - DISORDER OF KIDNEY AND URETER, UNSPECIFIED Status: Acute Priority: Medium Current Visit: Yes Onset Date: ~03/25/20 Annotation/Comment:: creat 1.4 today (7) High anion gap metabolic acidosis SNOMED Code(s): 09309537 Code(s): E87.2 - ACIDOSIS Status: Acute Priority: Medium Current Visit: No Onset Date: ~03/25/20 Annotation/Comment:: 04/05: pulse ox 90 on 2 liters 04/06: on room air at 96% (8) Hypoalbuminemia SNOMED Code(s): 273914752 Code(s): E88.09 - OTH DISORDERS OF PLASMA-PROTEIN METABOLISM, NEC Status: Acute Priority: Medium Current Visit: No Onset Date: ~03/25/20 Annotation/Comment:: low protein and chf combining for edema which is better / protien still low and need calorie assesment . (9) Hyponatremia SNOMED Code(s): 41716772 Code(s): E87.1 - HYPO-OSMOLALITY AND HYPONATREMIA Status: Acute Priority: Medium Current Visit: No Onset Date: ~03/25/20 Annotation/Comment:: low protien unchanged. (10) Respiratory acidosis SNOMED Code(s): 95320534 Code(s): E87.2 - ACIDOSIS Status: Acute Current Visit: No Annotation/Comment:: initial co2 shows high value and unlikely to improve /resolve completely / no repeat abg done - Problem List Review Problem List Initiated/Reviewed/Updated: Yes - Assessment Assessment:: s: afebrile /vss 2 episodes of tach requiring beta radha. her son last night and she was notified by family given ativan for sleep/anxiety. some increased confusion o: see physical a: unchanged /see problem list. p:chf decrease lasix in am / net loss 3 lbs /wean o2. tachi. increase metoprolol to 100 mg bid. lytes stable dm increase baseline mealtime insulin to 5 units bs now 150-200. cont lantis current dose. cont dig current dose. 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 -patient states she feels better today -lung sounds have improved Tachyarrhythmia: -resolved -continue on Metoprolol and digoxin Respiratory failure: -weaned off of O2 and is now on room air Diabetes Mellitus: -continue current medications Hypertension: -resolved. -continue on LILA - Plan Plan:: Plan:: 04/04/20 chf improved.bnp [id number] and weaning o.2 and eating better. mod aortic stenosis s/p tavr and mod mr resp failure improved. chest xray better. tachiarrythmias returning and increasing beta radha . dig level theraputic . mag corrected.monitor lytes. renal insuff prerenal component creat 1.5 hyperkalemia // on lila / may have to reduce or switch to arb if lasix dose decreases. appetite better. confusion still comes and goes. sleeping better .weaning o2 now to 2 liters. [id number] severe and cont p.t/ot . boh 04/06: CHF continuing to improve and is not of any oxygen now. Respiratory failure has improved Tachy-arrhythmias have resolved. Labs are stable Continue to ambulate as tolerated. Anticipate discharge to [facility] tomorrow
[2020-04-06] MEDS: Simvastatin 40 MG Tab PO SCH (20:12)
[2020-04-06] MEDS: Cyclobenzaprine 10 MG Tab PO PRN (21:32)
[2020-04-06] MEDS: Acetaminophen/HYDROcodone 325-5 MG Tab PO PRN (23:54)
[2020-04-07] MEDS: Insulin Glarg,Human.Rec.Analog 100 Unit/ML SUBCUT SCH (08:13)
[2020-04-07] MEDS: Clopidogrel 75 MG Tab PO SCH (08:15)
[2020-04-07] MEDS: Lisinopril 20 MG Tab PO SCH (08:15)
[2020-04-07] MEDS: Potassium Chloride 20 MEQ Tab.ER PO SCH (08:15)
[2020-04-07] MEDS: Metoprolol Succinate 50 MG Tab.ER PO SCH (08:15)
[2020-04-07] MEDS: Apixaban 5 MG Tab PO SCH (08:16)
[2020-04-07] MEDS: Digoxin 125 MCG Tab PO SCH (08:16)
[2020-04-07] MEDS: Furosemide 40 MG Tab PO SCH ×2 (08:16→12:28)
--- NOTE | 2020-04-07 10:10 | PCM.DCSUM1 ---
Discharge Summary - Hospital Course HPI Initial Comments: 74-year-old female with severe left ventricular dysfunction with estimated ejection fraction of 20% on echocardiogram done in August of this year presents to the emergency department after several days of worsening shortness of breath, dyspnea on exertion, orthopnea, and PND. Patient states that she is sleeping in the couch sitting up. She denies any fever or chills. She is does states she has had increased swelling of her lower extremities. 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 Patient has a long history of heart disease including heart failure with reduced ejection fraction, atrial fibrillation, pacemaker, cardiomyopathy, severe aortic stenosis. Patient was seen on March 04 and and at both those emergency room appointments her proBNP was greater than 35,000. proBNP was again greater than 35,000 today. Patient also has diabetes, insulin-dependent, and stage III renal insufficiency in the emergency department she was started on O2 via nasal cannula and given Lasix 80 mg IV. She was then transferred to the ICU for further care. Assessment 74-year-old female with severe heart failure with decreased ejection fraction of 20% in August presented to the emergency department with worsening shortness of breath, edema, orthopnea, and PND consistent with exacerbation of CHF. Hypertension Severe aortic stenosis Likely pulmonary artery stenosis * In the emergency department she was given 80 mg of Lasix with apparent good urine output. * She takes metoprolol succinate 125 mg twice a day and missed this morning's dose. * On rhythm strip in the ICU she has had multiple runs of tachycardia at baseline heart rate is in the 90s to low 100s * On Eliquis 5 mg twice daily for stroke prophylaxis. * Digoxin 125 mg p.o. daily. Missed morning dose. * Home medications include Lasix 60 mg in the morning and 40 mg in the evening * Chest x-ray shows cardiomegaly with mild vascular congestion * proBNP is greater than 35,000. This has been present since at least 03/04/2020 Type 2 diabetes mellitus, insulin-dependent Diabetic nephropathy Elevated anion gap * On glargine 6 units at bedtime and Metformin 1000 mg twice daily * Estimated GFR 29, creatinine 1.7, BUN 61, anion gap 20.1 * Unknown hemoglobin A1c * 1+ proteinuria on UA Plan * Admit to ICU * Lasix drip titrated to keep urine output between 100-200 mL/h. * [place] for strict I's and O's * Continue full dose metoprolol succinate secondary to cardiac arrhythmias. May need to consider decreasing this to half-strength if blood pressure does not tolerate diuresis. * Daily weights * Continue home glargine 6 units at bedtime. Sliding scale insulin low-dose with bedside glucose monitoring 4 times daily * Follow proBNP every other day. * Follow electrolytes daily. * Hemoglobin A1c, TSH, dig level in the morning * VTE prophylaxis with Eliquis * CODE STATUS: Full code - Mortality Measure Prognosis:: Poor Diagnosis: Stroke: No - Discharge Data Discharge Date: 04/07/20 Discharge Disposition: DC/[facility] Condition: Good - Referral to Home Health Primary Care Physician: Penny Hathaway NP - Discharge Diagnosis/Problem(s) (1) Acute exacerbation of CHF (congestive heart failure) SNOMED Code(s): 869126797, 72929339977985 ICD Code: I50.9 - HEART FAILURE, UNSPECIFIED Status: Acute Priority: Medium Current Visit: Yes Onset Date: ~03/25/20 Problem Details: [place] [address] [place] [address]. Lung sounds sound better. Qualifiers: Heart failure type: systolic Qualified Code(s): I50.23 - Acute on chronic systolic (congestive) heart failure (2) Renal insufficiency SNOMED Code(s): 989851485, 264486772 ICD Code: N28.9 - DISORDER OF KIDNEY AND URETER, UNSPECIFIED Status: Acute Priority: Medium Current Visit: Yes Onset Date: ~03/25/20 Problem Details: creat 1.4 today (3) [id number] kidney injury SNOMED Code(s): 055779824 ICD Code: N17.9 - ACUTE KIDNEY FAILURE, UNSPECIFIED; N18.9 - CHRONIC KIDNEY DISEASE, UNSPECIFIED Status: Acute Current Visit: Yes (4) UTI, Urinary tract infectious disease SNOMED Code(s): 32414288 ICD Code: N39.0 - URINARY TRACT INFECTION, SITE NOT SPECIFIED Status: Acute Current Visit: Yes - Patient Summary/Data Consults: Consultations 03/31/20 09:52 OT Evaluation and Treatment [CONS] Routine PT Evaluation and Treatment [CONS] Routine Hospital Course: Patient was admitted with exacerbation of CHF with reduced ejection fraction of 25 to 30%. Echocardiogram was done during hospitalization which showed severely decreased and global left ventricular systolic function. Please see official report for full details. Patient had significant diuresis of almost 20 pounds during hospitalization. She did have some episodes of tachyarrhythmia because of initially decreasing her metoprolol secondary to low blood pressure. Patient did have her metoprolol titrated back up to almost her home dose. At discharge she is on metoprolol succinate 100 mg twice daily. She continues on digoxin also. Patient has stage IV 3 chronic renal insufficiency. On admission her estimated GFR was down to 29 secondary to poor perfusion. At discharge it was 37. Glargine had to be increased during hospitalization secondary to poor control. Initial hemoglobin A1c was 7.9. Blood sugars were lower over the last 2 mornings so she was discharged on a lower dose than she was a couple days earlier. She was discharged on Lantus 15 units twice daily and NovoLog 5 units 3 times daily with meals. Discharge Lasix on 40 mg p.o. twice daily. - Patient Instructions Diet: Diabetic Diet Activity: As Tolerated Driving: Do Not Drive Showering/Bathing: May Shower Notify Provider of: Fever, Increased Pain, Nausea and/or Vomiting Other/Special Instructions: Follow up with PCP next week. - Discharge Plan *PRESCRIPTION DRUG MONITORING PROGRAM REVIEWED*: No *COPY OF PRESCRIPTION DRUG MONITORING REPORT IN PATIENT HECTOR: No Prescriptions/Med Rec: Apixaban [Eliquis] 5 mg PO BID #60 tablet Cyclobenzaprine [Flexeril] 10 mg PO TID PRN #10 tablet PRN Reason: Muscle Spasm Insulin Lispro [Humalog] 5 unit SUBCUT TIDAC #1 vial Insulin Glarg,Human.Rec.Analog [Lantus] 15 unit SQ BID #1 bottle Acetaminophen/HYDROcodone [[place] 325-5 MG] 1 tab PO Q4H PRN #10 tablet PRN Reason: Pain Insulin Aspart [NovoLOG] 5 unit SQ TID #1 pen Metoprolol Succinate [Toprol XL 50mg] 100 mg PO BID #120 tab.er Home Medications: Home Meds Digoxin 125 mcg PO DAILY 01/09/16 [History] Simvastatin [Zocor] 40 mg PO BEDTIME 01/09/16 [History] Lisinopril 20 mg PO BID 06/24/19 [History] Clopidogrel Bisulfate [Plavix] 75 mg PO DAILY 03/04/20 [History] Potassium Chloride 20 meq PO BID #60 tablet.er 03/04/20 [Rx] Furosemide [Lasix] 40 mg PO 0800,1200 03/28/20 [History] Acetaminophen/HYDROcodone [[place] 325-5 MG] 1 tab PO Q4H PRN #10 tablet 04/07/20 [Rx] Apixaban [Eliquis] 5 mg PO BID #60 tablet 04/07/20 [Rx] Cyclobenzaprine [Flexeril] 10 mg PO TID PRN #10 tablet 04/07/20 [Rx] Insulin Aspart [NovoLOG] 5 unit SQ TID #1 pen 04/07/20 [Rx] Insulin Glarg,Human.Rec.Analog [Lantus] 15 unit SQ BID #1 bottle 04/07/20 [Rx] Insulin Lispro [Humalog] 5 unit SUBCUT TIDAC #1 vial 04/07/20 [Rx] Insulin Lispro [Humalog] See Protocol SUBCUT TIDAC ml 04/07/20 [Rx] Metoprolol Succinate [Toprol XL 50mg] 100 mg PO BID #120 tab.er 04/07/20 [Rx] Oxygen Therapy Mode: Room Air Patient Handouts: Type 2 Diabetes Mellitus, Diagnosis, Adult, Heart Failure Action Plan, Sepsis, Diagnosis, Adult Forms: ED Department Discharge Referrals: Penny Hathaway NP [Primary Care Provider] - Noe Johnson MD [Physician] - (to follow at shelter) - Discharge Summary/Plan Comment DC Time >30 min.: Yes - General Info Date of Service: 04/07/20 Admission Dx/Problem (Free Text: Admission Diagnosis/Problem Admission Diagnosis/Problem Congestive heart failure Subjective Update: Doing very well. Patient states she is ready for discharge. No shortness of breath. Appetite is good. Functional Status: Reports: Pain Controlled - Review of Systems General: Reports: No Symptoms HEENT: Reports: No Symptoms Pulmonary: Reports: No Symptoms Cardiovascular: Reports: No Symptoms Musculoskeletal: Reports: No Symptoms - Patient Data Vitals - Most Recent: Last Vital Signs Temp 97.7 F 04/07/20 08:15 Pulse 95 04/07/20 08:16 Resp 16 04/07/20 08:15 BP 129/75 04/07/20 08:15 Pulse Ox 96 04/07/20 08:15 Weight - Most Recent: 138 lb 12.8 oz I&O - Last 24 hours: Intake & Output 04/06/20 04/07/20 04/07/20 22:59 06:59 14:59 Intake Total 1405 300 Balance 1405 300 Lab Results - Last 24 hrs: Laboratory Results - last 24 hr 04/06/20 04/06/20 04/06/20 Range/Units 11:28 16:35 21:01 POC Glucose 276 H 154 H 158 H (83-110) mg/dL 04/07/20 Range/Units 06:41 POC Glucose 88 (83-110) mg/dL Med Orders - Current: Current Medications Acetaminophen (Tylenol) 650 mg PO Q4H PRN PRN Reason: Pain (Mild 1-3)/fever Hydrocodone Bitart/Acetaminophen ([place] 325-5 Mg) 1 tab PO Q4H PRN PRN Reason: Pain Last Admin: 04/06/20 23:54 Dose: 1 tab Documented by: Apixaban (Eliquis) 5 mg PO BID [facility] Last Admin: 04/07/20 08:16 Dose: 5 mg Documented by: Clopidogrel Bisulfate (Plavix) 75 mg PO DAILY [facility] Last Admin: 04/07/20 08:15 Dose: 75 mg Documented by: Cyclobenzaprine HCl (Flexeril) 10 mg PO TID PRN PRN Reason: Muscle Spasm Last Admin: 04/06/20 21:32 Dose: 10 mg Documented by: Digoxin (Lanoxin) 125 mcg PO DAILY [facility] Last Admin: 04/07/20 08:16 Dose: 125 mcg Documented by: Docusate Sodium (Colace) 100 mg PO BID PRN PRN Reason: Constipation Furosemide (Lasix) 40 mg PO 0800,1200 [facility] Last Admin: 04/07/20 08:16 Dose: 40 mg Documented by: Insulin Glargine (Lantus) 20 unit SUBCUT BID [facility] Last Admin: 04/07/20 08:13 Dose: 20 units Documented by: Insulin Human Lispro (Humalog) 5 unit SUBCUT TIDAC [facility] Last Admin: 04/07/20 08:14 Dose: 5 units Documented by: Insulin Human Lispro (Humalog) 0 unit SUBCUT TIDAC [facility] Last Admin: 04/07/20 08:16 Dose: Not Given Documented by: Lisinopril (Prinivil) 20 mg PO BID [facility] Last Admin: 04/07/20 08:15 Dose: 20 mg Documented by: Metoprolol Succinate (Toprol Xl) 100 mg PO BID [facility] Last Admin: 04/07/20 08:15 Dose: 100 mg Documented by: Metoprolol Tartrate (Lopressor) 5 mg IVPUSH Q4H PRN PRN Reason: Heart rate greater than 110 Last Admin: 04/05/20 12:58 Dose: 5 mg Documented by: Potassium Chloride (Klor-Con M20) 20 meq PO BID [facility] Last Admin: 04/07/20 08:15 Dose: 20 meq Documented by: Simvastatin (Zocor) 40 mg PO BEDTIME [facility] Last Admin: 04/06/20 20:12 Dose: 40 mg Documented by: Sodium Chloride (Saline Flush) 10 ml FLUSH ASDIRECTED PRN PRN Reason: Keep Vein Open Last Admin: 03/28/20 09:50 Dose: 10 ml Documented by: Discontinued Medications Cyclobenzaprine HCl (Flexeril) 10 mg PO ONETIME ONE Stop: 03/29/20 23:38 Last Admin: 03/29/20 23:47 Dose: 10 mg Documented by: Digoxin (Lanoxin) 125 mcg PO DAILY@1200 [facility] Last Admin: 04/02/20 12:17 Dose: 125 mcg Documented by: Furosemide (Lasix) 80 mg IVPUSH NOW ONE Stop: 03/28/20 09:02 Last Admin: 03/28/20 09:50 Dose: 80 mg Documented by: Furosemide (Lasix) 40 mg IVPUSH NOW ONE Stop: 03/30/20 14:19 Last Admin: 03/30/20 15:02 Dose: 40 mg Documented by: Furosemide (Lasix) 40 mg IVPUSH NOW ONE Stop: 03/31/20 11:01 Last Admin: 03/31/20 11:12 Dose: 40 mg Documented by: Furosemide (Lasix) 40 mg IVPUSH BID [facility] Last Admin: 04/01/20 08:03 Dose: 40 mg Documented by: Hydralazine HCl (Apresoline) 15 mg IVPUSH Q4H PRN PRN Reason: Hypertension Ceftriaxone Sodium 2 gm/ (Sodium Chloride) 100 mls @ 200 mls/hr IV ONETIME ONE Stop: 03/28/20 12:26 Last Admin: 03/28/20 13:38 Dose: 200 mls/hr Documented by: Furosemide 100 mg/ Sodium (Chloride) 100 mls @ 7 mls/hr IV CONTINUOUS [facility]; Protocol Last Titration: 03/30/20 05:00 Dose: 0 mg/hr, 0 mls/hr Documented by: Magnesium Sulfate 4 gm/ Premix 50 mls @ 12.5 mls/hr IV ONETIME ONE Stop: 03/29/20 11:50 Last Admin: 03/29/20 08:34 Dose: 12.5 mls/hr Documented by: Insulin Glargine (Lantus) 6 unit SUBCUT BEDTIME [facility] Last Admin: 03/30/20 20:53 Dose: 6 units Documented by: Insulin Glargine (Lantus) 10 unit SUBCUT BEDTIME [facility] Last Admin: 03/31/20 20:48 Dose: 10 unit Documented by: Insulin Glargine (Lantus) 15 unit SUBCUT BID [facility] Last Admin: 04/04/20 08:12 Dose: 15 units Documented by: Insulin Human Lispro (Humalog) 0 unit SUBCUT QIDACANDBED [facility]; Protocol Last Admin: 04/01/20 11:28 Dose: 2 units Documented by: Insulin Human Lispro (Humalog) 0 unit SUBCUT TIDAC [facility]; Protocol Last Admin: 04/04/20 11:30 Dose: 2 units Documented by: Insulin Human Lispro (Humalog) 100 unit .ROUTE .STK-MED ONE Stop: 03/28/20 21:26 Insulin Human Lispro (Humalog) 4 unit SUBCUT TIDAC [facility] Last Admin: 04/05/20 08:07 Dose: 4 units Documented by: Lisinopril (Prinivil) 20 mg PO BID [facility] Last Admin: 04/02/20 20:23 Dose: 20 mg Documented by: Lorazepam (Ativan) 2 mg PO ONETIME ONE Stop: 04/04/20 21:56 Last Admin: 04/04/20 22:19 Dose: 2 mg Documented by: Magnesium Hydroxide (Milk Of Magnesia) 30 ml PO ONETIME ONE Stop: 04/01/20 11:21 Last Admin: 04/01/20 11:28 Dose: 30 ml Documented by: Metoprolol Succinate (Toprol Xl) 25 mg PO BID [facility] Last Admin: 04/01/20 20:10 Dose: 25 mg Documented by: Metoprolol Succinate (Toprol Xl) 100 mg PO BID [facility] Last Admin: 04/01/20 20:10 Dose: 100 mg Documented by: Metoprolol Succinate (Toprol Xl) 50 mg PO BID [facility] Last Admin: 04/03/20 08:20 Dose: 50 mg Documented by: Metoprolol Succinate (Toprol Xl) 75 mg PO BID [facility] Last Admin: 04/05/20 08:09 Dose: 75 mg Documented by: Metoprolol Tartrate (Lopressor) 5 mg IVPUSH ONETIME ONE Stop: 04/03/20 10:03 Last Admin: 04/03/20 11:20 Dose: Not Given Documented by: - Exam General: Reports: Alert, Oriented HEENT: Reports: Pupils Equal, Mucous Membr. Moist/Watchtower Neck: Reports: Supple Lungs: Reports: Clear to Auscultation, Normal Respiratory Effort Cardiovascular: Reports: Regular Rate, Regular Rhythm GI/Abdominal Exam: Normal Bowel Sounds, Soft, No Distention Extremities: Normal Inspection, Normal Range of Motion, Non-Tender, No Pedal Edema, Normal Capillary Refill
== END 2020-04-07 13:05 | DRG 291 ==
LOC: JD.ED 08:14 → JD.ICU 13:25
PROVIDERS: ADMIT Family Medicine; ATTEND Family Medicine
DX: I50.33 Acute on chronic diastolic (congestive) heart failure (principal); I13.0 Hypertensive heart and chronic kidney disease with heart failure and stage 1 through stage 4 chronic kidney disease, or unspecified chronic kidney disease; I11.0 Hypertensive heart disease with heart failure; N28.9 Disorder of kidney and ureter, unspecified; I50.23 Acute on chronic systolic (congestive) heart failure; I42.9 Cardiomyopathy, unspecified; Q25.6 Stenosis of pulmonary artery; Z95.0 Presence of cardiac pacemaker; N17.9 Acute kidney failure, unspecified; N39.0 Urinary tract infection, site not specified; Z79.02 Long term (current) use of antithrombotics/antiplatelets; Z79.82 Long term (current) use of aspirin; E87.2 Acidosis; Z79.84 Long term (current) use of oral hypoglycemic drugs; E87.1 Hypo-osmolality and hyponatremia; N18.30 Chronic kidney disease, stage 3 unspecified; E11.22 Type 2 diabetes mellitus with diabetic chronic kidney disease; E11.21 Type 2 diabetes mellitus with diabetic nephropathy; Z20.828 Contact with and (suspected) exposure to other viral communicable diseases; H54.7 Unspecified visual loss; R32 Unspecified urinary incontinence; E03.9 Hypothyroidism, unspecified; Z96.659 Presence of unspecified artificial knee joint; I49.5 Sick sinus syndrome; E11.65 Type 2 diabetes mellitus with hyperglycemia; I08.0 Rheumatic disorders of both mitral and aortic valves; I42.0 Dilated cardiomyopathy; E88.09 Other disorders of plasma-protein metabolism, not elsewhere classified; D50.9 Iron deficiency anemia, unspecified; Z79.4 Long term (current) use of insulin; Z79.899 Other long term (current) drug therapy; Z88.1 Allergy status to other antibiotic agents; Z88.8 Allergy status to other drugs, medicaments and biological substances; Z90.49 Acquired absence of other specified parts of digestive tract; Z79.01 Long term (current) use of anticoagulants; Z95.2 Presence of prosthetic heart valve
CPT/HCPCS: 0240U; 36415; 36600; 51702; 71046; 80048; 80053; 80162; 81001; 82803; 82962; 83036; 83735; 83880; 84100; 84145; 84443; 84484; 85025; 85379; 93005; 93306; 96374; 97110; 97162; 97165; 97530; 97535; 99285; 93010; 99284; A9270-GY; J0696; J1815-GY; J1940; J3475; J3490; J7050; U0002

== ENCOUNTER 2021-04-12 11:32 | Emergency (ER) | payer MEDICARE, BC ==
[2021-04-12] MEDS ORDERED: Sodium Chloride 0.9% 10 ML Syringe FLUSH PRN (12:54)
[2021-04-12] MEDS ORDERED: Sodium Chloride 0.9% 1,000 ML IV STA (12:54)
--- NOTE | 2021-04-12 13:32 | CT ---
Head CT Technique: Multiple axial sections through the brain were obtained. Intravenous contrast was not utilized. Reconstructed coronal and sagittal images were obtained. Comparison: Prior head CT study of 10/27/17. Findings: Ventricles along with basal cisterns and sulci over the convexities are mildly prominent. Diffuse diminished density is noted within the periventricular and subcortical white matter which is compatible with small vessel ischemic demyelination change. Diminished density is noted within the left basal ganglia which is stable from prior study. No other abnormal parenchymal densities are seen. No evidence of intracranial hemorrhage is seen. No midline shift or mass-effect is seen. Atherosclerotic calcification is seen within the vertebral vessels and within the carotid siphon. Visualized mastoid sinuses and paranasal sinuses show nothing acute. No acute calvarial abnormality is appreciated. Impression: 1. Diffuse senescent change as noted above. 2. Nothing acute is appreciated on noncontrast head CT study. Diagnostic code #2
[2021-04-12 13:34] LABS: CORONAVIRUS COVID-19 NAA NEGATIVE (NEGATIVE)
--- NOTE | 2021-04-12 13:43 | CR ---
Chest: AP and lateral views of the chest were obtained. Comparison: Prior chest x-ray of 03/28/20. Heart is enlarged. Mild tortuosity of the thoracic aorta is seen. AICD is present. Cardiac stent is noted which is stable from prior study. Slight scarring is seen within the lateral left costophrenic angle. Lungs otherwise are clear. Mild degenerative disc space narrowing is seen within the spine with scattered endplate osteophytes. Impression: 1. Mild cardiomegaly. 2. Other findings as noted above. 3. Nothing acute is appreciated on two-view chest x-ray. Diagnostic code #2
--- NOTE | 2021-04-12 13:47 | EDM.PDOC ---
ED HPI GENERAL MEDICAL PROBLEM - General Chief Complaint: Neurological Problem Stated Complaint: dizziness in voodoo Time Seen by Provider: 04/12/21 12:37 Source of Information: Reports: Patient, RN Notes Reviewed History Limitations: Reports: No Limitations - History of Present Illness INITIAL COMMENTS - FREE TEXT/NARRATIVE: Patient is a 75-year-old female presenting to the emergency department for evaluation after having an episode of dizziness while at voodoo. Patient reports dizziness while sitting which significantly worsened with standing. She estimates symptoms lasted for probably around 1/2-hour. Symptoms then resolved and are no longer present. Daughter reports that she was confused, however patient denies this. Daughter states that she did not recognize an EMS worker that assessed her which she knows. Patient states that she knew who she was. She feels well at this time. Patient has history of hyponatremia. 1 week ago, she was treated for gout versus cellulitis with prednisone and cephalexin. She finished her last dose of prednisone yesterday. Symptoms related to this did resolve. She is had no fever or chills. Denies any headache or vision changes. She has a history of A. fib and does have an implanted AICD. Denies any chest pain at the time of the incident. She did not have loss of consciousness at any point. - Related Data Allergies Allergy/AdvReac Type Severity Reaction Status Date / Time vancomycin Allergy Itching Verified 04/12/21 12:35 vitamin intolerant Allergy Other Uncoded 03/28/20 18:17 Home Meds: Home Meds Digoxin 125 mcg PO DAILY 01/09/16 [History] Simvastatin [Zocor] 40 mg PO BEDTIME 01/09/16 [History] Clopidogrel Bisulfate [Plavix] 75 mg PO DAILY 03/04/20 [History] Furosemide [Lasix] 40 mg PO 0800,1200 03/28/20 [History] Apixaban [Eliquis] 5 mg PO BID #60 tablet 04/07/20 [Rx] Cholecalciferol (Vitamin D3) [Vitamin D3] 2,000 unit PO DAILY 04/12/21 [History] Insulin Aspart [NovoLOG] 15 units SUBCUT ASDIRECTED 04/12/21 [History] Insulin Glarg,Human.Rec.Analog [Lantus] 35 unit SQ BEDTIME 04/12/21 [History] Metoprolol Succinate [Kapspargo Sprinkle] 50 mg PO BEDTIME 04/12/21 [History] Metoprolol Succinate [Toprol XL 50mg] 100 mg PO QAM 04/12/21 [History] Sacubitril/Valsartan [Entresto 97 mg-103 mg Tablet] 1 tab PO BID 04/12/21 [History] metFORMIN [Glucophage XR] 500 mg PO BEDTIME 04/12/21 [History] Past Medical History HEENT History: Reports: Cataract Other HEENT History: wears glasses Cardiovascular History: Reports: Cardiomyopathy, Heart Failure, Heart Murmur, Hypertension Respiratory History: Reports: SOB Other Respiratory History: CHF Gastrointestinal History: Reports: Hemorrhoids Other Gastrointestinal History: permanent hemorrhoids Genitourinary History: Reports: Urinary Incontinence 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: Musculoskeletal History: Reports: None Neurological History: Reports: CVA Endocrine/Metabolic History: Reports: Diabetes, Type II, Hypothyroidism Other Endocrine/Metabolic History: doesnt take thyroid medications anymore, on metformin and lantus for dm - Infectious Disease History Infectious Disease History: Reports: Chicken Pox, Influenza, Measles - Past Surgical History Head Surgeries/Procedures: Reports: None HEENT Surgical History: Reports: None Cardiovascular Surgical History: Reports: Pacer, Valve Replacement Respiratory Surgical History: Reports: None GI Surgical History: Reports: Appendectomy, Cholecystectomy, Colonoscopy Female Surgical History: Reports: D&C Endocrine Surgical History: Reports: None Musculoskeletal Surgical History: Reports: Knee Replacement Other Musculoskeletal Surgeries/Procedures:: bilateral knee replacements. Social & Family History - Family History Family Medical History: No Pertinent Family History - Tobacco Use Tobacco Use Status *Q: Never Tobacco User Second Hand Smoke Exposure: No - Caffeine Use Caffeine Use: Reports: Coffee Other Caffeine Use: 2 large cups a day Caffeine Use Comment: Daily coffee - Living Situation & Occupation Living situation: Reports: , Alone Occupation: Retired ED ROS GENERAL - Review of Systems Review Of Systems: See Below Constitutional: Reports: No Symptoms. Denies: Fever, Chills HEENT: Reports: No Symptoms Respiratory: Reports: No Symptoms Cardiovascular: Reports: Lightheadedness. Denies: Chest Pain Endocrine: Reports: No Symptoms GI/Abdominal: Reports: No Symptoms : Reports: No Symptoms Musculoskeletal: Reports: No Symptoms Skin: Reports: No Symptoms Neurological: Reports: Dizziness. Denies: Headache, Numbness, Syncope, Trouble Speaking, Change in Speech Psychiatric: Reports: No Symptoms Hematologic/Lymphatic: Reports: No Symptoms Immunologic: Reports: No Symptoms ED EXAM, NEURO - Physical Exam Exam: See Below Exam Limited By: No Limitations General Appearance: Alert, WD/WN, No Apparent Distress Eye Exam: Bilateral Eye: PERRL Respiratory/Chest: No Respiratory Distress, Lungs Clear, Normal Breath Sounds, No Accessory Muscle Use, Chest Non-Tender Cardiovascular: Normal Peripheral Pulses, No Edema, No Gallop, No JVD, No Murmur, No Rub, Irregularly Irregular GI/Abdominal: Normal Bowel Sounds, Soft, Non-Tender, No Organomegaly, No Distention, No Abnormal Bruit, No Mass Neurological: Alert, Normal Mood/Affect, Normal Dorsiflexion, CN II-XII Intact, Normal Plantar Flexion, No Motor/Sensory Deficits, Oriented x 3 Extremities: Normal Inspection, Normal Range of Motion, Non-Tender, No Pedal Edema, Normal Capillary Refill Psychiatric: Normal Affect, Normal Mood Skin Exam: Warm, Dry, Intact, Normal Color, No Rash #1 Interpretation EKG Date: 04/12/21 Time: 13:29 Rhythm: Other (afib/flutter) Rate (Beats/Min): 79 [place]: Normal P-Wave: Present QRS: Normal ST-T: Normal QT: Normal Course - Vital Signs Last Recorded V/S: Last Vital Signs Temp 97.7 F 04/12/21 12:34 Pulse 82 04/12/21 12:34 Resp 16 04/12/21 12:34 BP 126/74 04/12/21 12:34 Pulse Ox 100 04/12/21 12:34 - Orders/Labs/Meds Labs: Laboratory Tests 04/12/21 04/12/21 04/12/21 Range/Units 12:45 13:25 13:25 WBC 21.05 H (3.98-10.04) K/mm3 RBC 4.69 (3.98-5.22) M/mm3 Hgb 13.4 D (11.2-15.7) gm/dl Hct 41.8 (34.1-44.9) % MCV 89.1 (79.4-94.8) fl MCH 28.6 (25.6-32.2) pg MCHC 32.1 L (32.2-35.5) g/dl RDW Std Deviation 50.2 H (36.4-46.3) fL Plt Count 401 H (182-369) K/mm3 MPV 9.4 (9.4-12.3) fl Neut % (Auto) 78.9 H (34.0-71.1) % Lymph % (Auto) 9.2 L (19.3-51.7) % Mower % (Auto) 8.9 (4.7-12.5) % Eos % (Auto) 1.1 (0.7-5.8) Baso % (Auto) 0.2 (0.1-1.2) % Neut # (Auto) 16.58 H (1.56-6.13) K/mm3 Lymph # (Auto) 1.94 (1.18-3.74) K/mm3 Mower # (Auto) 1.88 H (0.24-0.36) K/mm3 Eos # (Auto) 0.24 (0.04-0.36) K/mm3 Baso # (Auto) 0.05 (0.01-0.08) K/mm3 Manual Slide Review Abnormal smear Sodium 143 (136-145) mEq/L Potassium 4.5 (3.5-5.1) mEq/L Chloride 104 (98-107) mEq/L Carbon Dioxide 28 (21-32) mEq/L Anion Gap 15.5 H (5-15) BUN 67 H (7-18) mg/dL Creatinine 1.7 H (0.55-1.02) mg/dL Est Cr Clr Drug Dosing 22.96 mL/min Estimated GFR (MDRD) 29 (>60) mL/min BUN/Creatinine Ratio 39.4 H (14-18) Glucose 144 H (70-99) mg/dL Calcium 8.8 (8.5-10.1) mg/dL Magnesium 2.1 (1.8-2.4) mg/dL Total Bilirubin 0.5 (0.2-1.0) mg/dL AST 18 (15-37) U/L ALT 18 (14-59) U/L Alkaline Phosphatase 111 (46-116) U/L Troponin I 0.027 (0.00-0.056) ng/mL C-Reactive Protein 3.9 H* (<1.0) mg/dL Total Protein 6.9 (6.4-8.2) g/dl Albumin 3.3 L (3.4-5.0) g/dl Globulin 3.6 gm/dL Albumin/Globulin Ratio 0.9 L (1-2) Urine Color (Yellow) Urine Appearance (Clear) Urine pH (5.0-8.0) Ur Specific [place] (1.005-1.030) Urine Protein (Negative) Urine Glucose (UA) (Negative) Urine Ketones (Negative) Urine Occult Blood (Negative) Urine Nitrite (Negative) Urine Bilirubin (Negative) Urine Urobilinogen (0.2-1.0) Ur Leukocyte Esterase (Negative) U Hyaline Cast (Auto) (0-5) /lpf Urine RBC (0-5) /hpf Urine WBC (0-5) /hpf Ur Epithelial Cells (0-5) /hpf Urine Bacteria (FEW) /hpf Urine Mucus (FEW) /hpf Influenza Type A RNA Negative (NEGATIVE) Influenza Type B RNA Negative (NEGATIVE) SARS-CoV-2 RNA (JENNA) Negative (NEGATIVE) 04/12/21 Range/Units 13:50 WBC (3.98-10.04) K/mm3 RBC (3.98-5.22) M/mm3 Hgb (11.2-15.7) gm/dl Hct (34.1-44.9) % MCV (79.4-94.8) fl MCH (25.6-32.2) pg MCHC (32.2-35.5) g/dl RDW Std Deviation (36.4-46.3) fL Plt Count (182-369) K/mm3 MPV (9.4-12.3) fl Neut % (Auto) (34.0-71.1) % Lymph % (Auto) (19.3-51.7) % Mower % (Auto) (4.7-12.5) % Eos % (Auto) (0.7-5.8) Baso % (Auto) (0.1-1.2) % Neut # (Auto) (1.56-6.13) K/mm3 Lymph # (Auto) (1.18-3.74) K/mm3 Mower # (Auto) (0.24-0.36) K/mm3 Eos # (Auto) (0.04-0.36) K/mm3 Baso # (Auto) (0.01-0.08) K/mm3 Manual Slide Review Sodium (136-145) mEq/L Potassium (3.5-5.1) mEq/L Chloride (98-107) mEq/L Carbon Dioxide (21-32) mEq/L Anion Gap (5-15) BUN (7-18) mg/dL Creatinine (0.55-1.02) mg/dL Est Cr Clr Drug Dosing mL/min Estimated GFR (MDRD) (>60) mL/min BUN/Creatinine Ratio (14-18) Glucose (70-99) mg/dL Calcium (8.5-10.1) mg/dL Magnesium (1.8-2.4) mg/dL Total Bilirubin (0.2-1.0) mg/dL AST (15-37) U/L ALT (14-59) U/L Alkaline Phosphatase (46-116) U/L Troponin I (0.00-0.056) ng/mL C-Reactive Protein (<1.0) mg/dL Total Protein (6.4-8.2) g/dl Albumin (3.4-5.0) g/dl Globulin gm/dL Albumin/Globulin Ratio (1-2) Urine Color Yellow (Yellow) Urine Appearance Clear (Clear) Urine pH 6.0 (5.0-8.0) Ur Specific [place] 1.015 (1.005-1.030) Urine Protein Negative (Negative) Urine Glucose (UA) Negative (Negative) Urine Ketones Negative (Negative) Urine Occult Blood Negative (Negative) Urine Nitrite Negative (Negative) Urine Bilirubin Negative (Negative) Urine Urobilinogen 0.2 (0.2-1.0) Ur Leukocyte Esterase Negative (Negative) U Hyaline Cast (Auto) 5-10 H (0-5) /lpf Urine RBC 0-5 (0-5) /hpf Urine WBC 5-10 H (0-5) /hpf Ur Epithelial Cells 20-30 H (0-5) /hpf Urine Bacteria Few (FEW) /hpf Urine Mucus Rare (FEW) /hpf Influenza Type A RNA (NEGATIVE) Influenza Type B RNA (NEGATIVE) SARS-CoV-2 RNA (JENNA) (NEGATIVE) Meds: Medications Discontinued Medications Generic Name Dose Route Start Last Admin Trade Name Freq PRN Reason Stop Dose Admin Sodium Chloride 1,000 mls @ 150 mls/hr 04/12/21 12:54 04/12/21 13:27 Normal Saline IV 04/12/21 19:33 150 mls/hr NOW STA Administration Sodium Chloride 10 ml 04/12/21 12:54 04/12/21 13:40 Sodium Chloride 0.9% 10 Ml Syringe FLUSH 10 ml ASDIRECTED PRN Administration Keep Vein Open - Re-Assessments/Exams Free Text/Narrative Re-Assessment/Exam: Patient is a 75-year-old female presenting to the emergency department for evaluation of an episode of dizziness while at voodoo. The estimated lasted approximately 30 minutes. There is some question of her possibly and confused during this episode as well, however the patient states that she knew what was going on. EMS was summoned, however patient insisted on staying for the rest of voodoo. She is now feeling well. Denies any dizziness. She did not have any chest pain at the time of the event. She does have a history of A. fib and has implanted AICD. Also has history of hyponatremia per [id number]'s report. Exam is unremarkable. Neurologic exam is normal. I have ordered blood work, EKG, chest x-ray, head CT, urinalysis, Covid and influenza testing, and interrogation of her pacemaker. 04/12/21 15:02 Hematology significant for white blood cells elevated at 21.05, anion gap 15.5, BUN 67, creatinine 1.7, CRP 3.9, urinalysis is negative for infection. She is negative for flu and Covid. Pacemaker was interrogated and shows no tachyarrhythmias in the last 72 hours. Results discussed with patient and her [id number]. Would recommend increasing her oral fluid intake. She does have a history of congestive heart failure, therefore we will not bolus her IV fluids today. Elevation in the white blood cells is likely due to prednisone treatment that she finished yesterday. Recommend that she follow-up with her primary care provider at next available visit and to return to ER for any recurrence of symptoms. They are in agreement with this plan. Discharge instructions as documented. Departure - Departure Time of Disposition: 15:02 Disposition: Home, Self-Care 01 Condition: Good Clinical Impression: Dizziness - Discharge Information *PRESCRIPTION DRUG MONITORING PROGRAM REVIEWED*: No *COPY OF PRESCRIPTION DRUG MONITORING REPORT IN PATIENT HECTOR: No Instructions: Dizziness, [id number] Referrals: Saniya Weinstein NP [Primary Care Provider] - Forms: ED Department Discharge Additional Instructions: You were seen in the emergency department today for an episode of dizziness while at voodoo. Work-up included blood work, urinalysis, EKG of your heart, chest x-ray, head CT, and Covid and influenza testing. You have elevation of white blood cells, however this is likely due to your prednisone. You are slightly dehydrated. Your pacemaker was interrogated and showed no events within the last 72 hours. Recommend that you increase your fluid intake over the next few days. Follow-up with primary care provider at her next available visit. You should experience recurrence of symptoms or develop any new symptoms of concern, please do not hesitate to return to the emergency department for reevaluation.
== END 2021-04-12 15:14 | disposition home or self-care (01) ==
LOC: JD.ED 11:32
DX: R42 Dizziness and giddiness (principal); I11.0 Hypertensive heart disease with heart failure; I50.9 Heart failure, unspecified; E11.9 Type 2 diabetes mellitus without complications; Z88.1 Allergy status to other antibiotic agents; Z88.8 Allergy status to other drugs, medicaments and biological substances; Z79.02 Long term (current) use of antithrombotics/antiplatelets; Z79.01 Long term (current) use of anticoagulants; Z79.4 Long term (current) use of insulin; Z79.899 Other long term (current) drug therapy; Z20.822 Contact with and (suspected) exposure to COVID-19
CPT/HCPCS: 0240U; 36415; 70450; 71046; 80053; 81001; 83735; 84484; 85025; 86140; 93005; 99285; J7030

== ENCOUNTER 2021-06-05 08:36 | Emergency (ER) | payer MEDICARE, BC | END 2021-06-05 13:25 | disposition home or self-care (01) | LOC: JD.ED 08:36 | DX: M10.4 Other secondary gout (principal); I11.0 Hypertensive heart disease with heart failure; I50.9 Heart failure, unspecified; E11.9 Type 2 diabetes mellitus without complications; E03.9 Hypothyroidism, unspecified; Z87.891 Personal history of nicotine dependence; Z88.1 Allergy status to other antibiotic agents; Z88.8 Allergy status to other drugs, medicaments and biological substances; Z79.02 Long term (current) use of antithrombotics/antiplatelets; Z79.01 Long term (current) use of anticoagulants; Z79.4 Long term (current) use of insulin; Z79.899 Other long term (current) drug therapy; Z20.822 Contact with and (suspected) exposure to COVID-19 | CPT/HCPCS: 36415; 71045; 73130; 80053; 84550; 85025; 85379; 85652; 86140; 99284; U0002 ==

== ENCOUNTER 2021-06-14 20:56 | Inpatient (IN) | payer MEDICARE, BC ==
[2021-06-14] MEDS ORDERED: Sodium Chloride 0.9% 10 ML Syringe FLUSH PRN (21:15)
[2021-06-14] MEDS ORDERED: Sodium Chloride 0.9% 1,000 ML IV SCH (21:15)
[2021-06-14] MEDS ORDERED: Sodium Chloride 0.9% 500 ML IV ONE (23:03)
[2021-06-15] MEDS ORDERED: Sodium Chloride 0.9% 500 ML IV ONE (01:10)
[2021-06-15] MEDS ORDERED: Acetaminophen 325 MG Tab PO PRN (02:37)
[2021-06-15] MEDS ORDERED: Ondansetron 4 MG/2 ML SDV IVPUSH PRN (02:39)
[2021-06-15] MEDS: Sodium Chloride 0.9% 1,000 ML IV SCH ×2 (03:05→17:47)
[2021-06-15] MEDS ORDERED: Insulin Lispro 100 Unit/ML 3 ML KwikPen SUBCUT ONE ×2 (11:11→12:10)
[2021-06-15] MEDS ORDERED: Insulin Lispro 100 Unit/ML 3 ML KwikPen SUBCUT SCH ×2 (11:30→17:00)
[2021-06-15] MEDS: Allopurinol 100 MG Tab PO SCH (15:21)
[2021-06-15] MEDS: Ascorbic Acid 500 MG Tab PO SCH (15:21)
[2021-06-15] MEDS: Insulin Lispro 100 Unit/ML 3 ML KwikPen SUBCUT SCH (17:44)
[2021-06-15] MEDS: Sacubitril/Valsartan 1 EACH Tablet PO SCH (20:26)
[2021-06-15] MEDS: Apixaban 5 MG Tab PO SCH (20:27)
[2021-06-15] MEDS: Simvastatin 40 MG Tab PO SCH (20:27)
[2021-06-15] MEDS: Insulin Glargine,Hum.Rec.Anlog 100 UNIT/ML 3 ML Pen SUBCUT SCH (20:28)
[2021-06-15] MEDS ORDERED: Metoprolol Succinate 50 MG Tab.ER PO SCH (21:00)
[2021-06-16] MEDS: Insulin Lispro 100 Unit/ML 3 ML KwikPen SUBCUT SCH ×3 (06:55→18:02)
[2021-06-16] MEDS: Sodium Chloride 0.9% 1,000 ML IV SCH (07:14)
[2021-06-16] MEDS: Cholecalciferol (Vitamin D3) 25 MCG Tab PO SCH (08:15)
[2021-06-16] MEDS: Ascorbic Acid 500 MG Tab PO SCH (08:16)
[2021-06-16] MEDS: Allopurinol 100 MG Tab PO SCH (08:16)
[2021-06-16] MEDS: Apixaban 5 MG Tab PO SCH ×2 (08:16→20:08)
[2021-06-16] MEDS: Sacubitril/Valsartan 1 EACH Tablet PO SCH ×2 (10:30→20:09)
[2021-06-16] MEDS: Metoprolol Succinate 50 MG Tab.ER PO SCH (10:31)
[2021-06-16] MEDS: Simvastatin 40 MG Tab PO SCH (20:09)
[2021-06-16] MEDS: Insulin Glargine,Hum.Rec.Anlog 100 UNIT/ML 3 ML Pen SUBCUT SCH (20:09)
[2021-06-17] MEDS ORDERED: Metoprolol Tartrate 50 MG Tab PO ONE (04:43)
[2021-06-17] MEDS: Insulin Lispro 100 Unit/ML 3 ML KwikPen SUBCUT SCH ×3 (09:08→18:15)
[2021-06-17] MEDS: Cholecalciferol (Vitamin D3) 25 MCG Tab PO SCH (09:11)
[2021-06-17] MEDS: Ascorbic Acid 500 MG Tab PO SCH (09:11)
[2021-06-17] MEDS: Apixaban 5 MG Tab PO SCH ×2 (09:12→20:13)
[2021-06-17] MEDS: Allopurinol 100 MG Tab PO SCH (09:12)
[2021-06-17] MEDS: Sacubitril/Valsartan 1 EACH Tablet PO SCH ×2 (09:19→20:13)
[2021-06-17] MEDS: Metoprolol Succinate 50 MG Tab.ER PO SCH (09:19)
[2021-06-17] MEDS: Colchicine 0.6 MG Tab PO SCH ×2 (11:13→20:13)
[2021-06-17] MEDS ORDERED: Polyethylene Glycol 3350 Powder 17 GM Packet PO ONE (18:47)
[2021-06-17] MEDS: Simvastatin 40 MG Tab PO SCH (20:13)
[2021-06-17] MEDS: Insulin Glargine,Hum.Rec.Anlog 100 UNIT/ML 3 ML Pen SUBCUT SCH (20:14)
[2021-06-17] MEDS: Sodium Chloride 0.9% 250 ML IV SCH (22:38)
[2021-06-18] MEDS: Insulin Lispro 100 Unit/ML 3 ML KwikPen SUBCUT SCH ×3 (08:01→17:37)
[2021-06-18] MEDS: Metoprolol Succinate 50 MG Tab.ER PO SCH (08:24)
[2021-06-18] MEDS: Sacubitril/Valsartan 1 EACH Tablet PO SCH ×2 (08:25→20:12)
[2021-06-18] MEDS: Ascorbic Acid 500 MG Tab PO SCH (08:25)
[2021-06-18] MEDS: Cholecalciferol (Vitamin D3) 25 MCG Tab PO SCH (08:25)
[2021-06-18] MEDS: Allopurinol 100 MG Tab PO SCH (08:25)
[2021-06-18] MEDS: Apixaban 5 MG Tab PO SCH ×2 (08:25→20:12)
[2021-06-18] MEDS ORDERED: Furosemide 40 MG Tab PO SCH (09:00)
[2021-06-18] MEDS ORDERED: Sodium Chloride 0.9% 1,000 ML IV ONE (16:43)
[2021-06-18] MEDS: Furosemide 40 MG Tab PO SCH (16:52)
[2021-06-18] MEDS: Sodium Chloride 0.9% 250 ML IV SCH (16:53)
[2021-06-18] MEDS: Colchicine 0.6 MG Tab PO SCH (20:12)
[2021-06-18] MEDS: Simvastatin 40 MG Tab PO SCH (20:13)
[2021-06-18] MEDS: Insulin Glargine,Hum.Rec.Anlog 100 UNIT/ML 3 ML Pen SUBCUT SCH (21:33)
[2021-06-19] MEDS ORDERED: Magnesium Hydroxide 400 MG/5 ML Susp 30 ML Cup PO ONE (06:00)
[2021-06-19] MEDS: Insulin Lispro 100 Unit/ML 3 ML KwikPen SUBCUT SCH ×3 (08:28→19:16)
[2021-06-19] MEDS: Metoprolol Succinate 50 MG Tab.ER PO SCH (08:30)
[2021-06-19] MEDS: Allopurinol 100 MG Tab PO SCH (08:31)
[2021-06-19] MEDS: Apixaban 5 MG Tab PO SCH ×2 (08:31→21:33)
[2021-06-19] MEDS: Furosemide 40 MG Tab PO SCH (08:31)
[2021-06-19] MEDS: Cholecalciferol (Vitamin D3) 25 MCG Tab PO SCH (08:31)
[2021-06-19] MEDS: Clopidogrel 75 MG Tab PO SCH (08:31)
[2021-06-19] MEDS: Sacubitril/Valsartan 1 EACH Tablet PO SCH ×2 (08:31→21:32)
[2021-06-19] MEDS: Ascorbic Acid 500 MG Tab PO SCH (08:31)
[2021-06-19] MEDS: Colchicine 0.6 MG Tab PO SCH (08:44)
[2021-06-19] MEDS ORDERED: Digoxin 250 MCG Tab PO SCH (09:00)
[2021-06-19] MEDS: Insulin Glargine,Hum.Rec.Anlog 100 UNIT/ML 3 ML Pen SUBCUT SCH (21:33)
[2021-06-19] MEDS: Simvastatin 40 MG Tab PO SCH (21:33)
[2021-06-20] MEDS: Insulin Lispro 100 Unit/ML 3 ML KwikPen SUBCUT SCH ×3 (08:12→18:03)
[2021-06-20] MEDS: Digoxin 125 MCG Tab PO SCH (08:13)
[2021-06-20] MEDS: Metoprolol Succinate 50 MG Tab.ER PO SCH (08:13)
[2021-06-20] MEDS: Cholecalciferol (Vitamin D3) 25 MCG Tab PO SCH (08:13)
[2021-06-20] MEDS: Allopurinol 100 MG Tab PO SCH (08:13)
[2021-06-20] MEDS: Clopidogrel 75 MG Tab PO SCH (08:13)
[2021-06-20] MEDS: Ascorbic Acid 500 MG Tab PO SCH (08:13)
[2021-06-20] MEDS: Sacubitril/Valsartan 1 EACH Tablet PO SCH ×2 (08:14→20:48)
[2021-06-20] MEDS: Furosemide 40 MG Tab PO SCH (08:14)
[2021-06-20] MEDS: Apixaban 5 MG Tab PO SCH ×2 (08:18→20:49)
[2021-06-20] MEDS: Simvastatin 40 MG Tab PO SCH (20:48)
[2021-06-20] MEDS: Insulin Glargine,Hum.Rec.Anlog 100 UNIT/ML 3 ML Pen SUBCUT SCH (20:49)
[2021-06-21] MEDS: Insulin Lispro 100 Unit/ML 3 ML KwikPen SUBCUT SCH ×3 (08:01→17:53)
[2021-06-21] MEDS: Apixaban 5 MG Tab PO SCH ×2 (09:21→21:19)
[2021-06-21] MEDS: Cholecalciferol (Vitamin D3) 25 MCG Tab PO SCH (09:21)
[2021-06-21] MEDS: Furosemide 40 MG Tab PO SCH (09:21)
[2021-06-21] MEDS: Clopidogrel 75 MG Tab PO SCH (09:21)
[2021-06-21] MEDS: Allopurinol 100 MG Tab PO SCH (09:21)
[2021-06-21] MEDS: Digoxin 125 MCG Tab PO SCH (09:21)
[2021-06-21] MEDS: Sacubitril/Valsartan 1 EACH Tablet PO SCH ×2 (09:21→21:20)
[2021-06-21] MEDS: Ascorbic Acid 500 MG Tab PO SCH (09:22)
[2021-06-21] MEDS: Metoprolol Succinate 50 MG Tab.ER PO SCH (09:23)
[2021-06-21] MEDS: Insulin Glargine,Hum.Rec.Anlog 100 UNIT/ML 3 ML Pen SUBCUT SCH (21:20)
[2021-06-21] MEDS: Simvastatin 40 MG Tab PO SCH (21:20)
[2021-06-22] MEDS: Insulin Lispro 100 Unit/ML 3 ML KwikPen SUBCUT SCH ×2 (07:40→11:11)
[2021-06-22] MEDS: Allopurinol 100 MG Tab PO SCH (08:31)
[2021-06-22] MEDS: Digoxin 125 MCG Tab PO SCH (08:31)
[2021-06-22] MEDS: Metoprolol Succinate 50 MG Tab.ER PO SCH (08:31)
[2021-06-22] MEDS: Clopidogrel 75 MG Tab PO SCH (08:32)
[2021-06-22] MEDS: Ascorbic Acid 500 MG Tab PO SCH (08:32)
[2021-06-22] MEDS: Cholecalciferol (Vitamin D3) 25 MCG Tab PO SCH (08:32)
[2021-06-22] MEDS: Furosemide 40 MG Tab PO SCH (08:32)
[2021-06-22] MEDS: Apixaban 5 MG Tab PO SCH (08:32)
[2021-06-22] MEDS: Sacubitril/Valsartan 1 EACH Tablet PO SCH (08:32)
== END 2021-06-22 11:45 | DRG 315 ==
LOC: JD.ED 20:56 → JD.MS 06-15 02:09 → UNDOADMIN 06-15 02:09 → JD.MS 06-16 19:39
PROVIDERS: ADMIT Family Medicine; ATTEND Family Medicine
DX: R53.1 Weakness (principal); N28.9 Disorder of kidney and ureter, unspecified; I95.89 Other hypotension; I42.8 Other cardiomyopathies; I13.0 Hypertensive heart and chronic kidney disease with heart failure and stage 1 through stage 4 chronic kidney disease, or unspecified chronic kidney disease; E86.0 Dehydration; W19.XXXA Unspecified fall, initial encounter; R77.8 Other specified abnormalities of plasma proteins; I49.3 Ventricular premature depolarization; N18.32 Chronic kidney disease, stage 3b; I42.9 Cardiomyopathy, unspecified; D63.1 Anemia in chronic kidney disease; E11.22 Type 2 diabetes mellitus with diabetic chronic kidney disease; E16.2 Hypoglycemia, unspecified; E11.65 Type 2 diabetes mellitus with hyperglycemia; E11.649 Type 2 diabetes mellitus with hypoglycemia without coma; R62.7 Adult failure to thrive; I50.9 Heart failure, unspecified; M19.90 Unspecified osteoarthritis, unspecified site; E03.9 Hypothyroidism, unspecified; R32 Unspecified urinary incontinence; Z20.822 Contact with and (suspected) exposure to COVID-19; D64.9 Anemia, unspecified; Z96.653 Presence of artificial knee joint, bilateral; Z96.0 Presence of urogenital implants; Z98.49 Cataract extraction status, unspecified eye; Z87.891 Personal history of nicotine dependence; Z79.4 Long term (current) use of insulin; Z88.1 Allergy status to other antibiotic agents; Z90.49 Acquired absence of other specified parts of digestive tract; Z86.73 Personal history of transient ischemic attack (TIA), and cerebral infarction without residual deficits; Z79.01 Long term (current) use of anticoagulants; Z95.2 Presence of prosthetic heart valve; Z88.8 Allergy status to other drugs, medicaments and biological substances; Z79.899 Other long term (current) drug therapy; Z79.02 Long term (current) use of antithrombotics/antiplatelets
CPT/HCPCS: 36415 ×3; 70450; 71045; 80053; 81001; 82272; 82947 ×4; 83735; 83880 ×2; 84443; 84484 ×3; 85025 ×2; 86140; 93005 ×2; 97161; 97530 ×2; 99285; A9270 ×4; J7030 ×3; U0002; 36430; 71046; 71046-26; 73110-26-LT; 73110-LT; 80162; 81003; 82607; 82747; 83540; 83605; 84439; 84550; 85014; 85018; 85379; 85652; 86850; 86900; 86901; 86922; 87040; 92523-GN; 93971-26-LT; 93971-LT; 94760; 97116-GP; J1815; J7050; P9016

== ENCOUNTER 2021-08-13 08:15 | Day surgery (SDC) | payer MEDICARE, BC ==
[2021-08-13] MEDS: Polymyxin B/Trimethoprim 10 ML Bottle EYELF SCH ×4 (07:34→09:59)
[2021-08-13] MEDS: Brimonidine 0.2% Ophth Soln 5 ML Bottle EYELF SCH ×4 (07:39→09:58)
[2021-08-13] MEDS: Phenylephrine 2.5% Ophth Soln 2 ML Bot EYELF SCH ×6 (07:45→09:57)
[2021-08-13] MEDS: Tropicamide 1% Ophth Soln 15 ML Bottle EYELF SCH ×4 (07:48→08:22)
[2021-08-13] MEDS: Tetracaine HCl/PF 0.5% 4 ML Bottle EYEBOTH SCH ×4 (08:26→09:58)
[2021-08-13] MEDS: Lidocaine 1% PF 2 ML SDV INJECT SCH ×2 (08:40→09:58)
[2021-08-13] MEDS: Cefuroxime 10 MG/ML SYRINGE EYELF SCH ×2 (08:52→09:58)
[2021-08-13] MEDS: Pilocarpine 4% Ophth Soln 15 ML Bot EYELF SCH ×2 (08:53→09:58)
== END 2021-08-13 09:04 | disposition home or self-care (01) ==
LOC: JD.SDS 08:15
PROVIDERS: ATTEND Ophthalmology
DX: E11.36 Type 2 diabetes mellitus with diabetic cataract (principal); H25.813 Combined forms of age-related cataract, bilateral; E03.9 Hypothyroidism, unspecified; I13.0 Hypertensive heart and chronic kidney disease with heart failure and stage 1 through stage 4 chronic kidney disease, or unspecified chronic kidney disease; E11.22 Type 2 diabetes mellitus with diabetic chronic kidney disease; N18.9 Chronic kidney disease, unspecified; I50.9 Heart failure, unspecified; I42.9 Cardiomyopathy, unspecified; Z95.0 Presence of cardiac pacemaker; Z79.01 Long term (current) use of anticoagulants; Z79.02 Long term (current) use of antithrombotics/antiplatelets; Z98.890 Other specified postprocedural states; Z90.49 Acquired absence of other specified parts of digestive tract; Z79.4 Long term (current) use of insulin; Z88.1 Allergy status to other antibiotic agents; Z91.048 Other nonmedicinal substance allergy status; Z86.73 Personal history of transient ischemic attack (TIA), and cerebral infarction without residual deficits
CPT/HCPCS: 66984; J0697; C1780

== ENCOUNTER 2021-12-24 13:44 | Emergency (ER) | payer MEDICARE, BC | END 2021-12-24 17:30 | disposition home or self-care (01) | LOC: JD.ED 13:44 | DX: R29.818 Other symptoms and signs involving the nervous system (principal); R42 Dizziness and giddiness; I13.0 Hypertensive heart and chronic kidney disease with heart failure and stage 1 through stage 4 chronic kidney disease, or unspecified chronic kidney disease; E11.22 Type 2 diabetes mellitus with diabetic chronic kidney disease; N18.9 Chronic kidney disease, unspecified; I50.9 Heart failure, unspecified; Z88.1 Allergy status to other antibiotic agents; Z88.8 Allergy status to other drugs, medicaments and biological substances | CPT/HCPCS: 36415; 80053; 80162; 83735; 83880; 84484; 85025; 93005; 99285 ==

== ENCOUNTER 2022-04-12 09:52 | Inpatient (IN) | payer MEDICARE, BC ==
[2022-04-12] MEDS ORDERED: Sodium Chloride 0.9% 10 ML Syringe FLUSH PRN (10:36)
[2022-04-12] MEDS ORDERED: Sodium Chloride 0.9% 1,000 ML IV SCH (10:45)
[2022-04-12] MEDS ORDERED: cefTRIAXone 2 GM in Sodium Chloride 0.9% 100 ML IV ONE (12:46)
[2022-04-12] MEDS ORDERED: Ondansetron 4 MG/2 ML SDV IV PRN (17:10)
[2022-04-12] MEDS ORDERED: Ondansetron 4 MG Tab.DIS PO PRN (17:10)
[2022-04-12] MEDS ORDERED: Docusate Sodium 100 MG Cap PO PRN (17:10)
[2022-04-12] MEDS ORDERED: cefTRIAXone 1 GM in Sodium Chloride 0.9% 100 ML IV SCH (17:15)
[2022-04-12] MEDS: Heparin Sodium 5,000 Units/ML Vial SUBCUT SCH ×3 (19:26→22:54)
[2022-04-12] MEDS: Lactated Ringers 1,000 ML IV SCH (21:31)
[2022-04-12] MEDS: Acetaminophen 325 MG Tab PO PRN (22:34)
[2022-04-12] MEDS: Insulin Lispro 100 Unit/ML 3 ML KwikPen SUBCUT SCH (23:24)
[2022-04-13] MEDS: Lactated Ringers 1,000 ML IV SCH ×2 (06:06→17:37)
[2022-04-13] MEDS ORDERED: Insulin Lispro 100 Unit/ML 3 ML KwikPen SUBCUT SCH (07:30)
[2022-04-13] MEDS: Heparin Sodium 5,000 Units/ML Vial SUBCUT SCH ×2 (08:00→15:44)
[2022-04-13] MEDS: Insulin Lispro 100 Unit/ML 3 ML KwikPen SUBCUT SCH ×4 (08:01→21:12)
[2022-04-13] MEDS: Potassium Chloride 20 MEQ Tab.ER PO SCH ×2 (10:46→21:12)
[2022-04-13] MEDS: cefTRIAXone 1 GM in Sodium Chloride 0.9% 100 ML IV SCH (12:46)
[2022-04-13] MEDS: Acetaminophen 325 MG Tab PO PRN (21:11)
[2022-04-14] MEDS: Heparin Sodium 5,000 Units/ML Vial SUBCUT SCH ×2 (00:04→08:00)
[2022-04-14] MEDS: Lactated Ringers 1,000 ML IV SCH ×2 (05:53→10:05)
[2022-04-14] MEDS: Potassium Chloride 20 MEQ Tab.ER PO SCH ×2 (07:59→20:39)
[2022-04-14] MEDS: Insulin Lispro 100 Unit/ML 3 ML KwikPen SUBCUT SCH ×4 (07:59→20:37)
[2022-04-14] MEDS: cefTRIAXone 1 GM in Sodium Chloride 0.9% 100 ML IV SCH (12:27)
[2022-04-14] MEDS ORDERED: Polyethylene Glycol 3350 Powder 17 GM Packet PO PRN (13:23)
[2022-04-14] MEDS ORDERED: Acetaminophen 325 MG Tab PO PRN (13:23)
[2022-04-14] MEDS: Acetaminophen 325 MG Tab PO PRN (13:56)
[2022-04-14] MEDS: Calcitriol 0.25 MCG Cap PO SCH (13:57)
[2022-04-14] MEDS: Sodium Bicarbonate 650 MG Tab PO SCH ×2 (13:59→20:39)
[2022-04-14 18:29] LABS: CORONAVIRUS COVID-19 NAA POSITIVE (NEGATIVE)
[2022-04-14] MEDS: Insulin Glargine,Human Rec. Analog 100 Units/ML 3 ML Pen SUBCUT SCH (20:38)
[2022-04-14] MEDS: atorvaSTATin 20 MG Tab PO SCH (20:39)
[2022-04-14] MEDS: Apixaban 5 MG Tab PO SCH (20:39)
[2022-04-14] MEDS: Metoprolol Succinate 50 MG Tab.ER PO SCH (20:39)
[2022-04-14] MEDS: Sacubitril/Valsartan 1 EACH Tablet PO SCH (20:39)
[2022-04-15] MEDS: Sacubitril/Valsartan 1 EACH Tablet PO SCH ×2 (08:07→22:26)
[2022-04-15] MEDS: Apixaban 5 MG Tab PO SCH ×2 (08:07→22:27)
[2022-04-15] MEDS: Sodium Bicarbonate 650 MG Tab PO SCH ×3 (08:07→22:26)
[2022-04-15] MEDS: Furosemide 40 MG Tab PO SCH (08:07)
[2022-04-15] MEDS: Metoprolol Succinate 50 MG Tab.ER PO SCH (08:07)
[2022-04-15] MEDS: Allopurinol 100 MG Tab PO SCH (08:09)
[2022-04-15] MEDS ORDERED: Digoxin 125 MCG Tab PO SCH (09:00)
[2022-04-15] MEDS: Insulin Lispro 100 Unit/ML 3 ML KwikPen SUBCUT SCH ×4 (09:30→22:26)
[2022-04-15] MEDS: cefTRIAXone 1 GM in Sodium Chloride 0.9% 100 ML IV SCH (12:33)
[2022-04-15] MEDS: Acetaminophen 325 MG Tab PO PRN (16:57)
[2022-04-15] MEDS: Insulin Glargine,Human Rec. Analog 100 Units/ML 3 ML Pen SUBCUT SCH (22:25)
[2022-04-15] MEDS: atorvaSTATin 20 MG Tab PO SCH (22:27)
[2022-04-15] MEDS: Sulfamethoxazole/Trimethoprim 800-160 MG Tab PO SCH (22:27)
[2022-04-16] MEDS ORDERED: Digoxin 125 MCG Tab PO SCH (09:00)
[2022-04-16] MEDS: Insulin Lispro 100 Unit/ML 3 ML KwikPen SUBCUT SCH ×2 (09:03→12:19)
[2022-04-16] MEDS: Apixaban 5 MG Tab PO SCH (10:39)
[2022-04-16] MEDS: Sulfamethoxazole/Trimethoprim 800-160 MG Tab PO SCH (10:39)
[2022-04-16] MEDS: Metoprolol Succinate 50 MG Tab.ER PO SCH (10:40)
[2022-04-16] MEDS: Sodium Bicarbonate 650 MG Tab PO SCH ×2 (10:40→14:56)
[2022-04-16] MEDS: Sacubitril/Valsartan 1 EACH Tablet PO SCH (10:41)
[2022-04-16] MEDS: Furosemide 40 MG Tab PO SCH (10:41)
[2022-04-16] MEDS: Allopurinol 100 MG Tab PO SCH (10:41)
[2022-04-16] MEDS: Calcitriol 0.25 MCG Cap PO SCH (12:30)
== END 2022-04-16 17:06 | DRG 689 ==
LOC: JD.ED 09:52 → JD.MS 15:32
PROVIDERS: ADMIT Hospitalist; ATTEND Hospitalist
DX: N30.00 Acute cystitis without hematuria (principal); E43 Unspecified severe protein-calorie malnutrition; U07.1 COVID-19; J18.9 Pneumonia, unspecified organism; I50.23 Acute on chronic systolic (congestive) heart failure; N17.8 Other acute kidney failure; I42.0 Dilated cardiomyopathy; I13.0 Hypertensive heart and chronic kidney disease with heart failure and stage 1 through stage 4 chronic kidney disease, or unspecified chronic kidney disease; N18.4 Chronic kidney disease, stage 4 (severe); Z68.1 Body mass index [BMI] 19.9 or less, adult; F03.90 Unspecified dementia, unspecified severity, without behavioral disturbance, psychotic disturbance, mood disturbance, and anxiety; I50.9 Heart failure, unspecified; M19.90 Unspecified osteoarthritis, unspecified site; N39.0 Urinary tract infection, site not specified; E11.22 Type 2 diabetes mellitus with diabetic chronic kidney disease; Z96.653 Presence of artificial knee joint, bilateral; E86.0 Dehydration; B96.20 Unspecified Escherichia coli [E. coli] as the cause of diseases classified elsewhere; M81.0 Age-related osteoporosis without current pathological fracture; N32.0 Bladder-neck obstruction; N89.8 Other specified noninflammatory disorders of vagina; E03.9 Hypothyroidism, unspecified; Z79.4 Long term (current) use of insulin; E11.9 Type 2 diabetes mellitus without complications; I10 Essential (primary) hypertension; Z79.01 Long term (current) use of anticoagulants; Z88.1 Allergy status to other antibiotic agents; Z90.49 Acquired absence of other specified parts of digestive tract; Z88.8 Allergy status to other drugs, medicaments and biological substances; Z79.899 Other long term (current) drug therapy; Z95.0 Presence of cardiac pacemaker; Z95.2 Presence of prosthetic heart valve; Z86.73 Personal history of transient ischemic attack (TIA), and cerebral infarction without residual deficits
CPT/HCPCS: 0241U; 36415; 74176; 80048; 80053; 81001; 81003; 82947; 83605; 83735; 85025; 86140; 87040; 87070; 87086; 87088; 87186; 87205; 87641; 97162; 97166; 97530; A9270-GY; J0696; J1644; J1815; J1815-GY; J3490; J7030; J7120

== ENCOUNTER 2023-12-12 10:28 | Emergency (ER) | payer MEDICARE, BC | END 2023-12-12 15:50 | disposition home or self-care (01) | LOC: JD.ED 10:28 | DX: S09.90XA Unspecified injury of head, initial encounter (principal); I48.91 Unspecified atrial fibrillation; E11.22 Type 2 diabetes mellitus with diabetic chronic kidney disease; I13.0 Hypertensive heart and chronic kidney disease with heart failure and stage 1 through stage 4 chronic kidney disease, or unspecified chronic kidney disease; I50.9 Heart failure, unspecified; N18.9 Chronic kidney disease, unspecified; Z86.73 Personal history of transient ischemic attack (TIA), and cerebral infarction without residual deficits; Z79.01 Long term (current) use of anticoagulants; Z79.4 Long term (current) use of insulin; Z79.899 Other long term (current) drug therapy; Z88.1 Allergy status to other antibiotic agents; Z88.8 Allergy status to other drugs, medicaments and biological substances; W19.XXXA Unspecified fall, initial encounter | CPT/HCPCS: 70450; 70450-26; 72125; 72125-26; 82947; 99284 ==